=== PATIENT | male | born 1940 | race Caucasian/White ===

== ENCOUNTER 2018-08-17 10:43 | Day surgery (SDC) | payer MEDICARE, OTHER ==
[~2018-08-17] VITALS: Ht 172.7 cm; Wt 87.5 kg
[~2018-08-17 10:43] MED LIST: ALPR.25T PO; ALPR0.25 PO; AMLO5TAB7 PO; ASCO500T20 PO; ASP325T PO; ASP81CT PO; ASPI-983 PO; ATOR80TA2 PO; ATOR80TA64 PO; Atorvastatin Calcium PO; CALC-656 PO; CALC-913 PO; CARV12.53 PO; CEFU500T5 PO; CLOB15CR2 TP; CLOP75TA PO; CLOP75TA69 PO; CLPD75T PO; CYAN10007 PO; DIGO250T96 PO; ENAL10TA PO; ENAL5TAB PO; ENLP10T PO; ERGO400C PO; FENO145T2 PO; GEMF600T3 PO; ISOS30TA3 PO; Isosorbide Mononitrate PO; KCL20TCR PO; LEVO1CAP3 PO; LOSA100T7 PO; Levofloxacin PO; MAGN400T6 PO; METF-380 PO; METO25TA2 PO; METO25TA6 PO; MULT1CAP27 PO; MULT1TAB69 PO; NIA500ERT PO; NIAC1000 PO; NITR0.4T SL; OMEG1CAP74 PO; OMG1KC PO; Omega 3 Polyunsat Fatty Acids PO; PNT40TEC PO; POTA99TA7 PO; SILV25CR TP; SIMV20TA3 PO; SUCR1TAB23 PO; Sucralfate PO; VITA-198 PO; VITA100D PO
[2018-08-17] MEDS ORDERED: NS IV 1000 ML 1,000 ML IV SCH ×2 (10:46→12:47)
--- OUTSIDE RECORDS SUMMARY | 2018-08-17 10:50 | XMS REPORT | Continuity of Care Document ---
Author Author [facility] Organization [facility] Address Unknown Phone Unavailable Allergies Active Description Code Type Severity Reaction Onset Reported/Identified Relationship to Patient Clinical Status Yes NKANo Known Allergies NKA Miscellaneous Allergy Unknown N/A 09/02/2006 Yes eptifibatide [id number] Drug Allergy Unknown N/A 10/22/2014 Medications There is no data. Problems Date Dx Coded Attending Type Code Diagnosis Diagnosed By 09/05/2010 Ot 414.00 09/05/2010 Ot 729.81 09/05/2010 Ot 782.3 09/05/2010 Ot V45.81 09/05/2010 Ot V58.69 02/11/2011 Ot 250.00 02/11/2011 Ot 272.4 02/11/2011 Ot 401.9 02/11/2011 Ot 414.01 02/11/2011 Ot 414.02 02/11/2011 Ot 414.2 02/11/2011 Ot 428.0 02/11/2011 Ot 433.10 02/11/2011 Ot 518.89 02/11/2011 Ot V45.81 02/11/2011 Ot V58.66 02/11/2011 Ot V58.69 02/19/2011 Ot 250.00 02/19/2011 Ot 272.4 02/19/2011 Ot 285.9 02/19/2011 Ot 287.5 02/19/2011 Ot 403.90 02/19/2011 Ot 414.01 02/19/2011 Ot 414.02 02/19/2011 Ot 428.0 02/19/2011 Ot 433.10 02/19/2011 Ot 518.89 02/19/2011 Ot 585.3 02/19/2011 Ot V15.82 02/19/2011 Ot V17.49 02/19/2011 Ot V45.81 02/19/2011 Ot V58.66 02/19/2011 Ot V58.69 06/03/2013 RAJWINDER BLAKE, EMELI Heller Ot 239.0 06/03/2013 RAJWINDER BLAKE, EMELI R Ot 250.00 06/03/2013 RAJWINDER BLAKE, EMELI R Ot 272.4 06/03/2013 RAJWINDER BLAKE, EMELI R Ot 287.5 06/03/2013 RAJWINDER BLAKE, EMELI R Ot 414.01 06/03/2013 RAJWINDER BLAKE, EMELI R Ot 486 06/03/2013 RAJWINDER BLAKE, EMELI R Ot 574.20 06/03/2013 RAJWINDER BLAKE, EMELI R Ot 591 06/03/2013 RAJWINDER BLAKE, EMELI R Ot 592.0 06/03/2013 RAJWINDER BLAKE, EMELI R Ot 600.00 06/03/2013 RAJWINDER BLAKE, EMELI R Ot 607.84 06/03/2013 RAJWINDER BLAKE, EMELI R Ot 789.01 06/03/2013 RAJWINDER BLAKE, EMELI R Ot 789.03 06/23/2013 JOSE BLAKE, LIZZY S Ot 250.00 06/23/2013 JOSE BLAKE, LIZZY S Ot 272.4 06/23/2013 JOSE BLAKE, LIZZY S Ot 401.9 06/23/2013 JOSE BLAKE, LIZZY S Ot 414.01 06/23/2013 JOSE BLAKE, LIZZY S Ot 428.0 06/23/2013 JOSE BLAKE, LIZZY S Ot 433.10 06/23/2013 JOSE BLAKE, LIZZY S Ot 440.21 06/23/2013 JOSE BLAKE, LIZZY S Ot 440.4 06/23/2013 JOSE BLAKE, LIZZY S Ot V45.82 06/23/2013 JOSE BLAKE, LIZZY S Ot V58.69 06/23/2013 RAJWINDER BLAKE, EMELI R Ot 781.3 06/23/2013 RAJWINDER BLAKE, EMELI R Ot V57.1 09/27/2014 Ot 715.35 09/27/2014 Ot 285.9 09/27/2014 Ot 518.89 09/27/2014 Ot 786.09 09/27/2014 Ot 250.00 09/27/2014 Ot 518.89 09/27/2014 Ot 574.20 09/27/2014 Ot 250.00 09/27/2014 Ot 273.1 09/27/2014 Ot 284.1 09/27/2014 Ot 414.00 09/27/2014 Ot 585.3 09/27/2014 Ot V58.63 09/27/2014 Ot V58.66 09/27/2014 Ot V58.69 09/27/2014 Ot 586 09/27/2014 Ot 586 09/27/2014 RAJWINDER BLAKE, EMELI Heller Ot 440.20 10/08/2014 ARIELLE CHAVEZ MD Ot 041.49 10/08/2014 KATHY BLAKE, ARIELLE Reynoso Ot 250.00 10/08/2014 KATHY BLAKE, ARIELLE Reynoso Ot 272.4 10/08/2014 ARIELLE CHAVEZ MD Ot 285.1 10/08/2014 ARIELLE CHAVEZ MD Ot 287.5 10/08/2014 ARIELLE CHAVEZ MD Ot 403.90 10/08/2014 ARIELLE CHAVEZ MD Ot 410.71 10/08/2014 ARIELLE CHAVEZ MD Ot 414.01 10/08/2014 ARIELLE CHAVEZ MD Ot 443.9 10/08/2014 ARIELLE CHAVEZ MD Ot 531.40 10/08/2014 ARIELLE CHAVEZ MD Ot 531.90 10/08/2014 ARIELLE CHAVEZ MD Ot 532.90 10/08/2014 ARIELLE CHAVEZ MD Ot 553.3 10/08/2014 ARIELLE CHAVEZ MD Ot 585.9 10/08/2014 ARIELLE CHAVEZ MD Ot 599.0 10/08/2014 ARIELLE CHAVEZ MD Ot 707.13 10/08/2014 ARIELLE CHAVEZ MD Ot 792.1 10/08/2014 ARIELLE CHAVEZ MD Ot 996.72 10/22/2014 Ot 250.00 10/22/2014 Ot 403.90 10/22/2014 Ot 410.72 10/22/2014 Ot 414.01 10/22/2014 Ot 440.0 10/22/2014 Ot 440.20 10/22/2014 Ot 440.4 10/22/2014 Ot 585.9 10/22/2014 Ot 707.15 10/22/2014 Ot V15.82 10/22/2014 Ot V45.81 10/22/2014 Ot V58.69 10/24/2014 ARIELLE CHAVEZ MD Ot 272.4 10/24/2014 KATHY BLAKE, ARIELLE Reynoso Ot 401.9 10/24/2014 KATHY BLAKE, ARIELLE Reynoso Ot 414.00 10/24/2014 KATHY BLAKE, ARIELLE Reynoso Ot 433.10 10/25/2014 KATHY BLAKE, ARIELLE Reynoso Ot 272.4 10/25/2014 KATHY BLAKE, ARIELLE Reynoso Ot 401.9 10/25/2014 KATHY BLAKE, ARIELLE Reynoso Ot 414.00 10/25/2014 KATHY BLAKE, ARIELLE Reynoso Ot 433.10 10/30/2014 Ot 250.00 10/30/2014 Ot 272.4 10/30/2014 Ot 403.90 10/30/2014 Ot 410.72 10/30/2014 Ot 414.01 10/30/2014 Ot 440.21 10/30/2014 Ot 440.4 10/30/2014 Ot 585.9 10/30/2014 Ot 707.15 10/30/2014 Ot V45.81 10/30/2014 Ot V58.69 11/13/2014 Ot 250.00 11/13/2014 Ot 403.90 11/13/2014 Ot 412 11/13/2014 Ot 414.00 11/13/2014 Ot 440.21 11/13/2014 Ot 440.4 11/13/2014 Ot 585.9 11/13/2014 Ot V12.51 11/13/2014 Ot V45.81 11/13/2014 Ot V45.82 11/13/2014 Ot V45.89 11/13/2014 Ot V58.69 11/21/2014 Ot 285.9 11/21/2014 Ot 518.89 11/21/2014 Ot 786.09 11/21/2014 Ot 250.00 11/21/2014 Ot 518.89 11/21/2014 Ot 574.20 11/21/2014 Ot 250.00 11/21/2014 Ot 273.1 11/21/2014 Ot 284.1 11/21/2014 Ot 414.00 11/21/2014 Ot 585.3 11/21/2014 Ot V58.63 11/21/2014 Ot V58.66 11/21/2014 Ot V58.69 11/21/2014 Ot 586 11/21/2014 Ot 586 11/21/2014 RAJWINDER BLAKE, EMELI Heller Ot 440.20 11/21/2014 KATHY BLAKE, BASHAR J Ot 272.4 11/21/2014 KATHY BLAKE, BASHAR J Ot 401.9 11/21/2014 KATHY BLAKE, BASHAR J Ot 414.00 11/21/2014 KATHY BLAKE, BASHAR J Ot 433.10 11/21/2014 KATHY BLAKE, BASHAR J Ot 272.4 11/21/2014 KATHY BLAKE, BASHAR J Ot 401.9 11/21/2014 KATHY BLAKE, BASHAR J Ot 414.00 11/21/2014 KATHY BLAKE, BASHAR J Ot 433.10 11/21/2014 KATHY BLAKE, BASHAR J Ot 272.4 11/21/2014 KATHY BLAKE, BASHAR J Ot 401.9 11/21/2014 KATHY BLAKE, BASHAR J Ot 414.00 11/21/2014 KATHY BLAKE, BASHAR J Ot 433.10 11/21/2014 KATHY BLAKE, BASHAR J Ot 272.4 11/21/2014 KATHY BLAKE, BASHAR J Ot 401.9 11/21/2014 KATHY BLAKE, BASHAR J Ot 414.00 11/21/2014 KATHY BLAKE, BASHAR J Ot 433.10 11/21/2014 KATHY BLAKE, BASHAR J Ot 272.4 11/21/2014 KATHY BLAKE, BASHAR J Ot 401.9 11/21/2014 KATHY BLAKE, BASHAR J Ot 414.00 11/21/2014 KATHY BLAKE, BASHAR J Ot 433.10 01/01/2015 KATHY BLAKE, BASHAR J Ot 412 01/01/2015 KATHY BLAKE, BASHAR J Ot V45.82 01/01/2015 KATHY BLAKE, BASHAR J Ot V57.89 01/02/2015 KATHY BLAKE, BASHAR J Ot 412 01/02/2015 KATHY BLAKE, BASHAR J Ot V45.82 01/02/2015 KATHY BLAKE, BASHAR J Ot V57.89 01/10/2015 KATHY BLAKE, BASHAR J Ot 272.4 01/10/2015 KATHY BLAKE, BASHAR J Ot 401.9 01/10/2015 KATHY BLAKE, BASHAR J Ot 414.00 01/10/2015 KATHY BLAKE, BASHAR J Ot 433.10 01/10/2015 KATHY BLAKE, BASHAR J Ot 272.4 01/10/2015 ARIELLE CHAVEZ MD Ot 401.9 01/10/2015 ARIELLE CHAVEZ MD Ot 414.00 01/10/2015 ARIELLE CHAVEZ MD Ot 433.10 07/01/2015 CHARLENE ESTES Ot E78.2 07/01/2015 CHARLENE ESTES Ot I10 07/01/2015 CHARLENE ESTES Ot I25.10 07/01/2015 CHARLENE ESTES Ot I65.23 07/11/2015 CHARLENE ESTES Ot E78.2 07/11/2015 CHARLENE ESTES Ot I10 07/11/2015 CHARLENE ESTES Ot I25.10 07/11/2015 CHARLENE ESTES Ot I65.23 07/19/2015 ARIELLE CHAVEZ MD Ot E11.9 TYPE 2 DIABETES MELLITUS WITHOUT COMPLIC 07/19/2015 ARIELLE CHAVEZ MD Ot E78.5 HYPERLIPIDEMIA, UNSPECIFIED 07/19/2015 ARIELLE CHAVEZ MD Ot I12.9 HYPERTENSIVE CHRONIC KIDNEY DISEASE W ST 07/19/2015 ARIELLE CHAVEZ MD Ot I25.10 ATHSCL HEART DISEASE OF [place] CORONARY 07/19/2015 ARIELLE CHAVEZ MD Ot 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[place] 07/19/2015 ARIELLE CHAVEZ MD Ot I77.9 DISORDER OF ARTERIES AND ARTERIOLES, UNS 07/19/2015 ARIELLE CHAVEZ MD, Ot N18.9 CHRONIC KIDNEY DISEASE, UNSPECIFIED 07/19/2015 ARIELLE CHAVEZ MD Ot R94.39 ABNORMAL RESULT OF OTHER CARDIOVASCULAR 07/19/2015 ARIELLE CHAVEZ MD Ot Z79.899 OTHER CORRECTION (CURRENT) DRUG THERAPY 07/19/2015 ARIELLE CHAVEZ MD, Ot Z91.19 PATIENT'S NONCOMPLIANCE W [facility] 07/19/2015 ARIELLE CHAVEZ MD, Ot Z95.1 PRESENCE OF AORTOCORONARY BYPASS GRAFT 07/22/2015 CHARLENE ESTES Ot E78.2 07/22/2015 CHARLENE ESTES Ot I10 07/22/2015 CHARLENE ESTES Ot I25.10 07/22/2015 CHARLENE ESTES Ot I65.23 07/31/2015 CHARLENE ESTES Ot E78.2 07/31/2015 CHARLENE ESTES Ot I10 07/31/2015 CHARLENE ESTES Ot I25.10 07/31/2015 CHARLENE ESTES Ot I65.23 08/28/2015 Ot 285.9 08/28/2015 Ot 518.89 08/28/2015 Ot 786.09 08/28/2015 Ot 250.00 08/28/2015 Ot 518.89 08/28/2015 Ot 574.20 08/28/2015 Ot 250.00 08/28/2015 Ot 273.1 08/28/2015 Ot 284.1 08/28/2015 Ot 414.00 08/28/2015 Ot 585.3 08/28/2015 Ot V58.63 08/28/2015 Ot V58.66 08/28/2015 Ot V58.69 08/28/2015 Ot 586 08/28/2015 Ot 586 08/28/2015 RAJWINDER BLAKE, EMELI R Ot 440.20 08/28/2015 KATHY BLAKE, ARIELLE Reynoso Ot 272.4 08/28/2015 KATHY BLAKE, ARIELLE Reynoso Ot 401.9 08/28/2015 KATHY BLAKE, ARIELLE Reynoso Ot 414.00 08/28/2015 KATHY BLAKE, ARIELLE Reynoso Ot 433.10 08/28/2015 KATHY BLAKE, ARIELLE Reynoso Ot 272.4 08/28/2015 KATHY BLAKE, ARIELLE Reynoso Ot 401.9 08/28/2015 KATHY BLAKE, ARIELLE Reynoos Ot 414.00 08/28/2015 KATHY BLAKE, ARIELLE Reynoso Ot 433.10 08/28/2015 CHARLENE ESTES Ot E78.2 08/28/2015 CHARLENE ESTES Ot I10 08/28/2015 CHARLENE ESTES Ot I25.10 08/28/2015 CHARLENE ESTES Ot I65.23 08/28/2015 CHARLENE ESTES Ot E78.2 08/28/2015 [facility], CHARLENE K Ot I10 08/28/2015 [facility], CHARLENE K Ot I25.10 08/28/2015 [facility], CHARLENE K Ot I65.23 08/28/2015 [facility], CHARLENE K Ot E78.2 08/28/2015 [facility], CHARLENE K Ot I10 08/28/2015 [facility], CHARLENE K Ot I25.10 08/28/2015 [facility], CHARLENE K Ot I65.23 08/28/2015 [facility], CHARLENE K Ot E78.2 08/28/2015 [facility], CHARLENE K Ot I10 08/28/2015 [facility], CHARLENE K Ot I25.10 08/28/2015 [facility], CHARLENE K Ot I65.23 08/28/2015 [facility], CHARLENE K Ot E78.2 08/28/2015 [facility], CHARLENE K Ot I10 08/28/2015 [facility], CHARLENE K Ot I25.10 08/28/2015 [facility], CHARLENE K Ot I65.23 12/19/2015 [facility], CHARLENE K Ot E78.2 MIXED HYPERLIPIDEMIA 12/19/2015 [facility], CHARLENE K Ot I10 ESSENTIAL (PRIMARY) HYPERTENSION 12/19/2015 [facility], CHARLENE K Ot I25.10 ATHSCL HEART DISEASE OF [place] CORONARY 12/19/2015 [facility], CHARLENE K Ot 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 12/19/2015 [facility], CHARLENE K Ot E78.2 MIXED HYPERLIPIDEMIA 12/19/2015 [facility], CHARLENE K Ot I10 ESSENTIAL (PRIMARY) HYPERTENSION 12/19/2015 [facility], CHARLENE K Ot I25.10 ATHSCL HEART DISEASE OF [place] CORONARY 12/19/2015 [facility], CHARLENE K Ot 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 Results There is no data. Encounters ACCT No. Visit Date/Time Discharge Status Pt. Type Provider Facility Loc./Unit Complaint [id number] 07/19/2015 11:02:00 07/19/2015 18:00:00 DIS Outpatient ARIELLE CHAVEZ MD [facility] [id number] 07/10/2015 07:58:00 07/10/2015 23:59:59 CLS Outpatient CHARLENE ESTES [facility] CARD [id number] 06/27/2015 10:48:00 06/27/2015 23:59:59 CLS Outpatient CHARLENE ESTES [facility] CARD [id number] 12/31/2014 12:02:00 01/02/2015 09:05:00 DIS Outpatient ARIELLE CHAVEZ MD [facility] [id number] 10/19/2014 12:27:00 10/19/2014 23:59:59 CLS Preadmit SACHIN LOCO MD [facility] ONC [id number] 10/01/2014 16:30:00 10/08/2014 19:27:00 DIS Inpatient ARIELLE CHAVEZ MD [facility] [id number] 10/04/2014 11:30:00 10/04/2014 23:59:59 CLS Preadmit ARIELLE CHAVEZ MD [facility] [id number] 09/28/2014 07:08:00 09/28/2014 23:59:59 CLS Outpatient ARIELLE CHAVEZ MD [facility] CARD [id number] 09/27/2014 15:18:00 09/27/2014 23:59:59 CLS Outpatient ARIELLE CHAVEZ MD [facility] CARD [id number] 06/14/2013 13:00:00 06/23/2013 14:08:00 DIS Outpatient EMELI PURDY MD [facility] REHAB [id number] 06/22/2013 09:04:00 06/23/2013 12:13:00 DIS Outpatient LIZZY GARCIA MD [facility] [id number] 06/02/2013 12:32:00 06/03/2013 11:55:00 DIS Inpatient EMELI PURDY MD [facility] SURGICAL [id number] 05/24/2013 08:35:00 05/24/2013 23:59:59 CLS Outpatient EMELI PURDY MD [facility] RAD [id number] 11/21/2014 09:50:00 Document Registration [id number] 10/29/2014 07:08:00 Document Registration [id number] 10/22/2014 06:39:00 Document Registration [id number] 09/27/2014 15:18:00 Document Registration [id number] 08/09/2012 13:47:00 Document Registration [id number] 08/06/2012 09:49:00 Document Registration [id number] 03/13/2011 09:55:00 Document Registration [id number] 02/18/2011 08:52:00 Document Registration [id number] 02/12/2011 08:18:00 Document Registration [id number] 02/11/2011 11:02:00 Document Registration [id number] 02/05/2011 11:24:00 Document Registration [id number] 09/05/2010 14:12:00 Document Registration [id number] 05/14/2009 10:06:00 Document Registration
[2018-08-17] MEDS ORDERED: HEParin (CATH LAB) 2,000 ML IV ONE (10:51)
[2018-08-17] MEDS ORDERED: NS IV 1000 ML 1,000 ML ONE (10:51)
[2018-08-17] MEDS ORDERED: LIDOCAINE 1% INJ 20 ML 20 ML VIAL ONE (10:51)
[2018-08-17 11:05] VITALS: BP 205/94
[2018-08-17] MEDS ORDERED: MIDAZOLAM 5 MG/5 ML (VERSED) VIAL ONE (11:21)
[2018-08-17 11:22] LABS: HEMOGLOBIN 12.9 G/DL (13.3-17.7); MEAN PLATELET VOLUME 11.3 FL (7.4-10.4); RED BLOOD COUNT 4.32 10^6/uL (4.35-5.85); RED CELL DISTRIBUTION WIDTH 14.1 % (10.0-14.5); WHITE BLOOD COUNT 6.4 10^3/uL (4.3-11.0)
[2018-08-17] MEDS ORDERED: fentaNYL INJECTION 100 MCG/2 ML AMP ONE (11:22)
--- NOTE | 2018-08-17 11:29 | Cardiac Procedure Note-CS/ASA ---
Pre-Procedure Note Pre-Op Procedure Note H&P Reviewed The H&P was reviewed, patient examined and no changes noted. Date H&P Reviewed: Aug 17, 2018 Time H&P Reviewed: 11:29 Conscious Sedation Pre-Proced Time 11:29 ASA Score 3 For ASA 3 and 4: Consider anesthesia and medical clearance. Also, for patients with a history of failed moderate sedation consider anesthesia. Airway Lungs Heart ASA score ASA 1: a normal healthy patient ASA 2: a patient with a mild systemic disease (mid diabetes, controlled hypertension, obesity x ASA 3: a patient with a severe systemic disease that limits activity (angina , COPD, prior Myocardial infarction) ASA 4: a patient with an incapacitating disease that is a constant threat to life (CHF, renal failure) ASA 5: a moribund patient not expected to survive 24 hrs. (ruptured aneurysm) ASA 6: a declared brain patient whose organs are being harvested. For emergent operations, add the letter E after the classification Mallampati Classification Grade 3 Sedation Plan Analgesia, Amnesia, Plan communicated to team members, Discussed options with patient/fam, Discussed risks with patient/fam The patient is an appropriate candidate to undergo the planned procedure, sedation, and anesthesia. The patient immediately re-assessed prior to indication. ARIELLE CHAVEZ MD Aug 17, 2018 11:29
[2018-08-17 11:33] LABS: BILIRUBIN,URINE NEGATIVE (NEGATIVE); CLARITY,URINE CLEAR; COLOR,URINE YELLOW; GLUCOSE, URINE (UA) NEGATIVE (NEGATIVE); KETONES,URINE NEGATIVE (NEGATIVE); LEUKOCYTE ESTERASE ,URINE NEGATIVE (NEGATIVE); NITRITE,URINE NEGATIVE (NEGATIVE); PH,URINE 5 (5-9); PROTEIN,URINE 3+ (NEGATIVE); UROBILINOGEN,URINE NORMAL (NORMAL)
[2018-08-17 11:34] LABS: PROTHROMBIN TIME PATIENT 13.3 SEC (12.2-14.7)
[2018-08-17] MEDS ORDERED: GEMF600T4 PO (11:34)
[2018-08-17] MEDS ORDERED: ALPR0.25 PO (11:34)
[2018-08-17] MEDS ORDERED: OMG1KC PO (11:34)
[2018-08-17] MEDS ORDERED: CALC-78 PO (11:34)
[2018-08-17] MEDS ORDERED: ISOS30TA3 PO (11:34)
[2018-08-17] MEDS ORDERED: METF-399 PO (11:34)
[2018-08-17] MEDS ORDERED: MAGN400T50 PO (11:34)
[2018-08-17] MEDS ORDERED: VITA400C60 PO (11:34)
[2018-08-17] MEDS ORDERED: CYAN10006 PO (11:34)
[2018-08-17] MEDS ORDERED: LOSA100T8 PO (11:34)
[2018-08-17] MEDS ORDERED: ASPI-983 PO (11:34)
[2018-08-17] MEDS ORDERED: ATOR20TA66 PO (11:34)
[2018-08-17] MEDS ORDERED: NITR0.4T42 SL (11:34)
[2018-08-17] MEDS ORDERED: CLOP75TA69 PO (11:34)
[2018-08-17] MEDS ORDERED: METO-387 PO (11:34)
[2018-08-17] MEDS ORDERED: PANT40TA2 PO (11:34)
--- NOTE | 2018-08-17 11:38 | Diagnostic Imaging Report ---
INDICATION: Coronary artery disease COMPARISON: 07/19/2015 FINDINGS: The heart size and configuration stable. Sternal wires midline. No failure, effusion or pneumothorax. Hyperdense nodularity right lower lobe laterally of about 1.5 cm unchanged from a study of 2015 chronic and benign. IMPRESSION: Stable chest no acute abnormality. Dictated by: Dictated on workstation # [id number]
[2018-08-17 11:40] LABS: ALANINE AMINOTRANSFERASE 84 U/L (0-55); ALBUMIN 5.3 GM/DL (3.2-4.5); ALKALINE PHOSPHATASE 76 U/L (40-136); BILIRUBIN,TOTAL 0.5 MG/DL (0.1-1.0); BUN/CREATININE RATIO 19; CALCIUM 10.3 MG/DL (8.5-10.1); CARBON DIOXIDE 21 MMOL/L (21-32); CHLORIDE 108 MMOL/L (98-107); CHOLESTEROL 249 MG/DL (< 200); CREATININE SERUM 2.04 MG/DL (0.60-1.30); GFR ESTIMATED 32; GLUCOSE 169 MG/DL (70-105); HDL CHOLESTEROL 33 MG/DL (40-60); POTASSIUM 4.4 MMOL/L (3.6-5.0); SODIUM 141 MMOL/L (135-145); TOTAL PROTEIN 8.5 GM/DL (6.4-8.2); TRIGLYCERIDES 284 MG/DL (<150); VLDL CHOLESTEROL 57 MG/DL (5-40)
[2018-08-17 11:45] LABS: BACTERIA,URINE NEGATIVE /HPF; HYALINE CASTS, URINE 0-2 /LPF; RBC,URINE RARE /HPF; SQUAMOUS EPITHELIAL CELL,UR RARE /HPF; WBC,URINE 0-2 /HPF
[2018-08-17] MEDS ORDERED: FLU QUADRIvalent (5+ YOA) 2018-2019 (AFLURIA) 0.5 ML IM ONE (12:15)
--- NOTE | 2018-08-17 12:53 | Cardiac Cath Report ---
Cardiac Cath Report Physician (s)/Manager Personnel Selection (s) Physician ARIELLE CHAVEZ MD Pre-Procedure Diagnosis Pre-Procedure Diagnosis: coronary artery disease Post-Procedure Note Procedure Start Date: Aug 17, 2018 Procedure Start Time: 12:48 Name of Procedure: coronary artery disease Findings/Procedure Note PROCEDURE NOTE: After explaining the procedure to the patient, all pros and cons were explained , all questions were answered. The patient signed the consent and then he was placed on the cardiac catheterization laboratory. Groin was prepped SL fashion local anesthesia was used. Sheath placed in the left femoral artery. Faustino right and left catheter were used to access the coronary system.Vein Graft evaluated. ALVARADO evaluated. limited contrast used, I only used a total of 16 mL of contrast. At the end of the procedure sheath was removed and manual pressure applied FINDINGS: Hemodynamics Aorta 118/48 mean of 50 ANATOMY: Left Main has severe distal stenosis Left Anterior Descending has severe ostial stenosis, ALVARADO to LAD is patent Left Circumflex has severe ostial stenosis, vein graft to the obtuse marginal branch is patent Right Coronory Artery is occluded and occluded vein graft to the right coronary artery with collaterals filling the right from the left system ALVARADO to LAD is patent with good flow distally Vein Graft evaluation showed 2 vein graft one vein graft to the obtuse marginal branch is patent with good flow, the second vein graft is occluded known to be to the right coronary artery CONCLUSION: 1. Occluded right coronary artery and vein graft to the right coronary artery with collaterals filling the right from the left system 2. Severe ostial LAD and circumflex and ramus intermedius disease with patent ALVARADO to LAD and vein graft to the obtuse marginal branch 3. Severe peripheral arterial disease, did not evaluate the full anatomy due to the underlying renal insufficiency DISCUSSION AND RECOMMENDATION: Continue to maximize medical therapy. No intervention is warranted at this time Anesthesia Type: Conscious Sedation Estimated blood loss (mL): 10 ml Contrast Amount: 16 ml Total Radiation Dose: 389 mGy Post-Procedure Diagnosis Post-operative diagnosis: Chest pain Coronary artery disease Hypertension Hyperlipidemia ARIELLE CHAVEZ MD Aug 17, 2018 12:53
[2018-08-17] MEDS ORDERED: PATIENT MAY USE OWN MEDS, ALL PO SCH (13:00)
[2018-08-17 13:30] VITALS: BP 139/80
--- NOTE | 2018-08-17 13:38 | Discharge Inst-Post CATH ---
Discharge Inst-CATH/EP Post Cardiac Cath/EP D/C Inst Follow Up/Plan Hold Metformin for [address] Centeno in 2-4 weeks CARDIAC CATH DISCHARGE INSTRUCTIONS *Hold Metformin for 48 hours post heart cath. ACTIVITY * Go Home directly and rest. * Limit activity of the leg (or wrist if it was used) for 7 days including aerobics, swimming, jogging, bicycling, etc. * Restrict stair-climbing for 7 days if possible, if not, climb up with your non -cath leg, then bring together on the same step. * Avoid lifting, pushing, pulling or excessive movement of the affected extremity for 7 days. * Customary sexual activity may be resumed after 2 days-use caution not to use a position that strains or causes pain to the affected extremity. * No driving for 24 hours. * NO SMOKING. * Avoid straining for bowel movements for 7 days. * Gentle walking on level ground is allowed. * Returning to work will depend on the type of procedure and the results. Your doctor will discuss this with you. CALL YOUR DOCTOR FOR ANY OF THE FOLLOWING: *If bleeding from the puncture site occurs- Apply gentle pressure to site with clean cloth and call your doctor or EMS. * If a knot or lump forms under the skin, increases in size, or causes pain. * If bruising appears to be worsening or moving further down your leg instead of disappearing. * Temperature above 101 F. CARE OF YOUR GROIN INCISION; * Bruising or purple discoloration of the skin near the puncture site is common. * You may shower only, no bathtub bathing for 5 days. Be careful to avoid slipping as your leg may feel stiff. * If a closure device was used on your femoral artery, please see the attached guide regarding care of the device and your leg. * Leave the dressing on, until removed by office staff. CARE OF YOUR WRIST INCISION; * Bruising or purple discoloration of the skin near the puncture site is common. * You may shower. * DO NOT submerge wrist. * Leave dressing on, until removed by office staff.. ARIELLE CENTENO MD Aug 17, 2018 1:38 pm
[2018-08-17 18:11] VITALS: BP 178/67
== END 2018-08-17 18:14 | disposition home or self-care (01) ==
LOC: CATH 10:43 → ICU 13:23 → CATH 18:14
PROVIDERS: ATTEND Internal Medicine Cardiovascular Disease
DX: R07.9 Chest pain, unspecified (principal); I25.10 Atherosclerotic heart disease of native coronary artery without angina pectoris; I11.0 Hypertensive heart disease with heart failure; I50.9 Heart failure, unspecified; E78.2 Mixed hyperlipidemia; E11.9 Type 2 diabetes mellitus without complications; E78.1 Pure hyperglyceridemia; I65.22 Occlusion and stenosis of left carotid artery; I73.9 Peripheral vascular disease, unspecified; Z79.84 Long term (current) use of oral hypoglycemic drugs; Z79.899 Other long term (current) drug therapy; Z79.82 Long term (current) use of aspirin; Z87.891 Personal history of nicotine dependence
CPT/HCPCS: 36415; 71045; 80053; 80061; 81000; 85027; 85610; 85730; 87081; 93455

== ENCOUNTER 2018-08-19 17:55 | Emergency (ER) | payer MEDICARE, OTHER ==
[~2018-08-19] VITALS: Ht 172.7 cm; Wt 87.5 kg
[~2018-08-19 17:55] MED LIST changes: +ATOR20TA66 PO; +CALC-78 PO; +CYAN10006 PO; +GEMF600T4 PO; +LOSA100T8 PO; +MAGN400T50 PO; +METF-399 PO; +METO-387 PO; +NITR0.4T42 SL; +PANT40TA2 PO; +VITA400C60 PO
--- OUTSIDE RECORDS SUMMARY | 2018-08-19 18:07 | XMS REPORT | Continuity of Care Document ---
Author Author [facility] Organization [facility] Address Unknown Phone Unavailable Allergies Active Description Code Type Severity Reaction Onset Reported/Identified Relationship to Patient Clinical Status Yes NKANo Known Allergies NKA Miscellaneous Allergy Unknown N/A 09/02/2006 Yes eptifibatide [id number] Drug Allergy Unknown N/A 10/22/2014 Yes No Known Drug Allergies [id number] Drug Allergy Unknown N/A 08/17/2018 Medications There is no data. Problems Date [...] 02/19/2011 Ot V58.66 02/19/2011 Ot V58.69 06/03/2013 EMELI PURDY MD R Ot 239.0 DIGESTIVE NEOPLASM NOS 06/03/2013 EMELI PURDY MD Ot 250.00 DIAB MADELYN WO COMPL, TYPE II OR UNSPEC TY 06/03/2013 EMELI PURDY MD Ot 272.4 HYPERLIPIDEMIA NEC/NOS 06/03/2013 EMELI PURDY MD R Ot 287.5 THROMBOCYTOPENIA NOS 06/03/2013 EMELI PURDY MD R Ot 414.01 CORONARY ATHEROSCLEROSIS OF [place] CORON 06/03/2013 EMELI PURDY MD R Ot 486 PNEUMONIA, ORGANISM NOS 06/03/2013 EMELI PURDY MD R Ot 574.20 CHOLELITHIASIS NOS 06/03/2013 EMLEI PURDY MD R Ot 591 HYDRONEPHROSIS 06/03/2013 EMELI PURDY MD R Ot 592.0 CALCULUS OF KIDNEY 06/03/2013 EMELI PURDY MD R Ot 600.00 HYPERTROPHY (BENIGN) OF PROSTATE W/O URI 06/03/2013 EMELI PURDY MD R Ot 607.84 IMPOTENCE, ORGANIC ORIGN 06/03/2013 EMLEI PURDY MD R Ot 789.01 ABDOMINAL PAIN, RIGHT UPPER QUADRANT 06/03/2013 EMELI PURDY MD R Ot 789.03 ABDOMINAL PAIN, RIGHT LOWER QUADRANT 06/23/2013 LIZZY GARCIA MD Ot 250.00 DIAB MADELYN WO COMPL, TYPE II OR UNSPEC TY 06/23/2013 LIZZY GARCIA MD Ot 272.4 HYPERLIPIDEMIA NEC/NOS 06/23/2013 LIZZY GARCIA MD Ot 401.9 HYPERTENSION NOS 06/23/2013 LIZZY GARCIA MD Ot 414.01 CORONARY ATHEROSCLEROSIS OF [place] CORON 06/23/2013 LIZZY GARCIA MD Ot 428.0 CONGESTIVE HEART FAILURE NOS 06/23/2013 LIZZY GARCIA MD Ot 433.10 CAROTID ARTERY OCCLUSION W O CEREBRAL IN 06/23/2013 LIZZY GARCIA MD Ot 440.21 ATHEROSCL [place] ARTER EXTREM W INTERMIT 06/23/2013 LIZZY GARCIA MD Ot 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 06/23/2013 LIZZY GARCIA MD Ot V45.82 PERCUTANEOUS TRANSLUM CORON ANGIOPLASTY 06/23/2013 JOSE BLAKE, LIZZY Kishore Ot V58.69 OTH MED,LT,CURRENT USE 06/23/2013 EMELI PURDY MD Ot 781.3 LACK OF COORDINATION 06/23/2013 EMELI PURDY MD Ot V57.1 PHYSICAL THERAPY NEC 09/27/2014 Ot 715.35 09/27/2014 Ot 285.9 09/27/2014 Ot 518.89 09/27/2014 Ot 786.09 09/27/2014 Ot 250.00 09/27/2014 Ot 518.89 09/27/2014 Ot 574.20 09/27/2014 Ot 250.00 09/27/2014 Ot 273.1 09/27/2014 Ot 284.1 09/27/2014 Ot 414.00 09/27/2014 Ot 585.3 09/27/2014 Ot V58.63 09/27/2014 Ot V58.66 09/27/2014 Ot V58.69 09/27/2014 Ot 586 09/27/2014 Ot 586 09/27/2014 EMELI PURDY MD Ot 440.20 10/08/2014 ARIELLE CHAVEZ MD Ot 041.49 OTHER AND UNSPECIFIED ESCHERICHIA COLI [ 10/08/2014 ARIELLE CHAVEZ MD Ot 250.00 DIAB MADELYN WO COMPL, TYPE II OR UNSPEC TY 10/08/2014 ARIELLE CHAVEZ MD Ot 272.4 HYPERLIPIDEMIA NEC/NOS 10/08/2014 ARIELLE CHAVEZ MD Ot 285.1 AC POSTHEMORRHAG ANEMIA 10/08/2014 ARIELLE CHAVEZ MD Ot 287.5 THROMBOCYTOPENIA NOS 10/08/2014 ARIELLE CHAVEZ MD Ot 403.90 HYPTNSV CHR KID DIS, UNSPEC, W CHR KD ST 10/08/2014 ARIELLE CHAVEZ MD Ot 410.71 AC MYOCARDIAL INFARCT,SUBENDO INFARCT,IN 10/08/2014 ARIELLE CHAVEZ MD Ot 414.01 CORONARY ATHEROSCLEROSIS OF [place] CORON 10/08/2014 ARIELLE CHAVEZ MD Ot 443.9 PERIPH VASCULAR DIS NOS 10/08/2014 ARIELLE CHAVEZ MD Ot 531.40 CHR STOMACH ULC W HEM 10/08/2014 ARIELLE CHAVEZ MD Ot 531.90 10/08/2014 ARIELLE CHAVEZ MD Ot 532.90 DUODENAL ULCER NOS 10/08/2014 ARIELLE CHAVEZ MD Ot 553.3 DIAPHRAGMATIC HERNIA 10/08/2014 ARIELLE CHAVEZ MD Ot 585.9 CHRONIC KIDNEY DISEASE, UNSPECIFIED 10/08/2014 ARIELLE CHAVEZ MD Ot 599.0 URIN TRACT INFECTION NOS 10/08/2014 ARIELLE CHAVEZ MD Ot 707.13 ULCER OF ANKLE 10/08/2014 ARIELLE CHAVEZ MD Ot 792.1 ABN FIND-STOOL CONTENTS 10/08/2014 ARIELLE CHAVEZ MD Ot 996.72 OTH COMPLICATIONS DUE TO OTH CARD DEVICE 10/22/2014 Ot 250.00 DIAB MADELYN WO COMPL, TYPE II OR UNSPEC TY 10/22/2014 Ot 403.90 HYPTNSV CHR KID DIS, UNSPEC, W CHR KD ST 10/22/2014 Ot 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,SUBENDO INFARCT,SUBSE 10/22/2014 Ot 414.01 CORONARY ATHEROSCLEROSIS OF [place] CORON 10/22/2014 Ot 440.0 AORTIC ATHEROSCLEROSIS 10/22/2014 Ot 440.20 ATHEROSCLEROSIS [place] ARTERIES EXTREMIT 10/22/2014 Ot 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 10/22/2014 Ot 585.9 CHRONIC KIDNEY DISEASE, UNSPECIFIED 10/22/2014 Ot 707.15 ULCER OF OTHER PART OF FOOT 10/22/2014 Ot V15.82 HISTORY OF TOBACCO USE 10/22/2014 Ot V45.81 AORTOCORONARY BYPASS 10/22/2014 Ot V58.69 OTH MED,LT, CURRENT USE 10/24/2014 ARIELLE CHAVEZ MD Ot 272.4 10/24/2014 ARIELLE CHAVEZ MD Ot 401.9 10/24/2014 ARIELLE CHAVEZ MD Ot 414.00 10/24/2014 ARIELLE CHAVEZ MD Ot 433.10 10/25/2014 ARIELLE CHAVEZ MD Ot 272.4 10/25/2014 ARIELLE CHAVEZ MD Ot 401.9 10/25/2014 ARIELLE CHAVEZ MD Ot 414.00 10/25/2014 ARIELLE CHAVEZ MD Ot 433.10 10/30/2014 Ot 250.00 DIAB MADELYN WO COMPL, TYPE II OR UNSPEC TY 10/30/2014 Ot 272.4 HYPERLIPIDEMIA NEC/NOS 10/30/2014 Ot 403.90 HYPTNSV CHR KID DIS, UNSPEC, W CHR KD ST 10/30/2014 Ot 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,SUBENDO INFARCT,SUBSE 10/30/2014 Ot 414.01 CORONARY ATHEROSCLEROSIS OF [place] CORON 10/30/2014 Ot 440.21 ATHEROSCL [place] ARTER EXTREM W INTERMIT 10/30/2014 Ot 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 10/30/2014 Ot 585.9 CHRONIC KIDNEY DISEASE, UNSPECIFIED 10/30/2014 Ot 707.15 ULCER OF OTHER PART OF FOOT 10/30/2014 Ot V45.81 AORTOCORONARY BYPASS 10/30/2014 Ot V58.69 OTH MED,LT, CURRENT USE 11/13/2014 Ot 250.00 DIAB MADELYN WO COMPL, TYPE II OR UNSPEC TY 11/13/2014 Ot 403.90 HYPTNSV CHR KID DIS, UNSPEC, W CHR KD ST 11/13/2014 Ot 412 OLD MYOCARDIAL INFARCT 11/13/2014 Ot 414.00 CORON ATHEROSCLER NOS TYPE VESSEL, NATIV 11/13/2014 Ot 440.21 ATHEROSCL [place] ARTER EXTREM W INTERMIT 11/13/2014 Ot 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 11/13/2014 Ot 585.9 CHRONIC KIDNEY DISEASE, UNSPECIFIED 11/13/2014 Ot V12.51 HX-VENOUS THROMBOSIS EMBOLISM 11/13/2014 Ot V45.81 AORTOCORONARY BYPASS 11/13/2014 Ot V45.82 PERCUTANEOUS TRANSLUM CORON ANGIOPLASTY 11/13/2014 Ot V45.89 POSTSURGICAL STATES NEC 11/13/2014 Ot V58.69 OTH MED,LT, CURRENT USE 11/21/2014 Ot 285.9 11/21/2014 Ot 518.89 11/21/2014 Ot 786.09 11/21/2014 Ot 250.00 11/21/2014 Ot 518.89 11/21/2014 Ot 574.20 11/21/2014 Ot 250.00 11/21/2014 Ot 273.1 11/21/2014 Ot 284.1 11/21/2014 Ot 414.00 11/21/2014 Ot 585.3 11/21/2014 Ot V58.63 11/21/2014 Ot V58.66 11/21/2014 Ot V58.69 11/21/2014 Ot 586 11/21/2014 Ot 586 11/21/2014 RAJWINDER BLAKE, EMELI R Ot 440.20 11/21/2014 KATHY BLAKE, ARIELLE Reynoso Ot 272.4 11/21/2014 KATHY BLAKE, ARIELLE Reynoso Ot 401.9 11/21/2014 KATHY BLAKE, ARIELLE Reynoso Ot 414.00 11/21/2014 KATHY BLAKE, ARIELLE Reynoso Ot 433.10 11/21/2014 KATHY BLAKE, ARIELLE Reynoso Ot 272.4 11/21/2014 KATHY BLAKE, ARIELLE J Ot 401.9 11/21/2014 KATHY BLAKE, ARIELLE J Ot 414.00 11/21/2014 KATHY BLAKE, ARIELLE Reynoso Ot 433.10 11/21/2014 KATHY BLAKE, ARIELLE J Ot 272.4 11/21/2014 KATHY BLAKE, ARIELLE Reynoso Ot 401.9 11/21/2014 KATHY BLAKE, ARIELLE Reynoso Ot 414.00 11/21/2014 ARIELLE CHAVEZ MD Ot 433.10 11/21/2014 ARIELLE CHAVEZ MD Ot 272.4 11/21/2014 KATHY BLAKE, ARIELLE J Ot 401.9 11/21/2014 KATHY BLAKE, ARIELLE J Ot 414.00 11/21/2014 KATHY BLAKE, ARILELE Reynoso Ot 433.10 11/21/2014 ARIELLE CHAVEZ MD Ot 272.4 11/21/2014 ARIELLE CHAVEZ MD Ot 401.9 11/21/2014 ARIELLE CHAVEZ MD Ot 414.00 11/21/2014 ARIELLE CHAVEZ MD Ot 433.10 01/01/2015 ARIELLE CHAVEZ MD Ot 412 01/01/2015 ARIELLE CHAVEZ MD Ot V45.82 01/01/2015 ARIELLE CHAVEZ MD Ot V57.89 01/02/2015 ARIELLE CHAVEZ MD Ot 412 OLD MYOCARDIAL INFARCT 01/02/2015 ARIELLE CHAVEZ MD Ot V45.82 PERCUTANEOUS TRANSLUM CORON ANGIOPLASTY 01/02/2015 ARIELLE CHAVEZ MD Ot V57.89 REHABILITATION PROC NEC 01/10/2015 ARIELLE CHAVEZ MD Ot 272.4 01/10/2015 ARIELLE CHAVEZ MD Ot 401.9 01/10/2015 ARIELLE CHAVEZ MD Ot 414.00 01/10/2015 ARIELLE CHAVEZ MD Ot 433.10 01/10/2015 ARIELLE CHAVEZ MD Ot 272.4 01/10/2015 ARIELLE CHAVEZ MD Ot 401.9 01/10/2015 ARIELLE CHAVEZ MD Ot 414.00 01/10/2015 ARIELLE CHAVEZ MD Ot 433.10 07/01/2015 CHARLENE ESTES Ot E78.2 07/01/2015 CHARLENE ESTES Ot I10 07/01/2015 ALBIN PALOMO, CHARLENE Terry Ot I25.10 07/01/2015 CHARLENE ESTES Ot I65.23 07/11/2015 CHARLENE ESTES Ot E78.2 07/11/2015 CHARLENE ESTES Ot I10 07/11/2015 CHARLENE ESTES Ot I25.10 07/11/2015 CHARLENE ESTES Ot I65.23 07/19/2015 ARIELLE CHAVEZ MD Ot E11.9 TYPE 2 DIABETES MELLITUS WITHOUT COMPLIC 07/19/2015 ARIELLE CHAVEZ MD Ot E78.5 HYPERLIPIDEMIA, UNSPECIFIED 07/19/2015 ARIELLE CHAVEZ MD Ot I12.9 HYPERTENSIVE CHRONIC KIDNEY DISEASE W ST 07/19/2015 ARIELLE CHAVEZ MD, Ot I25.10 ATHSCL HEART DISEASE OF [place] CORONARY 07/19/2015 ARIELLE CHAVEZ MD Ot 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[place] 07/19/2015 ARIELLE CHAVEZ MD Ot I77.9 DISORDER OF ARTERIES AND ARTERIOLES, UNS 07/19/2015 ARIELLE CHAVEZ MD, Ot N18.9 CHRONIC KIDNEY DISEASE, UNSPECIFIED 07/19/2015 ARIELLE CHAVEZ MD Ot R94.39 ABNORMAL RESULT OF OTHER CARDIOVASCULAR 07/19/2015 ARIELLE CHAVEZ MD, Ot Z79.899 OTHER WELDING 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 THERAPY 07/19/2015 ARIELLE CHAVEZ MD, Ot Z91.19 PATIENT'S NONCOMPLIANCE W [facility] MED[facility] TR 07/19/2015 ARIELLE CHAVEZ MD, Ot Z95.1 PRESENCE OF AORTOCORONARY BYPASS GRAFT 07/22/2015 CHARLENE ESTES Ot E78.2 07/22/2015 ALBIN PA, CHARLENE Harrison Ot I10 07/22/2015 ALBIN PA, CHARLENE Harrison Ot I25.10 07/22/2015 ALBIN PALOMO, CHARLENE Harrison Ot I65.23 07/31/2015 ALBIN PALOMO, CHARLENE K Ot E78.2 07/31/2015 ALBIN PA, CHARLENE K Ot I10 07/31/2015 ALBIN PA, CHARLENE K Ot I25.10 07/31/2015 ALBIN PALOMO, CHARLENE Harrison Ot I65.23 08/28/2015 Ot 285.9 08/28/2015 Ot 518.89 08/28/2015 Ot 786.09 08/28/2015 Ot 250.00 08/28/2015 Ot 518.89 08/28/2015 Ot 574.20 08/28/2015 Ot 250.00 08/28/2015 Ot 273.1 08/28/2015 Ot 284.1 08/28/2015 Ot 414.00 08/28/2015 Ot 585.3 08/28/2015 Ot V58.63 08/28/2015 Ot V58.66 08/28/2015 Ot V58.69 08/28/2015 Ot 586 08/28/2015 Ot 586 08/28/2015 RAJWINDER BLAKE, EMELI Heller Ot 440.20 08/28/2015 KATHY BLAKE, ARIELLE Reynoso Ot 272.4 08/28/2015 KATHY BLAKE, ARIELLE Reynoso Ot 401.9 08/28/2015 KATHY BLAKE, ARIELLE Reynoso Ot 414.00 08/28/2015 KATHY BLAKE, ARIELLE Reynoso Ot 433.10 08/28/2015 KATHY BLAKE, ARIELLE Reynoso Ot 272.4 08/28/2015 KATHY BLAKE, ARIELLE Reynoso Ot 401.9 08/28/2015 KATHY BLAKE, ARIELLE Reynoso Ot 414.00 08/28/2015 KATHY BLAKE, ARIELLE Reynoso Ot 433.10 08/28/2015 ALBIN PALOMO CHARLENE K Ot E78.2 08/28/2015 ALBIN PALOMO, CHARLENE K Ot I10 08/28/2015 ALBIN PALOMO, CHARLENE K Ot I25.10 08/28/2015 VILLASENOR-DAVY PA, CHARELNE K Ot I65.23 08/28/2015 [facility] PA, CHARLENE K Ot E78.2 08/28/2015 VILLASENOR-DAVY PA, CHARLENE K Ot I10 08/28/2015 VILLASENOR-DAVY PA, CHARLENE K Ot I25.10 08/28/2015 VILLASENOR-DAVY PA, CHARLENE K Ot I65.23 08/28/2015 [facility] PA, CHARLENE K Ot E78.2 08/28/2015 [facility] PA, CHARLENE K Ot I10 08/28/2015 [facility] PA, CHARLENE K Ot I25.10 08/28/2015 [facility] PA, CHARLENE K Ot I65.23 08/28/2015 [facility] PA, CHARLENE K Ot E78.2 08/28/2015 [facility] PA, CHARLENE K Ot I10 08/28/2015 [facility] PA, CHARLENE K Ot I25.10 08/28/2015 [facility] PA, CHARLENE K Ot I65.23 08/28/2015 [facility] PA, CHARLENE K Ot E78.2 08/28/2015 [facility] PA, CHARLENE K Ot I10 08/28/2015 [facility] PA, CHARLENE K Ot I25.10 08/28/2015 [facility] PA, CHARLENE K Ot I65.23 12/19/2015 [facility] K Ot E78.2 MIXED HYPERLIPIDEMIA 12/19/2015 [facility] PA, CHARLENE K Ot I10 ESSENTIAL (PRIMARY) HYPERTENSION 12/19/2015 [facility] PA, CHARLENE K Ot I25.10 ATHSCL HEART DISEASE OF [place] CORONARY 12/19/2015 [facility] PA, CHARLENE K Ot 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 12/19/2015 [facility] K Ot E78.2 MIXED HYPERLIPIDEMIA 12/19/2015 [facility] PA, CHARLENE K Ot I10 ESSENTIAL (PRIMARY) HYPERTENSION 12/19/2015 [facility]E K Ot I25.10 ATHSCL HEART DISEASE OF [place] CORONARY 12/19/2015 VILLASENORDELIA PALOMO CHARLENE K Ot 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 12/26/2015 VILLASENOR-DAVY PALOMO CHARLENE K Ot E78.2 MIXED HYPERLIPIDEMIA 12/26/2015 VILLASENORDELIA PALOMO CHARLENE Harrison Ot I10 ESSENTIAL (PRIMARY) HYPERTENSION 12/26/2015 ALBIN PALOMO CHARLENE K Ot I25.10 ATHSCL HEART DISEASE OF [place] CORONARY 12/26/2015 VILLASENORDELIA PALOMO CHARLENE K Ot 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 12/26/2015 VILLASENOR-DAVY PALOMO CHARLENE K Ot E78.2 MIXED HYPERLIPIDEMIA 12/26/2015 VILLASENOR-DAVY PALOMO CHARLENE Harrison Ot I10 ESSENTIAL (PRIMARY) HYPERTENSION 12/26/2015 VILLASENORDELIA PALOMO CHARLENE K Ot I25.10 ATHSCL HEART DISEASE OF [place] CORONARY 12/26/2015 VILLASENORDELIA PALOMO CHARLENE K Ot 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 08/16/2018 RAJWINDER BLAKE, EMELI R Ot 440.20 ATHEROSCLEROSIS [place] ARTERIES EXTREMIT 08/16/2018 ARIELLE CHAVEZ MD Ot 272.4 HYPERLIPIDEMIA NEC/NOS 08/16/2018 ARIELLE CHAVEZ MD Ot 401.9 HYPERTENSION NOS 08/16/2018 ARIELLE CHAVEZ MD Ot 414.00 CORON ATHEROSCLER NOS TYPE VESSEL, NATIV 08/16/2018 ARIELLE CHAVEZ MD Ot 433.10 CAROTID ARTERY OCCLUSION W O CEREBRAL IN 08/16/2018 ARIELLE CHAVEZ MD Ot 272.4 HYPERLIPIDEMIA NEC/NOS 08/16/2018 ARIELLE CHAVEZ MD Ot 401.9 HYPERTENSION NOS 08/16/2018 ARIELLE CHAVEZ MD Ot 414.00 CORON ATHEROSCLER NOS TYPE VESSEL, NATIV 08/16/2018 ARIELLE CHAVEZ MD Ot 433.10 CAROTID ARTERY OCCLUSION W O CEREBRAL IN 08/16/2018 CHARLENE ESTES Ot E78.2 MIXED HYPERLIPIDEMIA 08/16/2018 CEDRIC ESTESDITH K Ot I10 ESSENTIAL (PRIMARY) HYPERTENSION 08/16/2018 CHARLENE ESTES Ot I25.10 ATHSCL HEART DISEASE OF [place] CORONARY 08/16/2018 CHARLENE ESTES Ot 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 08/16/2018 CHARLENE ESTES Ot E78.2 MIXED HYPERLIPIDEMIA 08/16/2018 CHARLENE ESTES Ot I10 ESSENTIAL (PRIMARY) HYPERTENSION 08/16/2018 CHARLENE ESTES Ot I25.10 ATHSCL HEART DISEASE OF [place] CORONARY 08/16/2018 CHARLENE ESTES Ot 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 08/17/2018 RAJWINDER BLAKE, EMLEI R Ot 440.20 ATHEROSCLEROSIS [place] ARTERIES EXTREMIT 08/17/2018 KATHY BLAKE, ARIELLE J Ot 272.4 HYPERLIPIDEMIA NEC/NOS 08/17/2018 ARIELLE CHAVEZ MD J Ot 401.9 HYPERTENSION NOS 08/17/2018 KATHY BLAKE, SAMHAR J Ot 414.00 CORON ATHEROSCLER NOS TYPE VESSEL, NATIV 08/17/2018 ARIELLE CHAVEZ MD J Ot 433.10 CAROTID ARTERY OCCLUSION W O CEREBRAL IN 08/17/2018 ARIELLE CHAVEZ MD J Ot 272.4 HYPERLIPIDEMIA NEC/NOS 08/17/2018 KATHY BLAKE, SAMHAR J Ot 401.9 HYPERTENSION NOS 08/17/2018 KATHY BLAKE, SAMHAR J Ot 414.00 CORON ATHEROSCLER NOS TYPE VESSEL, NATIV 08/17/2018 SAM CHAVEZ MDHAR J Ot 433.10 CAROTID ARTERY OCCLUSION W O CEREBRAL IN 08/17/2018 CHARLENE ESTES Ot E78.2 MIXED HYPERLIPIDEMIA 08/17/2018 CHARLEEN ESTES Ot I10 ESSENTIAL (PRIMARY) HYPERTENSION 08/17/2018 CHARLENE ESTES Ot I25.10 ATHSCL HEART DISEASE OF [place] CORONARY 08/17/2018 CHARLENE ESTES Ot 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 08/17/2018 CHARLENE ESTES Ot E78.2 MIXED HYPERLIPIDEMIA 08/17/2018 CHARLENE ESTES Ot I10 ESSENTIAL (PRIMARY) HYPERTENSION 08/17/2018 CHARLENE ESTES K Ot I25.10 ATHSCL HEART DISEASE OF [place] CORONARY 08/17/2018 CHARLENE ESTES Ot 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 08/17/2018 ARIELLE CHAVEZ MD Ot E11.9 TYPE 2 DIABETES MELLITUS WITHOUT COMPLIC 08/17/2018 ARIELLE CHAVEZ MD Ot E78.1 PURE HYPERGLYCERIDEMIA 08/17/2018 ARIELLE CHAVEZ MD Ot E78.2 MIXED HYPERLIPIDEMIA 08/17/2018 ARIELLE CHAVEZ MD Ot I11.0 HYPERTENSIVE HEART DISEASE WITH HEART FA 08/17/2018 ARIELLE CHAVEZ MD Ot I25.10 ATHSCL HEART DISEASE OF [place] CORONARY 08/17/2018 ARIELLE CHAVEZ MD Ot I50.9 HEART FAILURE, UNSPECIFIED 08/17/2018 ARIELLE CHAVEZ MD Ot I65.22 OCCLUSION AND STENOSIS OF LEFT CAROTID A 08/17/2018 ARIELLE CHAVEZ MD Ot I73.9 PERIPHERAL VASCULAR DISEASE, UNSPECIFIED 08/17/2018 ARIELLE CHAVEZ MD Ot R07.9 CHEST PAIN, UNSPECIFIED 08/17/2018 ARIELLE CHAVEZ MD Ot Z79.82 WELDING MACHINE FEEDER (CURRENT) USE OF ASPIRIN 08/17/2018 ARIELLE CHAVEZ MD Ot Z79.84 FDC (CURRENT) USE OF ORAL HYPOGLYC 08/17/2018 ARIELLE CHAVEZ MD Ot Z79.899 OTHER WELDING MACHINE 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 THERAPY 08/17/2018 ARIELLE CHAVEZ MD Ot Z87.891 PERSONAL HISTORY OF NICOTINE DEPENDENCE 08/18/2018 ARIELLE CHAVEZ MD Ot E11.9 TYPE 2 DIABETES MELLITUS WITHOUT COMPLIC 08/18/2018 ARIELLE CHAVEZ MD Ot E78.1 PURE HYPERGLYCERIDEMIA 08/18/2018 ARIELLE CHAVEZ MD Ot E78.2 MIXED HYPERLIPIDEMIA 08/18/2018 ARIELLE CHAVEZ MD Ot I11.0 HYPERTENSIVE HEART DISEASE WITH HEART FA 08/18/2018 ARIELLE CHAVEZ MD Ot I25.10 ATHSCL HEART DISEASE OF [place] CORONARY 08/18/2018 ARIELLE CHAVEZ MD Ot I50.9 HEART FAILURE, UNSPECIFIED 08/18/2018 ARIELLE CHAVEZ MD Ot I65.22 OCCLUSION AND STENOSIS OF LEFT CAROTID A 08/18/2018 ARIELLE CHAVEZ MD Ot I73.9 PERIPHERAL VASCULAR DISEASE, UNSPECIFIED 08/18/2018 ARIELLE CHAVEZ MD Ot R07.9 CHEST PAIN, UNSPECIFIED 08/18/2018 ARILELE CHAVEZ MD, Ot Z79.82 FDC (CURRENT) USE OF ASPIRIN 08/18/2018 ARIELLE CHAVEZ MD, Ot Z79.84 FDC (CURRENT) USE OF ORAL HYPOGLYC 08/18/2018 ARIELLE CHAVEZ MD, Ot Z79.899 OTHER FDC (CURRENT) DRUG THERAPY 08/18/2018 ARIELLE CHAVEZ MD, Ot Z87.891 PERSONAL HISTORY OF NICOTINE DEPENDENCE Procedures Code Description Performed By Performed On 00.40 PROCEDURE ON SINGLE VESSEL 10/01/2014 00.45 INSERTION OF ONE VASCULAR STENT 10/01/2014 00.66 PERCUTANEOUS TRANSLUMINAL CORONARY ANGIO 10/01/2014 36.07 INSRT OF DRUG-ELUTING CORON ARTERY STENT 10/01/2014 88.49 CONTRAST ARTERIOGRAM NEC 10/01/2014 88.56 CORONAR ARTERIOGR-2 CATH 10/01/2014 88.49 CONTRAST ARTERIOGRAM NEC 10/02/2014 45.13 OTHER ENDOSCOPY OF SM INTEST 10/08/2014 Results Test Result Range Automated blood complete blood count (hemogram) panel - 08/17/18 11:10 Blood leukocytes automated count (number/volume) 6.4 10*3/uL 4.3-11.0 Blood erythrocytes automated count (number/volume) 4.32 10*6/uL 4.35-5.85 Venous blood hemoglobin measurement (mass/volume) 12.9 g/dL 13.3-17.7 Blood hematocrit (volume fraction) 38 % 40-54 Automated erythrocyte mean corpuscular volume 88 [foz_us] 80-99 Automated erythrocyte mean corpuscular hemoglobin (mass per erythrocyte) 30 pg 25-34 Automated erythrocyte mean corpuscular hemoglobin concentration measurement ( mass/volume) 34 g/dL 32-36 Automated erythrocyte distribution width ratio 14.1 % 10.0-14.5 Automated blood platelet count (count/volume) 140 10*3/uL 130-400 Automated blood platelet mean volume measurement 11.3 [foz_us] 7.4-10.4 PT panel in platelet poor plasma by coagulation assay - 08/17/18 11:10 Prothrombin time (PT) in platelet poor plasma by coagulation assay 13.3 s 12.2-14.7 INR in platelet poor plasma or blood by coagulation assay 1.0 0.8-1.4 Activated partial thromboplastin time (aPTT) in platelet poor plasma bycoagulation assay - 08/17/18 11:10 Activated partial thromboplastin time (aPTT) in platelet poor plasma bycoagulation assay 42 s 24-35 Comprehensive metabolic panel - 08/17/18 11:10 Serum or plasma sodium measurement (moles/volume) 141 mmol/L 135-145 Serum or plasma potassium measurement (moles/volume) 4.4 mmol/L 3.6-5.0 Serum or plasma chloride measurement (moles/volume) 108 mmol/L 98-107 Carbon dioxide 21 mmol/L 21-32 Serum or plasma anion gap determination (moles/volume) 12 mmol/L 5-14 Serum or plasma urea nitrogen measurement (mass/volume) 38 mg/dL 7-18 Serum or plasma creatinine measurement (mass/volume) 2.04 mg/dL 0.60-1.30 Serum or plasma urea nitrogen/creatinine mass ratio 19 NRG Serum or plasma creatinine measurement with calculation of estimated glomerular filtration rate 32 NRG Serum or plasma glucose measurement (mass/volume) 169 mg/dL 70-105 Serum or plasma calcium measurement (mass/volume) 10.3 mg/dL 8.5-10.1 Serum or plasma total bilirubin measurement (mass/volume) 0.5 mg/dL 0.1-1.0 Serum or plasma alkaline phosphatase measurement (enzymatic activity/volume) 76 U/L 40-136 Serum or plasma aspartate aminotransferase measurement (enzymatic activity/ volume) 40 U/L 5-34 Serum or plasma alanine aminotransferase measurement (enzymatic activity/volume ) 84 U/L 0-55 Serum or plasma protein measurement (mass/volume) 8.5 g/dL 6.4-8.2 Serum or plasma albumin measurement (mass/volume) 5.3 g/dL 3.2-4.5 Lipid 1996 panel - 08/17/18 11:10 Serum or plasma triglyceride measurement (mass/volume) 284 mg/dL <150 Serum or plasma cholesterol measurement (mass/volume) 249 mg/dL < 200 Serum or plasma cholesterol in HDL measurement (mass/volume) 33 mg/ dL 40-60 Cholesterol in LDL [mass/volume] in serum or plasma by direct assay 157 mg/dL 1-129 Serum or plasma cholesterol in VLDL measurement (mass/volume) 57 mg/ dL 5-40 Methicillin resistant Staphylococcus aureus (MRSA) screening culture - 11:10 Methicillin resistant Staphylococcus aureus (MRSA) screening culture NEG NRG Complete urinalysis with reflex to culture - 08/17/18 11:20 Urine color determination YELLOW NRG Urine clarity determination CLEAR NRG Urine pH measurement by test strip 5 5-9 Specific gravity of urine by test strip 1.015 1.016- 1.022 Urine protein assay by test strip, semi-quantitative 3+ NEGATIVE Urine glucose detection by automated test strip NEGATIVE NEGATIVE Erythrocytes detection in urine sediment by light microscopy 1+ NEGATIVE Urine ketones detection by automated test strip NEGATIVE NEGATIVE Urine nitrite detection by test strip NEGATIVE NEGATIVE Urine total bilirubin detection by test strip NEGATIVE NEGATIVE Urine urobilinogen measurement by automated test strip (mass/volume) NORMAL NORMAL Urine leukocyte esterase detection by dipstick NEGATIVE NEGATIVE Automated urine sediment erythrocyte count by microscopy (number/high power field) RARE NRG Automated urine sediment leukocyte count by microscopy (number/high power field ) [HPF] NRG Bacteria detection in urine sediment by light microscopy NEGATIVE NRG Squamous epithelial cells detection in urine sediment by light microscopy RARE NRG Crystals detection in urine sediment by light microscopy NONE NRG Casts detection in urine sediment by light microscopy PRESENT NRG Mucus detection in urine sediment by light microscopy SMALL NRG Complete urinalysis with reflex to culture NO NRG Hyaline casts detection in urine sediment by light microscopy 0-2 NRG Renal epithelial cells detection in urine sediment by light microscopy NONE NRG Encounters ACCT No. Visit Date/Time Discharge Status Pt. Type Provider Facility Loc./Unit Complaint [id number] 08/17/2018 10:43:00 08/17/2018 18:14:00 DIS Outpatient ARIELLE CHAVEZ MD [facility] CATH CAD,HTN,HLP,DM [id number] 07/19/2015 11:02:00 07/19/2015 18:00:00 DIS Outpatient ARIELLE CHAVEZ MD [facility] CATH ABNORMAL STRESS,CP,CAD, HTN,DM [id number] 07/10/2015 07:58:00 07/10/2015 23:59:59 CLS Outpatient CHARLENE ESTES [facility] CARD CAD,JACOB,HLP, HTN [id number] 06/27/2015 10:48:00 06/27/2015 23:59:59 CLS Outpatient CHARLENE ESTES [facility] CARD CAD,JACOB,HLP, HTN [id number] 12/31/2014 12:02:00 01/02/2015 09:05:00 DIS Outpatient ARIELLE CHAVEZ MD [facility] CR PERIPHERAL [id number];AMI [id number];CARDIAC STENT [id number] 10/19/2014 12:27:00 10/19/2014 23:59:59 CLS Preadmit SACHIN LOCO MD [facility] ONC [id number] 10/01/2014 16:30:00 10/08/2014 19:27:00 DIS Inpatient ARIELLE CHAVEZ MD [facility] CSD CHEST PAIN [id number] 10/04/2014 11:30:00 10/04/2014 23:59:59 CLS Preadmit ARIELLE CHAVEZ [facility] [facility] CATH [id number] 09/28/2014 07:08:00 09/28/2014 23:59:59 CLS Outpatient ARIELLE CHAVEZ MD [facility] CARD HTN,HLP,CP [id number] 09/27/2014 15:18:00 09/27/2014 23:59:59 CLS Outpatient ARIELLE CHAVEZ MD [facility] CARD CAD,HTN,HLP [id number] 06/14/2013 13:00:00 06/23/2013 14:08:00 DIS Outpatient EMELI PURDY MD [facility] REHAB DISCOORDINATION [id number] 06/22/2013 09:04:00 06/23/2013 12:13:00 DIS Outpatient JOSE BLAKE, LIZZY Novak [facility] CATH ASOD,LEG PAIN [id number] 06/02/2013 12:32:00 06/03/2013 11:55:00 DIS Inpatient EMELI PURDY MD [facility] SURGICAL ABD PAIN CHOLELITHIASIS HYDONEPHROSIS PNEUMONIA [id number] 05/24/2013 08:35:00 05/24/2013 23:59:59 CLS Outpatient EMELI PURDY MD [facility] RAD CLAUDICAFICATION [id number] 08/19/2018 17:57:00 ACT Emergency BENJAMIN BLAKE, DEENA Reynoso [facility] ER SLURRED SPEECH,CONFUSION AFTER STENT [id number] 11/21/2014 09:50:00 Document Registration [id number] 10/29/2014 07:08:00 Document Registration [id number] 10/22/2014 06:39:00 Document Registration [id number] 09/27/2014 15:18:00 Document Registration [id number] 08/09/2012 13:47:00 Document Registration [id number] 08/06/2012 09:49:00 Document Registration [id number] 03/13/2011 09:55:00 Document Registration [id number] 02/18/2011 08:52:00 Document Registration [id number] 02/12/2011 08:18:00 Document Registration [id number] 02/11/2011 11:02:00 Document Registration [id number] 02/05/2011 11:24:00 Document Registration [id number] 09/05/2010 14:12:00 Document Registration [id number] 05/14/2009 10:06:00 Document Registration
[2018-08-19 18:24] LABS: BASOPHILS % (AUTO) 0 % (0-10); EOSINOPHILS # (AUTO) 0.1 10^3/uL (0.0-0.3); EOSINOPHILS % (AUTO) 3 % (0-10); HEMATOCRIT 34 % (40-54); LYMPHOCYTES # (AUTO) 1.2 X 10^3 (1.0-4.0); LYMPHOCYTES % (AUTO) 24 % (12-44); MEAN CORPUSCULAR HEMOGLOBIN 30 PG (25-34); MEAN CORPUSCULAR HGB CONC 35 G/DL (32-36); MEAN CORPUSCULAR VOLUME 85 FL (80-99); MEAN PLATELET VOLUME 10.5 FL (7.4-10.4); MONOCYTES # (AUTO) 0.5 X 10^3 (0.0-1.0); MONOCYTES % (AUTO) 9 % (0-12); NEUTROPHILS # (AUTO) 3.1 X 10^3 (1.8-7.8); NEUTROPHILS % (AUTO) 64 % (42-75); PLATELET COUNT 123 10^3/uL (130-400); RED BLOOD COUNT 4.02 10^6/uL (4.35-5.85); RED CELL DISTRIBUTION WIDTH 13.8 % (10.0-14.5); WHITE BLOOD COUNT 4.9 10^3/uL (4.3-11.0)
--- NOTE | 2018-08-19 18:39 | Diagnostic Imaging Report ---
INDICATION: Stroke, coronary artery disease. COMPARISON: 08/17/2018. FINDINGS: Single view of the chest demonstrates stable cardiac enlargement. Lungs are clear. There is no pneumothorax. Sternal wires are midline. Osseous structures are age appropriate. IMPRESSION: Stable cardiac enlargement without pulmonary edema or infiltrate. Dictated by: Dictated on workstation # [id number]
[2018-08-19 18:40] LABS: FIBRIN DEGRADATION PRODUCTS 0.43 UG/ML (0.00-0.49); PROTHROMBIN TIME PATIENT 13.1 SEC (12.2-14.7)
[2018-08-19 18:44] LABS: ALANINE AMINOTRANSFERASE 64 U/L (0-55); ALKALINE PHOSPHATASE 74 U/L (40-136); BILIRUBIN,TOTAL 0.4 MG/DL (0.1-1.0); BUN/CREATININE RATIO 15; CALCIUM 9.6 MG/DL (8.5-10.1); CARBON DIOXIDE 20 MMOL/L (21-32); CHLORIDE 104 MMOL/L (98-107); CREATININE SERUM 1.86 MG/DL (0.60-1.30); GFR ESTIMATED 35; GLUCOSE 119 MG/DL (70-105); POTASSIUM 4.2 MMOL/L (3.6-5.0); SODIUM 137 MMOL/L (135-145)
--- NOTE | 2018-08-19 18:44 | Diagnostic Imaging Report ---
PROCEDURE: CT head wo r/o stroke. TECHNIQUE: Multiple contiguous axial images were obtained through the brain without the use of intravenous contrast. INDICATION: Stroke-like symptoms, slurred speech. COMPARISON: None available. FINDINGS: A 1.5 cm hyperdensity is identified within the medial aspect of the left basal ganglia. Additional hyperdensity measuring 1.7 cm is seen extending anterolaterally just medial to the anterior limb of the left internal capsule. These findings are concerning for intraparenchymal hemorrhage. No definite intraventricular extension. Mild atrophy. No midline shift, herniation, hydrocephalus, or extra-axial fluid collection. Periventricular and subcortical white matter hypodensities are present, most consistent with mild chronic small vessel white matter ischemic disease. The bilateral ocular lenses are absent. The paranasal sinuses are clear. The calvarium and extracalvarial soft tissues are unremarkable. IMPRESSION: Findings concerning for focal intraparenchymal hemorrhage within the medial aspect of the left basal ganglia extending along the anterior limb of the left internal capsule. Mild atrophy with associated mild chronic small vessel white matter ischemic disease. Findings discussed with Yasemin Wall in the emergency department at 1635 hours on August 19, 2018. Dictated by: Dictated on workstation # [id number]
[2018-08-19] MEDS ORDERED: NITROPRUSSIDE INJECTION 50 MG in D5W IV SOLUTION (EXCEL) 250 ML IV SCH (18:45)
[2018-08-19] MEDS ORDERED: NS (IVPB) 250 ML ONE (18:49)
[2018-08-19] MEDS ORDERED: niCARdipine IV FOR DRIP 50 MG KIT ONE (18:49)
[2018-08-19 19:16] LABS: BILIRUBIN,URINE NEGATIVE (NEGATIVE); CLARITY,URINE CLEAR; COLOR,URINE YELLOW; GLUCOSE, URINE (UA) NEGATIVE (NEGATIVE); KETONES,URINE NEGATIVE (NEGATIVE); LEUKOCYTE ESTERASE ,URINE NEGATIVE (NEGATIVE); NITRITE,URINE NEGATIVE (NEGATIVE); PH,URINE 6.5 (5-9); PROTEIN,URINE 2+ (NEGATIVE); UROBILINOGEN,URINE NORMAL (NORMAL)
[2018-08-19 19:25] LABS: SQUAMOUS EPITHELIAL CELL,UR 0-2 /HPF
[2018-08-19 19:33] VITALS: BP 174/80
--- NOTE | 2018-08-19 19:33 | ED Neurological Problem ---
General Chief Complaint: Neurological Problems Stated Complaint: SLURRED SPEECH,CONFUSION AFTER STENT Nursing Triage Note: Pt brought to Ed by , son and daughter in law. Pt's family reports pt has been experiencing confusion and slurring of words. reports confusion began last night. Pt unable to recall own year of , did not know what month it was, or who the president is. Dr. Wright at bedside and conducted a neuro exam. Pt had stent placed on Wednesday. Nursing Sepsis Screen: No Definite Risk Source: family, senior management consultant, spouse Exam Limitations: clinical condition, language barrier, other (PT IS CONFUSED, BUT ALSO SPEAKS LIMITED TAMAZIGHT, DOES . SON AND DAUGHTER IN LAW ARE INTERPRETERS--PT IS FRENCH. ) History of Present Illness Date Seen by Provider: Aug 19, 2018 Time Seen by Provider: 19:10 Initial Comments PT ARRIVES VIA POV--AMBULATES IN ON HIS OWN PT HAD CARDIAC CATH WITH STENT ON Wednesday08/17/[address] CHAVEZ PT HAS BEEN ON ASPIRIN 81 MG + PLAVIX 75 MG DAILY, PRIOR TO STENT, AND THESE WERE CONTINUED. NO NEW MEDICATIONS SINCE CARDIAC CATH STATES YESTERDAY AFTERNOON SHE NOTICED THAT HE WAS A LITTLE BIT CONFUSED, BUT DID NOT THINK MUCH ABOUT IT WHEN HE WOKE UP THIS MORNING, HE WAS "NOT HIMSELF" PER , STATES HE WASN'T TALKING AT ALL THIS AFTERNOON AROUND 1600, SHE NOTICED HE WAS VERY CONFUSED AND SPEECH WAS SLURRED AND HE WAS HAVING TROUBLE FINDING THE RIGHT WORDS. SHE ALSO REPORTS THAT HE HAS BEEN LETHARGIC SINCE YESTERDAY SHE DENIES ANY NEW PROBLEMS WALKING --HAS CHRONIC PROBLEMS WITH RIGHT LEG DUE TO PRIOR HISTORY OF ASVD WITH STENTS--FAMILY STATES HE KIND OF DRAGS RIGHT LEG NORMALLY DUE TO THIS NO RECENT FALLS OR HEAD INJURY HE DID TELL HE WAS DIZZY EARLIER TODAY REPORTS NO PROBLEMS SWALLOWING , NO CHOKING, ETC. STATES HE HAS NOT TAKEN ANY OF HIS MEDICATIONS TODAY PT DENIES HEADACHE PT DENIES CHEST PAIN PT DENIES ANY PAIN ANYWHERE UNABLE TO OBTAIN ANY OTHER RELEVANT INFORMATION FROM PT. Allergies and Home Medications Allergies Coded Allergies: No Known Drug Allergies (Unverified , 08/17/18) Home Medications Amlodipine Besylate 5 Mg Tablet, 5 MG PO DAILY, (Reported) Aspirin 81 Mg Tablet.dr, 81 MG PO DAILY, (Reported) Atorvastatin Calcium 20 Mg Tablet, 20 MG PO DAILY, (Reported) LAST FILLED #120 18 Calcium Carbonate/Vitamin D3 1 Each Tablet, 1 TAB PO DAILY, (Reported) Clopidogrel Bisulfate 75 Mg Tablet, 75 MG PO DAILY, (Reported) LAST FILLED #30 07-06-17 Cyanocobalamin (Vitamin B-12) 1,000 Mcg Tablet, 1,000 MCG PO DAILY, (Reported) Gemfibrozil 600 Mg Tablet, 600 MG PO BID, (Reported) LAST FILLED #240 01-11-18 Isosorbide Mononitrate 30 Mg Tab.er.24h, 30 MG PO DAILY, (Reported) Losartan Potassium 100 Mg Tablet, 100 MG PO DAILY, (Reported) Magnesium Oxide 400 Mg Tablet, 400 MG PO BID, (Reported) Metoprolol Succinate 25 Mg Tab.er.24h, 25 MG PO DAILY, (Reported) Multivitamin 1 Each Tablet, 1 TAB PO DAILY, (Reported) Nitroglycerin 0.4 Mg Tab.subl, 0.4 MG SL UD PRN for CHEST PAIN, (Reported) [place] 3 Polyunsat Fatty Acids 1,000 Mg Cap, 1,000 MG PO TID, (Reported) Vitamin E Acetate 400 Unit Capsule, 400 UNIT PO DAILY, (Reported) Patient Home Medication List Home Medication List Reviewed: Yes Review of Systems Review of Systems Constitutional: dizziness Cardiovascular: No chest pain Psychiatric/Neurological: See HPI, Cognitive Dysfunction; Denies Headache Past Knowimz-Tohbhf-Wmbute Hx Patient Social History Alcohol Use: Regular Use (WINE WITH MEALS) Recreational Drug Use: No Smoking Status: Former Smoker (QUIT AROUND 1987) Type Used: Cigarettes Recent Foreign Travel: No Contact w/Someone Who Travel: No Recent Infectious Disease Expo: No Physical Abuse: No Sexual Abuse: No Immunizations Up To Date Tetanus Booster (TDap): Unknown Date of Influenza Vaccine: May 30, 2012 Seasonal Allergies Seasonal Allergies: No Past Medical History Surgeries: Yes (Right Carotid Endarterectomy; 4 VESSEL CABG 2000; CARDIAC CATHS --ANGIOPLASTIES IN PAST AND WITH STENT 08/17/18; MULTIPLE ANGIOPLASTIES AND STENTS IN LEGS ) Cardiac, CABG, Coronary Stent, Vascular Surgery Respiratory: No Pneumonia Cardiac: Yes (4 VESSEL CABG 2000; CARDIAC ANGIOPLASTIES AND STENT X 1; RIGHT CAROTID ENDARTERECTOMY; CAROTID STENOSIS; SEVERE ASVD TO LEGS WITH MULTIPLE ANGIOPLASTIES AND STENTS; CHF) Coronary Artery Disease, High Cholesterol, Hypertension, Peripheral Vascular Neurological: No Reproductive Disorders: No Sexually Transmitted Disease: No HIV/AIDS: No Genitourinary: Yes (CHRONIC RENAL INSUFFICIENCY; HYDRONEPHROSIS) Gastrointestinal: Yes Gastrointestinal Bleed Musculoskeletal: Yes Chronic Back Pain Endocrine: Yes Diabetes, Non-Insulin dep Cancer: No Psychosocial: No Integumentary: Yes Psoriasis Blood Disorders: Yes (ANEMIA DUE TO GI BLEEDI IN PAST) Adverse Reaction/Blood Tranf: No Family Medical History Cardiovascular disease G8 BROTHER (patient states brother has "heart problems and cardiac stents") Hypertension G8 BROTHER Myocardial infarction 19 FATHER ( of heart attack at age 51) G8 SISTER ( from a heart attack) No Family History of: Congenital heart disease Physical Exam Vital Signs Vital Signs - First Documented 08/19/18 18:10 Temp 98.4 Pulse 67 Resp 20 B/P (MAP) 188/78 (114) Pulse Ox 98 O2 Delivery Room Air Capillary Refill : Less Than 3 Seconds Height, Weight, BMI Height: 5'8.00" Weight: 193lbs. 0.0oz. 87.648881cj; 29.4 BMI Method:Stated General Appearance: WD/WN, no apparent distress, other (PT IS SMILING, BUT NOT REALLY TALKING AND LIMITED SPEECH APPEARS CONFUSED. PT OCCASIONALLY NOD HEAD YES /NO. ) HEENT: PERRL/EOMI, other (DIFFICULT TO DETERMINE IF PT HAS VISUAL DEFICIT, BUT IS NOT SHOWING SIGNS OF NEGLECT. ) Neck: non-tender, full range of motion, supple, carotid bruit (? FAINT BRUITS BILATERALLY ? ) Respiratory: normal breath sounds, no respiratory distress, no accessory muscle use Cardiovascular: regular rate, rhythm, no edema, no JVD, no murmur Gastrointestinal: non tender, soft Extremities: normal range of motion, non-tender, no pedal edema, no calf tenderness, normal capillary refill Neurologic/Psychiatric: alert, normal mood/affect (SMILING. AND DID LAUGH-- SEEMINGLY APPROPRIATELY LAUGHING WHEN OTHER FAMILY MEMBERS LAUGHED), other (PT NOT REALLY TALKING, BUT SAYS VERY FEW WORDS, AND APPEARS COFUSED--UNABLE TO STATE NAME OR BIRTHDATE OR PRESIDENT. PT DOES APPEAR TO RECOGNIZE FAMILY BUT IS NOT TRYING TO TALK TO THEM. PT HAVING SOME DIFFICULTY FOLLOWING COMMANDS, BUT CAN A FEW FOLLOW SOME VERY SIMPLE COMMANDS. PT CAN MOVE ALL EXTREMITIES EQUALLY , AND PT WAS ABLE TO AMBULATE INTO ER ON HIS OWN. NO NEGLECT. GROSS SENSORY IS INTACT. ) Crainal Nerves: PERRL, abnormal speech (PT NOT TALKING ON MY EXAM. WHEN ANSWERING A FEW QUESTIONS FOR RN, WAS HAVING DIFFICULTY FINDING WORDS AND SAID ONLY A FEW WORDS AND SPEECH WAS SOMEWHAT SLURRED. ); No facial droop Coordination/Gait: other (DIFFICULTY FOLLOWING COMMANDS, BUT WAS ABLE TO PUT RIGHT HAND TO NOSE AND LEFT HAND TO NOSE ( DIFFICULTY COMPREHENDING ALTERNATING FINGER TO NOSE COMMAND) AND ABLE TO CROSS EACH ANKLE OVER THE OTHER-- DIFFICULTY COMPREHENDING [id number] COMMAND. UNABLE TO PERFORM TRUE VISUAL FIELD EXAM) Progress/Results/Core Measures Results/Orders Lab Results Laboratory Tests Test 08/19/18 18:15 08/19/18 18:45 08/19/18 19:00 Range/Units White Blood Count 4.9 4.3-11.0 10^3/uL Red Blood Count 4.02 L 4.35-5.85 10^6/uL Hemoglobin 12.0 L 13.3-17.7 G/DL Hematocrit 34 L 40-54 % Mean Corpuscular Volume 85 80-99 FL Mean Corpuscular Hemoglobin 30 25-34 PG Mean Corpuscular Hemoglobin Concent 35 32-36 G/DL Red Cell Distribution Width 13.8 10.0-14.5 % Platelet Count 123 L 130-400 10^3/uL Mean Platelet Volume 10.5 H 7.4-10.4 FL Neutrophils (%) (Auto) 64 42-75 % Lymphocytes (%) (Auto) 24 12-44 % Monocytes (%) (Auto) 9 0-12 % Eosinophils (%) (Auto) 3 0-10 % Basophils (%) (Auto) 0 0-10 % Neutrophils # (Auto) 3.1 1.8-7.8 X 10^3 Lymphocytes # (Auto) 1.2 1.0-4.0 X 10^3 Monocytes # (Auto) 0.5 0.0-1.0 X 10^3 Eosinophils # (Auto) 0.1 0.0-0.3 10^3/uL Basophils # (Auto) 0.0 0.0-0.1 10^3/uL Prothrombin Time 13.1 12.2-14.7 SEC INR Comment 1.0 0.8-1.4 Activated Partial Thromboplast Time 44 H 24-35 SEC D-Dimer 0.43 0.00-0.49 UG/ML Sodium Level 137 135-145 MMOL/L Potassium Level 4.2 3.6-5.0 MMOL/L Chloride Level 104 98-107 MMOL/L Carbon Dioxide Level 20 L 21-32 MMOL/L Anion Gap 13 5-14 MMOL/L Blood Urea Nitrogen 27 H 7-18 MG/DL Creatinine 1.86 H 0.60-1.30 MG/DL Estimat Glomerular Filtration Rate 35 BUN/Creatinine Ratio 15 Glucose Level 119 H 70-105 MG/DL Calcium Level 9.6 8.5-10.1 MG/DL Corrected Calcium 8.5-10.1 MG/DL Total Bilirubin 0.4 0.1-1.0 MG/DL Aspartate Amino Transf (AST/SGOT) 32 5-34 U/L Alanine Aminotransferase (ALT/SGPT) 64 H 0-55 U/L Alkaline Phosphatase 74 40-136 U/L Troponin I < 0.30 <0.30 NG/ML Total Protein 8.0 6.4-8.2 GM/DL Albumin 5.0 H 3.2-4.5 GM/DL Glucometer 117 H 70-110 MG/DL Urine Color YELLOW Urine Clarity CLEAR Urine pH 6.5 5-9 Urine Specific [place] 1.005 L 1.016-1.022 Urine Protein 2+ H NEGATIVE Urine Glucose (UA) NEGATIVE NEGATIVE Urine Ketones NEGATIVE NEGATIVE Urine Nitrite NEGATIVE NEGATIVE Urine Bilirubin NEGATIVE NEGATIVE Urine Urobilinogen NORMAL NORMAL MG/DL Urine Leukocyte Esterase NEGATIVE NEGATIVE Urine RBC (Auto) NEGATIVE NEGATIVE Urine RBC NONE /HPF Urine WBC NONE /HPF Urine Squamous Epithelial Cells 0-2 /HPF Urine Crystals NONE /LPF Urine Bacteria NONE /HPF Urine Casts NONE /LPF Urine Mucus NEGATIVE /LPF Urine Culture Indicated NO My Orders Orders - MARTY WRIGHT DO Cbc With Automated Diff (08/19/18 18:11) Protime With Inr (08/19/18 18:11) Partial Thromboplastin Time (08/19/18 18:11) Comprehensive Metabolic Panel (08/19/18 18:11) Fibrin Degradation Products (08/19/18 18:11) Troponin I (08/19/18 18:11) Ua Culture If Indicated (08/19/18 18:11) Chest 1 View, Ap/Pa Only (08/19/18 18:11) Catheter(Urinary) Insert & Ass 03,15 (08/19/18 18:11) Ekg Tracing (08/19/18 18:11) Accucheck Stat ONCE (08/19/18 18:11) Saline Lock/Iv-Start (08/19/18 18:11) Saline Lock/Iv-Start (08/19/18 18:11) Vital Signs Stroke Patient Q15M (08/19/18 18:11) Ct Head Wo-R/O Stroke (08/19/18 18:11) O2 (08/19/18 18:11) Intake & Output 06,14,22 (08/19/18 18:11) Monitor-Rhythm Ecg Trace Only (08/19/18 18:11) Dysphagia Screening Tool (08/19/18 18:11) Post Thrombolytic Adminstratio (08/19/18 18:11) I-Stat Bedside Testing (08/19/18 18:11) D5w Iv Solution (Ex... W/Nitroprusside I (08/19/18 18:45) Ns (Ivpb) (Sodium Chloride 0.9%) (08/19/18 18:49) Nicardipine Iv For Drip (Cardene I.V. (O (08/19/18 18:49) Medications Given in ED Current Medications Medications Dose Ordered Sig/Marcia Route Start Time Stop Time Status Last Admin Dose Admin Nicardipine HCl 50 mg STK-MED ONCE .ROUTE 08/19/18 18:49 08/19/18 18:52 DC 08/19/18 18:58 50 MG Vital Signs/I&O 08/19/18 08/19/18 08/19/18 18:10 18:58 19:33 Temp 98.4 98.3 Pulse 67 114 64 Resp 20 14 B/P (MAP) 188/78 (114) 168/100 174/80 (111) Pulse Ox 98 100 O2 Delivery Room Air Room Air Blood Pressure Mean: 122 iStat Bedside Lab Testing Sodium (Na): 142.00 Potassium (K): 3.90 Chloride (CI): 108.00 TCO2: 22.00 Glucose (Glu): 114.00 Urea Nitrogen (BUN)/Urea: 25.00 Creatinine (Crea): 1.70 Anion Gap*: 17.00 FSBG Bedside Testing Finger Stick Blood Glucose: 117 Progress Progress Note : Progress Note BP DOWN AT TIME OF TRANSFER NO DETERIORATION IN PT'S CONDITION DURING ER STAY. COMPLEX PROBLEM DUE TO PT'S LIMITED TAMAZIGHT ( PT SPEAKS FRENCH) IN ADDITION TO COGNITIVE AND SPEECH DIFFICULTY. VERY DIFFICULT TO DETERMINE EXTENT OF PT'S LIMITATIONS/ DEFICITS AND UNABLE TO DO AN ACCURATE NIH SCORE. Initial ECG Impression Date: Aug 19, 2018 Initial ECG Impression Time: 18:16 Initial ECG Rate: 64 Initial ECG Rhythm: Normal Sinus (IVCD) Initial ECG Comparisson: Unchanged Diagnostic Imaging Comments CT HEAD--ACUTE INTRACRANIAL HEMORRHAGE IN LEFT BASAL GANGLIA, PER RADIOLOGIST VIA PHONE AT 1835 CXR--CARDIOMEGALY / STABLE, PER RADIOLOGIST REPORT AT 1840 Reviewed: Reviewed by Me Critical Care Note Critical Care Total Time (minutes) 30 Departure Communication (Admissions) 182--DR. CHAVEZ HERE IN ER--HE ADVISES TO START NIPRIDE DRIP TO LOWER BP, HE HAS REVIEWED EKG AND CT OF HEAD AND AGREES WITH TRANSFER. NAYLA CONTACTED AND PLACED ON STANDBY 1834--CALLED NEUROLOGY LINE 1844--SPOKE WITH DR. SHIELDS, ACCEPTS PT FOR TRANSFER, ADVISES CARDENE DRIP INSTEAD OF NIPRIDE DRIP. NAYLA NOTIFIED OF ACCEPTANCE OF PT AND WILL NEED THEIR SERVICES. 1914--[facility] HERE FOR TRANSPORT Impression Primary Impression: INTRACRANIAL HEMORRHAGE LEFT BASAL GANGLIA Additional Impressions: Confusion SPEECH AND LANGUAGE DEFICIT DUE TO ACUTE INTRACRANIAL HEMORRHAGE Uncontrolled hypertension EXTENSIVE SEVERE ASVD NIDDM RECENT CARDIAC STENT 08/17/18 ASPIRIN + PLAVIX THERAPY Disposition: 02 XFER SHT-TRM HOSP Condition: Stable Transfer Transfer Facility: [facility] Method of Transfer: Air ([facility]) Departure-Patient Inst. Referrals: EMELI PURDY MD (PCP/Family) Primary Care Physician MARTY WRIGHT DO Aug 19, 2018 19:33
== END 2018-08-19 19:33 ==
LOC: EDUNIT# 17:55 → ER 17:57
DX: I61.8 Other nontraumatic intracerebral hemorrhage (principal); E11.22 Type 2 diabetes mellitus with diabetic chronic kidney disease; I13.2 Hypertensive heart and chronic kidney disease with heart failure and with stage 5 chronic kidney disease, or end stage renal disease; N18.9 Chronic kidney disease, unspecified; I50.9 Heart failure, unspecified; I25.10 Atherosclerotic heart disease of native coronary artery without angina pectoris; E78.00 Pure hypercholesterolemia, unspecified; D64.9 Anemia, unspecified; I73.9 Peripheral vascular disease, unspecified; Z87.891 Personal history of nicotine dependence; Z95.5 Presence of coronary angioplasty implant and graft; Z82.49 Family history of ischemic heart disease and other diseases of the circulatory system; Z79.82 Long term (current) use of aspirin; Z87.19 Personal history of other diseases of the digestive system; Z79.02 Long term (current) use of antithrombotics/antiplatelets; Z98.890 Other specified postprocedural states; Z95.1 Presence of aortocoronary bypass graft; Z87.01 Personal history of pneumonia (recurrent)
CPT/HCPCS: 36415; 51702; 70450; 71045; 80053; 81000; 82962; 84484; 85025; 85379; 85610; 85730; 93005; 93041; 96365

== ENCOUNTER 2018-08-30 16:04 | Inpatient (IN) | payer MEDICARE ==
[~2018-08-30] VITALS: Ht 165.1 cm; Wt 83.0 kg
[2018-08-30 16:00] VITALS: BP 160/63
--- NOTE | 2018-08-30 16:03 | NUR ---
Admitted to room 230, with an admitting diagnosis of CVA, on 08-30-2018 from cat , accompanied by .YOSELIN PEDRAZA introduced to surroundings, call light, bed controls, phone, TV, temperature control, lights, meal times, smoking policy, visitor policy, side rail policy, bathrooms and showers. Patient Rights given to patient in the handbook.YOSELIN PEDRAZA verbalizes understanding that [facility] is not responsible for the loss or damage to any personal effects or valuables that are kept in the patients posession during their hospitalization. The following Patient Care Plans were discussed with the : Discharge Planning, ,, and . YOSELIN PEDRAZA verbalizes understanding of Interdisciplinary Patient Education. Patient and/or family were informed about the Rapid Response Team and its purpose. Patient received Patient Rights Booklet, which includes Privacy Act Statement and Data Collection Information Summary.
--- OUTSIDE RECORDS SUMMARY | 2018-08-30 16:09 | XMS REPORT | Clinical Summary ---
Author Author [facility] Organization [facility] Address Unknown Phone Unavailable Care Team Providers Care Termite Control Servicer Name Role Phone No Pcp, Na PCP Unavailable Source Comments Some departments are not documenting in the electronic medical record. If you do not see the information that you expected, contact Release of Information in the Health Information Management department at [phone] for further assistance in locating additional records.[facility] Allergies No Known Allergies Medications End Date Status Medication Sig Dispensed Refills Start Date Active isosorbide mononitrate SR Take 30 mg by 0 (IMDUR) 30 mg tablet mouth every morning. Active losartan(+) (COZAAR) 100 Take 100 mg 0 mg tablet by mouth daily. Active Multivitamin Cmb Take 1 tablet 0 No.21-Iron-FA (CENTRUM) by mouth 18-400 mg-mcg tab daily. Active fish oil- omega 3-DHA/EPA Take 1 0 300/1,000 mg capsule capsule by mouth three times daily with meals. Active cyanocobalamin 1,000 mcg Take 1,000 0 tablet mcg by mouth daily. Active vitamin E 400 unit Take 400 0 capsule Units by mouth daily. Active gemfibrozil (LOPID) 600 Take 600 mg 0 mg tablet by mouth twice daily. Active magnesium oxide (MAG-OX) Take 400 mg 0 400 mg (241.3 mg by mouth magnesium) tablet twice daily. Active calcium carbonate/vitamin Take 1 tablet 0 D-3 (OSCAL-500+D) 1250 by mouth mg/200 unit tablet daily. Calcium Carb 1250mg delivers 500mg elemental Ca Active acetaminophen (TYLENOL) Take two 0 325 mg tablet tablets by 9 mouth every 4 hours as needed. Active ranolazine ER (RANEXA) Take one 0 500 mg tablet tablet by 9 mouth twice daily. Active atorvastatin (LIPITOR) 20 Take two 90 tablet 3 mg tablet tablets by 9 mouth daily. Active metoprolol tartrate Take one 180 tablet 3 (LOPRESSOR) 50 mg tablet tablet by 9 mouth twice daily. Active amLODIPine (NORVASC) 5 mg Take two 90 tablet 3 tablet tablets by 9 mouth daily. Active senna/docusate Take one 0 (SENOKOT-S) 8.6/50 mg tablet by 9 tablet mouth twice daily. Active aspirin EC 81 mg tablet Take one 90 tablet 3 tablet by 9 mouth daily. Take with food. Active pantoprazole DR Take one 90 tablet 3 (PROTONIX) 40 mg tablet tablet by 9 mouth daily. Active nitroglycerin (NITROSTAT) Place one 25 tablet 3 0.4 mg tablet tablet under 9 tongue every 5 minutes as needed for Chest Pain. Max of 3 tablets, call 911. Active hydrALAZINE (APRESOLINE) Take one 90 tablet 1 10 mg tablet tablet by 9 mouth three times daily. Active isosorbide mononitrate SR Take one-half 90 tablet 3 (IMDUR) 30 mg tablet tablet by 9 mouth at bedtime daily. 08/30/2018 Discontinued metoprolol XL (TOPROL XL) Take 25 mg by 0 25 mg extended release mouth daily. tablet 08/30/2018 Discontinued amLODIPine (NORVASC) 5 mg Take 5 mg by 0 tablet mouth daily. 08/30/2018 Discontinued clopiDOGrel (PLAVIX) 75 Take 75 mg by 0 mg tablet mouth daily. 08/30/2018 Discontinued aspirin 81 mg chewable Chew 81 mg by 0 tablet mouth daily. Take with food. 08/30/2018 Discontinued atorvastatin (LIPITOR) 20 Take 20 mg by 0 mg tablet mouth daily. 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 Never 08/22/2018 How many drinks containing alcohol do you have on Not asked a typical day when you are drinking? How often do you have six or more drinks on one Not asked occasion? Sex Assigned at Date Recorded Not on file Industry Job Start Date Occupation Not on file Not on file Not on file Travel End Travel History Travel Start No recent travel history available. Last Filed Vital Signs Time Taken Vital Sign Reading 08/30/2018 9:53 AM SERVIC[employer]OW ADMINISTRATOR DEVELOPER Blood Pressure 148/57 08/30/2018 9:53 AM SERVICENOW ADMINISTRATOR DEVELOPER Pulse 64 08/30/2018 9:53 AM SERVICENOW ADMINISTRATOR DEVELOPER Temperature 36.7 C (98.1 F) - Respiratory Rate - 08/30/2018 9:53 AM SERVICENOW ADMINISTRATOR DEVELOPER Oxygen Saturation 97% - Inhaled Oxygen - Concentration 08/25/2018 3:43 PM SERVICENOW ADMINISTRATOR DEVELOPER Weight 84.4 kg (186 lb 1.1 oz) 08/25/2018 3:43 PM SERVICENOW ADMINISTRATOR DEVELOPER Height 170.2 cm (5' 7") 08/25/2018 3:43 PM SERVICENOW ADMINISTRATOR DEVELOPER Body Mass Index 29.14 Plan of Treatment Health Maintenance Due Date Last Done Comments PHYSICAL (COMPREHENSIVE) 02/18/1947 EXAM DTAP/TDAP VACCINES (1 - 1959 Tdap) SHINGLES RECOMBINANT 1991 VACCINE (1 of 2) PNEUMONIA (PCV13/PPSV23) 2006 VACCINES (1 of 2 - PCV13) INFLUENZA VACCINE 03/30/2018 Procedures Comments Procedure Name Priority Date/Time Associated Diagnosis POC GLUCOSE 08/30/2018 7:53 AM SERVICENOW ADMINISTRATOR DEVELOPER PHOSPHORUS Routine 08/30/2018 5:30 AM SERVICENOW ADMINISTRATOR DEVELOPER MAGNESIUM Routine 08/30/2018 5:30 AM SERVICENOW ADMINISTRATOR DEVELOPER BASIC METABOLIC PANEL Routine 08/30/2018 5:30 AM SERVICENOW ADMINISTRATOR DEVELOPER CBC Routine 08/30/2018 5:30 AM SERVICENOW ADMINISTRATOR DEVELOPER POC GLUCOSE 08/29/2018 8:21 PM SERVICENOW ADMINISTRATOR DEVELOPER POC GLUCOSE 08/29/2018 5:28 PM SERVICENOW ADMINISTRATOR DEVELOPER POC GLUCOSE 08/29/2018 11:52 AM SERVICENOW ADMINISTRATOR DEVELOPER POC GLUCOSE 08/29/2018 7:52 AM SERVICENOW ADMINISTRATOR DEVELOPER PHOSPHORUS Routine 08/29/2018 4:49 AM SERVICENOW ADMINISTRATOR DEVELOPER MAGNESIUM Routine 08/29/2018 4:49 AM SERVICENOW ADMINISTRATOR DEVELOPER COMPREHENSIVE METABOLIC Routine 08/29/2018 PANEL 4:49 AM SERVICENOW ADMINISTRATOR DEVELOPER CBC Routine 08/29/2018 4:49 AM SERVICENOW ADMINISTRATOR DEVELOPER POC GLUCOSE 08/28/2018 8:34 PM SERVICENOW ADMINISTRATOR DEVELOPER MAGNESIUM Routine 08/28/2018 6:00 PM SERVICENOW ADMINISTRATOR DEVELOPER POC GLUCOSE 08/28/2018 5:01 PM SERVICENOW ADMINISTRATOR DEVELOPER POC GLUCOSE 08/28/2018 2:22 PM SERVICENOW ADMINISTRATOR DEVELOPER POC GLUCOSE 08/28/2018 11:25 AM SERVICENOW ADMINISTRATOR DEVELOPER ECG 12-LEAD Routine 08/28/2018 10:15 AM SERVICENOW ADMINISTRATOR DEVELOPER POC GLUCOSE 08/28/2018 8:11 AM SERVICENOW ADMINISTRATOR DEVELOPER BASIC METABOLIC PANEL Routine 08/28/2018 4:29 AM SERVICENOW ADMINISTRATOR DEVELOPER POC GLUCOSE 08/27/2018 9:25 PM SERVICENOW ADMINISTRATOR DEVELOPER POC GLUCOSE 08/27/2018 5:09 PM SERVICENOW ADMINISTRATOR DEVELOPER POC GLUCOSE 08/27/2018 11:55 AM SERVICENOW ADMINISTRATOR DEVELOPER ECG 12-LEAD Routine 08/27/2018 10:15 AM SERVICENOW ADMINISTRATOR DEVELOPER POC GLUCOSE 08/27/2018 7:53 AM SERVICENOW ADMINISTRATOR DEVELOPER BASIC METABOLIC PANEL Routine 08/27/2018 5:28 AM SERVICENOW ADMINISTRATOR DEVELOPER CBC AND DIFF Routine 08/27/2018 5:28 AM SERVICENOW ADMINISTRATOR DEVELOPER BASIC METABOLIC PANEL Routine 08/26/2018 10:10 PM SERVICENOW ADMINISTRATOR DEVELOPER CONSULT IV THERAPY TEAM Routine 08/26/2018 9:37 PM SERVICENOW ADMINISTRATOR DEVELOPER POC GLUCOSE 08/26/2018 9:12 PM SERVICENOW ADMINISTRATOR DEVELOPER POC GLUCOSE 08/26/2018 4:54 PM SERVICENOW ADMINISTRATOR DEVELOPER CREATININE Routine 08/26/2018 3:45 PM SERVICENOW ADMINISTRATOR DEVELOPER TROPONIN-I Routine 08/26/2018 11:50 AM SERVICENOW ADMINISTRATOR DEVELOPER OSMOLALITY Routine 08/26/2018 11:50 AM SERVICENOW ADMINISTRATOR DEVELOPER POC GLUCOSE 08/26/2018 11:27 AM SERVICENOW ADMINISTRATOR DEVELOPER ECG 12-LEAD Routine 08/26/2018 10:15 AM SERVICENOW ADMINISTRATOR DEVELOPER OSMOLALITY-URINE RANDOM Routine 08/26/2018 8:21 AM SERVICENOW ADMINISTRATOR DEVELOPER CREATININE-URINE RANDOM Routine 08/26/2018 8:21 AM SERVICENOW ADMINISTRATOR DEVELOPER SODIUM-URINE RANDOM Routine 08/26/2018 8:21 AM SERVICENOW ADMINISTRATOR DEVELOPER CHEST SINGLE VIEW BLANCA 08/26/2018 8:17 AM SERVICENOW ADMINISTRATOR DEVELOPER POC GLUCOSE 08/26/2018 7:54 AM SERVICENOW ADMINISTRATOR DEVELOPER TROPONIN-I Routine 08/26/2018 6:22 AM SERVICENOW ADMINISTRATOR DEVELOPER CBC AND DIFF Routine 08/26/2018 6:22 AM SERVICENOW ADMINISTRATOR DEVELOPER BASIC METABOLIC PANEL Routine 08/26/2018 6:22 AM SERVICENOW ADMINISTRATOR DEVELOPER TROPONIN-I STAT 08/25/2018 8:30 PM SERVICENOW ADMINISTRATOR DEVELOPER POC GLUCOSE 08/25/2018 8:24 PM SERVICENOW ADMINISTRATOR DEVELOPER POC GLUCOSE 08/25/2018 6:33 PM SERVICENOW ADMINISTRATOR DEVELOPER POC GLUCOSE 08/25/2018 5:30 PM SERVICENOW ADMINISTRATOR DEVELOPER 2-D + DOPPLER Routine 08/25/2018 ECHOCARDIOGRAM 3:43 PM SERVICENOW ADMINISTRATOR DEVELOPER TROPONIN-I Routine 08/25/2018 1:27 PM SERVICENOW ADMINISTRATOR DEVELOPER BNP (B-TYPE NATRIURETIC Add on 08/25/2018 PEPTI) 1:27 PM SERVICENOW ADMINISTRATOR DEVELOPER POC GLUCOSE 08/25/2018 11:46 AM SERVICENOW ADMINISTRATOR DEVELOPER POC GLUCOSE 08/25/2018 8:50 AM SERVICENOW ADMINISTRATOR DEVELOPER CHEST SINGLE VIEW Code 08/25/2018 7:59 AM SERVICENOW ADMINISTRATOR DEVELOPER POC BLOOD GAS ARTERIAL 08/25/2018 7:42 AM SERVICENOW ADMINISTRATOR DEVELOPER POC TROPONIN 08/25/2018 7:30 AM SERVICENOW ADMINISTRATOR DEVELOPER POC GLUCOSE 08/25/2018 7:13 AM SERVICENOW ADMINISTRATOR DEVELOPER ECG 12-LEAD Routine 08/25/2018 7:11 AM SERVICENOW ADMINISTRATOR DEVELOPER CBC AND DIFF Routine 08/25/2018 5:47 AM SERVICENOW ADMINISTRATOR DEVELOPER BASIC METABOLIC PANEL Routine 08/25/2018 5:47 AM SERVICENOW ADMINISTRATOR DEVELOPER POC GLUCOSE 08/24/2018 10:56 PM SERVICENOW ADMINISTRATOR DEVELOPER MRI HEAD WO CONTRAST Routine 08/24/2018 9:42 PM SERVICENOW ADMINISTRATOR DEVELOPER POC GLUCOSE 08/24/2018 4:52 PM SERVICENOW ADMINISTRATOR DEVELOPER UA REFLEX CULTURE LABEL Routine 08/24/2018 1:52 PM SERVICENOW ADMINISTRATOR DEVELOPER URINALYSIS MICROSCOPIC Routine 08/24/2018 REFLEX TO CULTURE 1:52 PM SERVICENOW ADMINISTRATOR DEVELOPER URINALYSIS DIPSTICK Routine 08/24/2018 REFLEX TO CULTURE 1:52 PM SERVICENOW ADMINISTRATOR DEVELOPER CULTURE-URINE 08/24/2018 W/SENSITIVITY 1:52 PM SERVICENOW ADMINISTRATOR DEVELOPER CULTURE-BLOOD Routine 08/24/2018 W/SENSITIVITY 1:49 PM SERVICENOW ADMINISTRATOR DEVELOPER CULTURE-BLOOD Routine 08/24/2018 W/SENSITIVITY 1:37 PM SERVICENOW ADMINISTRATOR DEVELOPER CHEST SINGLE VIEW STAT 08/24/2018 1:06 PM SERVICENOW ADMINISTRATOR DEVELOPER CT HEAD WO CONTRAST STAT 08/24/2018 12:48 PM SERVICENOW ADMINISTRATOR DEVELOPER POC GLUCOSE 08/24/2018 11:22 AM SERVICENOW ADMINISTRATOR DEVELOPER POC GLUCOSE 08/24/2018 7:36 AM SERVICENOW ADMINISTRATOR DEVELOPER PHOSPHORUS Routine 08/24/2018 4:05 AM SERVICENOW ADMINISTRATOR DEVELOPER MAGNESIUM Routine 08/24/2018 4:05 AM SERVICENOW ADMINISTRATOR DEVELOPER IONIZED CALCIUM Routine 08/24/2018 4:05 AM SERVICENOW ADMINISTRATOR DEVELOPER CBC AND DIFF Routine 08/24/2018 4:05 AM SERVICENOW ADMINISTRATOR DEVELOPER BASIC METABOLIC PANEL Routine 08/24/2018 4:05 AM SERVICENOW ADMINISTRATOR DEVELOPER POC GLUCOSE 08/23/2018 9:11 PM SERVICENOW ADMINISTRATOR DEVELOPER POC GLUCOSE 08/23/2018 6:19 PM SERVICENOW ADMINISTRATOR DEVELOPER TROPONIN-I Routine 08/23/2018 12:10 PM SERVICENOW ADMINISTRATOR DEVELOPER POC GLUCOSE 08/23/2018 11:53 AM SERVICENOW ADMINISTRATOR DEVELOPER POC GLUCOSE 08/23/2018 8:12 AM SERVICENOW ADMINISTRATOR DEVELOPER PHOSPHORUS Routine 08/23/2018 3:30 AM SERVICENOW ADMINISTRATOR DEVELOPER MAGNESIUM Routine 08/23/2018 3:30 AM SERVICENOW ADMINISTRATOR DEVELOPER IONIZED CALCIUM Routine 08/23/2018 3:30 AM SERVICENOW ADMINISTRATOR DEVELOPER CBC AND DIFF Routine 08/23/2018 3:30 AM SERVICENOW ADMINISTRATOR DEVELOPER BASIC METABOLIC PANEL Routine 08/23/2018 3:30 AM SERVICENOW ADMINISTRATOR DEVELOPER CT HEAD WO CONTRAST Routine 08/23/2018 1:43 AM SERVICENOW ADMINISTRATOR DEVELOPER POC GLUCOSE 08/22/2018 8:57 PM SERVICENOW ADMINISTRATOR DEVELOPER POC GLUCOSE 08/22/2018 6:02 PM SERVICENOW ADMINISTRATOR DEVELOPER TROPONIN-I Routine 08/22/2018 12:42 PM SERVICENOW ADMINISTRATOR DEVELOPER POC GLUCOSE 08/22/2018 11:34 AM SERVICENOW ADMINISTRATOR DEVELOPER POC GLUCOSE 08/22/2018 9:02 AM SERVICENOW ADMINISTRATOR DEVELOPER POC GLUCOSE 08/22/2018 7:34 AM SERVICENOW ADMINISTRATOR DEVELOPER POC GLUCOSE 08/22/2018 6:31 AM SERVICENOW ADMINISTRATOR DEVELOPER TROPONIN-I STAT 08/22/2018 6:31 AM SERVICENOW ADMINISTRATOR DEVELOPER POC GLUCOSE 08/22/2018 4:03 AM SERVICENOW ADMINISTRATOR DEVELOPER POC GLUCOSE 08/22/2018 2:56 AM SERVICENOW ADMINISTRATOR DEVELOPER TROPONIN-I STAT 08/22/2018 2:10 AM SERVICENOW ADMINISTRATOR DEVELOPER PHOSPHORUS Routine 08/22/2018 2:10 AM SERVICENOW ADMINISTRATOR DEVELOPER MAGNESIUM Routine 08/22/2018 2:10 AM SERVICENOW ADMINISTRATOR DEVELOPER IONIZED CALCIUM Routine 08/22/2018 2:10 AM SERVICENOW ADMINISTRATOR DEVELOPER CBC AND DIFF Routine 08/22/2018 2:10 AM SERVICENOW ADMINISTRATOR DEVELOPER BASIC METABOLIC PANEL Routine 08/22/2018 2:10 AM SERVICENOW ADMINISTRATOR DEVELOPER POC GLUCOSE 08/22/2018 2:09 AM SERVICENOW ADMINISTRATOR DEVELOPER POC GLUCOSE 08/22/2018 12:56 AM SERVICENOW ADMINISTRATOR DEVELOPER POC GLUCOSE 08/22/2018 12:04 AM SERVICENOW ADMINISTRATOR DEVELOPER TROPONIN-I STAT 08/22/2018 12:03 AM SERVICENOW ADMINISTRATOR DEVELOPER ECG-SCAN 08/22/2018 12:00 AM SERVICENOW ADMINISTRATOR DEVELOPER POC GLUCOSE 08/21/2018 10:43 PM SERVICENOW ADMINISTRATOR DEVELOPER TROPONIN-I STAT 08/21/2018 9:30 PM SERVICENOW ADMINISTRATOR DEVELOPER POC GLUCOSE 08/21/2018 8:07 PM SERVICENOW ADMINISTRATOR DEVELOPER ABDOMEN AP ONLY BLANCA 08/21/2018 7:46 PM SERVICENOW ADMINISTRATOR DEVELOPER ECG 12-LEAD STAT 08/21/2018 7:29 PM SERVICENOW ADMINISTRATOR DEVELOPER TROPONIN-I STAT 08/21/2018 6:30 PM SERVICENOW ADMINISTRATOR DEVELOPER PHOSPHORUS STAT 08/21/2018 6:30 PM SERVICENOW ADMINISTRATOR DEVELOPER MAGNESIUM STAT 08/21/2018 6:30 PM SERVICENOW ADMINISTRATOR DEVELOPER BASIC METABOLIC PANEL STAT 08/21/2018 6:30 PM SERVICENOW ADMINISTRATOR DEVELOPER ECG 12-LEAD STAT 08/21/2018 6:23 PM SERVICENOW ADMINISTRATOR DEVELOPER POC GLUCOSE 08/21/2018 3:29 PM SERVICENOW ADMINISTRATOR DEVELOPER POC GLUCOSE 08/21/2018 11:15 AM SERVICENOW ADMINISTRATOR DEVELOPER TROPONIN-I Routine 08/21/2018 11:00 AM SERVICENOW ADMINISTRATOR DEVELOPER CT HEAD WO CONTRAST Routine 08/21/2018 10:38 AM SERVICENOW ADMINISTRATOR DEVELOPER POC GLUCOSE 08/21/2018 7:57 AM SERVICENOW ADMINISTRATOR DEVELOPER TROPONIN-I Routine 08/21/2018 4:50 AM SERVICENOW ADMINISTRATOR DEVELOPER PHOSPHORUS Routine 08/21/2018 4:50 AM SERVICENOW ADMINISTRATOR DEVELOPER MAGNESIUM Routine 08/21/2018 4:50 AM SERVICENOW ADMINISTRATOR DEVELOPER CBC AND DIFF Routine 08/21/2018 4:50 AM SERVICENOW ADMINISTRATOR DEVELOPER BASIC METABOLIC PANEL Routine 08/21/2018 4:50 AM SERVICENOW ADMINISTRATOR DEVELOPER IONIZED CALCIUM Routine 08/21/2018 4:00 AM SERVICENOW ADMINISTRATOR DEVELOPER POC GLUCOSE 08/21/2018 3:04 AM SERVICENOW ADMINISTRATOR DEVELOPER TROPONIN-I Routine 08/20/2018 11:05 PM SERVICENOW ADMINISTRATOR DEVELOPER POC GLUCOSE 08/20/2018 8:35 PM SERVICENOW ADMINISTRATOR DEVELOPER POC GLUCOSE 08/20/2018 5:29 PM SERVICENOW ADMINISTRATOR DEVELOPER MAGNESIUM Routine 08/20/2018 4:51 PM SERVICENOW ADMINISTRATOR DEVELOPER BASIC METABOLIC PANEL Routine 08/20/2018 4:51 PM SERVICENOW ADMINISTRATOR DEVELOPER TROPONIN-I Routine 08/20/2018 4:51 PM SERVICENOW ADMINISTRATOR DEVELOPER POC GLUCOSE 08/20/2018 12:46 PM SERVICENOW ADMINISTRATOR DEVELOPER LIPID PROFILE Routine 08/20/2018 10:17 AM SERVICENOW ADMINISTRATOR DEVELOPER HEMOGLOBIN A1C Routine 08/20/2018 10:17 AM SERVICENOW ADMINISTRATOR DEVELOPER CT HEAD WO CONTRAST BLANCA 08/20/2018 9:26 AM SERVICENOW ADMINISTRATOR DEVELOPER POC GLUCOSE 08/20/2018 8:21 AM SERVICENOW ADMINISTRATOR DEVELOPER PROTIME INR (PT) Routine 08/20/2018 5:24 AM SERVICENOW ADMINISTRATOR DEVELOPER PHOSPHORUS Routine 08/20/2018 4:37 AM SERVICENOW ADMINISTRATOR DEVELOPER MAGNESIUM Routine 08/20/2018 4:37 AM SERVICENOW ADMINISTRATOR DEVELOPER IONIZED CALCIUM Routine 08/20/2018 4:37 AM SERVICENOW ADMINISTRATOR DEVELOPER CBC AND DIFF Routine 08/20/2018 4:37 AM SERVICENOW ADMINISTRATOR DEVELOPER BASIC METABOLIC PANEL Routine 08/20/2018 4:37 AM SERVICENOW ADMINISTRATOR DEVELOPER ECG-SCAN 08/20/2018 12:00 AM SERVICENOW ADMINISTRATOR DEVELOPER PHENCYCLIDINES-URINE Routine 08/19/2018 RANDOM 10:49 PM SERVICENOW ADMINISTRATOR DEVELOPER OPIATES-URINE RANDOM Routine 08/19/2018 10:49 PM SERVICENOW ADMINISTRATOR DEVELOPER COCAINE-URINE RANDOM Routine 08/19/2018 10:49 PM SERVICENOW ADMINISTRATOR DEVELOPER CANNABINOIDS-URINE RANDOM Routine 08/19/2018 10:49 PM SERVICENOW ADMINISTRATOR DEVELOPER BENZODIAZEPINES-URINE Routine 08/19/2018 RANDOM 10:49 PM SERVICENOW ADMINISTRATOR DEVELOPER BARBITURATES-URINE RANDOM Routine 08/19/2018 10:49 PM SERVICENOW ADMINISTRATOR DEVELOPER AMPHETAMINES-URINE RANDOM Routine 08/19/2018 10:49 PM SERVICENOW ADMINISTRATOR DEVELOPER CT HEAD WO CONTRAST STAT 08/19/2018 9:53 PM SERVICENOW ADMINISTRATOR DEVELOPER PHOSPHORUS STAT 08/19/2018 9:40 PM SERVICENOW ADMINISTRATOR DEVELOPER MAGNESIUM STAT 08/19/2018 9:40 PM SERVICENOW ADMINISTRATOR DEVELOPER IONIZED CALCIUM STAT 08/19/2018 9:40 PM SERVICENOW ADMINISTRATOR DEVELOPER COMPREHENSIVE METABOLIC STAT 08/19/2018 PANEL 9:40 PM SERVICENOW ADMINISTRATOR DEVELOPER PROTIME INR (PT) STAT 08/19/2018 9:40 PM SERVICENOW ADMINISTRATOR DEVELOPER CBC AND DIFF STAT 08/19/2018 9:40 PM SERVICENOW ADMINISTRATOR DEVELOPER CT HEAD EXTERNAL IMAGING Routine 08/19/2018 Diagnosis unknown 12:00 AM SERVICENOW ADMINISTRATOR DEVELOPER ECG-SCAN 08/19/2018 12:00 AM SERVICENOW ADMINISTRATOR DEVELOPER ECG-SCAN 08/19/2018 12:00 AM SERVICENOW ADMINISTRATOR DEVELOPER ECG-SCAN 08/19/2018 12:00 AM SERVICENOW ADMINISTRATOR DEVELOPER from Last 3 Months Results * POC GLUCOSE (08/30/2018 7:53 AM SERVICENOW ADMINISTRATOR DEVELOPER) Only the most recent of 53 results within the time period is included. Glucose, POC 216 (H) 70 - 100 MG/DL [facility] Performing Organization Address City/State/Zipcode Phone Number [facility] [address] [place] [address] * CBC (08/30/2018 5:30 AM SERVICENOW ADMINISTRATOR DEVELOPER) Only the most recent of 2 results within the time period is included. White Blood Cells 6.3 4.5 - 11.0 K/UL [facility] RBC 3.21 (L) 4.4 - 5.5 M/UL [facility] Hemoglobin 9.5 (L) 13.5 - 16.5 GM/DL [facility] Hematocrit 28.1 (L) 40 - 50 % [facility] MCV 87.7 80 - 100 FL [facility] MCH 29.8 26 - 34 [facility] MCHC 33.9 32.0 - 36.0 G/DL [facility] RDW 13.6 11 - 15 % [facility] Platelet Count 147 (L) 150 - 400 K/UL [facility] MPV 8.9 7 - 11 FL [facility] Specimen Blood Performing Organization Address City/[facility]/Zipcode Phone Number [facility] [address] [place] [address] * PHOSPHORUS (08/30/2018 5:30 AM SERVICENOW ADMINISTRATOR DEVELOPER) Only the most recent of 9 results within the time period is included. Phosphorus 3.6Comment: NOTE NEW REFERENCE 2.0 - 4.5 MG/DL [facility] RANGES Specimen Blood Performing Organization Address [facility] Phone Number [facility] [address] [place] [phone] * MAGNESIUM (08/30/2018 5:30 AM SERVICENOW ADMINISTRATOR DEVELOPER) Only the most recent of 11 results within the time period is included. Magnesium 1.8 1.6 - 2.6 mg/dL [facility] Specimen Blood Performing Organization Address [facility] Phone Number [facility] [address] [place] [phone] * BASIC METABOLIC PANEL (08/30/2018 5:30 AM SERVICENOW ADMINISTRATOR DEVELOPER) Only the most recent of 13 results within the time period is included. Sodium 137 137 - 147 MMOL/L [facility] Potassium 3.9 3.5 - 5.1 MMOL/L [facility] Chloride 105 98 - 110 MMOL/L [facility] CO2 24 21 - 30 MMOL/L [facility] Anion Gap 8 3 - 12 [facility] Glucose 195 (H) 70 - 100 MG/DL [facility] Blood Urea Nitrogen 30 (H) 7 - 25 MG/DL [facility] Creatinine 1.67 (H) 0.4 - 1.24 MG/DL [facility] Calcium 9.3 8.5 - 10.6 MG/DL [facility] eGFR Non 40 (L) >60 mL/min [facility] Comment: The eGFR is not validated for use in drug dosing adjustments.Continue to use estimated creatinine clearance per dosing reference text.Please contact the Clinical Pharmacist for questions. eGFR 49 (L) >60 mL/min [facility] Comment: The eGFR is not validated for use in drug dosing adjustments.Continue to use estimated creatinine clearance per dosing reference text.Please contact the Clinical Pharmacist for questions. Specimen Blood Performing Organization Address City/State/Zipcode Phone Number [facility] [address] [place] [address] * COMPREHENSIVE METABOLIC PANEL (08/29/2018 4:49 AM SERVICENOW ADMINISTRATOR DEVELOPER) Only the most recent of 2 results within the time period is included. Sodium 137 137 - 147 MMOL/L [facility] Potassium 3.8 3.5 - 5.1 MMOL/L [facility] Chloride 106 98 - 110 MMOL/L [facility] Glucose 202 (H) 70 - 100 MG/DL [facility] Blood Urea Nitrogen 34 (H) 7 - 25 MG/DL [facility] Creatinine 1.87 (H) 0.4 - 1.24 MG/DL [facility] Calcium 9.2 8.5 - 10.6 MG/DL [facility] Total Protein 6.6 6.0 - 8.0 G/DL [facility] Total Bilirubin 0.4 0.3 - 1.2 MG/DL [facility] Albumin 3.7 3.5 - 5.0 G/DL [facility] Alk Phosphatase 56 25 - 110 U/L [facility] AST (SGOT) 26 7 - 40 U/L [facility] CO2 24 21 - 30 MMOL/L [facility] ALT (SGPT) 37 7 - 56 U/L [facility] Anion Gap 7 3 - 12 [facility] eGFR Non 35 (L) >60 mL/min [facility] Comment: The eGFR is not validated for use in drug dosing adjustments.Continue to use estimated creatinine clearance per dosing reference text.Please contact the Clinical Pharmacist for questions. eGFR 43 (L) >60 mL/min [facility] Comment: The eGFR is not validated for use in drug dosing adjustments.Continue to use estimated creatinine clearance per dosing reference text.Please contact the Clinical Pharmacist for questions. Specimen Blood Performing Organization Address City/State/Zipcode Phone Number [facility] [address] [place] [phone] * CBC AND DIFF (08/27/2018 5:28 AM SERVICENOW ADMINISTRATOR DEVELOPER) Only the most recent of 9 results within the time period is included. White Blood Cells 5.5 4.5 - 11.0 K/UL [facility] RBC 3.13 (L) 4.4 - 5.5 M/UL [facility] Hemoglobin 9.4 (L) 13.5 - 16.5 GM/DL [facility] Hematocrit 27.1 (L) 40 - 50 % [facility] MCV 86.6 80 - 100 FL [facility] MCH 30.2 26 - 34 PG [facility] MCHC 34.8 32.0 - 36.0 G/DL [facility] RDW 13.9 11 - 15 % [facility] Platelet Count 114 (L) 150 - 400 K/UL [facility] MPV 9.4 7 - 11 FL [facility] Neutrophils 72 41 - 77 % [facility] Lymphocytes 14 (L) 24 - 44 % [facility] Monocytes 11 4 - 12 % [facility] Eosinophils 3 0 - 5 % [facility] Basophils 0 0 - 2 % [facility] Absolute Neutrophil Count 3.90 1.8 - 7.0 K/UL [facility] Absolute Lymph Count 0.80 (L) 1.0 - 4.8 K/UL [facility] Absolute Monocyte Count 0.60 0 - 0.80 K/UL [facility] Absolute Eosinophil Count 0.20 0 - 0.45 K/UL [facility] Absolute Basophil Count 0.00 0 - 0.20 K/UL [facility] Specimen Blood Performing Organization Address City/State/Zipcode Phone Number [facility] [address] [place] [address] * CREATININE (08/26/2018 3:45 PM [employer] ADMINISTRATOR DEVELOPER) Creatinine 2.10 (H) 0.4 - 1.24 MG/DL [facility] eGFR Non 31 (L) >60 mL/min [facility]IN LAB Comment: The eGFR is not validated for use in drug dosing adjustments.Continue to use estimated creatinine clearance per dosing reference text.Please contact the Clinical Pharmacist for questions. eGFR 37 (L) >60 mL/min [facility]IN [facility] Comment: The eGFR is not validated for use in drug dosing adjustments.Continue to use estimated creatinine clearance per dosing reference text.Please contact the Clinical Pharmacist for questions. Specimen Blood Performing Organization Address City/[facility]/Zipcode Phone Number [facility] [address] [place] [address] * TROPONIN-I (08/26/2018 11:50 AM SERVICENOW ADMINISTRATOR DEVELOPER) Only the most recent of 15 results within the time period is included. Troponin-I 0.90 (H) 0.0 - 0.05 NG/ML MAIN LAB Specimen Blood Performing Organization Address [facility] Phone Number MAIN LAB [address] [place] [address] * OSMOLALITY (08/26/2018 11:50 AM SERVICENOW ADMINISTRATOR DEVELOPER) Osmolality 308 (H) 280 - 307 MOSMOL/KG [facility] MAIN LAB Specimen Blood Performing Organization Address [facility] Phone Number MAIN LAB [address] [place] [address] * SODIUM-URINE RANDOM (08/26/2018 8:21 AM SERVICENOW ADMINISTRATOR DEVELOPER) Sodium, Random 53 MMOL/L MAIN LAB Specimen Urine - Urine Performing Organization Address [facility] Phone Number MAIN LAB [address] [place] [address] * OSMOLALITY-URINE RANDOM (08/26/2018 8:21 AM SERVICENOW ADMINISTRATOR DEVELOPER) Osmolality-Urine 514 50 - 1,400 MOS/KG MAIN LAB Specimen Urine - Urine Performing Organization Address [facility] Phone Number MAIN LAB [address] [place] [address] * CREATININE-URINE RANDOM (08/26/2018 8:21 AM SERVICENOW ADMINISTRATOR DEVELOPER) Creatinine, Random 102 MG/DL MAIN LAB Specimen Urine - Urine Performing Organization Address [facility] Phone Number MAIN LAB [address] [place] [phone] * CHEST SINGLE VIEW (08/26/2018 8:17 AM SERVICENOW ADMINISTRATOR DEVELOPER) Only the most recent of 3 results within the time period is included. Impressions Performed At Stable chest radiograph with pulmonary vascular congestion and diffuse [facility] RAD RESULTS interstitial opacities bilaterally, likely edema. Small bilateral pleural effusions and adjacent consolidation, likely atelectasis. Approved by Michael Parada D.O. on 08/26/2018 11:23 AM By my electronic signature, I attest that I have personally reviewed the images for this examination and formulated the interpretations and opinions expressed in this report Finalized by TIFFANIE CONTRERAS M.D. on 08/26/2018 12:45 PM. Dictated by Michael Parada D.O. on 08/26/2018 9:33 AM. Narrative Performed At Procedure: CHEST SINGLE VIEW [facility] RAD RESULTS Clinical Indication: 78-year-old male; pulmonary edema, heart failure. Comparison: Prior examination on 08/25/2018. FINDINGS: Prior median sternotomy and CABG. The cardiac silhouette remains mildly enlarged with pulmonary vascular congestion and diffuse interstitial opacities bilaterally. Unchanged small bilateral pleural effusions and mild adjacent consolidation. Procedure Note Interface, Radiant Results - 08/26/2018 12:48 PM SERVICENOW ADMINISTRATOR DEVELOPER Procedure: CHEST SINGLE VIEW Clinical Indication: 78-year-old male; pulmonary edema, heart failure. Comparison: Prior examination on 08/25/2018. FINDINGS: Prior median sternotomy and CABG. The cardiac silhouette remains mildly enlarged with pulmonary vascular congestion and diffuse interstitial opacities bilaterally. Unchanged small bilateral pleural effusions and mild adjacent consolidation. IMPRESSION Stable chest radiograph with pulmonary vascular congestion and diffuse interstitial opacities bilaterally, likely edema. Small bilateral pleural effusions and adjacent consolidation, likely atelectasis. Approved by Michael Parada D.O. on 08/26/2018 11:23 AM By my electronic signature, I attest that I have personally reviewed the images for this examination and formulated the interpretations and opinions expressed in this report Finalized by TIFFANIE CONTRERAS M.D. on 08/26/2018 12:45 PM. Dictated by Michael Parada D.O. on 08/26/2018 9:33 AM. Performing Organization Address City/State/Zipcode Phone Number [facility] RAD RESULTS * 2-D + DOPPLER ECHOCARDIOGRAM (08/25/2018 3:43 PM SERVICENOW ADMINISTRATOR DEVELOPER) IVS 1.23 0.6 - 1.0 cm OTHER OUTSIDE LAB LVIDD 5.38 4.2 - 5.8 cm OTHER OUTSIDE LAB LVIDS 4.35 2.5 - 4.0 cm OTHER OUTSIDE LAB PW 1.10 0.6 - 1.0 cm OTHER OUTSIDE LAB TDI e' 0.10 m/s OTHER OUTSIDE LAB Right Ventricular Mid 2.70 1.9 - 3.5 cm OTHER OUTSIDE LAB Diameter LA size 4.23 3.0 - 4.0 cm OTHER OUTSIDE LAB LA volume 82.50 18 - 58 mL OTHER OUTSIDE LAB Right Atrial Area 19.42 <18 cm2 OTHER OUTSIDE LAB Right Atrial Major 5.85 2.1 - 2.7 cm OTHER OUTSIDE LAB Dimension and a peak gradient of 7.65 mmHg OTHER OUTSIDE LAB AV peak velocity 1.38 m/s OTHER OUTSIDE LAB MV Peak A Eulalio 0.73 m/s OTHER OUTSIDE LAB MV Peak E Eulalio PW 1.03 m/s OTHER OUTSIDE LAB Right Ventricular Basal 4.11 2.5 - 4.1 cm OTHER OUTSIDE LAB Diameter Right Heart Systolic 1.87 >1.7 cm OTHER OUTSIDE LAB Mmode TAPSE Ao root annulus 2.28 1.4 - 2.6 cm OTHER OUTSIDE LAB Sinus 3.34 3.1 - 3.7 cm OTHER OUTSIDE LAB STJ 3.53 1.7 - 3.4 cm OTHER OUTSIDE LAB Ascending aorta 3.97 2.0 - 3.6 cm OTHER OUTSIDE LAB BSA 2 m2 OTHER OUTSIDE LAB CV ECHO PV REDUCING SYSTEM OPERATOR MARIS Pisano OTHER OUTSIDE LAB FS 19.14 28 - 44 % OTHER OUTSIDE LAB EF 32.55 % OTHER OUTSIDE LAB Proximal aorta 3.7 2.1 - 3.4 cm OTHER OUTSIDE LAB LV mass 252.36 96 - 200 g OTHER OUTSIDE LAB RWT 0.41 <=0.42 OTHER OUTSIDE LAB E/A ratio 1.41 OTHER OUTSIDE LAB TV rest pulmonary artery 38 mmHg OTHER OUTSIDE LAB pressure E/E' ratio 10.30 OTHER OUTSIDE LAB Right Heart Systolic TDI 0.076 m/s OTHER OUTSIDE LAB S' Left Atrium Index 41.25 16 - 34 OTHER OUTSIDE LAB Cardiology Ultrasound Siemens [id number] OTHER OUTSIDE LAB Machine Left Ventricle Mass Index 126.18 50 - 102 g/m2 OTHER OUTSIDE LAB ECHO EF 50 % OTHER OUTSIDE LAB Narrative Performed At OTHER OUTSIDE LAB Left ventricular systolic function is low normal. LVEF 50-55% Mild biatrial enlargement. Aortic valve sclerosis without stenosis. No pericardial effusion. Agitated saline study is negative for right to left shunt. Estimated peak systolic pulmonary artery pressure is 38 mmHg. Performing Organization Address City/State/Zipcode Phone Number OTHER OUTSIDE LAB * BNP (B-TYPE NATRIURETIC PEPTI) (08/25/2018 1:27 PM SERVICENOW ADMINISTRATOR DEVELOPER) B Type Natriuretic 1,148.0 (H) 0 - 100 PG/ML MAIN LAB Peptide Specimen Blood Performing Organization Address City/State/Zipcode Phone Number MAIN LAB [address] [place] [address] * POC BLOOD GAS ARTERIAL (08/25/2018 7:42 AM SERVICENOW ADMINISTRATOR DEVELOPER) PH-ART-POC 7.46 (H) 7.35 - 7.45 [facility] MAIN LAB ISX5-GGT-DPS 23 (L) 35 - 45 MMHG [facility] MAIN LAB PO2-ART-POC 104 (H) 80 - 100 MMHG [facility] MAIN LAB Base Def-ART-POC 8.0 MMOL/L [facility] MAIN LAB O2 Sat-ART-POC 98.0 95 - 99 % [facility] MAIN LAB Iptqgnxdxkh-OMF-MZZ 16.3 (L) 21 - 28 MMOL/L [facility] MAIN LAB Performing Organization Address [facility] Phone Number [facility] MAIN LAB [address] [place] [address] * POC TROPONIN (08/25/2018 7:30 AM SERVICENOW ADMINISTRATOR DEVELOPER) Wydirewu-A-ZPS 0.69 (H) 0.00 - 0.05 NG/ML MAIN LAB Performing Organization Address [facility] Phone Number MAIN LAB [address] [place] [address] * MRI HEAD WO CONTRAST (08/24/2018 9:42 PM SERVICENOW ADMINISTRATOR DEVELOPER) Impressions Performed At 1.Unchanged acute to early subacute left thalamic and internal capsular [facility] RAD RESULTS hemorrhage with mild surrounding associated vasogenic edema. 2.Persistent localized cerebral mass effect with 3-4 mm of rightward midline shift. 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 Approved by Warren Baird DO on 08/25/2018 9:05 AM By my electronic signature, I attest that I have personally reviewed the images for this examination and formulated the interpretations and opinions expressed in this report Finalized by Oziel White M.D. on 08/25/2018 12:27 PM. Dictated by Warren Baird DO on 08/25/2018 7:23 AM. Narrative Performed At EXAM: MRI BRAIN [facility] RAD RESULTS HISTORY: Intracerebral hemorrhage. TECHNIQUE: Multiplanar and multisequence MR imaging of the head was performed. COMPARISON: CT head dated August 24, 2018 at 1240 hours. FINDINGS: Dr. Oziel White M.D. has personally reviewed these images and formulated the interpretations and opinions expressed in this report. Allowing for differences in modality, there has been no significant interval change in the acute to early subacute bilobed intraparenchymal hemorrhage with an epicenter in the left thalamus extending into the genu and anterior limb of the left internal capsule. Maximal dimensions are approximately 1.8 x 1.4 x 3.3 cm in CC, TV, and AP dimensions respectively (series 12, image 14; series 11, image 13). There is mild surrounding vasogenic edema and associated localized cerebral mass effect with sulcal/lateral ventricular effacement and up to 3-4 mm of rightward midline shift, not significantly changed from the comparison. No definitive associated vascular malformation or definable mass, though assessment is limited without the utilization of intravenous contrast. Mild generalized cerebral volume loss with prominence of the ventricles and subarachnoid spaces. 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 Scattered FLAIR hyperintensities throughout the supratentorial white matter are likely on the basis of chronic microvascular ischemia. Ocular lens replacements are noted. Procedure Note Interface, Radiant Results - 08/25/2018 12:30 PM SERVICENOW ADMINISTRATOR DEVELOPER EXAM: MRI BRAIN HISTORY: Intracerebral hemorrhage. TECHNIQUE: Multiplanar and multisequence MR imaging of the head was performed. COMPARISON: CT head dated August 24, 2018 at 1240 hours. FINDINGS: Dr. Oziel White M.D. has personally reviewed these images and formulated the interpretations and opinions expressed in this report. Allowing for differences in modality, there has been no significant interval change in the acute to early subacute bilobed intraparenchymal hemorrhage with an epicenter in the left thalamus extending into the genu and anterior limb of the left internal capsule. Maximal dimensions are approximately 1.8 x 1.4 x 3.3 cm in CC, TV, and AP dimensions respectively (series 12, image 14; series 11, image 13). There is mild surrounding vasogenic edema and associated localized cerebral mass effect with sulcal/lateral ventricular effacement and up to 3-4 mm of rightward midline shift, not significantly changed from the comparison. No definitive associated vascular malformation or definable mass, though assessment is limited without the utilization of intravenous contrast. Mild generalized cerebral volume loss with prominence of the ventricles and subarachnoid spaces. 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 Scattered FLAIR hyperintensities throughout the supratentorial white matter are likely on the basis of chronic microvascular ischemia. Ocular lens replacements are noted. IMPRESSION 1. Unchanged acute to early subacute left thalamic and internal capsular hemorrhage with mild surrounding associated vasogenic edema. 2. Persistent localized cerebral mass effect with 3-4 mm of rightward midline shift. 3. 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 Approved by Warren Baird DO on 08/25/2018 9:05 AM By my electronic signature, I attest that I have personally reviewed the images for this examination and formulated the interpretations and opinions expressed in this report Finalized by Oziel White M.D. on 08/25/2018 12:27 PM. Dictated by Warren Baird DO on 08/25/2018 7:23 AM. Performing Organization Address [facility] Phone Number RAD RESULTS * UA REFLEX CULTURE LABEL (08/24/2018 1:52 PM SERVICENOW ADMINISTRATOR DEVELOPER) UA Reflex Culture LAB LABEL [facility] MAIN LAB Specimen Urine Performing Organization Address [facility] Phone Number MAIN LAB [address] [place] [address] * URINALYSIS MICROSCOPIC REFLEX TO CULTURE (08/24/2018 1:52 PM SERVICENOW ADMINISTRATOR DEVELOPER) WBCs,UA PACKED 0 - 2 /HPF [facility] MAIN LAB RBCs,UA 0-2 0 - 3 /HPF [facility] MAIN LAB Comment,UA Urine submitted for reflex [facility] MAIN LAB culture if criteria are met:WBC>10, positive nitrite and/or >=1+ leukocyte esterase. If quantity is not sufficient, an addendum will follow. MucousUA TRACE [facility] MAIN LAB Bacteria,UA MODERATE (A) NEG-NEG [facility] MAIN LAB WBC Clumps PRESENT [facility] MAIN LAB Squamous Epithelial Cells 0-2 0 - 5 [facility] MAIN LAB Specimen Urine Performing Organization Address [facility] Phone Number [facility] MAIN LAB [address] [place] [address] * URINALYSIS DIPSTICK REFLEX TO CULTURE (08/24/2018 1:52 PM SERVICENOW ADMINISTRATOR DEVELOPER) Color,UA YELLOW [facility] MAIN LAB Turbidity,UA CLEAR CLEAR-CLEAR [facility] MAIN LAB Specific [place]-Urine 1.016 1.003 - 1.035 [facility] MAIN LAB pH,UA 5.0 5.0 - 8.0 [facility] MAIN LAB Protein,UA 1+ (A) NEG-NEG [facility] MAIN LAB Glucose,UA NEG NEG-NEG [facility] MAIN LAB Ketones,UA TRACE (A) NEG-NEG [facility] MAIN LAB Bilirubin,UA NEG NEG-NEG [facility] MAIN LAB Blood,UA 1+ (A) NEG-NEG [facility] MAIN LAB Urobilinogen,UA NORMAL NORM-NORMAL [facility] MAIN LAB Nitrite,UA NEG NEG-NEG [facility] MAIN LAB Leukocytes,UA 3+ (A) NEG-NEG [facility] MAIN LAB Urine Ascorbic Acid, UA NEG NEG-NEG MAIN LAB Specimen Urine Performing Organization Address City/State/Zipcode Phone Number MAIN LAB [address] [place] [address] * CULTURE-URINE W/SENSITIVITY (08/24/2018 1:52 PM SERVICENOW ADMINISTRATOR DEVELOPER) Battery Name URINE CULTURE [facility] MAIN LAB Specimen Description URINE MAIN LAB Special Requests NONE MAIN LAB Culture >100,000 organisms/ml MAIN LAB MORGANELLA MORGANII This organism may induce beta lactamase if treated with Cephalosporins or extended spectrum Penicillins.Monitor for resistance if treatment includes these drugs. (A) Report Status FINAL MAIN LAB 08/26/2018 Organism ID >100,000 organisms/ml MAIN LAB MORGANELLA MORGANII Specimen Urine Antibiotic Method Susceptibility Organism Ampicillin RYAN (MCG/ML) INTERPRETATION >16 RESISTANT: Resistant >100,000 organisms/ml morganella morganii Amoxicil/Clav Acid RYAN (MCG/ML) INTERPRETATION >16/8 RESISTANT: Resistant >100,000 organisms/ml morganella morganii Cefazolin RYAN (MCG/ML) INTERPRETATION >16 RESISTANT: Resistant >100,000 organisms/ml morganella morganii Levofloxacin RYAN (MCG/ML) INTERPRETATION <=1 SUSCEPTIBLE: Susceptible >100,000 organisms/ml morganella morganii Nitrofurantoin RYAN (MCG/ML) INTERPRETATION 64 RESISTANT: Resistant >100,000 organisms/ml morganella morganii Gentamicin RYAN (MCG/ML) INTERPRETATION <=2 SUSCEPTIBLE: Susceptible >100,000 organisms/ml morganella morganii Trimethsulfa RYAN (MCG/ML) INTERPRETATION <=0.5/9.5 SUSCEPTIBLE: Susceptible >100,000 organisms/ml morganella morganii Piperacil/Tazobactam RYAN (MCG/ML) INTERPRETATION <=2/4 SUSCEPTIBLE: Susceptible >100,000 organisms/ml morganella morganii Tetracycline RYAN (MCG/ML) INTERPRETATION <=2 SUSCEPTIBLE: Susceptible >100,000 organisms/ml morganella morganii Cefepime RYAN (MCG/ML) INTERPRETATION <=1 SUSCEPTIBLE: Susceptible >100,000 organisms/ml morganella morganii Ertapenem RYAN (MCG/ML) INTERPRETATION <=0.25 SUSCEPTIBLE: Susceptible >100,000 organisms/ml morganella morganii Ceftriaxone RYAN (MCG/ML) INTERPRETATION <=1 SUSCEPTIBLE: Susceptible >100,000 organisms/ml morganella morganii Method RYAN (MCG/ML) INTERPRETATION RYAN (MCG/ML) INTERPRETATION >100,000 organisms/ml morganella morganii Performing Organization Address City/[facility]/Zipcode Phone Number [place] [address] [place] [address] * CULTURE-BLOOD W/SENSITIVITY (08/24/2018 1:49 PM SERVICENOW ADMINISTRATOR DEVELOPER) Only the most recent of 2 results within the time period is included. Battery Name BLOOD CULTURE [facility] Specimen Description BLOOD [place] LEFT ANTECUBITAL Special Requests NONE [facility] Culture NO GROWTH 5 DAYS [facility] Report Status FINAL [place] 08/30/2018 Specimen Blood Performing Organization Address City/[facility]/Zipcode Phone Number [facility] [address] [place] [address] * CT HEAD WO CONTRAST (08/24/2018 12:48 PM SERVICENOW ADMINISTRATOR DEVELOPER) Only the most recent of 5 results within the time period is included. Impressions Performed At 1. No significant change in left thalamic and internal capsule hemorrhage with [facility] RAD RESULTS localized mass effect on the third ventricle and. 2. No new intracranial hemorrhage, increasing mass effect, or hydrocephalus. Approved by Haroldo Garcia M.D. on 08/24/2018 1:31 PM By my electronic signature, I attest that I have personally reviewed the images for this examination and formulated the interpretations and opinions expressed in this report Finalized by Angel Amanda M.D. on 08/24/2018 1:36 PM. Dictated by Haroldo Garcia M.D. on 08/24/2018 1:01 PM. Narrative Performed At EXAM: CT HEAD [facility] RAD RESULTS HISTORY: 78-year-old male, altered mental status. Left basal ganglia hematoma, increased lethargy. TECHNIQUE: Multiple contiguous axial images were obtained of the brain without intravenous contrast. COMPARISON: CT head dated August 23, 2018. FINDINGS: No significant change in intraparenchymal hemorrhage centered within the left thalamus and extending into the anterior limb of the internal capsule, measuring 1.8 cm in maximum coronal dimension (series 601, image 49), previously 1.8 cm. Associated vasogenic edema is unchanged. Persistent mild localized mass effect with partial effacement of the third ventricle and minimal ksha-mz-gnxwi midline shift, measuring 3 mm, previously 4 mm. No hydrocephalus or intraventricular extension of hemorrhage. [place]aca-white matter interfaces are otherwise maintained. The basal cisterns are patent. The mastoid air cells and visualized paranasal sinuses are well-aerated. Procedure Note Interface, Radiant Results - 08/24/2018 1:39 PM SERVICENOW ADMINISTRATOR DEVELOPER EXAM: CT HEAD HISTORY: 78-year-old male, altered mental status. Left basal ganglia hematoma, increased lethargy. TECHNIQUE: Multiple contiguous axial images were obtained of the brain without intravenous contrast. COMPARISON: CT head dated August 23, 2018. FINDINGS: No significant change in intraparenchymal hemorrhage centered within the left thalamus and extending into the anterior limb of the internal capsule, measuring 1.8 cm in maximum coronal dimension (series 601, image 49), previously 1.8 cm. Associated vasogenic edema is unchanged. Persistent mild localized mass effect with partial effacement of the third ventricle and minimal tgwk-uv-stcso midline shift, measuring 3 mm, previously 4 mm. No hydrocephalus or intraventricular extension of hemorrhage. Baca-white matter interfaces are otherwise maintained. The basal cisterns are patent. The mastoid air cells and visualized paranasal sinuses are well-aerated. IMPRESSION 1. No significant change in left thalamic and internal capsule hemorrhage with localized mass effect on the third ventricle and. 2. No new intracranial hemorrhage, increasing mass effect, or hydrocephalus. Approved by Haroldo Garcia M.D. on 08/24/2018 1:31 PM By my electronic signature, I attest that I have personally reviewed the images for this examination and formulated the interpretations and opinions expressed in this report Finalized by Angel Amanda M.D. on 08/24/2018 1:36 PM. Dictated by Haroldo Garcia M.D. on 08/24/2018 1:01 PM. Performing Organization Address City/State/Zipcode Phone Number [place] RAD RESULTS * IONIZED CALCIUM (08/24/2018 4:05 AM SERVICENOW ADMINISTRATOR DEVELOPER) Only the most recent of 6 results within the time period is included. Ionized Calcium 1.15 1.0 - 1.3 MMOL/L [facility] MAIN [facility] Specimen Blood Performing Organization Address City/State/Zipcode Phone Number [facility] [address] [place] [address] * ECG-SCAN (08/22/2018 12:00 AM SERVICENOW ADMINISTRATOR DEVELOPER) Narrative Performed At Ordered by an unspecified provider. * ABDOMEN AP ONLY (08/21/2018 7:46 PM SERVICENOW ADMINISTRATOR DEVELOPER) Impressions Performed At Initial abdominal radiograph demonstrating gas-filled loops of small bowel as [facility] RAD RESULTS well as gas throughout the colon. Findings may reflect ileus but progress examination 12 to 24 hours is suggested for reevaluation. High position of the gastric tube which could be advanced 6 to 8 cm for more effective position. Finalized by David Bro M.D. on 08/22/2018 7:20 AM. Dictated by David Bro M.D. on 08/22/2018 7:17 AM. Narrative Performed At OG placement. [facility] RAD RESULTS Technique: 2 AP supine views of the abdomen were obtained. Comparison: No prior examinations are available for comparison.. Findings: There are several loops of gas-filled small bowel in the left abdomen. There is gas distributed throughout the colon to the level of the rectum. 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 A gastric tube is in place with its tip below the gastroesophageal junction and sidehole at the level of the distal esophagus. Procedure Note Interface, Radiant Results - 08/22/2018 7:23 AM SERVICENOW ADMINISTRATOR DEVELOPER OG placement. Technique: 2 AP supine views of the abdomen were obtained. Comparison: No prior examinations are available for comparison.. Findings: There are several loops of gas-filled small bowel in the left abdomen. There is gas distributed throughout the colon to the level of the rectum. 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 A gastric tube is in place with its tip below the gastroesophageal junction and sidehole at the level of the distal esophagus. IMPRESSION Initial abdominal radiograph demonstrating gas-filled loops of small bowel as well as gas throughout the colon. Findings may reflect ileus but progress examination 12 to 24 hours is suggested for reevaluation. High position of the gastric tube which could be advanced 6 to 8 cm for more effective position. Finalized by David Bro M.D. on 08/22/2018 7:20 AM. Dictated by David Bro M.D. on 08/22/2018 7:17 AM. Performing Organization Address City/State/Zipcode Phone Number [facility] RAD RESULTS * HEMOGLOBIN A1C (08/20/2018 10:17 AM SERVICENOW ADMINISTRATOR DEVELOPER) Hemoglobin A1C 7.3 (H) 4.0 - 6.0 % [facility] MAIN LAB Comment: The ADA recommends that most patients with type 1 and type 2 diabetes maintain an A1c level <7%. Specimen Blood Performing Organization Address [facility] Phone Number MAIN LAB [address] [place] [address] * LIPID PROFILE (08/20/2018 10:17 AM SERVICENOW ADMINISTRATOR DEVELOPER) Cholesterol 179 <200 MG/DL [facility] MAIN LAB Triglycerides 204 (H) <150 MG/DL [facility] MAIN LAB HDL 26 (L) >40 MG/DL [facility] MAIN [facility] LDL 111 (H) <100 MG/DL [facility] MAIN [facility] VLDL 41 MG/DL [facility] MAIN LAB Non HDL Cholesterol 153 MG/DL [facility] MAIN LAB Comment: Calculated non-HDL Cholesterol (non-HDL-C) indirectly measures LDL-C, Lp(a), IDL-C, and VLDL-C.It is a surrogate marker for Apoprotein B.Goal should be less than 130 mg/dL. Specimen Blood Performing Organization Address [facility] Phone Number MAIN LAB [address] [place] [address] * PROTIME INR (PT) (08/20/2018 5:24 AM SERVICENOW ADMINISTRATOR DEVELOPER) Only the most recent of 2 results within the time period is included. INR 1.1 0.8 - 1.2 MAIN LAB Specimen Blood Performing Organization Address [facility] Phone Number MAIN LAB [address] [place] [address] * ECG-SCAN (08/20/2018 12:00 AM SERVICENOW ADMINISTRATOR DEVELOPER) Narrative Performed At Ordered by an unspecified provider. * PHENCYCLIDINES-URINE RANDOM (08/19/2018 10:49 PM SERVICENOW ADMINISTRATOR DEVELOPER) Phencyclidine (PCP) NEG NEG-NEG [facility] MAIN LAB Comment: RESULTS WERE OBTAINED BY IMMUNOASSAY AND ARE PRESUMPTIVE ONLY. POSITIVE INDICATES THE PRESENCE OF SUBSTANCE WITH CHARACTERISTICS SIMILAR TO DRUG-DRUG CLASS OR METABOLITE IN CONC. EQUAL TO OR EXCEEDING VALUES LISTED. PHENCYCLIDINE (PCP)25 NG/ML Specimen Urine - Urine Performing Organization Address [facility] Phone Number MAIN LAB [address] [place] [address] * OPIATES-URINE RANDOM (08/19/2018 10:49 PM SERVICENOW ADMINISTRATOR DEVELOPER) Opiates-Urine NEG NEG-NEG [facility] Comment: RESULTS WERE OBTAINED BY IMMUNOASSAY AND ARE PRESUMPTIVE ONLY. POSITIVE INDICATES THE PRESENCE OF SUBSTANCE WITH CHARACTERISTICS SIMILAR TO DRUG-DRUG CLASS OR METABOLITE IN CONC. EQUAL TO OR EXCEEDING VALUES LISTED. OPIATES 2000 NG/ML Specimen Urine - Urine Performing Organization Address [facility] Phone Number MAIN LAB [address] [place] [address] * COCAINE-URINE RANDOM (08/19/2018 10:49 PM SERVICENOW ADMINISTRATOR DEVELOPER) Cocaine-Urine NEG NEG-NEG MAIN LAB Comment: RESULTS WERE OBTAINED BY IMMUNOASSAY AND ARE PRESUMPTIVE ONLY. POSITIVE INDICATES THE PRESENCE OF SUBSTANCE WITH CHARACTERISTICS SIMILAR TO DRUG-DRUG CLASS OR METABOLITE IN CONC. EQUAL TO OR EXCEEDING VALUES LISTED. COCAINE 300 NG/ML Specimen Urine - Urine Performing Organization Address [facility] Phone Number MAIN LAB [address] [place] [address] * CANNABINOIDS-URINE RANDOM (08/19/2018 10:49 PM SERVICENOW ADMINISTRATOR DEVELOPER) THC NEG NEG-NEG MAIN LAB Comment: RESULTS WERE OBTAINED BY IMMUNOASSAY AND ARE PRESUMPTIVE ONLY. POSITIVE INDICATES THE PRESENCE OF SUBSTANCE WITH CHARACTERISTICS SIMILAR TO DRUG-DRUG CLASS OR METABOLITE IN CONC. EQUAL TO OR EXCEEDING VALUES LISTED. CANNABINOIDS 50 NG/ML Specimen Urine - Urine Performing Organization Address [facility] Phone Number [facility] [address] [place] [address] * BENZODIAZEPINES-URINE RANDOM (08/19/2018 10:49 PM SERVICENOW ADMINISTRATOR DEVELOPER) Benzodiazepines NEG NEG-NEG MAIN LAB Comment: RESULTS WERE OBTAINED BY IMMUNOASSAY AND ARE PRESUMPTIVE ONLY. POSITIVE INDICATES THE PRESENCE OF SUBSTANCE WITH CHARACTERISTICS SIMILAR TO DRUG-DRUG CLASS OR METABOLITE IN CONC. EQUAL TO OR EXCEEDING VALUES LISTED. BENZODIAZEPINES 200 NG/ML Specimen Urine - Urine Performing Organization Address [facility] Phone Number MAIN LAB [address] [place] [address] * BARBITURATES-URINE RANDOM (08/19/2018 10:49 PM SERVICENOW ADMINISTRATOR DEVELOPER) Barbiturates,Urine NEG NEG-NEG MAIN LAB Comment: RESULTS WERE OBTAINED BY IMMUNOASSAY AND ARE PRESUMPTIVE ONLY. POSITIVE INDICATES THE PRESENCE OF SUBSTANCE WITH CHARACTERISTICS SIMILAR TO DRUG-DRUG CLASS OR METABOLITE IN CONC. EQUAL TO OR EXCEEDING VALUES LISTED. BARBITURATES 200 NG/ML Specimen Urine - Urine Performing Organization Address City/[facility] Phone Number [facility] LAB [address] [place] [address] * AMPHETAMINES-URINE RANDOM (08/19/2018 10:49 PM SERVICENOW ADMINISTRATOR DEVELOPER) Amphetamines NEG NEG-NEG [facility] MAIN LAB Comment: RESULTS WERE OBTAINED BY IMMUNOASSAY AND ARE PRESUMPTIVE ONLY. POSITIVE INDICATES THE PRESENCE OF SUBSTANCE WITH CHARACTERISTICS SIMILAR TO DRUG-DRUG CLASS OR METABOLITE IN CONC. EQUAL TO OR EXCEEDING VALUES LISTED. AMPHETAMINES 1000 NG/ML Specimen Urine - Urine Performing Organization Address [facility] Phone Number MA[facility] LAB [address] [place] [address] * CT HEAD EXTERNAL IMAGING (08/19/2018 12:00 AM SERVICENOW ADMINISTRATOR DEVELOPER) Narrative Performed At This order has been auto finalized and does not contain a result. * ECG-SCAN (08/19/2018 12:00 AM SERVICENOW ADMINISTRATOR DEVELOPER) Narrative Performed At Ordered by an unspecified provider. * ECG-SCAN (08/19/2018 12:00 AM SERVICENOW ADMINISTRATOR DEVELOPER) Narrative Performed At Ordered by an unspecified provider. * ECG-SCAN (08/19/2018 12:00 AM SERVICENOW ADMINISTRATOR DEVELOPER) Narrative Performed At Ordered by an unspecified provider. from Last 3 Months Insurance Payer Benefit Subscriber ID Type Phone Address Plan / Group MEDICARE MEDICARE xxxxxxxxxx Medicare PART A AND B Advance Directives Patient has advance care planning documents, and code status on file. For more information, please contact: [facility] [address] [place] [address] Date Inactivated Comments Code Status Date Activated 08/30/2018 1:33 PM Full Code 08/19/2018 9:32 PM Provider has discussed Code Status No, more discussion w/Patient or Family? needed
--- OUTSIDE RECORDS SUMMARY | 2018-08-30 16:13 | XMS REPORT | Encounter Summary ---
Author Author [facility] Organization [facility] Address Unknown Phone Unavailable Care Team Providers Care Computer Patternmaker Name Role Phone No Pcp, Na PCP Unavailable Reason for Visit * Auth/Cert Referred By Contact Referred To Contact Status Reason Specialty Diagnoses / Procedures Diagnoses ICH (intracerebral hemorrhage) (HCC) [facility] Encounter Details Care Team Description Date Type Department Nancy Norris MD [address] [facility] [address] [place] [address] [phone] Goran Painting MD [address] [facility] [address] [place] [address] [phone] Nasra Clarke MD [address] [facility] [address] [place] [address] [phone] Boy Overton MD [address] [place] [address] [phone] Kwasi Nolasco MD [address] [place] [address] [phone] ICH (intracerebral hemorrhage) (HCC) 08/19/2018 Hospital [facility] - Encounter [id number] [facility] 08/30/2018 [place] [address] Social History Date Tobacco Use Types Packs/Day [...] Travel Start No recent travel history available. as of this encounter Last Filed Vital Signs Time Taken Vital Sign Reading 08/30/2018 9:53 AM BODY WORK AUTO TRIMMER Blood Pressure 148/57 08/30/2018 9:53 AM BODY WORK AUTO TRIMMER Pulse 64 08/30/2018 9:53 AM BODY WORK AUTO TRIMMER Temperature 36.7 C (98.1 F) - Respiratory Rate - 08/30/2018 9:53 AM BODY WORK AUTO TRIMMER Oxygen Saturation 97% - Inhaled Oxygen - Concentration 08/25/2018 3:43 PM BODY WORK AUTO TRIMMER Weight 84.4 kg (186 lb 1.1 oz) 08/25/2018 3:43 PM BODY WORK AUTO TRIMMER Height 170.2 cm (5' 7") 08/25/2018 3:43 PM BODY WORK AUTO TRIMMER Body Mass Index 29.14 in this encounter Functional Status Date of Assessment Functional Status Response 08/20/2018 Does the patient have a hearing impairment: No as of this encounter Medications at Time of Discharge Start Date End Date Medication Sig Dispensed Refills 08/30/2018 acetaminophen (TYLENOL) Take two 0 325 mg tablet tablets by mouth every 4 hours as needed. 08/30/2018 amLODIPine (NORVASC) 5 mg Take two 90 tablet 3 tablet tablets by mouth daily. 08/30/2018 aspirin EC 81 mg tablet Take one 90 tablet 3 tablet by mouth daily. Take with food. 08/30/2018 atorvastatin (LIPITOR) 20 Take two 90 tablet 3 mg tablet tablets by mouth daily. calcium carbonate/vitamin Take 1 tablet 0 D-3 (OSCAL-500+D) 1250 by mouth mg/200 unit tablet daily. Calcium Carb 1250mg delivers 500mg elemental Ca cyanocobalamin 1,000 mcg Take 1,000 0 tablet mcg by mouth daily. fish oil- omega 3-DHA/EPA Take 1 0 300/1,000 mg capsule capsule by mouth three times daily with meals. gemfibrozil (LOPID) 600 Take 600 mg 0 mg tablet by mouth twice daily. 08/30/2018 hydrALAZINE (APRESOLINE) Take one 90 tablet 1 10 mg tablet tablet by mouth three times daily. 08/30/2018 isosorbide mononitrate SR Take one-half 90 tablet 3 (IMDUR) 30 mg tablet tablet by mouth at bedtime daily. isosorbide mononitrate SR Take 30 mg by 0 (IMDUR) 30 mg tablet mouth every morning. losartan(+) (COZAAR) 100 Take 100 mg 0 mg tablet by mouth daily. magnesium oxide (MAG-OX) Take 400 mg 0 400 mg (241.3 mg by mouth magnesium) tablet twice daily. 08/30/2018 metoprolol tartrate Take one 180 tablet 3 (LOPRESSOR) 50 mg tablet tablet by mouth twice daily. Multivitamin Cmb Take 1 tablet 0 No.21-Iron-FA (CENTRUM) by mouth 18-400 mg-mcg tab daily. 08/30/2018 nitroglycerin (NITROSTAT) Place one 25 tablet 3 0.4 mg tablet tablet under tongue every 5 minutes as needed for Chest Pain. Max of 3 tablets, call 911. 08/30/[address] Take one 90 tablet 3 (PROTONIX) 40 mg tablet tablet by mouth daily. 08/30/2018 ranolazine ER (RANEXA) Take one 0 500 mg tablet tablet by mouth twice daily. 08/30/2018 senna/docusate Take one 0 (SENOKOT-S) 8.6/50 mg tablet by tablet mouth twice daily. vitamin E 400 unit Take 400 0 capsule Units by mouth daily. as of this encounter Progress Notes * Marleny Edwards RN - 08/30/2018 11:28 AM BODY WORK AUTO TRIMMER Kirsty Valencia discharged on 08/30/2018. . Discharge instructions reviewed with patient and family. Questions and concerns addressed. Pt and family deny additional needs and concerns. Pt transported to hospital lobby by wheelchair with transport. Pt being discharge to [facility] in [place] with family providing transportation. Reported attempted at 11:45pm to [employer] with no answer. 1215- Report called to Laly at [employer]. Valuables returned: Valuables sent home with patient. RN and family searched room together. . Home medications: Returned to patient. . Functional assessment at discharge complete: Yes . WORK AUTO TRIMMER * Stephanie Stout, AARON - 08/29/2018 3:17 PM BODY WORK AUTO TRIMMER OCCUPATIONAL THERAPY PROGRESS NOTE Patient Name: Kirsty Valencia Room/Bed: BU1321/01 Admitting Diagnosis: IPH Mobility Progressive Mobility Level: Walk in hallway Distance Walked (feet): 110 ft Level of Assistance: Assist X1 Assistive Device: Walker Time Tolerated: 11-30 minutes Activity Limited By: Weakness Subjective Pertinent Dx per Physician: 78 y.o. male with history of diabetes, HTN, CAD with PCI on 08/17/2018 where he was started on Plavix and ASA. He presented to OSH today with confusion x [address] demonstrated a left basal ganglia bleed Precautions: Standard;Falls;Vision/Cognitive Deficits Pain / Complaints: Patient has no c/o pain;Patient agrees to participate in therapy Comments: Patient supine in bed upon OT arrival and departure. Call light in reach, bed alarm engaged, and all needs met. Objective Psychosocial Status: Willing and Cooperative to Participate Home Living Type of Home: House Home Layout: One Level Bathroom Shower / Tub: Walk-in Shower Bathroom Toilet: Standard Prior Function Level Of Yale: Independent with ADLs and functional transfers; Independent with homemaking w/ ambulation Lives With: Spouse Receives Help From: None Needed ADL's Where Assessed: In Bathroom Eating Assist: Stand By Assist Eating Deficits: Setup Grooming Assist: Minimal Assist Grooming Deficits: Steadying LE Dressing Assist: Maximum Assist LE Dressing Deficits: Thread RLE Into Underwear;Thread LLE Into Underwear Toileting Assist: Minimal Assist Toileting Deficits: Steadying Functional Transfer Assist: Minimal Assist Functional Transfer Deficits: Steadying Comment: CGA when ambulating and completing transfers Activity Tolerance Endurance: 4/5 Tolerates 30+ Minutes Exercise W/O Fatigue Sitting Balance: 4/5 Moves/Returns Trunkal Midpoint 1-2 Inches in Multiple Planes Cognition Overall Cognitive Status: WFL to Adequately Complete Self Care Tasks Safely Comprehension: Receptive Aphasia;Language Barrier Orientation: Alert & Oriented x4 Attention: Awake/Alert Assessment Assessment: Decreased ADL Status;Decreased Endurance;Decreased Self-Care Trans; Decreased High-Level ADLs;Decreased Cognition Prognosis: Good;w/Cont OT s/p Acute Discharge Goal Formulation: Patient AM-PAC 6 Clicks Daily Activity Inpatient Putting on and taking off regular lower body clothes?: A Little Bathing (Including washing, rinsing, drying): A Little Toileting, which includes using toilet, bedpan, or urinal: A Little Putting on and taking off regular upper body clothing: A Little Taking care of personal grooming such as brushing teeth: A Little Eating meals?: A Little Daily Activity Raw Score: 18 Standardized (t-scale) score: 38.66 CMS 0-100% Score: 46.65 CMS G Code Modifier: CK Plan OT Frequency: 5x/week OT Plan for Next Visit: Toileting, LE dressing, functional mobility ADL Goals Patient Will Perform All ADL's: w/ Modified [place] Functional Transfer Goals Pt Will Perform All Functional Transfers: Modified Independent OT Discharge Recommendations OT Discharge Recommendations: Inpatient Setting -- Recommend PM&R Consult to address most appropriate level of rehabilitation placement ([phone]). Equipment Recommendations: Too early to be determined Therapist: MARCELLO Crowder [id number] Date: 08/29/2018 WORK AUTO TRIMMER * Ivanna Ma, PT - 08/29/2018 11:57 AM BODY WORK AUTO TRIMMER PHYSICAL THERAPY PROGRESS NOTE MOBILITY: Mobility Progressive Mobility Level: Walk in room Distance Walked (feet): 20 ft Level of Assistance: Assist X1 Assistive Device: Walker Time Tolerated: 11-30 minutes Activity Limited By: Weakness;Shortness of air;Patient request to stop SUBJECTIVE: Subjective Significant hospital events: 78 y.o. male with history of diabetes, HTN, CAD with PCI on 08/17/2018 where he was started on Plavix and ASA. He presented to OSH today with confusion x [address] demonstrated a left basal ganglia bleed. Pt is transferred to [facility] for further evaluation and treatment. Mental / Cognitive Status: Alert;Cooperative;Follows Commands Pain: Patient has no complaint of pain Pain Interventions: Patient agrees to participate in therapy with modifications to session;Patient assisted into position of comfort Ambulation Assist: Independent Mobility in Community without Device Patient Owned Equipment: None Home Situation: Lives with Family Type of Home: House Entry Stairs: 1-2 Stairs In-Home Stairs: No Stairs Comments: Previously independent with ADLs/mobility. Family can provide 24/7 supervision/assist if needed. BED MOBILITY/TRANSFERS: Bed Mobility/Transfers Bed Mobility: Supine to Sit: Minimal Assist;Assist with Trunk Transfer Type: Sit to Stand Transfer: Assistance Level: From;Bed;Minimal Assist;x2 People Transfer: Assistive Device: Roller Walker Transfers: Type Of Assistance: For Balance;For Strength Deficit;For Safety Considerations Other Transfer Type: Stand to Sit Other Transfer: Assistance Level: To;Bed Side Chair;Minimal Assist;Moderate Assist Other Transfer: Assistive Device: Roller Walker Other Transfer: Type Of Assistance: Verbal Cues;For Balance;For Strength Deficit ;For Safety Considerations End Of Activity Status: Up in Chair;Nursing Notified;Instructed Patient to Request Assist with Mobility;Instructed Patient to Use Call Light Comments: patient required physical tactile cueing and guidance of hips into the chair to prevent missing the chair and avoiding falling to the floor BALANCE: Balance Sitting Balance: Static Sitting Balance;Dynamic Sitting Balance;Standby Assist Standing Balance: Static Standing Balance;Dynamic Standing Balance;Minimal Assist GAIT: Gait Gait Distance: 20 feet Gait: Assistance Level: Minimal Assist Gait: Assistive Device: Roller Walker Gait: Descriptors: Pace: Slow;Forward trunk flexion;Swing-Through Gait;No balance loss;Decreased step length;Decreased foot clearance RLE Comments: Patient ambulates with improved upright posture with use of RW but c/ o needing to "sit down" and quick to fatigue- difficulty with full RLE clearance latesha on uneven surfaces and longer distances Activity Limited By: Complaint of Fatigue;Weakness;Patient Choice EDUCATION: Education Persons Educated: Patient Patient Barriers To Learning: Cognitive Deficits;Language Barrier;Family Not Present Interventions: Repetition of Instructions Teaching Methods: Verbal Instruction Patient Response: Verbalized Understanding Topics: Plan/Goals of PT Interventions;Mobility Progression;Safety Awareness;Up with Assist Only;Importance of Increasing Activity;Ambulate With Nursing; Recommend Continued Therapy ASSESSMENT/PROGRESS: Assessment/Progress Impaired Mobility Due To: Decreased Strength;Impaired Balance;Safety Concerns; Decreased Activity Tolerance Assessment/Progress: Should Improve w/ Continued PT AM-PAC 6 Clicks Basic Mobility Inpatient Turning from your back to your side while in a flat bed without using bed rails : A Little Moving from lying on your back to sitting on the side of a flatbed without using bedrails : A Little Moving to and from a bed to a chair (including a wheelchair): A Little Standing up from a chair using your arms (e.g. wheelchair, or bedside chair): A Little To walk in hospital room: A Lot Climbing 3-5 steps with a railing: A Lot Raw Score: 16 Standardized (T-scale) Score: 38.32 Basic Mobility CMS 0-100%: 47.12 CMS G Code Modifier for Basic Mobility: CK GOALS: Goals Goal Formulation: With Patient/Family Time For Goal Achievement: 3 days, To, 5 days Pt Will Go Supine To/From Sit: w/ Stand By Assist Pt Will Transfer Bed/Chair: w/ Stand By Assist Pt Will Transfer Sit to Stand: w/ Stand By Assist Pt Will Ambulate: Greater than 200 Feet, w/ Stand By Assist Pt Will Go Up / Down Stairs: 1-2 Stairs, w/ Stand By Assist PLAN: Plan Treatment Interventions: Mobility Training;Strengthening;Balance Activities; Endurance Training Plan Frequency: 5 Days per Week PT Plan for Next Visit: progress gait distance, trial steps RECOMMENDATIONS: PT Discharge Recommendations PT Discharge Recommendations: Inpatient Setting;Recommend Physical Medicine and Rehabilitation Consult to address most appropriate level of rehabilitation placement Equipment Recommendations: Roller Walker Patient requires the use of a walker with wheels to complete ADLs in the home including meal preparation, ambulation the bathroom for toileting, bathing and grooming, and safe home mobility. Patient is unable to complete these ADL s with a cane or crutch and can safely use the walker. Therapist: Ivanna Ma PT, DPT, MHAM Date: 08/29/2018 WORK AUTO TRIMMER * Consuelo Rincon RN - 08/29/2018 10:35 AM BODY WORK AUTO TRIMMER 0945- Dr. Acevedo and neurology team notified of pt's SRS=822v, with goal of < 130. Neuro team will look to increase BP meds. Neuro team also notified that patient is in and out of ventricular bigeminy on telemetry. Cards has previously been involved, no new orders at this time. Will continue to monitor. 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 He presented to OSH w/ confusion & NCCT demonstrated left basal ganglia bleed. Pt lethargic and difficult to comprehend , but regards examiner and moving all extremities spontaneously. Left BG ICH - Etiology: HTN - CT 08/23: stable L thalamic and IC hemorrhage w/ localized mass effect on 3rd ventricle - MRI: acute left thalamic/internal capsular hemorrhage with mild surrounding vasogenic edema, persistent localized cerebral mass effect with 3-4mm of rightward midline shift. 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 - continue ASA 81 daily HTN - goal BP < 130/80 - continue amlodipine 10mg qD - switched from metoprolol succinate to tartrate 50mg BID - Hydralazine 10 mg TID - Restart GATE TENDER losartan 100 mg daily. Patient appears to have chronically elevated Cr with baseline around 1.7-1.8 on chart review. Recommend further workup as outpatient once discharged. CAD s/p PCI on 08/17 s/p CABG x4 in 2006 Chronic Angina Troponinemia - improved - troponin 08/25: 0.69 --> 1.23 --> 1.56 - BNP 08/25: 1148 - EKG 08/25: ventricular trigeminy - Echo: biatrial enlargement, EF50% - s/p 1x 40mg IV furosemide PLAN: - cardiology consulted; no heart cath due to TRACIE and stable EKG - switch from metoprolol XL to metoprolol tartrate 50mg BID - continue ASA 81mg qD - continue GATE TENDER isosorbide mononitrate SR 30 mg qAM, 15mg qPM - ranolazine 500mg BID - Monitor BP, likely will need dose adjustments Diabetes Mellitus, Type 2 - A1c: 7.3 - [facility] Hyperlipidemia - LDL: 111 - continue atorvastatin 40mg qHS TRACIE - on chart review, appears that patient's baseline Cr appears to be around 1.7- 1.8. Lab Results Component Value Date/Time CR 1.87 (H) 08/29/2018 04:49 AM Lab Results Component Value Date/Time NA 137 08/29/2018 04:49 AM UNARAN 53 08/26/2018 08:21 AM UCRRAN 102 08/26/2018 08:21 AM UOSMO 514 08/26/2018 08:21 AM OSMOS 308 (H) 08/26/2018 11:50 AM > Continue to monitor. Can follow up with PCP as outpatient for further evaluation FEN: replace lytes PRN, no IVF, strict I/Os PPx: heparin 5000u q8h, pantoprazole 40mg qD Code: FULL Dispo: continue inpatient admission. Discharge pending IPR acceptance and insurance authorization Patient seen and discussed with Dr. Cinthya Barone MD, PhD Neurology Resident, PGY-3 Gen Neuro Pager: [phone] Subjective NAEO. Patient doing well. No concerns at this time. Family will be by this afternoon. Objective Vital Signs: Last Filed Vital Signs: 24 Hour Range BP: 154/65 (08/29 537) Temp: 36.7 C (98.1 F) (08/29 537) Pulse: 65 (08/29 537) Respirations: 17 PER MINUTE (08/29 537) SpO2: 98 % (08/29 537) O2 Delivery: None (Room Air) (08/29 537) BP: (130-159)/(42-96) Temp: [36.3 C (97.4 F)-37 C (98.6 F)] Pulse: [60-74] Respirations: [16 PER MINUTE-18 PER MINUTE] SpO2: [94 %-100 %] O2 Delivery: None (Room Air) Intensity Pain Scale (Self Report): Asleep (08/28/18 2353) Vitals: 08/22/18 0000 08/23/18 0600 08/25/18 1543 Weight: 85.4 kg (188 lb 4.4 oz) 84.4 kg (186 lb 1.1 oz) 84.4 kg (186 lb 1.1 oz) General Physical Examination: HEENT: normocephalic, eyes open with no discharge, oropharynx clear-no lesions Chest: normal configuration, chest rise equal b/l, non labored breathing CV: regular rate and rhythm, no murmur Pulmonary: lungs are clear bilaterally, no wheezes/crackles/rales Abd: soft, non-distended Skin: multiple ecchymoses on arms bilaterally Neurological Examination: Mental status: Patient is alert; disoriented to time-1998; place-home, room Speech: normal articulation, fluency improving though limited due to language barrier, no dysarthria. follows most commands in belgian CN II-XII: Visual montez intact to confrontation, PERRL (4->2), EOMI, facial sensation intact. Symmetrical facial movement. Hearing grossly intact. Strong cough, elevates palate, uvula midline. Strong shoulder shrug. Tongue midline. Motor: Normal tone and bulk. No abnormal movement, fasciculation or pronator drift. SA EF EE WE WF FF HF KF KE DF PF R 4 5 4 5 4+ 5 5 5 4 L 5 5 5 5 5 5 5 5 5 Sensory: intact light touch Reflexes: Right Left Biceps 2 2 Brachioradialis 2 2 Patella 2 2 Achilles 1 1 Coordination/ fine movement: normal finger to nose, heel to yee Gait: deferred Lab Review Pertinent labs reviewed Radiology and other Diagnostics Review: Pertinent radiology reviewed. WORK AUTO TRIMMER Associated attestation - Laly Mendes MD - 08/29/2018 1:47 PM BODY WORK AUTO TRIMMER Attending Addendum: I have personally interviewed and examined Kirsty Valencia and reviewed the history, examination, impression, and plan of care as outlined by Dr. Barone. I agree with the assessment and plan as documented with the following addendum: Mr. Valencia is a 78 year old man with history of HTN, CAD s/p PCI on 08/17 on ASA/Plavix who presented to OSH with confusion/speech difficulty and CT brain showing L basal ganglia hemorrhage. He is currently improving with speech. BP a little high today in 150's. Exam: Alert, fully oriented. Mild expressive aphasia. No facial asymmetry. Gaze intact. No extremity weakness or sensory loss. CT brain and MRI brain with acute L thalamic/internal capsule ICH with some mass effect; stable on repeat CT. Cr elevated here 1.7-1.8, appears to be chronic per chart review. Etiology of bleed most likely hypertensive. Will continue BP management. - continue Amlodipine, Metoprolol, Hydralazine, Imdur, can restart GATE TENDER Losartan. - appreciate cardiac assistance for recent TRACK WATCHMAN, elevated troponin up to 1.56, and ventricular trigeminy. - will continue ASA 81 - PT/OT following, recommending inpatient rehab, awaiting insurance auth for placement. Medically ready for d/c today. Laly Mendes MD * Cherie Meredith, RT - 08/27/2018 10:34 AM BODY WORK AUTO TRIMMER RT Adult Assessment Note NAME:Kirsty Valencia :1940 AGE: 78 y.o. ADMISSION DATE: 08/19/2018 DAYS ADMITTED: LOS: 8 days RT Treatment Plan: Protocol Plan: Procedures PAP: Place a nursing order for "IS Q1h While Awake" for any of Lung Expansion indicators Oxygen/Humidity: O2 to keep SpO2 > 92% Monitoring: Pulse oximetry BID & PRN Additional Comments: Impressions of the patient: Pt stable on 2 LPM NC Vital Signs: Pulse: Pulse: 73 RR: Respirations: 18 PER MINUTE SpO2: SpO2: 95 % O2 Device: $$ O2 Device: Cannula Liter Flow: O2 Liter Flow: 2 lpm O2%: Breath Sounds: Respiratory Effort: WORK AUTO TRIMMER * Jennifer Costa RN - 08/26/2018 10:11 PM BODY WORK AUTO TRIMMER Labs drawn by IV therapy WORK AUTO TRIMMER * Milla Bill - 08/26/2018 1:43 PM BODY WORK AUTO TRIMMER SPEECH-LANGUAGE PATHOLOGY DAILY TREATMENT NOTE Patient seen 1x this date. Documentation reflects all daily treatment sessions. SUMMARY OF THERAPY SESSION: Language treatment completed with use of Montserratian phone translator/interpreter (#[id number]). Aphasia noted to be improving, though pt continues to exhibit at least mild deficits within verbal expression and auditory comprehension. Please see below for details/recommendations. RECOMMENDATIONS Ongoing ST during acute hospitalization 1-3x/wk Will require ST at next level of care Will require supervision upon d/c as impaired communication may affect safety Goal : Pt will describe picture with 50% accuracy/min cues. Met Comment: Pt able to describe "Cookie [employer]ft" picture , demonstrating understandable sentences without incomprehensible language--indicating improvement since last week. Pt utilizes some general terms to describe picture stating "The water is flowing", but in other parts of picture is able to describe in detail. Continue to address this goal Goal : Pt will name objects with 100% accuracy, min cues. Partly met Comment: Pt able to name 8/10 common objects/body parts in [place]erratian. Continue to address this goal Goal : Pt will follow complex commands with 80% accuracy/min cues. Partly met Comment: Pt able to follow 2 and 3-step commands with 90% accuracy. Was unable to follow complex commands across 2 opportunities. Continue to address this goal Goal : Pt will write sentence with 80% accuracy Met Comment: Unable to assess grammatical structure of writing or for spelling errors as pt wrote sentence in [place]serratian. Handwriting legibility decreased, but was unable to match sentence utilizing [employer] translate. Pt reports that he wrote "I love you very much". Continue to address this goal PLAN / RECOMMENDATIONS: Continue treatment 1-3x/week and Patient would benefit from further speech therapy post acute hospitalization. Therapist: Ronaldo Tovar/CRYSTAL-LIGHTHOUSE KEEPER (Pager [phone]; Voalte: [phone]) Date: 08/26/2018 WORK AUTO TRIMMER * Josefa Frazier, OT - 08/26/2018 10:58 AM BODY WORK AUTO TRIMMER OCCUPATIONAL THERAPY PROGRESS NOTE Patient Name: Kirsty Valencia Room/Bed: QC9909/01 Admitting Diagnosis: IPH Mobility Progressive Mobility Level: Walk in room Distance Walked (feet): 20 ft Level of Assistance: Assist X2 Assistive Device: Hand Held Time Tolerated: 11-30 minutes Activity Limited By: Weakness Subjective Pertinent Dx per Physician: 78 y.o. male with history of diabetes, HTN, CAD with PCI on 08/17/2018 where he was started on Plavix and ASA. He presented to OSH today with confusion x [address] demonstrated a left basal ganglia bleed Precautions: Falls;Standard Pain / Complaints: Patient has no c/o pain;Patient demonstrates no signs of pain ;Patient agrees to participate in therapy Pain Level Current: No pain Comments: Pt supine in bed at start of therapy, left seated in chair with needs addressed, call light within reach, TABS alert set, and RN notified of status. Objective Psychosocial Status: Willing and Cooperative to Participate Persons Present: Physical Therapist Home Living Type of Home: House Home Layout: One Level Bathroom Shower / Tub: Walk-in Shower Bathroom Toilet: Standard Prior Function Level Of Yale: Independent with ADLs and functional transfers; Independent with homemaking w/ ambulation Lives With: Spouse Receives Help From: None Needed ADL's Where Assessed: Standing at Sink;Edge of Bed;Chair;In Bathroom Grooming Assist: Minimal Assist(contact guard) Grooming Deficits: Supervision/Safety;Increased Time To Complete;Wash/Dry Hands; Wash/Dry Face;Teeth Care LE Dressing Assist: Maximum Assist LE Dressing Deficits: Thread RLE Into Underwear;Thread LLE Into Underwear Toileting Assist: (foudn to be incontinent of brief upon standing) Functional Transfer Assist: Minimal Assist(x2) Functional Transfer Deficits: Setup;Steadying;Verbal Cueing;Supervision/Safety Comment: Minimal assist for bed mobility. Minimal assist x2 for sit>stand transfer from bedside. Minimal assist x2 for ambulation in room with bilateral hand held assist. Pt agreeable to participate in grooming at the sink with standby assist and increased time to complete. Minimal assist for sit>stand transfer from chair. Of note; patient on room air this date with O2 sats >90 througout session. Activity Tolerance Endurance: 3/5 Tolerates 25-30 Minutes Exercise w/Multiple Rests Cognition Cognition Comment: Aphasia with language barrier, does answer yes/no questions, responds well with visual cues/demonstration. Assessment Assessment: Decreased ADL Status;Decreased Endurance;Decreased Self-Care Trans; Decreased High-Level ADLs;Decreased Cognition Prognosis: Good;w/Cont OT s/p Acute Discharge Goal Formulation: Patient AM-PAC 6 Clicks Daily Activity Inpatient Putting on and taking off regular lower body clothes?: A Lot Bathing (Including washing, rinsing, drying): A Lot Toileting, which includes using toilet, bedpan, or urinal: A Lot Putting on and taking off regular upper body clothing: A Little Taking care of personal grooming such as brushing teeth: None Eating meals?: None Daily Activity Raw Score: 17 Standardized (t-scale) score: 37.26 CMS 0-100% Score: 50.11 CMS G Code Modifier: CK Plan OT Frequency: 5x/week OT Plan for Next Visit: Toileting, LE dressing, functional mobility ADL Goals Patient Will Perform Grooming: Standing at Sink;w/ Stand By Assist Patient Will Perform LE Dressing: At Edge of Bed;In Chair;w/ Stand By Assist Patient Will Perform Toileting: w/ Stand By Assist Functional Transfer Goals Pt Will Perform All Functional Transfers: w/ Stand By Assist OT Discharge Recommendations OT Discharge Recommendations: Inpatient Setting, Recommend PM&R Consult to address most appropriate level of rehabilitation placement ([phone]). Anticipate patient will be able to tolerate 3+ hours of therapy a day. Patient is currently requiring assist x2 for safe functional mobility and assist x1 for participation in ADLs. Due to aphasia and language barrier, patient requires increased time/cueing for processing commands, but with provided opportunity will be able to progress well with therapy. OT will continue to assess and update recommendations. Equipment Recommendations: Too early to be determined Therapist: HANNAH Yuan/Ronaldo [id number] Date: 08/26/2018 WORK AUTO TRIMMER * Xin Almaraz, PT - 08/26/2018 10:58 AM BODY WORK AUTO TRIMMER PHYSICAL THERAPY PROGRESS NOTE MOBILITY: Progressive Mobility Level: Walk in room Distance Walked (feet): 20 ft Level of Assistance: Assist X2 Assistive Device: Hand Held Time Tolerated: 11-30 minutes Activity Limited By: Weakness SUBJECTIVE: Subjective Significant hospital events: 78 y.o. male with history of diabetes, HTN, CAD with PCI on 08/17/2018 where he was started on Plavix and ASA. He presented to OSH today with confusion x [address] demonstrated a left basal ganglia bleed. Pt is transferred to [facility] for further evaluation and treatment. Mental / Cognitive Status: Alert;Cooperative;Follows Commands Persons Present: Occupational Therapist Pain: Patient has no complaint of pain;Patient demonstrates no signs of pain Pain Interventions: Patient agrees to participate in therapy;Patient assisted into position of comfort Ambulation Assist: Independent Mobility in Community without Device Patient Owned Equipment: None Home Situation: Lives with Family Type of Home: House Entry Stairs: 1-2 Stairs In-Home Stairs: No Stairs Comments: Previously independent with ADLs/mobility. Family can provide 22/03 supervision/assist if needed. BED MOBILITY/TRANSFERS: Bed Mobility/Transfers Bed Mobility: Supine to Sit: Minimal Assist Transfer Type: Sit to Stand Transfer: Assistance Level: From;Bed;Minimal Assist;x2 People Transfer: Assistive Device: Hand Hold Assist Transfers: Type Of Assistance: For Balance;For Strength Deficit;For Safety Considerations Other Transfer Type: Sit to/from Stand Other Transfer: Assistance Level: To/From;Bed Side Chair;Minimal Assist Other Transfer: Assistive Device: Hand Hold Assist Other Transfer: Type Of Assistance: Verbal Cues;For Balance;For Strength Deficit ;For Safety Considerations End Of Activity Status: Up in Chair;Nursing Notified;Instructed Patient to Request Assist with Mobility;Instructed Patient to Use Call Light(TABs alarm set ) BALANCE: Balance Sitting Balance: Static Sitting Balance;Dynamic Sitting Balance;Standby Assist Standing Balance: Static Standing Balance;Dynamic Standing Balance;Minimal Assist GAIT: Gait Gait Distance: 20 feet Gait: Assistance Level: Minimal Assist;x2 People;Safety Considerations Gait: Assistive Device: Hand Hold Assist Gait: Descriptors: Pace: Slow;Forward trunk flexion;Swing-Through Gait;No balance loss;Decreased step length Comments: Patient ambulated from bed to chair with minimal assist x 2 (hand held ). Patient then agreeable to brush teeth at bathroom sink; ambulated with minimal assist x 2 to bathroom and returned to chair. Patient able to stand at sink for ~2-3 minutes with minimal assist x 1. Activity Limited By: Weakness EDUCATION: Education Persons Educated: Patient/Family Patient Barriers To Learning: Language Barrier(understands simple Swazi) Teaching Methods: Verbal Instruction Patient Response: Verbalized Understanding Topics: Plan/Goals of PT Interventions;Mobility Progression;Safety Awareness;Up with Assist Only;Importance of Increasing Activity;Ambulate With Nursing; Recommend Continued Therapy ASSESSMENT/PROGRESS: Assessment/Progress Impaired Mobility Due To: Decreased Strength;Impaired Balance;Safety Concerns; Decreased Activity Tolerance Assessment/Progress: Should Improve w/ Continued PT AM-PAC 6 Clicks Basic Mobility Inpatient Turning from your back to your side while in a flat bed without using bed rails : A Little Moving from lying on your back to sitting on the side of a flatbed without using bedrails : A Little Moving to and from a bed to a chair (including a wheelchair): A Little Standing up from a chair using your arms (e.g. wheelchair, or bedside chair): A Little To walk in hospital room: A Lot Climbing 3-5 steps with a railing: A Lot Raw Score: 16 Standardized (T-scale) Score: 38.32 Basic Mobility CMS 0-100%: 47.12 CMS G Code Modifier for Basic Mobility: CK GOALS: Goals Goal Formulation: With Patient/Family Time For Goal Achievement: 3 days, To, 5 days Pt Will Go Supine To/From Sit: w/ Stand By Assist Pt Will Transfer Bed/Chair: w/ Stand By Assist Pt Will Transfer Sit to Stand: w/ Stand By Assist Pt Will Ambulate: Greater than 200 Feet, w/ Stand By Assist Pt Will Go Up / Down Stairs: 1-2 Stairs, w/ Stand By Assist PLAN: Plan Treatment Interventions: Mobility Training;Strengthening;Balance Activities; Endurance Training Plan Frequency: 5 Days per Week PT Plan for Next Visit: Progress gait distance as able. Trial use of roller walker if indicated. RECOMMENDATIONS: PT Discharge Recommendations: Inpatient Setting - Recommend Physical Medicine and Rehabilitation Consult to address most appropriate level of rehabilitation placement Comments: Patient demonstrates good potential to tolerate inpatient setting; could likely tolerate 3+ hours of therapy per day. Patient requires increased time to process commands due to aphasia and language barrier. When given the time and opportunity to process cues/commands, patient is agreeable to participate in therapy and progress as able. Equipment Recommendations: None (to be determined at next level of care) Therapist: Xin Almaraz PT, DPT Date: 08/26/2018 WORK AUTO TRIMMER * Jr Kebede MD - 08/26/2018 6:59 AM BODY WORK AUTO TRIMMER Neurology Progress Note Name: Kirsty Valencia Today's Date: 08/26/2018 Admission Date: 08/19/2018 LOS: 7 days Assessment/Plan: Active Problems: Diabetes (HCC) ICH (intracerebral hemorrhage) (HCC) Hypertension Kirsty Shelton a 78yo Mw/ PMH of DM2, HTN, CAD with PCI on 08/17/2018 where he was started on Plavix and ASA. He presented to OSH w/ confusion & NCCT demonstrated left basal ganglia bleed. Pt lethargic and difficult to comprehend , but regards examiner and moving all extremities spontaneously. Left BG ICH - Etiology: HTN - CT 08/23: stable L thalamic and IC hemorrhage w/ localized mass effect on 3rd ventricle - MRI: acute left thalamic/internal capsular hemorrhage with mild surrounding vasogenic edema, persistent localized cerebral mass effect with 3-4mm of rightward midline shift. 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 - continue amlodipine 10mg qD Diabetes Mellitus, Type 2 - A1c: 7.3 - increased to [facility] Hyperlipidemia - LDL: 111 - continue atorvastatin 40mg qHS HTN - goal BP < 130/80 - continue amlodipine 10mg qD - switched from metoprolol succinate to tartrate 50mg BID - holding GATE TENDER losartan due to TRACIE CAD s/p PCI on 08/17 s/p CABG x4 in 2006 Chronic Angina Troponinemia - improved - troponin 08/25: 0.69 --> 1.23 --> 1.56 - BNP 08/25: 1148 - EKG 08/25: ventricular trigeminy - Echo: biatrial enlargement, EF50% - s/p 1x 40mg IV furosemide PLAN: - cardiology consulted; no heart cath due to TRACIE and stable EKG - switch from metoprolol XL to metoprolol tartrate 50mg BID - continue ASA 81mg qD - continue GATE TENDER isosorbide mononitrate SR 30 mg qAM, 15mg qPM - start ranolazine 500mg BID TRACIE - fluid challenge with 250cc x2 of 0.45% NS - will obtain urine lytes, osm FEN: replace lytes PRN, no IVF, strict I/Os PPx: heparin 5000u q8h, pantoprazole 40mg qD Code: FULL Dispo: continue on stroke Patient seen and discussed with Dr. Tian Kebede M.D. Resident Physician PGY-3 *[id number] Subjective No acute events overnight. Pt received 1x 25mg PO hydralazine for SBP > 130. This morning pt able to follow commands, some difficulty with language barrier but able to follow most 2-step commands. Objective Vital Signs: Last Filed Vital Signs: 24 Hour Range BP: 132/54 (08/26 541) Temp: 36.2 C (97.1 F) (08/26 541) Pulse: 59 (08/26 541) Respirations: 18 PER MINUTE (08/26 541) SpO2: 96 % (08/26 541) O2 Delivery: Nasal Cannula (08/26 541) Height: 170.2 cm (67") (08/25 1543) BP: (122-160)/(51-110) Temp: [36.2 C (97.1 F)-37.1 C (98.7 F)] Pulse: [59-88] Respirations: [18 PER MINUTE-34 PER MINUTE] SpO2: [92 %-96 %] O2 Delivery: Nasal Cannula Vitals: 08/22/18 0000 08/23/18 0600 08/25/18 1543 Weight: 85.4 kg (188 lb 4.4 oz) 84.4 kg (186 lb 1.1 oz) 84.4 kg (186 lb 1.1 oz) General Physical Examination: HEENT: normocephalic, eyes open with no discharge, oropharynx clear-no lesions, no bruits Chest: normal configuration, chest rise equal b/l, non labored breathing CV: regular rate and rhythm, no murmur, distal pulses palpable Pulmonary: lungs are clear bilaterally, no wheezes/crackles/rales Abd: soft, non-tender, no masses, no organomegaly Neurological Examination: Mental status: Patient is alert and oriented to time, place, person Speech: nonfluent, able to follow most 2-step commands in swazi, some commands in belgian CN II-XII: Visual montez intact to confrontation, PERRL (4->2), EOMI, facial sensation intact. Symmetrical facial movement. Hearing grossly intact. Strong cough, elevates palate, uvula midline. Strong shoulder shrug. Tongue midline. Motor: Normal tone and bulk. No abnormal movement, fasciculation or pronator drift. SA EF EE WE WF FF HF KF KE DF PF R 5 5 5 5 5 5 5 5 5 5 5 L 5 5 5 5 5 5 5 5 5 5 5 Sensory: intact light touch, pin prick, proprioception, and vibration. Romberg sign absent. Reflexes: No clonus, amadeo, cross adductor. Babinski negative. Right Left Triceps 2 2 Biceps 2 2 Brachioradialis 2 2 Patella 2 2 Ankle 2 2 Plantar flexor flexor Coordination/ fine movement: normal finger to nose, heel to yee Gait: deferred Lab Review Pertinent labs reviewed Radiology and other Diagnostics Review: Pertinent radiology reviewed. WORK AUTO TRIMMER Associated attestation - Boy Overton MD - 08/26/2018 12:20 PM BODY WORK AUTO TRIMMER ATTESTATION I personally performed the daniel portions of the E/M visit, discussed case with resident and concur with resident documentation of history, physical exam, assessment, and treatment plan unless otherwise noted. I personally reviewed vitals, labs. Pertinent neuroradiological imagings were viewed. 78-year-old [place] gentleman (understands some Swazi), admitted for left thalamic IPH, secondary to uncontrolled hypertension, non-focal exam with the help of transportation, possible mild receptive aphasia/mild dysarthria. Normal EF but elevated BNP, some pulmonary edema on chest x-ray, cardiology put recommendations, prerenal AKIgiving IV fluids carefully and monitoring O2 requirements, troponin leaktrending down. Started low-dose hydralazine to tightly control blood pressure, will switch to CHANCE inhibitor when kidney functions improve. Staff name: Boy Overton MD Date: 08/26/2018 * Suma Oquendo RN - 08/25/2018 5:55 PM BODY WORK AUTO TRIMMER RN spoke with Dr. Kebede regarding pt large void with post void scan of 500. OK to straight cath early. RN also notified Dr. Kebede of pt BP 151/110, new orders to be placed for metoprolol, Dr. Kebede states that an appropriate BP goal for this pt is 130/80. WCTM WORK AUTO TRIMMER * Ivette Samano MD - 08/25/2018 5:47 PM BODY WORK AUTO TRIMMER Cardiology Progress Note Kirsty Valencia Admission Date: 08/19/2018 LOS: 6 days Assessment/Plan: Active Problems: Diabetes (HCC) ICH (intracerebral hemorrhage) (HCC) Hypertension Chest pain -could be due to angina pectoris in the setting of CAD -patient with known anatomy from previous cath in [place], [place] -echo today is normal with IVC pressure<5 that would virtually exclude volume overload -EKG not indicative of ACS -goal would be to maximize antianginal therapy. -would transition to lopressor 50 mg BID and increase imdur to 45 mg daily for stable angina -continue with ASA 81 mg and increase atorvastatin to 40 mg nightly -would r/o other causes of hypoxia including PE, despite patient being on dvt ppx -in addition patient will need tighter BP control as uncontrolled HTN can cause chest pain -will continue to follow Carlitos Funk PGY4 Fellow in Cardiovascular diseases Pager number: [phone] Patient seen and discussed with , Cardiology Attending ATTESTATION I personally performed the daniel portions of the E/M visit, discussed case with resident and concur with resident documentation of history, physical exam, assessment, and treatment plan unless otherwise noted. This patient was seen and examined today, the plan was discussed with Dr. Funk as well as the Neurology primary team. It was reported that last night patient did experience chest pain, the rapid response team was activated. However, due to language barrier (patient's primary language is Montserratian) a correct assessment was not possible and therefore an translator/interpreter was used. At the end of the conversation it was actually revealed that patient had dorsum pain not chest pain. When asked by me today he again reported chest discomfort. This patient does have coronary artery disease, he underwent a left heart catheterization in [place], [place] performed by Dr. Centeno, intervention was not undertaken. This patient does have known CAD, and he underwent previous CABG. It was reported that preceding this procedure dual antiplatelet therapy was not used. It was also described enough for conversation that 1 of the saphenous venous grafts was occluded. Patient was evaluated with a 2D echo Doppler study today, it demonstrated normal left ventricular systolic function, ejection fraction 50-55%, mild biatrial enlargement, grade 1 diastolic dysfunction was present, it was no evidence of intracardiac shunt and there are no significant valvular abnormalities. The pulmonary artery pressure was 38 mmHg. I reviewed the patient's labs it is noticeable that the creatinine has worsened , today it was 1.94 mg/dL, the troponin markers are now mildly elevated at 1.23 and a BNP was 1148. The mild troponin elevation could be in the setting of creatinine elevation and thus it could be spurious. On the physical exam patient does not have any signs of fluid overload. Review of the EKG does not reveal any dynamic EKG changes. In the light of the above, I recommend the following: Discontinue metoprolol XL Start metoprolol tartrate 50 mg p.o. twice daily Continue isosorbide mononitrate 30 mg p.o. every morning and 15 mg (half tablet) p.o. nightly Monitor and correct electrolytes Continue aspirin and statin therapy Can also add Ranexa 500 mg p.o. twice daily as part of antianginal treatment A fluid challenge of 250 cc x2 of half-normal saline can be administered in the hope that her renal function will improve, consider Nephrology consult This patient is probably also very deconditioned considering the last events and this hospitalization, I also suggest to start physical therapy Patient will f/u with the career center advisor in his hometown In the light of renal insufficiency, lack of dynamic EKG changes, I would not advise at this point proceeding with a another left heart catheterization. Patient probably has chronic angina and all the above measures hopefully will improve his symptoms. Please call with further questions. Staff name: Ivette Samano MD Date: 08/25/2018 __ Subjective: Tom[place] Annie The patient feels comfortable and reports no chest discomfort, dyspnea, palpitations, sensation of sustained forceful heart pounding or lightheadedness. He admitted having chest pain in the am but not currently Does not appear to be volume overloaded. Objective: Scheduled Meds: amLODIPine (NORVASC) tablet 10 mg 10 mg Oral QDAY aspirin EC tablet 81 mg 81 mg Oral QDAY atorvastatin (LIPITOR) tablet 20 mg 20 mg Oral QHS cefTRIAXone (ROCEPHIN) IVP 1 g 1 g Intravenous Q24H* docusate (COLACE) capsule 100 mg 100 mg Oral BID heparin (porcine) PF syringe 5,000 Units 5,000 Units Subcutaneous Q8H insulin aspart U-100 (NOVOLOG FLEXPEN) injection PEN 0-14 Units 0-14 Units Subcutaneous ACHS isosorbide mononitrate SR (IMDUR) tablet 15 mg 15 mg Oral QHS isosorbide mononitrate SR (IMDUR) tablet 30 mg 30 mg Oral QDAY metoprolol XL (TOPROL XL) tablet 75 mg 75 mg Oral QDAY(21) milk of magnesia (CONC) oral suspension 10 mL 10 mL Oral QDAY pantoprazole DR (PROTONIX) tablet 40 mg 40 mg Oral QDAY() senna/docusate (SENOKOT-S) tablet 1 tablet 1 tablet Oral BID Continuous Infusions: PRN and Respiratory Meds:acetaminophen Q4H PRN, nitroglycerin Q5 MIN PRN Vital Signs: Last Filed Vital Signs: 24 Hour Range BP: 151/110 (08/25 1730) Temp: 36.8 C (98.2 F) (08/25 1730) Pulse: 86 (08/25 1730) Respirations: 20 PER MINUTE (08/25 173) SpO2: 95 % (08/25 173) O2 Delivery: Nasal Cannula (08/25 1730) Height: 170.2 cm (5' 7") (08/25 1543) BP: (122-160)/(46-110) Temp: [36.2 C (97.2 F)-36.9 C (98.5 F)] Pulse: [71-113] Respirations: [18 PER MINUTE-34 PER MINUTE] SpO2: [92 %-96 %] O2 Delivery: Nasal Cannula Intensity Pain Scale (Self Report): (not recorded) Vitals: 08/22/18 0000 08/23/18 0600 08/25/18 1543 Weight: 85.4 kg (188 lb 4.4 oz) 84.4 kg (186 lb 1.1 oz) 84.4 kg (186 lb 1.1 oz) Intake/Output Summary: (Last 24 hours) Intake/Output Summary (Last 24 hours) at 08/25/2018 7137 Last data filed at 08/25/2018 1626 Gross per 24 hour Intake 1143 ml Output 1030 ml Net 113 ml Physical Exam: GENERAL: The patient is well developed, well nourished, resting comfortably and in no distress. HEENT: No abnormalities of the visible robin-nasopharynx, conjunctiva or sclera are noted. NECK: There is no jugular venous distension. Carotids are palpable and without bruits. There is no thyroid enlargement. Chest: Lung montez are clear to auscultation. There are no wheezes or crackles. CV: There is a regular rhythm. The first and second heart sounds are normal. There are no murmurs, gallops or rubs. ABD: The abdomen is soft and supple with normal bowel sounds. There is no hepatosplenomegaly, ascites, tenderness, masses or bruits. Neuro: There are no focal motor defects. Ambulation is normal. Cognitive function appears normal. Ext: There is no edema or evidence of deep vein thrombosis. Peripheral pulses are satisfactory. SKIN: There are no rashes and no cellulitis PSYCH: The patient is calm, rationale and oriented. Laboratory Review: CBC w/Diff Lab Results Component Value Date/Time WBC 7.2 08/25/2018 05:47 AM RBC 3.20 (L) 08/25/2018 05:47 AM HGB 9.7 (L) 08/25/2018 05:47 AM HCT 28.3 (L) 08/25/2018 05:47 AM MCV 88.2 08/25/2018 05:47 AM MCH 30.2 08/25/2018 05:47 AM MCHC 34.3 08/25/2018 05:47 AM RDW 13.9 08/25/2018 05:47 AM PLTCT 98 (L) 08/25/2018 05:47 AM MPV 9.8 08/25/2018 05:47 AM Lab Results Component Value Date/Time NEUT 86 (H) 08/25/2018 05:47 AM ANC 6.10 08/25/2018 05:47 AM LYMA 7 (L) 08/25/2018 05:47 AM ALC 0.50 (L) 08/25/2018 05:47 AM ABBEY 7 08/25/2018 05:47 AM AMC 0.50 08/25/2018 05:47 AM EOSA 0 08/25/2018 05:47 AM AEC 0.00 08/25/2018 05:47 AM BASA 0 08/25/2018 05:47 AM ABC 0.00 08/25/2018 05:47 AM Comprehensive Metabolic Profile Lab Results Component Value Date/Time NA 135 (L) 08/25/2018 05:47 AM K 3.9 08/25/2018 05:47 AM CL 107 08/25/2018 05:47 AM CO2 17 (L) 08/25/2018 05:47 AM GAP 11 08/25/2018 05:47 AM BUN 43 (H) 08/25/2018 05:47 AM CR 1.94 (H) 08/25/2018 05:47 AM GLU 267 (H) 08/25/2018 05:47 AM Lab Results Component Value Date/Time CA 9.1 08/25/2018 05:47 AM PO4 3.0 08/24/2018 04:05 AM ALBUMIN 4.3 08/19/2018 09:40 PM TOTPROT 6.8 08/19/2018 09:40 PM ALKPHOS 60 08/19/2018 09:40 PM AST 25 08/19/2018 09:40 PM ALT 45 08/19/2018 09:40 PM TOTBILI 0.4 08/19/2018 09:40 PM GFR 34 (L) 08/25/2018 05:47 AM GFRAA 41 (L) 08/25/2018 05:47 AM Lab Results Component Value Date/Time TNI 1.23 (H) 08/25/2018 01:27 PM TNI 0.19 (H) 08/23/2018 12:10 PM TNI 0.35 (H) 08/22/2018 12:42 PM Cardiographics: Telemetry: sinus with PVCs Carlitos Funk MD WORK AUTO TRIMMER * Ivanna Ma, PT - 08/25/2018 3:52 PM BODY WORK AUTO TRIMMER PHYSICAL THERAPY NOTE Patient was unavailable for physical therapy despite multiple attempts today. Rapid Response in am, with other providers, just up to chair with OT and too fatigued in pm. Currently requiring increased oxygen needs and physical assist for all mobility and unsafe to return home. Will need placement at discharge. Physical therapy will continue to follow and provide intervention as indicated. Therapist: Ivanna Ma PT, DPT, MHAM Date: 08/25/2018 WORK AUTO TRIMMER * Suma Oquendo, RN - 08/25/2018 3:52 PM BODY WORK AUTO TRIMMER Pt is refusing to eat meals or snacks despite multiple options being given to the pt. Pt has not eaten anything this shift and no meals are charted previously. RN attempted to call the pts son Mak to ask for suggestions of food. Mak did not answer the phone at this time. RN will continue to encourage the pt to eat. WORK AUTO TRIMMER * Nadya Martinez, OT - 08/25/2018 2:02 PM BODY WORK AUTO TRIMMER OCCUPATIONAL THERAPY PROGRESS NOTE Patient Name: Kirsty Valencia Room/Bed: KI2905/01 Admitting Diagnosis: IPH Mobility Progressive Mobility Level: Active transfer to chair Level of Assistance: Assist X1 Assistive Device: Hand Held Time Tolerated: 11-30 minutes Activity Limited By: Shortness of air Subjective Pertinent Dx per Physician: 78 y.o. male with history of diabetes, HTN, CAD with PCI on 08/17/2018 where he was started on Plavix and ASA. He presented to OSH today with confusion x [address] demonstrated a left basal ganglia bleed Precautions: Falls Comments: Pt with no c/o pain initially, however upon moving arms to take off his blanket, he grimaced and cried out in pain. This while supine in bed and OT had not begun helping pt mobilize. Pt shook head no to chest pain, then several seconds later said yes to chest pain. Pt continued to move blankets and get up to edge of bed, without further complaint of pain. Pt did c/o dizziness at edge of bed. RN notified, RN and physician arrived to room. Objective Psychosocial Status: Willing and Cooperative to Participate Persons Present: Nursing Staff;Provider Home Living Type of Home: House Home Layout: One Level Bathroom Shower / Tub: Walk-in Shower Bathroom Toilet: Standard Prior Function Level Of [place]: Independent with ADLs and functional transfers; Independent with homemaking w/ ambulation Lives With: Spouse Receives Help From: None Needed Vision Current Vision: Wears Glasses Only for Reading ADL's Comment: Pt required minimal assist for supine to sit edge of bed. RN had just turned pt's O2 up to 4L to maintain sats >90 at rest. Pt still satting 92-94% throughout session, however breathing labored and OT checked RR twice while seated edge of bed, RR 34. RN and physician notified. Pt mouth breathing, able to breathe through nose a time or two to command but then reverting back to mouth breathing. Transferred to chair in hopes that seated position would help with breathing. Noted pt to be incontinent of urine in the bed. New chux placed under pt in chair. Chair alarm set and call light in reach. Note that pt has just been started on lasix, is also on an IV fluid drip and RN reports pt has had post-void bladder scan of approximately 300. Pt does not use supplemental O2 at home. Further exercise or ADLs not done at this time due to work of breathing. Cognition Cognition Comment: Expressive aphasia. Pt with minimal verbalizations but speaking in Swazi and answering yes/no when spoken to in Swazi. AM-PAC 6 Clicks Daily Activity Inpatient Putting on and taking off regular lower body clothes?: Total Bathing (Including washing, rinsing, drying): Total Toileting, which includes using toilet, bedpan, or urinal: Total Putting on and taking off regular upper body clothing: Total Taking care of personal grooming such as brushing teeth: Total Eating meals?: A Little Daily Activity Raw Score: 8 Standardized (t-scale) score: 22.86 CMS 0-100% Score: 85.69 [facility] G Code Modifier: CM Plan OT Frequency: 5x/week OT Plan for Next Visit: progress ADLs, transfers, standing, walking as able from respiratory standpoint. Simple commands and contextual cues as pt aphasic. ADL Goals Patient Will Perform Grooming: Standing at Sink;w/ Stand By Assist Patient Will Perform LE Dressing: At Edge of Bed;In Chair;w/ Stand By Assist Patient Will Perform Toileting: w/ Stand By Assist Functional Transfer Goals Pt Will Perform All Functional Transfers: w/ Stand By Assist OT Discharge Recommendations OT Discharge Recommendations: Inpatient Setting Equipment Recommendations: Too early to be determined Therapist: Nadya Martinez OT Date: 08/25/2018 WORK AUTO TRIMMER * Renuka White RN - 08/25/2018 10:12 AM BODY WORK AUTO TRIMMER Two hour rapid response follow up completed. Patient resting comfortably in bed , BP 143/83, HR 75, Resp 20, SpO2 94% on 3L/NC. No concerns voiced by patient's nurse Suma, updated on vital signs. Please initiate a Rapid Response with any further concerns. WORK AUTO TRIMMER * Neil Howell APRN - 08/25/2018 7:58 AM BODY WORK AUTO TRIMMER Paged by nursing staff this AM and notified of patient reportedly having chest pain. Patient known to me from [facility]. Difficulty in obtaining clear communication due to expressive aphasia and language barrier. Patient grimaces when uncomfortable, not always clear where he might have discomfort. Rapid response called this AM. I arrived at bedside. Patient pink, warm and dry , brightly alert. Patient on 6 liters NC. SL nitro given x2 prior to my arrival Denying chest pain when asked in Swazi and [place]serratian, but continued to grimace and attempt to move self in bed. Respiratory rate 30's,HR 70's, SBP 160' s O2 sats 96% on 6 liters NC.. Patient given GI cocktail, Labetolol and Hydralazine. BP down to 130's systolic. EKG with unchanged rhythm. Patient with clear breath sounds bilaterally, similar breathing pattern to yesterday. Able to wean to 3L NC sats mid 90's. Patient repositioned in bed, appeared more comfortable post interventions. Troponin 0.69 - reordered repeat for 1400. CXR pending. Patient resting quietly at end of rapid response in no acute distress. Given patient's improvement in symptoms, and stability, patient to remain on CA6.Rapid Response team to reassess in 2 hours per protocol. Update called to Dr Kebede with Stroke team of Rapid Response events and pending labs/Xray. Stroke Neurology to assume care at this time. Dr Clarke updated of events Lisa OXYGEN THERAPY TECHNICIAN [phone] WORK AUTO TRIMMER * Jamarcus Naranjo, RT - 08/25/2018 7:40 AM BODY WORK AUTO TRIMMER Rapid Response. Trop 0.69 Pt feeling chest pain and SOB ABG 7.46/23/104/16 on 6lpm O2 NC WORK AUTO TRIMMER * Jr Kebede MD - 08/25/2018 7:11 AM BODY WORK AUTO TRIMMER Neurology Progress Note Name: Kirsty Valencia Today's Date: 08/25/2018 Admission Date: 08/19/2018 LOS: 6 days Assessment/Plan: Active Problems: Diabetes (HCC) ICH (intracerebral hemorrhage) (HCC) Hypertension Kirsty Shelton a 78yo Mw/ PMH of DM2, HTN, CAD with PCI on 08/17/2018 where he was started on Plavix and ASA. He presented to OSH w/ confusion & NCCT demonstrated left basal ganglia bleed. Pt lethargic and difficult to comprehend , but regards examiner and moving all extremities spontaneously. Left BG ICH - Etiology: HTN - CT 08/23: stable L thalamic and IC hemorrhage w/ localized mass effect on 3rd ventricle - MRI: acute left thalamic/internal capsular hemorrhage with mild surrounding vasogenic edema, persistent localized cerebral mass effect with 3-4mm of rightward midline shift. 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 - continue amlodipine 10mg qD Diabetes Mellitus, Type 2 - A1c: 7.3 - [facility] Hyperlipidemia - LDL: 111 - continue atorvastatin 20mg qHS HTN - goal BP < 130/80 - continue amlodipine 10mg qD - holding losartan for TRACIE - will increase metoprolol to 100mg if tolerates CAD s/p PCI on 08/17 s/p CABG x4 in 2006 Acute Pulmonary Edema TRACIE - cardiology consulted - holding GATE TENDER Plavix - continue ASA 81mg qD - continue metoprolol XL 75mg qD - continue GATE TENDER isosorbide mononitrate SR 30 mg qAM, 15mg qPM - troponin 08/25: 0.69 --> 1.23 - BNP 08/25: 1148 - EKG 08/25: ventricular trigeminy - Echo: biatrial enlargement, EF50% PLAN: - 1x lasix 40mg - NS 1L@100cc FEN: replace lytes PRN, no IVF, strict I/Os PPx: heparin 5000u q8h, pantoprazole 40mg qD Code: FULL Dispo: continue on stroke Patient seen and discussed with Dr. Tian Kebede M.D. Resident Physician PGY-3 *[id number] Subjective This morning pt had RR called for chest pain and hypoxia. Pt was put on 6L NC, given nitro x2. EKG obtained and normal. Troponin elevated to 0.69. Pt was given a GI cocktail as well given he had recently eaten and poorly positioned in bed. Objective Vital Signs: Last Filed Vital Signs: 24 Hour Range BP: 142/46 (08/25 05) Temp: 36.9 C (98.5 F) (08/25 05) Pulse: 76 (08/25 05) Respirations: 18 PER MINUTE (08/25 0543) SpO2: 95 % (08/25 0543) O2 Delivery: Nasal Cannula (08/25 0543) SpO2 Pulse: 72 (08/24 1600) BP: (119-155)/(44-104) Temp: [36.3 C (97.4 F)-38.2 C (100.7 F)] Pulse: [70-113] Respirations: [18 PER MINUTE-27 PER MINUTE] SpO2: [93 %-99 %] O2 Delivery: Nasal Cannula Vitals: 08/21/18 0533 08/22/18 0000 08/23/18 0600 Weight: 85.2 kg (187 lb 13.3 oz) 85.4 kg (188 lb 4.4 oz) 84.4 kg (186 lb 1.1 oz ) General Physical Examination: HEENT: normocephalic, eyes open with no discharge, oropharynx clear-no lesions, no bruits Chest: normal configuration, chest rise equal b/l, non labored breathing CV: regular rate and rhythm, no murmur, distal pulses palpable Pulmonary: lungs are clear bilaterally, no wheezes/crackles/rales Abd: soft, non-tender, no masses, no organomegaly Neurological Examination: Mental status: Patient is alert and oriented to time, place, person and situation. Speech: Fluent, with normal naming, comprehension, articulation and repetition CN II-XII: Visual montez intact to confrontation, PERRL (4->2), EOMI, facial sensation intact. Symmetrical facial movement. Hearing grossly intact. Strong cough, elevates palate, uvula midline. Strong shoulder shrug. Tongue midline. Motor: Normal tone and bulk. No abnormal movement, fasciculation or pronator drift. SA EF EE WE WF FF HF KF KE DF PF R 5 5 5 5 5 5 5 5 5 5 5 L 5 5 5 5 5 5 5 5 5 5 5 Sensory: intact light touch, pin prick, proprioception, and vibration. Romberg sign absent. Reflexes: No clonus, amadeo, cross adductor. Babinski negative. Right Left Triceps 2 2 Biceps 2 2 Brachioradialis 2 2 Patella 2 2 Ankle 2 2 Plantar flexor flexor Coordination/ fine movement: normal finger to nose, heel to yee Gait: deferred Lab Review Pertinent labs reviewed Radiology and other Diagnostics Review: Pertinent radiology reviewed. WORK AUTO TRIMMER Associated attestation - Boy Overton MD - 08/25/2018 6:15 PM BODY WORK AUTO TRIMMER ATTESTATION I personally performed the daniel portions of the E/M visit, discussed case with resident and concur with resident documentation of history, physical exam, assessment, and treatment plan unless otherwise noted. I personally reviewed vitals, labs. Pertinent neuroradiological imagings were viewed. Pt. w L thalamic, mostly hypertensive in etiology, IPH without IVH. On rocephin for UTI, transient increase of 6L/min, CXR w pulm edema and effusion and cardiomegaly, will given IV lasix and 1 L IVF for his Cr/BUN elevation, getting TTE, increase insulin correctional scale, trending Trop. Staff name: Boy Overton MD Date: 08/25/2018 * Marleny Donahue RN - 08/25/2018 5:11 AM BODY WORK AUTO TRIMMER BP: 136/83. RN gave 10mg Hydralazine. BP: 135/50. RN paged Neuro ICU resident. Order state SBP< 130 in MAR and nurse communication. Order parameters on separate NC state <100. Neuro ICU return call:Clarification on BP goal of SBP<140.Neuro ICU changed parameters to <140. WCTM WORK AUTO TRIMMER * Rayna Moscoso RN - 08/24/2018 11:06 PM BODY WORK AUTO TRIMMER Pt appears uncomfortable, moaning in pain. Attempted to speak to him via refrigeration mechanic phone but minimally effective. Pt was able to say his name and that his "bottom hurt." Per refrigeration mechanic, he was speaking incoherently otherwise. Pt was recently cleaned up/changed - wiping action could have caused pain. He tugged at brief, I removed the brief and he appeared slightly more comfortable. No family at bedside. Will continue to monitor. WORK AUTO TRIMMER * Suma Oquendo RN - 08/24/2018 6:57 PM BODY WORK AUTO TRIMMER Patient arrived to room # 6125 via bed accompanied by RN. Patient transferred to the bed with assistance. Bedside safety checks completed. Initial patient assessment completed, refer to flowsheet for details. Admission skin assessment completed by: Adrienne Pereyra RN and myself Pressure Injury Present on Hospital Admission (within 24 hours): Yes 1. Occiput: No 2. Ear: No 3. Scapula: No 4. Spinous Process: No 5. Shoulder: No 6. Elbow: No 7. Iliac Crest: No 8. Sacrum/Coccyx: Yes- Open red area on coccyx 9. Ischial Tuberosity: No 10. Trochanter: No 11. Knee: No 12. Malleolus: No 13. Heel: No 14. Toes: No 15. Assessed for device associated injury Yes 16. Nursing Nutrition Assessment Completed Yes See Doc Flowsheet for additional wound details. INTERVENTIONS: Criticade barrier cream, Q2 turns, moisture management. WORK AUTO TRIMMER * James Ordoñez RN - 08/24/2018 4:00 PM BODY WORK AUTO TRIMMER No change in assessment status, will continue to monitor status. WORK AUTO TRIMMER * Nasra Clarke MD - 08/24/2018 3:13 PM BODY WORK AUTO TRIMMER Neuro Critical Care Progress Note Kirsty Valencia Admission Date: 08/19/2018 LOS: 5 days Full Code ASSESSMENT/PLAN Patient Active Problem List Diagnosis Date Noted Diabetes (HCC) ICH (intracerebral hemorrhage) (HCC) Hypertension Kirsty Shelton a 78 y.o.malewith history of diabetes, HTN, CAD with PCI on 08/17/2018 where he was started on Plavix and ASA. He presented to OSH today with confusion x [address] demonstrated a left basal ganglia bleed. Pt is transferred to [facility] for further evaluation and treatment. Exam - difficult to arouse. Tried to speak to him with assistance of telephone refrigeration mechanic but he did not really awaken and words were incomprehensible. Regards examiner. Face symmetric. Moving all four. Hospital and ICU course: 08/19: transferred from OSH with left basal ganglia bleed 08/20: Stable today with no issues overnight.CT Head stable. Restarting home meds as able. Records request faxed to [facility] [place], [place] 08/21; chest pain, cardiology consulted, CT head stable, started ASA, SBP gola < 130 08/22; chest pain overnight, titrating nitro gtt, elevated troponin 08/23: CT head Neuro:left basal ganglia ICH -PT/OT and ST ordered - resstarted ASA 81 on 08/21 - SBP goal <130 CT head 08/23 Stable left thalamic and internal capsule hemorrhage with localized mass effect on the third ventricle, which remains patent. No new hemorrhage or intracranial abnormality. Finalized by Solis Aviles MD on 08/23/2018 9:13 AM. Dictated by Mc Arshad M.D. on 08/23/2018 8:[address] head to rule out bleed expansion. Sedation/Pain Management: PRN Tylenol and morphine available for pain - discontinued morphine Cardiac: HTN; CAD s/p PCI on 08/17, CABG x 4 in 2006 - GATE TENDER Plavix on hold and ASA restarted 08/21 - Cardiology consulted - Monitor ECG and any new cardiac symptoms closely. - SBP goal:<130mmHg - Start GATE TENDER amlodipine 08/22 - increase to 10 mg daily - GATE TENDER Toprol XL 50 mg - increase to 75mg - hold losartan until renal function improves - Continue isosorbide mononitrate SR- 30 mg in am and 15 mg in pm - Troponin PRN family clarified today with Dr. Cortes that patient did not have stent recently placed as previously thought. Please see Dr. Cortes's note for further details. Respiratory: Stable on room air Spo2 goal >95% GI: Feeding: diabetic diet Neurosurgery bowel regimen, ensure daily BM Po intake is poor, start IVFs and encourage PO, watch I/Os closely Heme: anemia and thrombocytopenia -Daily CBC SCDs and sq heparin for VTE ppx Assess for coagulopathy, maintain platelets above 100k, INR <1.5 ID: -Tmaxafebrile overnight - lethargy - may reflect an infectious etiology - check blood and urine cultures , cxr Renal:renal insufficiency -stable Cr Endocrine: Diabetic, hgb a1c 7.3 Accucheck x5/day w/ LDCF Blood glucose goal 100-180mg/dl FEN: IVF:Saline locked Replacement per protocol Magnesium goal >2.0, i-Jaime goal > 1.0, Potassium goal >4.0 mEq/L Prophylaxis Review: VTE:SCD, CT from 08/21 with stable IPH - started sq heparin 08/22 The patient is critically ill with IPH. Exam worse - could be structural change or infectious - work-up. Continue OT/PT/ST therapies and close monitoring. Continue with BP control. I spent 35 minutes (excluding time spent performing or supervising any procedures) providing and personally directing critical care services, including reviewing imaging and laboratory results. Staff name: Nasra Clarke MD Date: 08/24/2018 OBJECTIVE Vital Signs: Last Filed Vital Signs: 24 Hour Range BP: 119/44 (08/24 1430) Temp: 38.2 C (100.7 F) (08/24 1200) Pulse: 74 (08/24 1400) Respirations: 23 PER MINUTE (08/24 1400) SpO2: 99 % (08/24 1400) O2 Delivery: Nasal Cannula (08/24 1400) BP: (110-157)/(40-97) Temp: [36.6 C (97.8 F)-38.2 C (100.7 F)] Pulse: [61-92] Respirations: [12 PER MINUTE-29 PER MINUTE] SpO2: [93 %-100 %] O2 Delivery: Nasal Cannula Intensity Pain Scale (Self Report): (not recorded) Vitals: 08/21/18 0533 08/22/18 0000 08/23/18 0600 Weight: 85.2 kg (187 lb 13.3 oz) 85.4 kg (188 lb 4.4 oz) 84.4 kg (186 lb 1.1 oz ) Lines: Peripheral Line Drains: None Intake/Output Summary: (Last 24 hours) Intake/Output Summary (Last 24 hours) at 08/24/2018 1513 Last data filed at 08/24/2018 1500 Gross per 24 hour Intake 545 ml Output 1190 ml Net -645 ml Stool Occurrence: 1 WORK AUTO TRIMMER * Nadya Martinez, OT - 08/24/2018 2:16 PM BODY WORK AUTO TRIMMER OCCUPATIONAL THERAPY NO TREATMENT NOTE The patient was not seen due to: pt not available in am. In pm, pt very lethargic and unable to wake sufficiently for participation in therapy. PROM done for UE's, attempted to open pt's eyes. Pt not tracking and actively closing his eyes. Moaning but otherwise not participating. Therapist: Nadya Martinez, OT Date: 08/24/2018 WORK AUTO TRIMMER * Meera Hicks, PT - 08/24/2018 2:00 PM BODY WORK AUTO TRIMMER PHYSICAL THERAPY NOTE Attempted to see patient x 2 for Physical Therapy this date. First attempt RN reports that patient very lethargic at that time and likely unable to participate in therapy. Followed up in PM and patient still very lethargic. Provided PROM to bilateral LE and UE and patient with occasional moaning but still unable to arouse. 2 instances that patient able to open eyes briefly but unable to track or keep eyes open for any length of time. Not able to participate in skilled PT intervention at this time. Will continue to follow and treat as able and indicated. Therapist: Meera Hicks, PT Date: 08/24/2018 WORK AUTO TRIMMER * Guera Olivier, RN - 08/24/2018 12:00 PM BODY WORK AUTO TRIMMER Team at bedside, notified of mental status this AM. Team evaluated pt, head CT ordered. Temp 100.7, pt shaking. Blood and urine cultures ordered. Still trying to keep pts BP <130. Added TKO for hydration. Pt so lethargic, has not eaten at all today. Pts lungs clear, 4L NC. SR with PVCs rate 70-80s. Straight cathed again for UA. No BM. Current gtts: NS 40 WORK AUTO TRIMMER * Guera Olivier RN - 08/24/2018 11:42 AM BODY WORK AUTO TRIMMER Team notified of pt voiding minimal amounts, continent and incontinent. Pt seems like he has pain in that region. Bladder scanned pt, 365 ml. Straight cathed and 525 ml out. Pt did not wake up during straight cath. WORK AUTO TRIMMER * Guera Olivier RN - 08/24/2018 7:38 AM BODY WORK AUTO TRIMMER Taken over care of pt. Pt resting in bed. Lethargic, sleepy, opens eyes to voice , oriented to person. Pt right back to sleep. PERRL, afebrile. No signs of pain at this time. Lungs clear, 2L NC. SR with PVCs, BP 135/55 after IV labetalol given by police shift commander RN. Pulses palpable. Pt voided in urinal. Last BM 08/22. No gtts. WORK AUTO TRIMMER * Elizabeth Box RN - 08/24/2018 7:31 AM BODY WORK AUTO TRIMMER Pt. received 2 doses of PRN hydralazine overnight. 1 dose just given of PRN labetalol at shift change. Pt. also received PRN morphine overnight. Unable to accurately assess UO due to pt. having accidents in bed. Pt. handed off to next RN. WORK AUTO TRIMMER * Neil Howell APRN - 08/24/2018 6:09 AM BODY WORK AUTO TRIMMER Neuroscience Critical Care Progress Note Kirsty Valencia Admission Date: 08/19/2018 LOS: 5 days ASSESSMENT/PLAN Patient Active Problem List Diagnosis Date Noted Diabetes (HCC) ICH (intracerebral hemorrhage) (HCC) Hypertension Kirsty Shelton a 78 y.o.malewith history of diabetes, HTN, CAD with PCI on 08/17/2018 where he was started on Plavix and ASA. He presented to OSH today with confusion x [address] demonstrated a left basal ganglia bleed. Pt is transferred to [facility] for further evaluation and treatment. Hospital and ICU course: 08/19: transferred from OSH with left basal ganglia bleed 08/20: Stable today with no issues overnight.CT Head stable. Restarting home meds as able. Records request faxed to [facility] 08/21; chest pain, cardiology consulted, CT head stable, started ASA, SBP gola < 130 08/22; chest pain overnight, titrating nitro gtt, elevated troponin 08/23: CT head 08/24: more lethargic mid day- concern for infection, galloway culture ordered, Head CT repeated Neuro:left basal ganglia ICH -restarted ASA 81on 08/21 - Neuro checks 1 hour - PT/OT - repeat head CT today Sedation/Pain Management: PRN Tylenol available for pain Cardiac: HTN; CAD s/p diagnostic cath on 08/17, CABG x 4 in 2006 -GATE TENDER ASA restarted 08/21 - Cardiology consulted- appreciate assistance -Monitor ECG and any new cardiac symptoms closely. - SBP goal:<130mmHg - amlodipine 10mg daily - Toprol XL 75mg daily -holdlosartan until renal function improves - Isosorbide mononitrate ER30mg q AM and 15mg q HS - Clarified recent cath on 08/17 no intervention performed- no need for plavix at this time Respiratory: On 2 liter NC wean to room air as tolerated Spo2 goal >95% CXR ordered GI: Feeding:ADAT to regular diet bowel regimen, ensure daily BM - Last BM08/22 Heme: -Daily CBC SCDs for VTE ppx, SQ heparin Assess for coagulopathy, maintain platelets above 100k, INR <1.5 - HGB 10.5 - PLt: 139 ID: -[id number] -WBC:8.6 - more lethargic- galloway culture ordered with CXR Renal: - Cr: 1.91/ BUN 34 Creat at OSH 1.89 - Bladder scans/ straight cath PRN if needed Intake/Output Summary (Last 24 hours) at 08/24/2018 0638 Last data filed at 08/24/2018 0200 Gross per 24 hour Intake 350 ml Output 590 ml Net -240 ml Endocrine: Diabetes- HgbA1C 7.3 BG x24 hours 133-214 (used 5 units insulin 24 hours) Accucheck x5/day w/ LDCF Blood glucose goal 100-180mg/dl FEN: IVF:Saline locked Replacement per protocol Magnesium goal >2.0, i-Jaime goal > 1.0, Potassium goal >4.0 mEq/L Prophylaxis Review: A)GI:n/a B) Lines:No C) Urinary Catheter:no D) Antibiotic Usage:No E) VTE:SCD, SC heprin F) Isolation:n/a G)Seizures:n/a I) Restraints: Patient assessed for need for restraints. Disposition/Family:Requires ICU monitoring Primary service:NEICU Consults: None __ SUBJECTIVE Kirsty Valencia is a 78 y.o. male. Overnight Events: No new events noted. Patient alert this AM. More lethargic while on rounds. Sent for CT head and galloway culture ordered to r/o infectious cause OBJECTIVE Vital Signs: Last Filed Vital Signs: 24 Hour Range BP: 132/51 (08/24 0500) Temp: 37.1 C (98.8 F) (08/24 0352) Pulse: 74 (08/24 0500) Respirations: 23 PER MINUTE (08/24 0500) SpO2: 95 % (08/24 050) O2 Delivery: Nasal Cannula (08/24 400) BP: (110-153)/(40-97) Temp: [36.6 C (97.8 F)-37.1 C (98.8 F)] Pulse: [61-92] Respirations: [12 PER MINUTE-35 PER MINUTE] SpO2: [94 %-100 %] O2 Delivery: Nasal Cannula Intensity Pain Scale (Self Report): (not recorded) Vitals: 08/21/18 0533 08/22/18 0000 08/23/18 0600 Weight: 85.2 kg (187 lb 13.3 oz) 85.4 kg (188 lb 4.4 oz) 84.4 kg (186 lb 1.1 oz ) Artificial airway: None Ventilator/ Respiratory Therapy: No Vent weaning trial: Not applicable Lines: Peripheral Line Drains: None Scheduled Meds: amLODIPine (NORVASC) tablet 5 mg 5 mg Oral QDAY aspirin EC tablet 81 mg 81 mg Oral QDAY atorvastatin (LIPITOR) tablet 20 mg 20 mg Oral QHS docusate (COLACE) capsule 100 mg 100 mg Oral BID heparin (porcine) PF syringe 5,000 Units 5,000 Units Subcutaneous Q8H insulin aspart U-100 (NOVOLOG FLEXPEN) injection PEN 0-7 Units 0-7 Units Subcutaneous ACHS isosorbide mononitrate SR (IMDUR) tablet 15 mg 15 mg Oral QHS isosorbide mononitrate SR (IMDUR) tablet 30 mg 30 mg Oral QDAY metoprolol XL (TOPROL XL) tablet 50 mg 50 mg Oral QDAY(21) milk of magnesia (CONC) oral suspension 10 mL 10 mL Oral QDAY senna/docusate (SENOKOT-S) tablet 1 tablet 1 tablet Oral BID Continuous Infusions: PRN and Respiratory Meds:acetaminophen Q4H PRN, hydrALAZINE Q2H PRN, labetalol ( NORMODYNE; TRANDATE) injection Q15 MIN PRN, morphine injection syringe Q2H PRN , nitroglycerin Q5 MIN PRN, potassium chloride SR PRN OR potassium chloride PRN Critical Care Vitals: ICP Monitoring: Hemodynamics/Oxycalcs: BP 132/51 | Pulse 74 | Temp 37.1 C (98.8 F) | Ht 170.2 cm (67") | Wt 84.4 kg (186 lb 1.1 oz) | SpO2 95% | BMI 29.14 kg/m Intake/Output Summary: (Last 24 hours) Intake/Output Summary (Last 24 hours) at 08/24/2018 0609 Last data filed at 08/24/2018 0200 Gross per 24 hour Intake 350 ml Output 690 ml Net -340 ml Stool Occurrence: 1 Physical Exam: Blood pressure 132/51, pulse 74, temperature 37.1 C (98.8 F), height 170.2 cm (67"), weight 84.4 kg (186 lb 1.1 oz), SpO2 95 %. Neuro: Mental Status:Montserratian first language, speaks some belgian Patient alert and follows commands. Moves all extremities equally. Denies chest pain Motor: RUE: Strength:5/5 RLE:Strength: 5/5 LUE:Strength: 5/5 LLE:Strength: 5/5 Lungs:clear to auscultation bilaterally Pulmonary:Respiratory status: Stable Heart:S1, S2 normal Abdomen:normal findings:bowel sounds normal, soft, non-tender Extremities:extremities normal, atraumatic, no cyanosis or edema Skin:Skin color, texture, turgor normal. Psoriasis plaques noted to bilateral knees Lab Review: Pertinent labs reviewed Medications: amLODIPine (NORVASC) tablet 5 mg 5 mg Oral QDAY aspirin EC tablet 81 mg 81 mg Oral QDAY atorvastatin (LIPITOR) tablet 20 mg 20 mg Oral QHS docusate (COLACE) capsule 100 mg 100 mg Oral BID heparin (porcine) PF syringe 5,000 Units 5,000 Units Subcutaneous Q8H insulin aspart U-100 (NOVOLOG FLEXPEN) injection PEN 0-7 Units 0-7 Units Subcutaneous ACHS isosorbide mononitrate SR (IMDUR) tablet 15 mg 15 mg Oral QHS isosorbide mononitrate SR (IMDUR) tablet 30 mg 30 mg Oral QDAY metoprolol XL (TOPROL XL) tablet 50 mg 50 mg Oral QDAY(21) milk of magnesia (CONC) oral suspension 10 mL 10 mL Oral QDAY senna/docusate (SENOKOT-S) tablet 1 tablet 1 tablet Oral BID Point of Care Testing: (Last 24 hours): Glucose: (!) 158 (08/24/18 0405) POC Glucose (Download): (!) 214 (08/23/182110) Radiology and Other Diagnostic Procedures Review: all noted I spent 46 minutes managing the care of this patient. Mr Valencia is critically ill. Cares included: detailed neurologic and systems exam, medication review, laboratory data review and interpretation, electrolyte management, review of available imaging, DVT/PE prophylaxis review, diet review , activity review,and coordination of care with consulted teams. Neil Howell APRN Date: 08/24/[phone] WORK AUTO TRIMMER * Elizabeth Box RN - 08/24/2018 12:34 AM BODY WORK AUTO TRIMMER Assumed pt. care around 0000. Pt. lethargic, oriented to person. VSS, SR w/ frequent PVCs on tele. Pt. has no complaints of pain at this time. Pt. sleeping, will cont. to monitor. WORK AUTO TRIMMER * Ivette Samano MD - 08/23/2018 5:51 PM BODY WORK AUTO TRIMMER This patient heart catheterization findings were reviewed today by Dr. Cortes and patient's career center advisor in [place], [place], Dr. Centeno. It was stated that this patient underwent a left heart catheterization 2 days ago, he was not found to have any progression of disease. Patient does have known CAD, he underwent previous CABG, and apparently 1 of the SV grafts are occluded. In the light of patient's recent intracranial hemorrhage, at this point in time we will proceed with monantipletelet therapy, that is aspirin 81 mg p.o. daily. We will not proceed with clopidogrel. Please call with any further questions. WORK AUTO TRIMMER * Chris Cortes MD - 08/23/2018 1:42 PM BODY WORK AUTO TRIMMER Critical Care Progress Note Today's Date: 08/23/2018 Name: Kirsty Valencia Admission Date: 08/19/2018 LOS: 4 days Assessment/Plan: Active Problems: Diabetes (HCC) ICH (intracerebral hemorrhage) (HCC) Hypertension I rounded on Mr Valencia with the ICU team and helped to clarify his cardiac problems. He has coronary artery disease including CAGBx4 in [id number]. Over the past 3- 6mo he has been having exertional dyspnea. He went for heart catheterization due to shortness of breath in [facility], [place], operated by [facility] with Dr Yaakov Centeno. He had poorly controlled hypertension at the time of the heart catheterization reported up to 170mmHg sbp on 08/17/2018. He developed L thalamic ICH and left anterior internal capsule ICH after the heart catheterization. He was sent home on plavix and may have had uncontrolled blood pressure. He presented to the hospital ([facility]) with confusion and slurring of words that began on 08/18. He was admitte dot the NEICU at for management. The ICH has remained stable in size and his neurologic exam has been stable. He has expressive aphasia, he follows commands well in Montserratian when spoken to by his family, but they report he has some confusion at times- perhaps more complicated communication. He is able to to mumble in Swazi such as [place]. His family notes right arm tremor which is new. CV: NSTEMI Mild troponinemia. He has been seen by cardiology here - thank you to Dr Samano. Yesterday he was grimacing and holding his chest. He has a strong hx of exertional dypsnea. During my interview with the family today he denied any chest pain and understood the simple questioning. ASA 81 since 08/21 - hold plavix Atorvastatin 20mg Betablocker- toprol XL 50 ( sbp 130's, HR 60-80) Nitrate: Imdur 30mg am and will add 15mg at night. Nitrostat PRN, morphine prn ARB held (losartan) - held due to elevated Cr 1.60 This may be resumed once the baseline Cr is established and/or return to baseline. I spoke with Dr Yaakov Centeno on the phone today regarding the results of the heart catheterization: Dr Centeno said that the heart cath showed no large vessel occlusions - only small vessel disease. One of the vein grafts was occluded. Dr Centeno told me that during the procedure there was no angioplasty and no stenting, no heparin, no plavix during the procedure. I told him that we had no records of his procedure. I asked him of his opinion of the findings and he stated that the aspirin alone would suffice and that the addition of plavix would not be necessary in this context. I spoke with Dr Samano, cardiology to update her and I told her of my conversation with Dr Centeno - specifically that no coronary intervention was performed. I asked her what would be the best way of managing his angina/ ischemia. She agreed that the addition of plavix was not necessary. She suggested that the Imdur be increased to 30qam and 15qhs. I updated the family and Dr Marti with regard to my conversations. The family was most interested in knowing when he would leave the hospital (it is )-I told them that at some point he will transfer to the floor, we will clarify his requirements for rehab, with PM&R, PT/OT/speech/SW and determine if the appropriate services can be provided at home, [facility], [place], operated by [facility], or [place]. . Neuro: stable L thalamic and anterior internal capsule ICH, stable expressive aphasia, mild confusion Cardiac: nstemi after ICH - troponin back down again - no angina Pulmonary: room air GI/hepatic: need diabetic diet /renal: probably CKD - Cr 1.86 at OSH but this may include some acute elevation after the cath Heme: plt 105 FEN: ok for cardiac diabetic diet Musculoskeletal/derm: no issue ID: No issue Endo: highest blood glucose 200 today __ Subjective: Kirsty Valencia is a 78 y.o. male. Objective: Medications: Scheduled Meds: amLODIPine (NORVASC) tablet 5 mg 5 mg Oral QDAY aspirin EC tablet 81 mg 81 mg Oral QDAY atorvastatin (LIPITOR) tablet 20 mg 20 mg Oral QHS docusate (COLACE) capsule 100 mg 100 mg Oral BID heparin (porcine) PF syringe 5,000 Units 5,000 Units Subcutaneous Q8H insulin aspart U-100 (NOVOLOG FLEXPEN) injection PEN 0-7 Units 0-7 Units Subcutaneous ACHS isosorbide mononitrate SR (IMDUR) tablet 15 mg 15 mg Oral QHS isosorbide mononitrate SR (IMDUR) tablet 30 mg 30 mg Oral QDAY metoprolol XL (TOPROL XL) tablet 50 mg 50 mg Oral QDAY(21) milk of magnesia (CONC) oral suspension 10 mL 10 mL Oral QDAY senna/docusate (SENOKOT-S) tablet 1 tablet 1 tablet Oral BID Continuous Infusions: PRN and Respiratory Meds:acetaminophen Q4H PRN, hydrALAZINE Q2H PRN, labetalol ( NORMODYNE; TRANDATE) injection Q15 MIN PRN, morphine injection syringe Q2H PRN , nitroglycerin Q5 MIN PRN, potassium chloride SR PRN OR potassium chloride PRN Vital Signs: Last Filed Vital Signs: 24 Hour Range BP: 132/79 (08/23 1200) Temp: 37.1 C (98.7 F) (08/23 1200) Pulse: 68 (08/23 1200) Respirations: 16 PER MINUTE (08/23 1200) SpO2: 99 % (08/23 1200) O2 Delivery: Nasal Cannula (08/23 1200) Weight: 84.4 kg (186 lb 1.1 oz) (08/23 0600) BP: (101-153)/(40-97) Temp: [36.7 C (98 F)-37.1 C (98.7 F)] Pulse: [62-85] Respirations: [10 PER MINUTE-25 PER MINUTE] SpO2: [97 %-100 %] O2 Delivery: Nasal Cannula Intensity Pain Scale (Self Report): (not recorded) Vitals: 08/21/18 0533 08/22/18 0000 08/23/18 0600 Weight: 85.2 kg (187 lb 13.3 oz) 85.4 kg (188 lb 4.4 oz) 84.4 kg (186 lb 1.1 oz ) Critical Care Vitals: ICP Monitoring: PA Catheter: Hemodynamics/Oxycalcs: Intake/Output Summary: (Last 24 hours) Intake/Output Summary (Last 24 hours) at 08/23/2018 1343 Last data filed at 08/23/2018 0900 Gross per 24 hour Intake 90.54 ml Output 875 ml Net -784.46 ml Chris Cortes MD Pager [phone] Critical care time 60 minutes. WORK AUTO TRIMMER * Nasra Clarke MD - 08/23/2018 1:27 PM BODY WORK AUTO TRIMMER Neuro Critical Care Progress Note [place] Annie Admission Date: 08/19/2018 LOS: 4 days Full Code ASSESSMENT/PLAN Patient Active Problem List Diagnosis Date Noted Diabetes (HCC) ICH (intracerebral hemorrhage) (HCC) Hypertension Kirsty Shelton a 78 y.o.malewith history of diabetes, HTN, CAD with PCI on 08/17/2018 where he was started on Plavix and ASA. He presented to OSH today with confusion x [address] demonstrated a left basal ganglia bleed. Pt is transferred to [facility] for further evaluation and treatment. Exam - awake, oriented to self. Spoke to him with use of [employer] refrigeration mechanic - all questions he would repeat but not answer except for his name and telling us he had no pain. Regards examiner. Face symmetric. Moving all four. Hospital and ICU course: 08/19: transferred from OSH with left basal ganglia bleed 08/20: Stable today with no issues overnight.CT Head stable. Restarting home meds as able. [facility] request [facility]ed to [facility] 08/21; chest pain, cardiology consulted, CT head stable, started ASA, SBP gola < 130 08/22; chest pain overnight, titrating nitro gtt, elevated troponin 08/23: CT head Neuro:left basal ganglia ICH -PT/OT and ST ordered - resstarted ASA 81 on 08/21 - SBP goal <130 CT head 08/23 Stable left thalamic and internal capsule hemorrhage with localized mass effect on the third ventricle, which remains patent. No new hemorrhage or intracranial abnormality. Finalized by Solis Aviles MD on 08/23/2018 9:13 AM. Dictated by Mc Arshad M.D. on 08/23/2018 8:40 AM. Sedation/Pain Management: PRN Tylenol and morphine available for pain Cardiac: HTN; CAD s/p PCI on 08/17, CABG x 4 in 2006 - GATE TENDER Plavix on hold and ASA restarted 08/21 - Cardiology consulted - Monitor ECG and any new cardiac symptoms closely. - SBP goal:<130mmHg - Start GATE TENDER amlodipine 08/22 - GATE TENDER Toprol XL 25mg- increase to 50 mg - hold losartan until renal function improves - Continue isosorbide mononitrate SR- 30 mg in am and 15 mg in pm - Troponin PRN family clarified today with Dr. Cortes that patient did not have stent recently placed as previously thought. Please see Dr. Cortes's note for further details. Respiratory: Stable on room air Spo2 goal >95% GI: Feeding: regular diet - change to diabetic Neurosurgery bowel regimen, ensure daily BM - Last BM 08/22 Heme: anemia and thrombocytopenia -Daily CBC SCDs and sq heparin for VTE ppx Assess for coagulopathy, maintain platelets above 100k, INR <1.5 ID: -Tmaxafebrile overnight -WBC: 8.3 Renal:renal insufficiency - Cr: 1.60 Endocrine: Diabetic, hgb a1c 7.3 Change diet to diabetic. Accucheck x5/day w/ LDCF Blood glucose goal 100-180mg/dl FEN: IVF:Saline locked Replacement per protocol Magnesium goal >2.0, i-Jaime goal > 1.0, Potassium goal >4.0 mEq/L Prophylaxis Review: VTE:SCD, CT from 08/21 with stable IPH - started sq heparin 08/22 The patient is critically ill with IPH. CT stable, exam stable. Continue therapies and close monitoring. Continue with BP control. I spent 45 minutes ( excluding time spent performing or supervising any procedures) providing and personally directing critical care services, including reviewing imaging and laboratory results. Staff name: Nasra Clarke MD Date: 08/23/2018 OBJECTIVE Vital Signs: Last Filed Vital Signs: 24 Hour Range BP: 132/79 (08/23 1200) Temp: 37.1 C (98.7 F) (08/23 1200) Pulse: 68 (08/23 1200) Respirations: 16 PER MINUTE (08/23 1200) SpO2: 99 % (08/23 1200) O2 Delivery: Nasal Cannula (08/23 1200) Weight: 84.4 kg (186 lb 1.1 oz) (08/23 06) BP: (101-153)/(40-97) Temp: [36.7 C (98 F)-37.1 C (98.7 F)] Pulse: [62-85] Respirations: [10 PER MINUTE-25 PER MINUTE] SpO2: [97 %-100 %] O2 Delivery: Nasal Cannula Intensity Pain Scale (Self Report): (not recorded) Vitals: 08/21/18 0533 08/22/18 0000 08/23/18 0600 Weight: 85.2 kg (187 lb 13.3 oz) 85.4 kg (188 lb 4.4 oz) 84.4 kg (186 lb 1.1 oz ) Lines: Peripheral Line Drains: None Intake/Output Summary: (Last 24 hours) Intake/Output Summary (Last 24 hours) at 08/23/2018 1327 Last data filed at 08/23/2018 0900 Gross per 24 hour Intake 90.54 ml Output 875 ml Net -784.46 ml Stool Occurrence: 1 WORK AUTO TRIMMER * Ebony Mcelroy APRN - 08/23/2018 7:25 AM BODY WORK AUTO TRIMMER Neuro Critical Care Progress Note Kirsty Kinneycqua Admission Date: 08/19/2018 LOS: 4 days Full Code ASSESSMENT/PLAN Patient Active Problem List Diagnosis Date Noted Diabetes (HCC) ICH (intracerebral hemorrhage) (HCC) Hypertension Kirsty Kinneymariliapatrizia a 78 y.o.malewith history of diabetes, HTN, CAD with PCI on 08/17/2018 where he was started on Plavix and ASA. He presented to OSH today with confusion x [address] demonstrated a left basal ganglia bleed. Pt is transferred to [facility] for further evaluation and treatment. Hospital and ICU course: 08/19: transferred from OSH with left basal ganglia bleed 08/20: Stable today with no issues overnight.CT Head stable. Restarting home meds as able. [place] [facility] [place]; chest pain, cardiology consulted, CT head stable, started ASA, SBP gola < 130 08/22; chest pain overnight, titrating nitro gtt, elevated troponin 08/23: CT head Neuro:left basal ganglia ICH -PT/OT ordered - resstarted 81 on 08/21 - SBP goal <130 - Will discuss with the family re: restarting Plavix Sedation/Pain Management: PRN Tylenol available for pain Cardiac: HTN; CAD s/p PCI on 08/17, CABG x 4 in 2006 - GATE TENDER Plavix on hold and ASA restarted 08/21 - Cardiology consulted - Monitor ECG and any new cardiac symptoms closely. - SBP goal:<130mmHg - Titrate nitroglycerine drip to off - Start GATE TENDER amlodipine - GATE TENDER Toprol XL 25mg will increase - hold losartan until renal function improves - GATE TENDER isosorbide mononitrate ER restarted Respiratory: Stable on room air Spo2 goal >95% GI: Feeding:ADAT to regular diet Neurosurgery bowel regimen, ensure daily BM - Last BM 08/22 Heme: -Daily CBC SCDs for VTE ppx, start SQ heparin Assess for coagulopathy, maintain platelets above 100k, INR <1.5 - HGB 10.2 - PLt: 105 ID: -Tmaxafebrileovernight -WBC: 8.3 Renal: - Cr: 1.60 - BUN 34 - - 600 ml/24 hours - Bladder scans Endocrine: Diabeteic Accucheck x5/day w/ LDCF Blood glucose goal 100-180mg/dl FEN: IVF:Saline locked Replacement per protocol Magnesium goal >2.0, i-Jaime goal > 1.0, Potassium goal >4.0 mEq/L Prophylaxis Review: A)GI:n/a B) Lines:No C) Urinary Catheter:no D) Antibiotic Usage:No E) VTE:SCD, SC heprin F) Isolation:n/a G)Seizures:n/a I) Restraints: Patient assessed for need for restraints. Disposition/Family:Requires ICU monitoring Primary service:NEICU Consults: None SUBJECTIVE Kirsty Valencia is a 78 y.o. male. Overnight Events: No new events noted. OBJECTIVE Vital Signs: Last Filed Vital Signs: 24 Hour Range BP: 133/54 (08/23 700) Temp: 37 C (98.6 F) (08/23 0400) Pulse: 71 (08/23 700) Respirations: 16 PER MINUTE (08/23 700) SpO2: 98 % (08/23 700) O2 Delivery: Nasal Cannula (08/23 700) Weight: 84.4 kg (186 lb 1.1 oz) (08/23 600) BP: (101-153)/(40-97) Temp: [36.6 C (97.8 F)-37 C (98.6 F)] Pulse: [59-85] Respirations: [10 PER MINUTE-25 PER MINUTE] SpO2: [95 %-100 %] O2 Delivery: Nasal Cannula Intensity Pain Scale (Self Report): (not recorded) Vitals: 08/21/18 0533 08/22/18 0000 08/23/18 0600 Weight: 85.2 kg (187 lb 13.3 oz) 85.4 kg (188 lb 4.4 oz) 84.4 kg (186 lb 1.1 oz ) Artificial airway: None Ventilator/ Respiratory Therapy: No Vent weaning trial: Not applicable Lines: Peripheral Line Drains: None Critical Care Vitals: ICP Monitoring: Hemodynamics/Oxycalcs: Intake/Output Summary: (Last 24 hours) Intake/Output Summary (Last 24 hours) at 08/23/2018 0725 Last data filed at 08/23/2018 0625 Gross per 24 hour Intake 321.77 ml Output 980 ml Net -658.23 ml Stool Occurrence: 1 Physical Exam: Blood pressure 133/54, pulse 71, temperature 37 C (98.6 F), height 170.2 cm (67"), weight 84.4 kg (186 lb 1.1 oz), SpO2 98 %. Neuro: Mental Status:Patient alert and follows commands. Moves all extremities equally. Denies chest pain Motor: RUE: Strength:5/5 RLE:Strength: 5/5 LUE:Strength: 5/5 LLE:Strength: 5/5 Lungs:clear to auscultation bilaterally Pulmonary:Respiratory status: Stable Heart:S1, S2 normal Abdomen:normal findings:bowel sounds normal, soft, non-tender Extremities:extremities normal, atraumatic, no cyanosis or edema Skin:Skin color, texture, turgor normal. Psoriasis plaques noted to bilateral knees Point of Care Testing: (Last 24 hours) Glucose: (!) 190 (08/23/18 0330) POC Glucose (Download): (!) 182 (08/22/182056) Lab Review: Pertinent labs reviewed Radiology and Other Diagnostic Procedures Review: Pertinent radiologic and diagnostic procedures reviewed. Ebony Mcelroy APRN Date: 08/23/[phone] I [id number] managing the care of this patient. Mr. Valencia requires critical care monitoring with new ICH, aphasia, hypertension, and coronary artery disease. Cares included: detailed neurologic and systems exam, medication review, laboratory data review and interpretation, electrolyte management, review of available imaging, DVT/PE prophylaxis review, diet review , activity review and coordination of care with consulted teams WORK AUTO TRIMMER * Ivette Samano MD - 08/22/2018 3:09 PM BODY WORK AUTO TRIMMER Patient was seen today on rounds, chart was reviewed. This patient speaks very little Swazi, however he was able to communicate that he has not experienced any chest pain. His electrocardiogram did not demonstrate any dynamic EKG changes. In the view of the above, I recommend the following: Continue current medications Resume clopidogrel when considered safe from a neurological standpoint Continue the beta-eric If not otherwise contraindicated, can substitute amlodipine with lisinopril 5 mg p.o. twice daily Patient will follow up with his regular career center advisor at the outside facility. Please call with further questions. WORK AUTO TRIMMER * Nadya Martinez, AARON - 08/22/2018 3:00 PM BODY WORK AUTO TRIMMER OCCUPATIONAL THERAPY NO TREATMENT NOTE The patient was not seen due to: Nurse requests hold OT this date. This am, pt getting meds to get bp under control but otherwise ok to see. OT came back in pm and pt had just completed meds and EKG and resting after a recent bout of severe chest pain. RN requests allow pt to rest and RN will get pt up later as appropriate. Will continue to follow. Therapist: Nadya Martinez OT Date: 08/22/2018 WORK AUTO TRIMMER * Ritchie Louise - 08/22/2018 2:55 PM BODY WORK AUTO TRIMMER 1420: Patient in noticeable discomfort and clenching chest. When asked if in pain, he nodded yes. Notified ALONSO Beck. Obtained EKG and gave 2mg of morphine. 1500: Pt resting comfortably. WORK AUTO TRIMMER * Nasra Clarke MD - 08/22/2018 12:33 PM BODY WORK AUTO TRIMMER Neuro Critical Care Progress Note Kirsty Valencia Admission Date: 08/19/2018 LOS: 3 days Full Code ASSESSMENT/PLAN Patient Active Problem List Diagnosis Date Noted Diabetes (HCC) ICH (intracerebral hemorrhage) (HCC) Hypertension Kirsty Shelton a 78 y.o.malewith history of diabetes, HTN, CAD with PCI on 08/17/2018 where he was started on Plavix and ASA. He presented to OSH today with confusion x [address] demonstrated a left basal ganglia bleed. Pt is transferred to [facility] for further evaluation and treatment. Exam - awake, said no and one other word which was incomprehensible; otherwise, non-verbal. Regards examiner. Face symmetric. Moving all four. Hospital and ICU course: 08/19: transferred from OSH with left basal ganglia bleed 08/20: Stable today with no issues overnight.CT Head stable. Restarting home meds as able. Records request faxed to [facility] 08/21; chest pain, cardiology consulted, CT head stable, started ASA, SBP gola < 130 08/22; chest pain overnight, titrating nitro gtt, elevated troponin Neuro:left basal ganglia ICH -PT/OT and ST ordered - resstarted ASA 81 on 08/21 - SBP goal <130 - Plan for CT head in the am of 08/23 - Will discuss with the family re: restarting Plavix Sedation/Pain Management: PRN Tylenol available for pain Cardiac: HTN; CAD s/p PCI on 08/17, CABG x 4 in 2006 - GATE TENDER Plavix on hold and ASA restarted 08/21 - Cardiology consulted - Monitor ECG and any new cardiac symptoms closely. - SBP goal:<130mmHg - Titrate nitroglycerine drip to off - Start GATE TENDER amlodipine 08/22 - GATE TENDER Toprol XL 25mg -continue - hold losartan until renal function improves - Restart isosorbide mononitrate ER tomorrow - Troponin Q 6 hours Respiratory: Stable on room air Spo2 goal >95% GI: Feeding:ADAT to regular diet Neurosurgery bowel regimen, ensure daily BM - Last BM 08/22 Heme: -Daily CBC SCDs for VTE ppx Assess for coagulopathy, maintain platelets above 100k, INR <1.5 - HGB 10.5 - PLt: 139 ID: -Tmaxafebrile overnight -WBC: 9.9 Renal: - Cr: 1.84 - BUN 35 - + 700 ml/24 hours - Bladder scans Endocrine: Diabeteic Will DC insulin gtt Accucheck x5/day w/ LDCF Blood glucose goal 100-180mg/dl FEN: IVF:Saline locked Replacement per protocol Magnesium goal >2.0, i-Jaime goal > 1.0, Potassium goal >4.0 mEq/L Prophylaxis Review: VTE:SCD, CT from 08/21 with stable IPH - ok to start sq heparin The patient is critically ill with IPH. CT stable, exam stable. Continue therapies and close monitoring. Titrate off nitroglycerin drip. I spent 45 minutes (excluding time spent performing or supervising any procedures) providing and personally directing critical care services, including reviewing imaging and laboratory results. Staff name: Nasar Clarke MD Date: 08/22/2018 SUBJECTIVE Kirsty Valencia is a 78 y.o. male. Overnight Events: No new events noted. OBJECTIVE Vital Signs: Last Filed Vital Signs: 24 Hour Range BP: 135/55 (08/22 1200) Temp: 36.6 C (97.8 F) (08/22 0800) Pulse: 72 (08/22 1200) Respirations: 12 PER MINUTE (08/22 1200) SpO2: 95 % (08/22 1200) O2 Delivery: None (Room Air) (08/22 0700) Height: 170.2 cm (67") (08/22 0000) Weight: 85.4 kg (188 lb 4.4 oz) (08/22 0000) BP: (114-194)/(41-98) Temp: [36.5 C (97.7 F)-36.7 C (98.1 F)] Pulse: [60-103] Respirations: [9 PER MINUTE-20 PER MINUTE] SpO2: [94 %-99 %] O2 Delivery: None (Room Air) Intensity Pain Scale (Self Report): (not recorded) Vitals: 08/19/18 2052 08/21/18 0533 08/22/18 0000 Weight: 83.2 kg (183 lb 6.8 oz) 85.2 kg (187 lb 13.3 oz) 85.4 kg (188 lb 4.4 oz ) Artificial airway: None Ventilator/ Respiratory Therapy: No Vent weaning trial: Not applicable Lines: Peripheral Line Drains: None Intake/Output Summary: (Last 24 hours) Intake/Output Summary (Last 24 hours) at 08/22/2018 1233 Last data filed at 08/22/2018 0902 Gross per 24 hour Intake 1988.59 ml Output 1322 ml Net 666.59 ml Stool Occurrence: 1 WORK AUTO TRIMMER * Xin Almaraz PT - 08/22/2018 8:50 AM BODY WORK AUTO TRIMMER PHYSICAL THERAPY NOTE Attempted to see patient for physical therapy treatment session. Patient getting bed bath upon arrival this AM. PT will follow up as able and progress intervention as indicated. Therapist: Xin Almaraz PT Date: 08/22/2018 WORK AUTO TRIMMER * Ebony Mcelroy APRN - 08/22/2018 7:37 AM BODY WORK AUTO TRIMMER Neuro Critical Care Progress Note Kirsty Kinneycqua Admission Date: 08/19/2018 LOS: 3 days Full Code ASSESSMENT/PLAN Patient Active Problem List Diagnosis Date Noted Diabetes (HCC) ICH (intracerebral hemorrhage) (HCC) Hypertension Kirsty Shelton a 78 y.o.malewith history of diabetes, HTN, CAD with PCI on 08/17/2018 where he was started on Plavix and ASA. He presented to OSH today with confusion x [address] demonstrated a left basal ganglia bleed. Pt is transferred to [facility] for further evaluation and treatment. Hospital and ICU course: 08/19: transferred from OSH with left basal ganglia bleed 08/20: Stable today with no issues overnight.CT Head stable. Restarting home meds as able. Records request faxed to [facility] 08/21; chest pain, cardiology consulted, CT head stable, started ASA, SBP gola < 130 08/22; chest pain overnight, titrating nitro gtt, elevated troponin Neuro:left basal ganglia ICH -PT/OT ordered - resstarted 81 on 08/21 - SBP goal <130 - Plan for CT head in the am of 08/23 - Will discuss with the family re: restarting Plavix Sedation/Pain Management: PRN Tylenol available for pain Cardiac: HTN; CAD s/p PCI on 08/17, CABG x 4 in 2006 - GATE TENDER Plavix on hold and ASA restarted 08/21 - Cardiology consulted - Monitor ECG and any new cardiac symptoms closely. - SBP goal:<130mmHg - Titrate nitroglycerine drip to off - Start GATE TENDER amlodipine - GATE TENDER Toprol XL 25mg restarted - hold losartan until renal function improves - Restart isosorbide mononitrate ER tomorrow - Troponin Q 6 hours Respiratory: Stable on room air Spo2 goal >95% GI: Feeding:ADAT to regular diet Neurosurgery bowel regimen, ensure daily BM - Last BM 08/22 Heme: -Daily CBC SCDs for VTE ppx, start SQ heparin Assess for coagulopathy, maintain platelets above 100k, INR <1.5 - HGB 10.5 - PLt: 139 ID: -Tmaxafebrile overnight -WBC: 9.9 Renal: - Cr: 1.84 - BUN 35 - + 700 ml/24 hours - Bladder scans Endocrine: Diabeteic Will DC insulin gtt Accucheck x5/day w/ LDCF Blood glucose goal 100-180mg/dl FEN: IVF:Saline locked Replacement per protocol Magnesium goal >2.0, i-Jaime goal > 1.0, Potassium goal >4.0 mEq/L Prophylaxis Review: A)GI:n/a B) Lines:No C) Urinary Catheter:no D) Antibiotic Usage:No E) VTE:SCD, SC heprin F) Isolation:n/a G)Seizures:n/a I) Restraints: Patient assessed for need for restraints. Disposition/Family:Requires ICU monitoring Primary service:LAMIN Consults: None SUBJECTIVE Kirsty Valencia is a 78 y.o. male. Overnight Events: No new events noted. OBJECTIVE Vital Signs: Last Filed Vital Signs: 24 Hour Range BP: 114/41 (08/22 600) Temp: 36.7 C (98 F) (08/22 0400) Pulse: 64 (08/22 600) Respirations: 10 PER MINUTE (08/22 600) SpO2: 96 % (08/22 600) O2 Delivery: None (Room Air) (08/22 07) Height: 170.2 cm (67") (08/22 0000) Weight: 85.4 kg (188 lb 4.4 oz) (08/22 0000) BP: (114-194)/(41-98) Temp: [36.5 C (97.7 F)-36.7 C (98.1 F)] Pulse: [56-103] Respirations: [6 PER MINUTE-20 PER MINUTE] SpO2: [94 %-99 %] O2 Delivery: None (Room Air) Intensity Pain Scale (Self Report): (not recorded) Vitals: 08/19/182 08/21/18 0533 08/22/18 0000 Weight: 83.2 kg (183 lb 6.8 oz) 85.2 kg (187 lb 13.3 oz) 85.4 kg (188 lb 4.4 oz ) Artificial airway: None Ventilator/ Respiratory Therapy: No Vent weaning trial: Not applicable Lines: Peripheral Line Drains: None Critical Care Vitals: ICP Monitoring: Hemodynamics/Oxycalcs: Intake/Output Summary: (Last 24 hours) Intake/Output Summary (Last 24 hours) at 08/22/2018 0737 Last data filed at 08/22/2018 0700 Gross per 24 hour Intake 2448.59 ml Output 1742 ml Net 706.59 ml Stool Occurrence: 1 Physical Exam: Blood pressure 114/41, pulse 64, temperature 36.7 C (98 F), height 170.2 cm (67"), weight 85.4 kg (188 lb 4.4 oz), SpO2 96 %. Neuro: Mental Status:Patient alert and follows commands. Moves all extremities equally. Denies chest pain Motor: RUE: Strength:5/5 RLE:Strength: 5/5 LUE:Strength: 5/5 LLE:Strength: 5/5 Lungs:clear to auscultation bilaterally Pulmonary:Respiratory status: Stable Heart:S1, S2 normal Abdomen:normal findings:bowel sounds normal, soft, non-tender Extremities:extremities normal, atraumatic, no cyanosis or edema Skin:Skin color, texture, turgor normal. Psoriasis plaques noted to bilateral knees Point of Care Testing: (Last 24 hours) Glucose: (!) 183 (08/22/18 0210) POC Glucose (Download): (!) 136 (08/22/18 7624) Lab Review: Pertinent labs reviewed Radiology and Other Diagnostic Procedures Review: Pertinent radiologic and diagnostic procedures reviewed. Ebony Mcelroy APRN Date: 08/22/[phone] I [email or web address] managing the care of this patient. Mr. Valencia requires critical care monitoring with new ICH, aphasia, hypertension, and coronary artery disease. Cares included: detailed neurologic and systems exam, medication review, laboratory data review and interpretation, electrolyte management, review of available imaging, DVT/PE prophylaxis review, diet review , activity review and coordination of care with consulted teams WORK AUTO TRIMMER * Linda Groves RN - 08/21/2018 10:30 PM BODY WORK AUTO TRIMMER 08/21/2018 1930: Assumed patient care at this time; report received and bedside safety checks performed with previous RNChris Patient sleeping with NEI COMMERCIAL DRAFTER Sherrell at bedside post NGT placement. Patient opens eyes to RN voice but oriented to person only. Fall Bundle in place. Job Service Consultant phone used as patient Montserratian speaking only. Current orders, plans of care, lab values, telemetry/EKG reviewed. Monitoring. ~1999: Assessment complete at this time; see ICU flowsheet for documentation. VSS per reported trends on nitro gtt and 2lpm O2 per NC. Discussed new onset chest pain and cardiac ectopy with NEI COMMERCIAL DRAFTER. Will continue to trends troponin and EKG if additional concerns. NGT to be placed to LIWS after med administration/ absorption. PIVs patent and without complication. Gtts verified and titrated per eMAR. No immediate concerns. Monitoring. 2100: NIHSS completed by ASRT RN=3. 2238: Patient removed NGT. RN replaced to same measurement (55cm). Monitoring and education provided. 08/22/2018 ~0000: Reassessment complete per ICU flowsheet; no significant changes from previous assessment noted. VSS per trends on 2lpm O2 per NC. PIVs patent and infusing gtts per orders (see eMAR). Neuro assessment without change. Patient removed NGT and okay to leave out at this time per NEYina Wynne. Monitoring. ~0400: Reassessment complete per ICU flowsheet; no significant changes from previous assessment noted. VSS per trends on 2lpm O2 per NC. PIVs patent and infusing gtts per orders (see eMAR). Neuro assessment without change. NEI CHESTER Wynne informed of troponin 0.15 with ~0200 labs. tobacco baler paged. Per discussion with Dr. Tavarez, repeat EKG, recheck troponin at 0600, titrate nitro gtt to keep SBP <120mmHg. NEI CHESTER Wynne informed. Monitoring. 0422: Discussed NS gtt with NEI CHESTER Wynne given concern for volume overload; order discontinued by COMMERCIAL DRAFTER. WORK AUTO TRIMMER * Monik Tavarez MD - 08/21/2018 8:39 PM BODY WORK AUTO TRIMMER I was notified by the primary team about patient's complaint of upper abdominal and epigastric/lower chest pain which started around 6:30 this afternoon associated with a rise in BP and concerning ECG changes. When I visited the patient at bedside, he had already received labetalol and morphine and denied having any chest pain. An ECG obtained earlier while patient was in pain was showing 1mm BENJY in lead III which was slightly worse compared to prior sub-milimeter BENJY in this lead. Patient's BP was normal after labetalol injection and he was not in any significant distress. Patient was seen earlier during the day by cardiology consult service and was pain free during their evaluation as well. Patient has been started on Aspirin since this morning but his plavix was still held given intracranial bleed. Repeat ECG did not show any evidence of new ST-T wave change and troponin obtained during the episode was 0.05 (down from 0.06). Assessment/Plan: Given lack of chest pain with normalization of BP and no new ECG change on repeat ECG and no significant troponin release, I suspect hypertensive emergency as the primary cause of this CP episode. Despite the fact that patient is at significant risk of in-stent thrombosis for not being on DAPT after a recent PCI, I do not believe his pain episode this evening was secondary to such an event. -- - Continue with aspirin and restart plavix as soon as safe from neurological stand point - Titrate up nitroglycerine drip to improve BP control - Obtain repeat troponin at 3 hour intervals x 3 and inform cardiology of any significant rise - Obtain serial ECGs specifically with any new episode of CP and inform cardiology of any change - Cardiology consult service will continue to follow WORK AUTO TRIMMER * Chris Tay RN - 08/21/2018 6:22 PM BODY WORK AUTO TRIMMER Patient diastolic BP increased to >[address] elevation changes and HR increased to >100. Ebony Mcelroy APRN notified. Orders for Troponin, Phos, BMP & Mag, and EKG. Cardiac Fellow paged. WORK AUTO TRIMMER * Chris Tay RN - 08/21/2018 10:49 AM BODY WORK AUTO TRIMMER 1030: Patient to CT in bed by RN on monitors. VSS. 1045: Patient returned to room in bed by RN. VSS. See flowsheets. Patient tolerated transport well. WORK AUTO TRIMMER * Goran Painting MD - 08/21/2018 8:59 AM BODY WORK AUTO TRIMMER Neurointensivist Critical Care Progress Note Today's Date: 08/21/2018 Name: Kirsty Valencia Admission Date: 08/19/2018 LOS: 2 days ATTESTATION I have seen, personally fully evaluated this patient. Patient exhibits injury of at least one organ system,and there is high probability of imminent or life threatening deterioration in patient's condition , and hence needs continued medical attention including frequent neurological examination, and frequent vital signs. The patient is admitted to the NSICU with: Left thalamic ICH Hospital and ICU course: 08-19-18: Admit to NSICU 08-20: CT-head 08-21: CT-head, consult cardiology, start asa 81 mg qday PMH: Significant for: Recent coronary stent, CAD The patient is critically ill with and is being managed for: Left thalamic ICH Recent coronary stent HTN TRACIE Chest pain I spent 45 minutes (excluding time spent performing or supervising any procedures) providing and personally directing critical care services including Detailed neurological and systems examination Assessment of intravascular volume status Optimization of systemic perfusion pressures Insertion and interpretation of Invasive hemodynamic monitoring data Review of and interpretation laboratory data Review of and interpretation of available imaging studies Review of medications Review of antibiotic, drain prophylaxis Review of DVT/PE Prophylaxis Review of seizure prophylaxis Management of patient on mechanical ventilation Electrolyte management and management of endocrine abnormalities Coordination of care with consult teams Active problems currently being addressed include Patient Active Problem List Diagnosis Date Noted Diabetes (HCC) ICH (intracerebral hemorrhage) (HCC) Hypertension 24 hour I/O balance is as follows: Intake/Output Summary (Last 24 hours) at 08/21/2018 0859 Last data filed at 08/21/2018 0800 Gross per 24 hour Intake 995.22 ml Output 670 ml Net 325.22 ml __ Subjective: Kirsty Valencia is a 78 y.o. male. Overnight Events: Significant event: chest pain requiring nitro gtt, sign out obtained from police shift commander person ( nurse and NSICU physician). Patient examined: yes Objective: I have reviewed the following medications: Scheduled Meds: docusate (COLACE) capsule 100 mg 100 mg Oral BID insulin aspart U-100 (NOVOLOG FLEXPEN) injection PEN 0-7 Units 0-7 Units Subcutaneous 5 X Day metoprolol XL (TOPROL XL) tablet 25 mg 25 mg Oral QDAY(21) milk of magnesia (CONC) oral suspension 10 mL 10 mL Oral QDAY senna/docusate (SENOKOT-S) tablet 1 tablet 1 tablet Oral BID Continuous Infusions: nitroGLYCERIN 50 mg/D5W 250 mL infusion 0.5 mcg/kg/min (08/21/18852) PRN and Respiratory Meds:acetaminophen Q4H PRN, labetalol (NORMODYNE; TRANDATE) injection Q15 MIN PRN, morphine injection syringe Q2H PRN, nitroglycerin Q5 MIN PRN, potassium chloride SR PRN OR potassium chloride PRN Vital Signs: Last Filed Vital Signs: 24 Hour Range BP: 137/53 (08/21 800) Temp: 36.5 C (97.7 F) (08/21 800) Pulse: 56 (08/21 800) Respirations: 11 PER MINUTE (08/21 800) SpO2: 96 % (08/21 800) O2 Delivery: None (Room Air) (08/21 800) Weight: 85.2 kg (187 lb 13.3 oz) (08/21 533) BP: (103-218)/(34-110) Temp: [36.5 C (97.7 F)-37.1 C (98.8 F)] Pulse: [53-99] Respirations: [0 PER MINUTE-31 PER MINUTE] SpO2: [91 %-100 %] O2 Delivery: None (Room Air) Intensity Pain Scale (Self Report): 7 (08/21/18 0800) Vitals: 08/19/18 2052 08/21/18 0533 Weight: 83.2 kg (183 lb 6.8 oz) 85.2 kg (187 lb 13.3 oz) Critical Care Vitals: ICP Monitoring: PA Catheter: Hemodynamics/Oxycalcs: Assessment and Plan: Neuro: GCS: E4, M6, V5 FOUR score: E4 M4 BR4 R4 Cranial Nerve Deficit: yes Focal motor neurodeficit: yes Need for Sedation: no Need for restraints: no Seizure prophylaxis: no Steroids: no EVD/Lumbar drain: no Hypertonics: no Plan for management of potential cerebral edema: Avoid Dextrose containing solutions, Maintain Na > 140 mEq/ L, Maintain head of bed elevation at least 30 degrees Keep neck in neutral position to optimize venous drainage Maintain normothermia, avoid hypoxemia, [place] appropriate osmotherapy ( i.e mannitol vs Hypertonic saline) PLAN: 1) Left Thalamic ICH (ICH Score 0) - order follow up CT this am stable --> start asa 81 mg qday, change SBP goal to <130 mmHg, PT/OT/ST Cardiac: Blood pressure 137/53, pulse 56, temperature 36.5 C (97.7 F), height 170.2 cm (67"), weight 85.2 kg (187 lb 13.3 oz), SpO2 96 %. SBP (transduce arterial line at the tragus) CPP goal > 60 ( In presence of ICP monitor) Need for vasopressors: no Need for anti-hypertensive: yes Hemodynamic monitoring/resuscitation : Goals of resuscitation: (in presence of invasive hemodynamic monitors) CPP 65-110 ICP < 20 mmHg SVV < 13% SVI 40-50 CI > 2.4 Lactate < 2 Base deficit < 4 SCVO2 goal > 70% Urine output goal > 0.5 ml/kg/hr PLAN: 1) CAD with Chest Pain - cardiac enzymes mildly elevated with ECG showing no ST elevation, on nitro gtt, getting repeat CT this am - stable and start asa 81 mg due to recent coronary stent within last week; 2) HLD - start atorva 20 mg qhs; 3) SBP goal <130 mmHg Respiratory: Respiratory status: Stable Need for mechanical ventilation: no Lung protective strategies in place Chest physiotherapy, Incentive spirometry, bronchotherapy, Avoid Hypoxemia, maintain SPO2 > 95% Monitor for and maintain normocapnia in absence of intracranial hypertension PLAN: O2 via nasal cannula prn Endocrine: Monitor for and maintain normoglycemia: target BG 100-180 mg/dl, with use of SSI or insulin infusion Fluid and electrolyte status: Monitor for and maintain Na >140, K > 4, Magnesium > 2, Phosphorus > 2 Maintain normovolemia Maintenance iv fluids 0.9 Saline or 2% saline PLAN: 1) TRACIE - improving, NS at 50 cc/hr, continue to monitor UOP and labs Heme: Maintain INR < 1.5, Platelet count 80-100 k Maintain Hb > 7 gm% in absence of ongoing cerebral ischemia Infectious Disease: Maintain normothermia, need for surveillance cultures, antibiotics reviewed Medications: reviewed Sepsis surveillance Imaging: CXR/Neuroimaging: reviewed Radiology and Other Diagnostic Procedures Reviewed Lab Review: 24-hour labs: Results for orders placed or performed during the hospital encounter of (from the past 24 hour(s)) HEMOGLOBIN A1C Collection Time: 08/20/18 10:17 AM Result Value Ref Range Hemoglobin A1C 7.3 (H) 4.0 - 6.0 % LIPID PROFILE Collection Time: 08/20/18 10:17 AM Result Value Ref Range Cholesterol 179 <200 MG/DL Triglycerides 204 (H) <150 MG/DL HDL 26 (L) >40 MG/DL LDL 111 (H) <100 MG/DL VLDL 41 MG/DL Non HDL Cholesterol 153 MG/DL POC GLUCOSE Collection Time: 08/20/18 12:46 PM Result Value Ref Range Glucose, POC 153 (H) 70 - 100 MG/DL TROPONIN-I Collection Time: 08/20/18 4:51 PM Result Value Ref Range Troponin-I 0.04 0.0 - 0.05 NG/ML BASIC METABOLIC PANEL Collection Time: 08/20/18 4:51 PM Result Value Ref Range Sodium 137 137 - 147 MMOL/L Potassium 4.1 3.5 - 5.1 MMOL/L Chloride 106 98 - 110 MMOL/L CO2 20 (L) 21 - 30 MMOL/L Anion Gap 11 3 - 12 Glucose 304 (H) 70 - 100 MG/DL Blood Urea Nitrogen 35 (H) 7 - 25 MG/DL Creatinine 2.00 (H) 0.4 - 1.24 MG/DL Calcium 9.1 8.5 - 10.6 MG/DL eGFR Non 33 (L) >60 mL/min eGFR 39 (L) >60 mL/min MAGNESIUM Collection Time: 08/20/18 4:51 PM Result Value Ref Range Magnesium 1.8 1.6 - 2.6 mg/dL POC GLUCOSE Collection Time: 08/20/18 5:29 PM Result Value Ref Range Glucose, POC 290 (H) 70 - 100 MG/DL POC GLUCOSE Collection Time: 08/20/18 8:35 PM Result Value Ref Range Glucose, POC 273 (H) 70 - 100 MG/DL TROPONIN-I Collection Time: 08/20/18 11:05 PM Result Value Ref Range Troponin-I 0.06 (H) 0.0 - 0.05 NG/ML POC GLUCOSE Collection Time: 08/21/18 3:04 AM Result Value Ref Range Glucose, POC 160 (H) 70 - 100 MG/DL IONIZED CALCIUM Collection Time: 08/21/18 4:00 AM Result Value Ref Range Ionized Calcium 1.22 1.0 - 1.3 MMOL/L BASIC METABOLIC PANEL Collection Time: 08/21/18 4:50 AM Result Value Ref Range Sodium 140 137 - 147 MMOL/L Potassium 3.9 3.5 - 5.1 MMOL/L Chloride 110 98 - 110 MMOL/L CO2 21 21 - 30 MMOL/L Anion Gap 9 3 - 12 Glucose 160 (H) 70 - 100 MG/DL Blood Urea Nitrogen 38 (H) 7 - 25 MG/DL Creatinine 1.81 (H) 0.4 - 1.24 MG/DL Calcium 9.3 8.5 - 10.6 MG/DL eGFR Non 37 (L) >60 mL/min eGFR 44 (L) >60 mL/min CBC AND DIFF Collection Time: 08/21/18 4:50 AM Result Value Ref Range White Blood Cells 5.4 4.5 - 11.0 K/UL RBC 3.70 (L) 4.4 - 5.5 M/UL Hemoglobin 11.2 (L) 13.5 - 16.5 GM/DL Hematocrit 32.3 (L) 40 - 50 % MCV 87.2 80 - 100 FL MCH 30.4 26 - 34 PG MCHC 34.8 32.0 - 36.0 G/DL RDW 14.4 11 - 15 % Platelet Count 102 (L) 150 - 400 K/UL MPV 9.7 7 - 11 FL Neutrophils 72 41 - 77 % Lymphocytes 18 (L) 24 - 44 % Monocytes 7 4 - 12 % Eosinophils 2 0 - 5 % Basophils 1 0 - 2 % Absolute Neutrophil Count 3.90 1.8 - 7.0 K/UL Absolute Lymph Count 1.00 1.0 - 4.8 K/UL Absolute Monocyte Count 0.40 0 - 0.80 K/UL Absolute Eosinophil Count 0.10 0 - 0.45 K/UL Absolute Basophil Count 0.00 0 - 0.20 K/UL MAGNESIUM Collection Time: 08/21/18 4:50 AM Result Value Ref Range Magnesium 2.5 1.6 - 2.6 mg/dL PHOSPHORUS Collection Time: 08/21/18 4:50 AM Result Value Ref Range Phosphorus 3.4 2.0 - 4.5 MG/DL TROPONIN-I Collection Time: 08/21/18 4:50 AM Result Value Ref Range Troponin-I 0.07 (H) 0.0 - 0.05 NG/ML POC GLUCOSE Collection Time: 08/21/18 7:57 AM Result Value Ref Range Glucose, POC 197 (H) 70 - 100 MG/DL Point of Care Testing: (Last 24 hours): Glucose: (!) 160 (08/21/18 6753) POC Glucose (Download): (!) 197 (08/21/18 6884) Drains: reviewed Prophylaxis Review: Lines: No Urinary Catheter: No with bladder scanning Antibiotic Usage: No VTE: Pharmacological prophylaxis; Contraindication: Active bleeding; Cerebral hemorrhage and Mechanical prophylaxis; Sequential compression device PT, OT, evaluation and treatment Diet: Enteral nutrition with PO, Or [place]ak access if unable to swallow and is at risk for aspiration. Social work and case finishing machine adjuster for discharge planning and placement. Family Meeting and update: yes. Patient is able to make his or her decisions, family updated during rounds. Goals of therapy: Addressed, Patient is a full code Nurses concerns addressed. Disposition/Family: Continue ICU care due to # 1 X Goran Painting MD, [employer]it[employer], Departments of Neurology and Radiology Pager: [phone] Date: 08/21/2018 X WORK AUTO TRIMMER * Ebony Mcelroy APRN - 08/21/2018 7:11 AM BODY WORK AUTO TRIMMER Neuro Critical Care Progress Note Kirsty Valencia Admission Date: 08/19/2018 LOS: 2 days Full Code ASSESSMENT/PLAN Patient Active Problem List Diagnosis Date Noted Diabetes (HCC) ICH (intracerebral hemorrhage) (HCC) Hypertension Kirsty Valencia is a 78 y.o. male with history of diabetes, HTN, CAD with PCI on 08/17/2018 where he was started on Plavix and ASA. He presented to OSH today with confusion x [address] demonstrated a left basal ganglia bleed. Pt is transferred to [facility] for further evaluation and treatment. Hospital and ICU course: 08/19: transferred from OSH with left basal ganglia bleed 08/20: Stable today with no issues overnight. CT Head stable. Restarting home meds as able. Records request faxed to [facility] Neuro: left basal ganglia ICH Neuro Critical Care ICH Score - 0 on admission Pt on anticoagulation currently? Yes - Plavix and ASA - No reversal - INR on admission? 1.1 Cognitive impairment suspected? No PT/OT ordered VTE prophylaxis: Mechanical prophylaxis; Sequential compression device 6 hour stability scan complete SBP < 140mmHg - Will get head CT CT-H 08/19@ 2200 1. Mild increased size of intraparenchymal hemorrhage centered in the left thalamus extending into the internal capsule. Similar mild adjacent vasogenic edema with mild associated mass effect and minimal localized left to right midline shift. 2. No hydrocephalus. CT-H 08/20 @ 0930 Unchanged examination. Left thalamic and internal capsule 1.8 cm hematoma with mild local mass effect. No new intracranial abnormality. Plan for CT head in the am of 08/21 Sedation/Pain Management: PRN Tylenol available for pain Cardiac: HTN; CAD s/p PCI on 08/17, CABG x 4 in 2006 GATE TENDER Plavix and ASA on hold - Verify stable CT head and might restart 08/22? Monitor ECG and any new cardiac symptoms closely. PRN hydralazine and labetalol available - SBP goal: < 140mmHg - MAP goal > 65mmHg - GATE TENDER Toprol XL 25mg restarted - start GATE TENDER losartan, amlodipine, and isosorbide mononitrate ER when BP stable. Obtaining Echocardiogram from outside - Consult cardiology Respiratory: Stable on room air Spo2 goal >95% GI: Feeding: ADAT to regular diet LFTs: AST 25 ALT 45 Alk Phos 60 Neurosurgery bowel regimen, ensure daily BM - Last BM GATE TENDER Heme: - Daily CBC SCDs for VTE ppx Plavix and ASA on hold Assess for coagulopathy, maintain platelets above 100k, INR <1.5 - HGB 11.2 - PLt: 102 ID: Tmax afebrile overnight WBC: 5.4 Aim for normothermia, Temp <38.3 celsius, normothermia protocol if febrile Renal: - Cr: 1.08 from 2.0 -=BUN 35 - + 850 ml/24 hours - Bladder scans Endocrine: Diabeteic Serum glucose: 160 Accucheck x5/day w/ LDCF Blood glucose goal 100-180mg/dl FEN: IVF: Saline locked Replacement per protocol Magnesium goal >2.0, i-Jaime goal > 1.0, Potassium goal >4.0 mEq/L Prophylaxis Review: A)GI: n/a B) Lines: No C) Urinary Catheter: Yes; Retain maxwell due to: Need for accurate Intake and Output D) Antibiotic Usage: No E) VTE: SCD F) Isolation: n/a G)Seizures: n/a I) Restraints: Patient assessed for need for restraints. Disposition/Family: Requires ICU monitoring Primary service: NEICU Consults: None SUBJECTIVE Kirsty Valencia is a 78 y.o. male. Overnight Events: No new events noted. OBJECTIVE Vital Signs: Last Filed Vital Signs: 24 Hour Range BP: 146/49 (08/21 700) Temp: 36.9 C (98.5 F) (08/215) Pulse: 58 (08/21 700) Respirations: 12 PER MINUTE (08/21 700) SpO2: 99 % (08/21 700) O2 Delivery: None (Room Air) (08/21 700) Weight: 85.2 kg (187 lb 13.3 oz) (08/21 533) BP: (103-218)/(34-110) Temp: [36.7 C (98 F)-37.1 C (98.8 F)] Pulse: [53-99] Respirations: [0 PER MINUTE-31 PER MINUTE] SpO2: [91 %-100 %] O2 Delivery: None (Room Air) Intensity Pain Scale (Self Report): (not recorded) Vitals: 08/19/18205108/21/18532 Weight: 83.2 kg (183 lb 6.8 oz) 85.2 kg (187 lb 13.3 oz) Artificial airway: None Ventilator/ Respiratory Therapy: No Vent weaning trial: Not applicable Lines: Peripheral Line Drains: None Critical Care Vitals: ICP Monitoring: Hemodynamics/Oxycalcs: Intake/Output Summary: (Last 24 hours) Intake/Output Summary (Last 24 hours) at 08/21/2018710 Last data filed at 08/21/2018699 Gross per 24 hour Intake 1440.22 ml Output 597 ml Net 843.22 ml Physical Exam: Blood pressure 146/49, pulse 58, temperature 36.9 C (98.5 F), height 170.2 cm (67"), weight 85.2 kg (187 lb 13.3 oz), SpO2 99 %. Neuro: Mental Status: AOx4 Cranial Nerves: Follows commands - Pupil exam: Size: 3mm BL Reactivity: Brisk BL - EOM: Intact - Corneal reflex: R - present L - present - Motor: RUE: Strength: 5/5 RLE: Strength: 5/5 LUE: Strength: 5/5 LLE: Strength: 5/5 Sensory: normal Coordination: Intact Gait: Deferred Lungs: clear to auscultation bilaterally Pulmonary: Respiratory status: Stable Heart: S1, S2 normal Abdomen: normal findings: bowel sounds normal, soft, non-tender Extremities: extremities normal, atraumatic, no cyanosis or edema Skin: Skin color, texture, turgor normal. Psoriasis plaques noted to bilateral knees Point of Care Testing: (Last 24 hours) Glucose: (!) 160 (08/21/18 0450) POC Glucose (Download): (!) 160 (08/21/18 3617) Lab Review: Pertinent labs reviewed Radiology and Other Diagnostic Procedures Review: Pertinent radiologic and diagnostic procedures reviewed. Ebony Mcelroy APRN Date: 08/21/[phone] I spent 45 minutes managing the care of this patient. Mr. Valencia requires critical care monitoring with new ICH, aphasia, hypertension, and coronary artery disease. Cares included: detailed neurologic and systems exam, medication review, laboratory data review and interpretation, electrolyte management, review of available imaging, DVT/PE prophylaxis review, diet review , activity review and coordination of care with consulted teams WORK AUTO TRIMMER * Nina Abel RN - 08/20/2018 6:52 PM BODY WORK AUTO TRIMMER Patient up to bathroom with RN at 1815. Patient back in bed resting. 5 minutes later patient began having high blood pressure and chest pain again. Nitro drip started per orders and ICU notified. EKG strips printed and placed in chart, 3 printed at this time due to different rhythms. WORK AUTO TRIMMER * Nina Abel RN - 08/20/2018 4:36 PM BODY WORK AUTO TRIMMER RN in room at 1600 assisting patient to bathroom and back to bed. Patient pressed call light around 1630 complaining of pain and pointing to his chest. Patient is flushed in face and moaning at this time. EKG completed and ICU team notified. BP became sys 200's. Arelis COMMERCIAL DRAFTER with NEICU at bedside. Interpretor phone used at bedside to assess concern for chest pain. EKG shows sinus rhythm with PVC and minimal ST elevation .4mg of sublingual nitro given at this time per orders see MAR. Post nitro BP 116/91. 2mg of morphine ordered at this time and given see MAR. Will continue to monitor. WORK AUTO TRIMMER * Milla Bill - 08/20/2018 3:07 PM BODY WORK AUTO TRIMMER SPEECH-LANGUAGE PATHOLOGY SPEECH-LANGUAGE ASSESSMENT EVALUATION SUMMARY Language evaluation completed with assistance from Montserratian phone translator/interpreter (# [phone]). Even with use of translator/interpreter, language evaluation was to be limited in relation to language barrier and many family members and distractions present in the room. Pt appears to exhibit mild receptive and moderate expressive aphasia at this time. Pt observed to code switch between Montserratian and Swazi, which likely further exacerbates expressive abilities. Job Service Consultant and family describe pt's expressive language as "jibberish"; however, pt is intermittently able to speak utilizing correct words. Pt's family notes improvement in language abilities since yesterday. Pt will require ongoing evaluation/ treatment . Please see below for details/recommendations. RECOMMENDATIONS Ongoing ST during acute hospitalization 1-3x/wk Will require ST at next level of care Will require supervision upon d/c as impaired communication may affect safety AUDITORY COMPREHENSION Sentence Repetition: Pt unable to understand the directions in order to complete this task. When asked to repeat the sentences, pt continually said "repeat the sentence". One Step Commands : 3/3 without difficulty Two Step Commands: 3/3 given repetition Complex Commands: 0/2 VERBAL EXPRESSION Job Service Consultant describes pt's speech as "Sometimes real words, sometimes jibberish " Pt appears to be combining Montserratian and Swazi often in his attempts to verbalize, which may be exacerbating difficulties with expression Automatic Speech Task: Count to 20: Pt able to count to 20 in [place]serratian without difficulty Days of Week/Months of Year: Provided min cues from his family and translator/interpreter, pt able to state days of week / months of year with moderate difficulty Confrontation Namin/7 Picture Description: Pt's description of picture mostly incomprehensible. When asked specifically what the mom was doing, pt replied "What the hell is she doing?" READING COMPREHENSION Unable to be assessed d/t language barrier WRITTEN EXPRESSION Name: 100% accuracy Object Name: When asked to write name of object (cup), pt observed to mix Montserratian and Swazi word for "glass" Sentence: When asked to write a sentence about "cup", pt wrote "write a sentence " in Montserratian Objective* Relevant Med Background: Kirsty Valencia is a 78 y.o. male with history of diabetes, HTN, CAD with PCI on 08/17/2018 where he was started on Plavix and ASA. He presented to OSH today with confusion x [address] demonstrated a left basal ganglia bleed. Pt is transferred to [facility] for further evaluation and treatment. CT Head 08/20/18 IMPRESSION Unchanged examination. Left thalamic and internal capsule 1.8 cm hematoma with mild local mass effect. No new intracranial abnormality. Hearing: WFL Lives With: Spouse Receives Help From: None Needed Psychosocial Status: Willing and Cooperative to Participate Persons Present: Spouse(grandchildren) Subjective* Pain: Patient demonstrates no signs of pain Trach Presence: No Feeding Tube Present During Eval: None Education* Persons Educated: Pt/Family Barriers To Learning: Impaired Communication Interventions: Family Educated, Job Service Consultant Teaching Methods: Verbal, Printed Topics: Aphasia Patient Response: Unable to Verbalize Understanding Goal Formulation: With Pt/Family Speech Language Goals* Goal : Pt will describe picture with 50% accuracy/min cues. Goal : Pt will name objects with 100% accuracy, min cues. Goal : Pt will follow complex commands with 80% accuracy/min cues. Goal : Pt will write sentence with 80% accuracy Therapist: Ronaldo Tovar/CCC-LIGHTHOUSE KEEPER (Pager [phone]; Voalte: [phone]) Date: 08/20/2018 WORK AUTO TRIMMER * Arelis Valiente APRN-C - 08/20/2018 2:00 PM BODY WORK AUTO TRIMMER Neuro Critical Care History and Physical Kirsty Valencia Admission Date: 08/19/2018 LOS: 1 day Full Code ASSESSMENT/PLAN Patient Active Problem List Diagnosis Date Noted Diabetes (HCC) ICH (intracerebral hemorrhage) (HCC) Hypertension Kirsty Valencia is a 78 y.o. male with history of diabetes, HTN, CAD with PCI on 08/17/2018 where he was started on Plavix and ASA. He presented to OSH today with confusion x [address] demonstrated a left basal ganglia bleed. Pt is transferred to [facility] for further evaluation and treatment. Hospital and ICU course: 08/19: transferred from OSH with left basal ganglia bleed 08/20: Stable today with no issues overnight. CT Head stable. Restarting home meds as able. Records request faxed to [facility] Neuro: left basal ganglia ICH Neuro Critical Care ICH Score - 0 on admission Pt on anticoagulation currently? Yes - Plavix and ASA - No reversal - INR on admission? 1.1 Cognitive impairment suspected? No PT/OT ordered VTE prophylaxis: Mechanical prophylaxis; Sequential compression device 6 hour stability scan complete SBP < 140mmHg CT-H 08/19@ 2200 1. Mild increased size of intraparenchymal hemorrhage centered in the left thalamus extending into the internal capsule. Similar mild adjacent vasogenic edema with mild associated mass effect and minimal localized left to right midline shift. 2. No hydrocephalus. CT-H 08/20 @ 0930 Unchanged examination. Left thalamic and internal capsule 1.8 cm hematoma with mild local mass effect. No new intracranial abnormality. Plan for CT head in the am of 08/21 Sedation/Pain Management: PRN Tylenol available for pain Cardiac: HTN; CAD s/p PCI on 08/17, CABG x 4 in 2006 GATE TENDER Plavix and ASA on hold - Verify stable CT head and might restart 08/22? Monitor ECG and any new cardiac symptoms closely. PRN hydralazine and labetalol available - SBP goal: < 140mmHg - MAP goal > 65mmHg - GATE TENDER Toprol XL 25mg restarted - start GATE TENDER losartan, amlodipine, and isosorbide mononitrate ER when BP stable. Obtaining Echocardiogram Respiratory: Stable on room air Spo2 goal >95% GI: Feeding: ADAT to regular diet LFTs: AST 25 ALT 45 Alk Phos 60 Neurosurgery bowel regimen, ensure daily BM - Last BM GATE TENDER Heme: - Daily CBC SCDs for VTE ppx Plavix and ASA on hold Assess for coagulopathy, maintain platelets above 100k, INR <1.5 ID: Tmax afebrile 08/20 WBC: 6.7 Aim for normothermia, Temp <38.3 celsius, normothermia protocol if febrile Renal: Intake/Output Summary (Last 24 hours) at 08/20/2018 1405 Last data filed at 08/20/2018 1300 Gross per 24 hour Intake 1222.33 ml Output 967 ml Net 255.33 ml Aim for normovolemia Encourage PO Intake Endocrine: Diabeteic Serum glucose: 179 Accucheck x5/day w/ LDCF Blood glucose goal 100-180mg/dl FEN: IVF: Saline locked Replacement per protocol Magnesium goal >2.0, i-Jaime goal > 1.0, Potassium goal >4.0 mEq/L Prophylaxis Review: A)GI: n/a B) Lines: No C) Urinary Catheter: Yes; Retain maxwell due to: Need for accurate Intake and Output D) Antibiotic Usage: No E) VTE: SCD F) Isolation: n/a G)Seizures: n/a I) Restraints: Patient assessed for need for restraints. Disposition/Family: Requires ICU monitoring Primary service: NEICU Consults: None SUBJECTIVE Overnight events: No overnight events Past Medical History: Diagnosis Date CAD (coronary artery disease) Diabetes ([facility]) H/O heart artery stent 08/17/2018 Hypertension ICH (intracerebral hemorrhage) ([facility]) 08/19/2018 Immunizations (includes history and patient reported): There is no immunization history on file for this patient. Allergies: Patient has no allergy information on record. No medications prior to admission. Son to bring home medications today Review of Systems: A 14 point review of systems was negative. OBJECTIVE Vital Signs: Last Filed Vital Signs: 24 Hour Range BP: 140/63 (08/20 1200) Temp: (P) 36.9 C (98.4 F) (08/20 1200) Pulse: 75 (08/20 1200) Respirations: 19 PER MINUTE (08/20 1200) SpO2: 98 % (08/20 1100) O2 Delivery: None (Room Air) (08/20 1000) Height: 170.2 cm (5' 7") (08/19 2000) Weight: 83.2 kg (183 lb 6.8 oz) (08/19 2052) BP: (116-166)/(47-121) Temp: [36.5 C (97.7 F)-36.9 C (98.4 F)] Pulse: [58-75] Respirations: [8 PER MINUTE-33 PER MINUTE] SpO2: [96 %-99 %] O2 Delivery: None (Room Air) Intensity Pain Scale (Self Report): (not recorded) Vitals: 08/19/182051 Weight: 83.2 kg (183 lb 6.8 oz) Artificial airway: None Ventilator/ Respiratory Therapy: No Vent weaning trial: Not applicable Lines: Peripheral Line Drains: Maxwell Catheter Intake/Output Summary: (Last 24 hours) Intake/Output Summary (Last 24 hours) at 08/20/2018 1250 Last data filed at 08/20/2018 1200 Gross per 24 hour Intake 1147.33 ml Output 967 ml Net 180.33 ml Physical Exam: Blood pressure 140/63, pulse 75, temperature (P) 36.9 C (98.4 F), height 1.702 m (5' 7"), weight 83.2 kg (183 lb 6.8 oz), SpO2 98 %. Jimena coma score: E: 4 - Opens eyes on own M: 6 - Follows simple motor commands V: 4 - Seems confused, disoriented - expressive aphasia and mixing of Montserratian and Swazi words Neuro: Mental Status: AOx4 Cranial Nerves: Cranial nerves 2-12 INTACT by inspection.; appears to have right sided homonymous hemianopsia - Pupil exam: Size: 3mm BL Reactivity: Brisk BL - EOM: Intact - Corneal reflex: R - present L - present - Grimace/facial movement: present - Cough: present - Gag reflex: Deferred Motor: RUE: Strength: 5/5 RLE: Strength: 5/5 LUE: Strength: 5/5 LLE: Strength: 5/5 Sensory: normal Coordination: Intact Gait: Deferred Lungs: clear to auscultation bilaterally Pulmonary: Respiratory status: Stable Heart: S1, S2 normal Abdomen: normal findings: bowel sounds normal, soft, non-tender Extremities: extremities normal, atraumatic, no cyanosis or edema Skin: Skin color, texture, turgor normal. Psoriasis plaques noted to bilateral knees. Point of Care Testing: (Last 24 hours): Glucose: (!) 179 (08/20/18 0437) POC Glucose (Download): (!) 164 (08/20/18 7444) Lab Review: Pertinent labs reviewed Radiology and Other Diagnostic Procedures Review: Pertinent radiologic and diagnostic procedures reviewed. I spent 62 minutes managing the care of this patient. Mr. Valencia requires critical care monitoring with new ICH, aphasia, hypertension, and coronary artery disease. Cares included: detailed neurologic and systems exam, medication review, laboratory data review and interpretation, electrolyte management, review of available imaging, DVT/PE prophylaxis review, diet review , activity review and coordination of care with consulted teams YADIRA White Date: 08/20/[phone] WORK AUTO TRIMMER * Maritza Almonte, OT - 08/20/2018 11:30 AM BODY WORK AUTO TRIMMER OCCUPATIONAL THERAPY ASSESSMENT NOTE Patient Name: Kirsty Valencia Room/Bed: [place] [address] Admitting Diagnosis: IPH Mobility Progressive Mobility Level: Walk in room Distance Walked (feet): 15 ft Level of Assistance: Assist X2 Assistive Device: Hand Held Time Tolerated: 11-30 minutes Activity Limited By: Weakness Subjective Pertinent Dx per Physician: 78 y.o. male with history of diabetes, HTN, CAD with PCI on 08/17/2018 where he was started on Plavix and ASA. He presented to OSH today with confusion x [address] demonstrated a left basal ganglia bleed Precautions: Standard;Falls Pain / Complaints: Patient agrees to participate in therapy;Patient has no c/o pain Comments: patient presented supine in bed upon therapist arrival; patient agreeable to OT evaluation. Patient left sitting in chair with all needs addressed Objective Psychosocial Status: Willing and Cooperative to Participate Persons Present: Spouse;Son;Physical Therapist Home Living Type of Home: House Home Layout: One Level Bathroom Shower / Tub: Walk-in Shower Bathroom Toilet: Standard Prior Function Level Of [place]: Independent with ADLs and functional transfers; Independent with homemaking w/ ambulation Lives With: Spouse Receives Help From: None Needed Vision Comment: Patient reports no changes in vision; denies dizziness ADL's LE Dressing Assist: Stand By Assist LE Dressing Deficits: Don/Doff R Sock;Don/Doff L Sock Functional Transfer Assist: Minimal Assist(supine to EOB) Comment: Patient min assist supine to EOB; min assist x2 hand held assist for sit/stand, ambulating in room and chair transfer. Patient family translated during session; patient agreeable. Cognition Overall Cognitive Status: WFL to Adequately Complete Self Care Tasks Safely UE AROM Overall BUE AROM WNL: Yes Coordination: Serial Opposition WNL for Rate, Rhythm, Placement Grasp: Bilateral Grasp Functional for Activity UE Strength / Tone Overall Strength / Tone: WFL Able to Perform ADL Tasks Education Persons Educated: Patient/Family Barriers To Learning: None Noted Teaching Methods: Verbal Instruction;Demonstration Patient Response: Verbalized and Demo Understanding Topics: Role of OT, Goals for Therapy Goal Formulation: With Patient/Family Assessment Assessment: Decreased ADL Status;Decreased Endurance;Decreased Self-Care Trans; Decreased High-Level ADLs Prognosis: Good;w/ Family Goal Formulation: Pt/family AM-PAC 6 Clicks Daily Activity Inpatient Putting on and taking off regular lower body clothes?: A Little Bathing (Including washing, rinsing, drying): A Little Toileting, which includes using toilet, bedpan, or urinal: A Little Putting on and taking off regular upper body clothing: None Taking care of personal grooming such as brushing teeth: None Eating meals?: None Daily Activity Raw Score: 21 Standardized (t-scale) score: 44.27 CMS 0-100% Score: 32.79 CMS G Code Modifier: BEBE G-Codes: Self-care G8987 Current Status: 20-39% Impairment G8988 Goal Status: 1-19% Impairment Based on above evaluation and clinical judgment. Plan OT Frequency: 5x/week OT Plan for Next Visit: Full LE dressing; toileting; grooming at sink. Progress independence with functional mobility ADL Goals Patient Will Perform Grooming: Standing at Sink;w/ Stand By Assist Patient Will Perform LE Dressing: At Edge of Bed;In Chair;w/ Stand By Assist Patient Will Perform Toileting: w/ Stand By Assist Functional Transfer Goals Pt Will Perform All Functional Transfers: w/ Stand By Assist OT Discharge Recommendations OT Discharge Recommendations: Home with consistent supervision(likely - early rec. Will continue to update) Equipment Recommendations: Too early to be determined Therapist: HANNAH Still/Ronaldo [id number] Date: 08/20/2018 WORK AUTO TRIMMER * Xin Almaraz, PT - 08/20/2018 11:30 AM BODY WORK AUTO TRIMMER PHYSICAL THERAPY ASSESSMENT MOBILITY: Progressive Mobility Level: Walk in room Distance Walked (feet): 15 ft Level of Assistance: Assist X2 (bilateral hand held) Assistive Device: Hand Held Time Tolerated: 11-30 minutes Activity Limited By: Weakness SUBJECTIVE: Subjective Significant hospital events: 78 y.o. male with history of diabetes, HTN, CAD with PCI on 08/17/2018 where he was started on Plavix and ASA. He presented to OSH today with confusion x [address] demonstrated a left basal ganglia bleed. Pt is transferred to [facility] for further evaluation and treatment. Mental / Cognitive Status: Alert;Oriented;Cooperative;Follows Commands Persons Present: Spouse;Son;Occupational Therapist Pain: Patient has no complaint of pain Pain Interventions: Patient agrees to participate in therapy;Patient assisted into position of comfort Ambulation Assist: Independent Mobility in Community without Device Patient Owned Equipment: None Home Situation: Lives with Family Type of Home: House Entry Stairs: 1-2 Stairs In-Home Stairs: No Stairs Comments: Previously independent with ADLs/mobility. Family can provide 22/03 supervision/assist if needed. ROM: ROM UE ROM: WFL LE ROM: WFL STRENGTH: Strength Overall Strength: WFL;Generalized Weakness POSTURE/NEURO: Posture / Neurological Head Control: Independent Posture: No Postural Deviations BED MOBILITY/TRANSFERS: Bed Mobility/Transfers Bed Mobility: Supine to Sit: Minimal Assist Transfer Type: Sit to Stand Transfer: Assistance Level: From;Bed;To;Bed Side Chair;Minimal Assist;x2 People Transfer: Assistive Device: Hand Hold Assist Transfers: Type Of Assistance: For Balance;For Strength Deficit;For Safety Considerations End Of Activity Status: Up in Chair;Nursing Notified;Instructed Patient to Request Assist with Mobility;Instructed Patient to Use Call Light(TABs alarm set ) BALANCE: Balance Sitting Balance: Static Sitting Balance;Dynamic Sitting Balance;Standby Assist Standing Balance: Static Standing Balance;Dynamic Standing Balance;Minimal Assist GAIT: Gait Gait Distance: 15 feet Gait: Assistance Level: Minimal Assist;x2 People;Management of Lines;Safety Considerations Gait: Assistive Device: Hand Hold Assist Gait: Descriptors: Pace: Slow;Forward trunk flexion;Swing-Through Gait;No balance loss;Decreased step length Activity Limited By: Weakness EDUCATION: Education Persons Educated: Patient/Family Patient Barriers To Learning: Language Barrier Interventions: (family interprets for patient) Teaching Methods: Verbal Instruction Patient Response: Verbalized Understanding Topics: Plan/Goals of PT Interventions;Mobility Progression;Safety Awareness;Up with Assist Only;Importance of Increasing Activity;Ambulate With Nursing; Recommend Continued Therapy ASSESSMENT/PROGRESS: Assessment/Progress Impaired Mobility Due To: Decreased Strength;Impaired Balance;Safety Concerns; Decreased Activity Tolerance Assessment/Progress: Should Improve w/ Continued PT AM-PAC 6 Clicks Basic Mobility Inpatient Turning from your back to your side while in a flat bed without using bed rails : A Little Moving from lying on your back to sitting on the side of a flatbed without using bedrails : A Little Moving to and from a bed to a chair (including a wheelchair): A Little Standing up from a chair using your arms (e.g. wheelchair, or bedside chair): A Little To walk in hospital room: A Little Climbing 3-5 steps with a railing: A Little Raw Score: 18 Standardized (T-scale) Score: 41.05 Basic Mobility CMS 0-100%: 40.47 CMS G Code Modifier for Basic Mobility: CK GOALS: Goals Goal Formulation: With Patient/Family Time For Goal Achievement: 3 days, To, 5 days Pt Will Go Supine To/From Sit: w/ Stand By Assist Pt Will Transfer Bed/Chair: w/ Stand By Assist Pt Will Transfer Sit to Stand: w/ Stand By Assist Pt Will Ambulate: Greater than 200 Feet, w/ Stand By Assist(with least restrictive assistive device) Pt Will Go Up / Down Stairs: 1-2 Stairs, w/ Stand By Assist PLAN: Plan Treatment Interventions: Mobility Training;Strengthening;Balance Activities; Endurance Training Plan Frequency: 5 Days per Week PT Plan for Next Visit: Progress gait distance. Trial use of roller walker. RECOMMENDATIONS: PT Discharge Recommendations: Home with Assistance (likely; pending progress with mobility) Comments: Family can provide 24/7 assist/supervision if needed. Equipment Recommendations: Roller Walker (likely; will trial roller walker next visit) Therapist: Xin Almaraz PT, DPT Date: 08/20/2018 G-Codes: Mobility G8978 Current Status: 20-39% Impairment G8979 Goal Status: 1-19% Impairment Based on above evaluation and clinical judgment. WORK AUTO TRIMMER * Nina Abel RN - 08/20/2018 9:30 AM BODY WORK AUTO TRIMMER [id number] at this time by RN and nursing aid. VSS throughout. Will continue to monitor and implement orders WORK AUTO TRIMMER * Maira Musa RN - 08/20/2018 2:41 AM BODY WORK AUTO TRIMMER Assumed care of patient at 2330. Patient alert and follows directions. Maxwell catheter to DD. 0000: Patient BP above parameters; labetalol given. 0100: urine output low, notified resident. Instructions given to encourage PO intake. 0144: Labetalol given. 0200: BP continues to be over 140 systolic. Cardene gtt running at 5ml/hr not 5mg/hr. Gtt changed to 3mg/hr. BP 136/56, Will continue to monitor. WORK AUTO TRIMMER in this encounter H&P Notes * Goran Painting MD - 08/20/2018 11:13 AM BODY WORK AUTO TRIMMER Neurointensivist Critical Care Progress Note Today's Date: 08/20/2018 Name: Kirsty Valencia Admission Date: 08/19/2018 LOS: 1 day ATTESTATION I have seen, personally fully evaluated this patient. Patient exhibits injury of at least one organ system,and there is high probability of imminent or life threatening deterioration in patient's condition , and hence needs continued medical attention including frequent neurological examination, and frequent vital signs. The patient is admitted to the NSICU with: Left thalamic ICH Hospital and ICU course: 08-19-18: Admit to NSICU 08-20: CT-head PMH: Significant for: Recent coronary stent, CAD The patient is critically ill with and is being managed for: Left thalamic ICH Recent coronary stent HTN TRACIE I spent 45 minutes (excluding time spent performing or supervising any procedures) providing and personally directing critical care services including Detailed neurological and systems examination Assessment of intravascular volume status Optimization of systemic perfusion pressures Insertion and interpretation of Invasive hemodynamic monitoring data Review of and interpretation laboratory data Review of and interpretation of available imaging studies Review of medications Review of antibiotic, drain prophylaxis Review of DVT/PE Prophylaxis Review of seizure prophylaxis Management of patient on mechanical ventilation Electrolyte management and management of endocrine abnormalities Coordination of care with consult teams Active problems currently being addressed include Patient Active Problem List Diagnosis Date Noted Diabetes (HCC) ICH (intracerebral hemorrhage) (HCC) Hypertension 24 hour I/O balance is as follows: Intake/Output Summary (Last 24 hours) at 08/20/2018 1113 Last data filed at 08/20/2018 1100 Gross per 24 hour Intake 1072.33 ml Output 947 ml Net 125.33 ml __ Subjective: Kirsty Valencia is a 78 y.o. male. Overnight Events: No new events noted, sign out obtained from police shift commander person ( nurse and NSICU physician). Patient examined: yes Objective: I have reviewed the following medications: Scheduled Meds: docusate (COLACE) capsule 100 mg 100 mg Oral BID insulin aspart U-100 (NOVOLOG FLEXPEN) injection PEN 0-7 Units 0-7 Units Subcutaneous 5 X Day milk of magnesia (CONC) oral suspension 10 mL 10 mL Oral QDAY senna/docusate (SENOKOT-S) tablet 1 tablet 1 tablet Oral BID Continuous Infusions: niCARdipine (cardENE) 20 mg/NS 200 mL infusion (std conc)(premade) Stopped (08/20/18 0813) sodium chloride 0.9 % infusion 1,000 mL (08/20/18 0404) PRN and Respiratory Meds:acetaminophen Q4H PRN, hydrALAZINE Q6H PRN, labetalol ( NORMODYNE; TRANDATE) injection Q15 MIN PRN, magnesium sulfate PRN (Security And Compliance Project Manager from Rx), potassium chloride SR PRN OR potassium chloride PRN Vital Signs: Last Filed Vital Signs: 24 Hour Range BP: 140/55 (08/20 1100) Temp: 36.7 C (98 F) (08/20 0800) Pulse: 73 (08/20 1100) Respirations: 19 PER MINUTE (08/20 1100) SpO2: 98 % (08/20 1100) O2 Delivery: None (Room Air) (08/20 1000) Height: 170.2 cm (67") (08/19 2000) Weight: 83.2 kg (183 lb 6.8 oz) (08/19 2052) BP: (116-166)/(47-121) Temp: [36.5 C (97.7 F)-36.7 C (98.1 F)] Pulse: [58-73] Respirations: [8 PER MINUTE-33 PER MINUTE] SpO2: [96 %-99 %] O2 Delivery: None (Room Air) Intensity Pain Scale (Self Report): (not recorded) Vitals: 08/19/182051 Weight: 83.2 kg (183 lb 6.8 oz) Critical Care Vitals: ICP Monitoring: PA Catheter: Hemodynamics/Oxycalcs: Assessment and Plan: Neuro: GCS: E4, M6, V5 FOUR score: E4 M4 BR4 R4 Cranial Nerve Deficit: yes Focal motor neurodeficit: yes Need for Sedation: no Need for restraints: no Seizure prophylaxis: no Steroids: no EVD/Lumbar drain: no Hypertonics: no Plan for management of potential cerebral edema: Avoid Dextrose containing solutions, Maintain Na > 140 mEq/ L, Maintain head of bed elevation at least 30 degrees Keep neck in neutral position to optimize venous drainage Maintain normothermia, avoid hypoxemia, [place] appropriate osmotherapy ( i.e mannitol vs Hypertonic saline) PLAN: 1) Left Thalamic ICH (ICH Score 0) - follow up CT this am shows no change in size of ICH, PT/OT/ST Cardiac: Blood pressure 140/55, pulse 73, temperature 36.7 C (98 F), height 170.2 cm (67"), weight 83.2 kg (183 lb 6.8 oz), SpO2 98 %. SBP (transduce arterial line at the tragus) CPP goal > 60 ( In presence of ICP monitor) Need for vasopressors: no Need for anti-hypertensive: yes Hemodynamic monitoring/resuscitation : Goals of resuscitation: (in presence of invasive hemodynamic monitors) CPP 65-110 ICP < 20 mmHg SVV < 13% SVI 40-50 CI > 2.4 Lactate < 2 Base deficit < 4 SCVO2 goal > 70% Urine output goal > 0.5 ml/kg/hr PLAN: 1) CAD - recent coronary stent within last week, hold dual antiplatelet therapy but can consider restarting in 3-4 days as long as ICH stable; 2) Order FLP; 3) Order TTE Respiratory: Respiratory status: Stable Need for mechanical ventilation: no Lung protective strategies in place Chest physiotherapy, Incentive spirometry, bronchotherapy, Avoid Hypoxemia, maintain SPO2 > 95% Monitor for and maintain normocapnia in absence of intracranial hypertension PLAN: O2 via nasal cannula prn Endocrine: Monitor for and maintain normoglycemia: target BG 100-180 mg/dl, with use of SSI or insulin infusion Fluid and electrolyte status: Monitor for and maintain Na >140, K > 4, Magnesium > 2, Phosphorus > 2 Maintain normovolemia Maintenance iv fluids 0.9 Saline or 2% saline PLAN: 1) TRACIE - NS at 75 cc/hr, continue to monitor UOP and labs Heme: Maintain INR < 1.5, Platelet count 80-100 k Maintain Hb > 7 gm% in absence of ongoing cerebral ischemia Infectious Disease: Maintain normothermia, need for surveillance cultures, antibiotics reviewed Medications: reviewed Sepsis surveillance Imaging: CXR/Neuroimaging: reviewed Radiology and Other Diagnostic Procedures Reviewed Lab Review: 24-hour labs: Results for orders placed or performed during the hospital encounter of (from the past 24 hour(s)) CBC AND DIFF Collection Time: 08/19/18 9:40 PM Result Value Ref Range White Blood Cells 4.8 4.5 - 11.0 K/UL RBC 3.60 (L) 4.4 - 5.5 M/UL Hemoglobin 10.9 (L) 13.5 - 16.5 GM/DL Hematocrit 31.8 (L) 40 - 50 % MCV 88.2 80 - 100 FL MCH 30.2 26 - 34 PG MCHC 34.2 32.0 - 36.0 G/DL RDW 14.1 11 - 15 % Platelet Count 114 (L) 150 - 400 K/UL MPV 9.1 7 - 11 FL Neutrophils 68 41 - 77 % Lymphocytes 21 (L) 24 - 44 % Monocytes 8 4 - 12 % Eosinophils 3 0 - 5 % Basophils 0 0 - 2 % Absolute Neutrophil Count 3.20 1.8 - 7.0 K/UL Absolute Lymph Count 1.00 1.0 - 4.8 K/UL Absolute Monocyte Count 0.40 0 - 0.80 K/UL Absolute Eosinophil Count 0.10 0 - 0.45 K/UL Absolute Basophil Count 0.00 0 - 0.20 K/UL PROTIME INR (PT) Collection Time: 08/19/18 9:40 PM Result Value Ref Range INR 1.1 0.8 - 1.2 COMPREHENSIVE METABOLIC PANEL Collection Time: 08/19/18 9:40 PM Result Value Ref Range Sodium 139 137 - 147 MMOL/L Potassium 3.8 3.5 - 5.1 MMOL/L Chloride 109 98 - 110 MMOL/L Glucose 132 (H) 70 - 100 MG/DL Blood Urea Nitrogen 26 (H) 7 - 25 MG/DL Creatinine 1.58 (H) 0.4 - 1.24 MG/DL Calcium 8.9 8.5 - 10.6 MG/DL Total Protein 6.8 6.0 - 8.0 G/DL Total Bilirubin 0.4 0.3 - 1.2 MG/DL Albumin 4.3 3.5 - 5.0 G/DL Alk Phosphatase 60 25 - 110 U/L AST (SGOT) 25 7 - 40 U/L CO2 21 21 - 30 MMOL/L ALT (SGPT) 45 7 - 56 U/L Anion Gap 9 3 - 12 eGFR Non 43 (L) >60 mL/min eGFR 52 (L) >60 mL/min IONIZED CALCIUM Collection Time: 08/19/18 9:40 PM Result Value Ref Range Ionized Calcium 1.09 1.0 - 1.3 MMOL/L MAGNESIUM Collection Time: 08/19/18 9:40 PM Result Value Ref Range Magnesium 1.6 1.6 - 2.6 mg/dL PHOSPHORUS Collection Time: 08/19/18 9:40 PM Result Value Ref Range Phosphorus 2.7 2.0 - 4.5 MG/DL AMPHETAMINES-URINE RANDOM Collection Time: 08/19/18 10:49 PM Result Value Ref Range Amphetamines NEG NEG-NEG BARBITURATES-URINE RANDOM Collection Time: 08/19/18 10:49 PM Result Value Ref Range Barbiturates,Urine NEG NEG-NEG BENZODIAZEPINES-URINE RANDOM Collection Time: 08/19/18 10:49 PM Result Value Ref Range Benzodiazepines NEG NEG-NEG CANNABINOIDS-URINE RANDOM Collection Time: 08/19/18 10:49 PM Result Value Ref Range THC NEG NEG-NEG COCAINE-URINE RANDOM Collection Time: 08/19/18 10:49 PM Result Value Ref Range Cocaine-Urine NEG NEG-NEG OPIATES-URINE RANDOM Collection Time: 08/19/18 10:49 PM Result Value Ref Range Opiates-Urine NEG NEG-NEG PHENCYCLIDINES-URINE RANDOM Collection Time: 08/19/18 10:49 PM Result Value Ref Range Phencyclidine (PCP) NEG NEG-NEG BASIC METABOLIC PANEL Collection Time: 08/20/18 4:37 AM Result Value Ref Range Sodium 137 137 - 147 MMOL/L Potassium 4.3 3.5 - 5.1 MMOL/L Chloride 107 98 - 110 MMOL/L CO2 20 (L) 21 - 30 MMOL/L Anion Gap 10 3 - 12 Glucose 179 (H) 70 - 100 MG/DL Blood Urea Nitrogen 31 (H) 7 - 25 MG/DL Creatinine 1.83 (H) 0.4 - 1.24 MG/DL Calcium 9.4 8.5 - 10.6 MG/DL eGFR Non 36 (L) >60 mL/min eGFR 44 (L) >60 mL/min CBC AND DIFF Collection Time: 08/20/18 4:37 AM Result Value Ref Range White Blood Cells 6.7 4.5 - 11.0 K/UL RBC 3.51 (L) 4.4 - 5.5 M/UL Hemoglobin 10.8 (L) 13.5 - 16.5 GM/DL Hematocrit 30.9 (L) 40 - 50 % MCV 87.8 80 - 100 FL MCH 30.6 26 - 34 PG MCHC 34.8 32.0 - 36.0 G/DL RDW 14.1 11 - 15 % Platelet Count 108 (L) 150 - 400 K/UL MPV 9.3 7 - 11 FL Neutrophils 80 (H) 41 - 77 % Lymphocytes 13 (L) 24 - 44 % Monocytes 6 4 - 12 % Eosinophils 1 0 - 5 % Basophils 0 0 - 2 % Absolute Neutrophil Count 5.40 1.8 - 7.0 K/UL Absolute Lymph Count 0.90 (L) 1.0 - 4.8 K/UL Absolute Monocyte Count 0.40 0 - 0.80 K/UL Absolute Eosinophil Count 0.10 0 - 0.45 K/UL Absolute Basophil Count 0.00 0 - 0.20 K/UL IONIZED CALCIUM Collection Time: 08/20/18 4:37 AM Result Value Ref Range Ionized Calcium 1.15 1.0 - 1.3 MMOL/L MAGNESIUM Collection Time: 08/20/18 4:37 AM Result Value Ref Range Magnesium 1.7 1.6 - 2.6 mg/dL PHOSPHORUS Collection Time: 08/20/18 4:37 AM Result Value Ref Range Phosphorus 3.1 2.0 - 4.5 MG/DL PROTIME INR (PT) Collection Time: 08/20/18 5:24 AM Result Value Ref Range INR 1.1 0.8 - 1.2 POC GLUCOSE Collection Time: 08/20/18 8:21 AM Result Value Ref Range Glucose, POC 164 (H) 70 - 100 MG/DL HEMOGLOBIN A1C Collection Time: 08/20/18 10:17 AM Result Value Ref Range Hemoglobin A1C 7.3 (H) 4.0 - 6.0 % LIPID PROFILE Collection Time: 08/20/18 10:17 AM Result Value Ref Range Cholesterol 179 <200 MG/DL Triglycerides 204 (H) <150 MG/DL HDL 26 (L) >40 MG/DL LDL 111 (H) <100 MG/DL VLDL 41 MG/DL Non HDL Cholesterol 153 MG/DL Point of Care Testing: (Last 24 hours): Glucose: (!) 179 (08/20/18 0437) POC Glucose (Download): (!) 164 (08/20/18 2521) Drains: reviewed Prophylaxis Review: Lines: No Urinary Catheter: Yes; Retain maxwell due to: Need for accurate Intake and Output Antibiotic Usage: No VTE: Pharmacological prophylaxis; Contraindication: Active bleeding; Cerebral hemorrhage and Mechanical prophylaxis; Sequential compression device PT, OT, evaluation and treatment Diet: Enteral nutrition with PO, Or Corpak access if unable to swallow and is at risk for aspiration. Social work and case finishing machine adjuster for discharge planning and placement. Family Meeting and update: yes. Patient is able to make his or her decisions, family updated during rounds. Goals of therapy: Addressed, Patient is a full code Nurses concerns addressed. Disposition/Family: Continue ICU care due to # 1 X Goran Painting MD, [employer] Digitizer, Departments of Neurology and Radiology Pager: [phone] Date: 08/20/2018 X WORK AUTO TRIMMER * Adrienne Wilson MSN,OXYGEN THERAPY TECHNICIAN - 08/19/2018 10:33 PM BODY WORK AUTO TRIMMER Neuro Critical Care History and Physical Kirsty Valencia Admission Date: 08/19/2018 LOS: 1 day Full Code ASSESSMENT/PLAN Patient Active Problem List Diagnosis Date Noted Diabetes (HCC) ICH (intracerebral hemorrhage) (HCC) Hypertension Kirsty Valencia is a 78 y.o. male with history of diabetes, HTN, CAD with PCI on 08/17/2018 where he was started on Plavix and ASA. He presented to OSH today with confusion x [address] demonstrated a left basal ganglia bleed. Pt is transferred to [facility] for further evaluation and treatment. Hospital and ICU course: 08/19: transferred from OSH with left basal ganglia bleed Neuro: Neuro Critical Care ICH Score GCS (3-4, or 5-12, or 13-15): 0 Age ? 81: 0 ICH volume ? 30 ml: 0 IVH present: 0 Infratentorial origin of hemorrhage: 0 Total score on admission: 0 Pt on anticoagulation currently? Yes - Plavix and ASA - No reversal - INR on admission? 1.1 Cognitive impairment suspected? No PT/OT ordered VTE prophylaxis: Mechanical prophylaxis; Sequential compression device 6 hour stability scan complete SBP < 140mmHg Neuro-ICU monitoring, neurochecks q 1 hrs Sedation/Pain Management: PRN Tylenol available for pain Cardiac: HTN; CAD s/p PCI on 08/17 GATE TENDER Plavix and ASA on hold * Need to verify home statin use Monitor ECG and any new cardiac symptoms closely. Cardene gtt PRN hydralazine and labetalol available - SBP goal: < 140mmHg - MAP goal > 65mmHg Respiratory: Stable on room air Spo2 goal >95% GI: Feeding: ADAT to regular diet LFTs: AST 25 ALT 45 Alk Phos 60 Neurosurgery bowel regimen, ensure daily BM - Last BM GATE TENDER Heme: 08/20 Hgb 10.8 Hct 30.9 Plt 108 INR 1.1 - Trend on daily CBC SCDs for VTE ppx Plavix and ASA on hold Assess for coagulopathy, maintain platelets above 100k, INR <1.5 ID: Tmax 36.7 08/20 WBC: 6.7 Aim for normothermia, Temp <38.3 celsius, normothermia protocol if febrile Renal: Intake/Output Summary (Last 24 hours) at 08/20/2018 0253 Last data filed at 08/20/2018 0200 Gross per 24 hour Intake Output 780 ml Net -780 ml Aim for normovolemia Encourage PO Intake Endocrine: Diabeteic Serum glucose: 179 Accucheck x5/day w/ LDCF Blood glucose goal 100-180mg/dl FEN: IVF: NS @ 75mL 08/20: K 4.3 Mg 1.7 Phos 3.1 iCal 1.15 Replacement per protocol Magnesium goal >2.0, i-Jaime goal > 1.0, Potassium goal >4.0 mEq/L Prophylaxis Review: A)GI: n/a B) Lines: No C) Urinary Catheter: Yes; Retain maxwell due to: Need for accurate Intake and Output D) Antibiotic Usage: No E) VTE: SCD F) Isolation: n/a G)Seizures: n/a I) Restraints: Patient assessed for need for restraints. Disposition/Family: Requires ICU monitoring Primary service: NEICU Consults: None SUBJECTIVE Chief Complaint: Confusion x2 days. Transferred from OSH with basal ganglia bleed History of Present Illness: Kirsty Valencia is a 78 y.o. male with history of diabetes, HTN, CAD with PCI on 08/17/2018 where he was started on Plavix and ASA. He presented to OSH today with confusion that began in the evening of 08/18. CT demonstrated a left basal ganglia bleed. Pt is transferred to [facility] for further evaluation and treatment. History reviewed. No pertinent past medical history. No past surgical history on file. Unable to obtain family history due to patient's condition. -- Family to come today to assist with historical details Social History Social History Narrative Not on file Code Status: Full Code Decision Maker: Self Immunizations (includes history and patient reported): There is no immunization history on file for this patient. Allergies: Patient has no allergy information on record. No medications prior to admission. Son to bring home medications today Review of Systems: A 14 point review of systems was negative. OBJECTIVE Vital Signs: Last Filed Vital Signs: 24 Hour Range BP: 129/53 (08/20 0200) Temp: 36.7 C (98.1 F) (08/20 0000) Pulse: 64 (08/20 0200) Respirations: 12 PER MINUTE (08/20 0200) SpO2: 97 % (12/22 0200) O2 Delivery: None (Room Air) (08/19 2300) Height: 170.2 cm (67") (08/19 2000) Weight: 83.2 kg (183 lb 6.8 oz) (08/19 2052) BP: (122-166)/(53-121) Temp: [36.5 C (97.7 F)-36.7 C (98.1 F)] Pulse: [62-73] Respirations: [11 PER MINUTE-33 PER MINUTE] SpO2: [97 %-99 %] O2 Delivery: None (Room Air) Intensity Pain Scale (Self Report): (not recorded) Vitals: 08/19/182051 Weight: 83.2 kg (183 lb 6.8 oz) Artificial airway: None Ventilator/ Respiratory Therapy: No Vent weaning trial: Not applicable Lines: Peripheral Line Drains: Maxwell Catheter Intake/Output Summary: (Last 24 hours) Intake/Output Summary (Last 24 hours) at 08/20/2018 0253 Last data filed at 08/20/2018 0200 Gross per 24 hour Intake Output 780 ml Net -780 ml Physical Exam: Blood pressure 129/53, pulse 64, temperature 36.7 C (98.1 F), height 170.2 cm (67"), weight 83.2 kg (183 lb 6.8 oz), SpO2 97 %. [place] coma score: E: 4 - Opens eyes on own M: 6 - Follows simple motor commands V: 4 - Seems confused, disoriented Neuro: Mental Status: AOx4 Cranial Nerves: Cranial nerves 2-12 INTACT by inspection.; appears to have right sided homonymous hemianopsia - Pupil exam: Size: 3mm BL Reactivity: Brisk BL - EOM: Intact - Corneal reflex: R - present L - present - Grimace/facial movement: present - Cough: present - Gag reflex: Deferred Motor: RUE: Strength: 4/5 RLE: Strength: 5/5 LUE: Strength: 5/5 LLE: Strength: 5/5 Sensory: normal Coordination: Intact Gait: Deferred Lungs: clear to auscultation bilaterally Pulmonary: Respiratory status: Stable Heart: regular rate and rhythm, S1, S2 normal, no murmur, click, rub or gallop Abdomen: soft, non-tender. Bowel sounds normal. No masses, no organomegaly Extremities: extremities normal, atraumatic, no cyanosis or edema Skin: Skin color, texture, turgor normal. Psoriasis plaques noted to bilateral knees. Point of Care Testing: (Last 24 hours): Glucose: (!) 132 (08/19/18 2140) Lab Review: Pertinent labs reviewed Radiology and Other Diagnostic Procedures Review: Pertinent radiologic and diagnostic procedures reviewed. I spent 52 minutes managing the care of this patient. Mr. Valencia requires critical care monitoring with new ICH. Cares included: detailed neurologic and systems exam, medication review, laboratory data review and interpretation, electrolyte management, review of available imaging, DVT/PE prophylaxis review, diet review, activity review and coordination of care with consulted teams Adrienne Wilson, MSN,OXYGEN THERAPY TECHNICIAN Date: 08/20/[phone] WORK AUTO TRIMMER Associated attestation - Nancy Norris MD - 08/20/2018 10:38 AM BODY WORK AUTO TRIMMER ATTESTATION I was the on-call physician overnight and reviewed the history and exam documented by the OXYGEN THERAPY TECHNICIAN. Ms. Wilson and I discussed this patient over the phone and devised the plan. This patient's care was assumed by Dr. Song Painting at 7am this morning. Staff name: Yocasta Norris MD Date: 08/20/2018 in this encounter Consult Notes * Harman Shen MD - 08/26/2018 12:51 PM BODY WORK AUTO TRIMMER Associated Order(s): CONSULT REHABILITATION MEDICINE PHYSICIAN Physical Medicine & Rehabilitation Consult Note Date of Service: 08/26/2018 Kirsty Valencia is a 78 y.o. male. : 1940 Primary Insurance: MEDICARE Secondary Insurance: Tertiary Insurance: Financial Class: Medicare Date of Admission: 08/19/2018 Referring Physician: Boy Overton MD Reason for Consult: evaluate for Post-Acute Rehab/Placement Precautions: Fall Active Problems Lt BG ICH Rt hemiplegia COgnitive impairment Aphasia HTN TRACIE (Prerenal) Chronic angina Gait abnormality impaired self cares Assessment & Plan Kirsty Valencia is a 78 y.o. male admitted to [facility] on 08/19/2018 with the following issues: ICH Impairments: aphasia, cognitive impairments, hemiplegia and weakness Activity Limitations: dressing - upper, dressing - lower, transfers and ambulation Participation Restrictions: unable to return home safely Post-acute care rehabilitation needs: acute inpatient rehabilitation Given the patient's high medical complexity and co morbidities including, but not limited to acute Lt basal ganglia hemorrhage in the setting of uncontrolled HTN requiring aggressive BP management, resulting in cognitive deficits, Rt sided weakness, aphasia, sensory deficits, gait abnormality, and in conjunction with significant functional goals with PT and OT, the patient will require daily physician oversight and intensive rehab therapies at an acute inpatient rehabilitation after acute inpatient hospitalization. Our service will continue to monitor functional progress with current barriers to acute inpatient rehab listed below. Goals & Barriers Family / Patient Goals: return home with family assistance Mobility Goals: Overall goal is Stand by assistance Activities of Daily Living (ADLs) Goals: Overall goal is Stand by assistance Cognition / Communication Goals: Overall goal is Modified independent and Speech therapy will evaluate and treat cognition and communication deficits and assess for safe swallow Barriers: High burden of care Facilitators: good family / social support and patient motivation Rehabilitation Prognosis: Good Tolerance for three hours of therapy a day: Good PT, OT, ST consulted to address deficits as below Impaired gait/mobility: GATE TENDER pt was independent at community level without assistive device Currently requiring min assist X 2 for short distance ambulation w/ RW Will benefit from continued work with PT to address mobility deficits Impaired ADL: GATE TENDER pt was independent Currently requiring min assist for transfers Will benefit from ongoing OT to address functional deficits Thank you for this consultation. Please call our consult pager with questions or concerns. Harman Shen MD Rehab Consult Pager: [phone] History of Present Illness Hospital Course: Mr Valencia is a 78 y/o male w/ Hx of HTN, CAD (s/p recent PCI on 08/17 and initiation of plavix and ASA), DM who presented to OSH with AMS , Rt sided weakness with CT head imaging revealing a Lt BG ICH. [facility] where interval CT imaging revealed stable bleed. His admission has been complicated by acute on chronic angina, RR on 08/25 for lethargy/ uncontrolled angina with echo/EKG without acute changes, improving troponin leak, prerenal TRACIE, BP control. Pt is working with PT and OT to address functional and mobility deficits, rehab is now consulted for post-acute rehab/placement recommendations. Past Medical History: Diagnosis Date CAD (coronary artery disease) Diabetes (HCC) H/O heart artery stent 08/17/2018 Hypertension ICH (intracerebral hemorrhage) (HCC) 08/19/2018 No past surgical history on file. Social History Socioeconomic History Marital status: Spouse name: Not on file Number of children: Not on file Years of education: Not on file Highest education level: Not on file Social Needs Financial resource strain: Not on file Food insecurity - worry: Not on file Food insecurity - inability: Not on file Transportation needs - medical: Not on file Transportation needs - non-medical: Not on file Occupational History Not on file Tobacco Use Smoking status: Former Smoker Last attempt to quit: 2015 Years since quittin.9 Smokeless tobacco: Never Used Substance and Sexual Activity Alcohol use: No Frequency: Never Drug use: No Sexual activity: Not Currently Other Topics Concern Not on file Social History Narrative Not on file Family history: Reports father had heart problems Scheduled Meds: amLODIPine (NORVASC) tablet 10 mg 10 mg Oral QDAY aspirin EC tablet 81 mg 81 mg Oral QDAY atorvastatin (LIPITOR) tablet 40 mg 40 mg Oral QHS cefTRIAXone (ROCEPHIN) IVP 1 g 1 g Intravenous Q24H* docusate (COLACE) capsule 100 mg 100 mg Oral BID heparin (porcine) PF syringe 5,000 Units 5,000 Units Subcutaneous Q8H hydrALAZINE (APRESOLINE) tablet 10 mg 10 mg Oral TID insulin aspart U-100 (NOVOLOG FLEXPEN) injection PEN 0-14 Units 0-14 Units Subcutaneous ACHS isosorbide mononitrate SR (IMDUR) tablet 15 mg 15 mg Oral QHS isosorbide mononitrate SR (IMDUR) tablet 30 mg 30 mg Oral QDAY metoprolol tartrate (LOPRESSOR) tablet 50 mg 50 mg Oral BID milk of magnesia (CONC) oral suspension 10 mL 10 mL Oral QDAY pantoprazole DR (PROTONIX) tablet 40 mg 40 mg Oral QDAY(21) ranolazine ER (RANEXA) tablet 500 mg 500 mg Oral BID senna/docusate (SENOKOT-S) tablet 1 tablet 1 tablet Oral BID sodium chloride 0.45 % infusion 250 mL Intravenous ONCE Continuous Infusions: PRN and Respiratory Meds:acetaminophen Q4H PRN, nitroglycerin Q5 MIN PRN No Known Allergies Prior Level of Function Self-Care/ADLs: Independent Mobility: independent at community level w/o assistive device Home Environment: Home Situation: Lives with Family (08/26/2018 11:00 AM) Patient Owned Equipment: None (08/26/2018 11:00 AM) Type of Home: House (08/26/2018 11:00 AM) Entry Stairs: 1-2 Stairs (08/26/2018 11:00 AM) In-Home Stairs: No Stairs (08/26/2018 11:00 AM) Comments: Previously independent with ADLs/mobility. Family can provide 22/03 supervision/assist if needed. (08/26/2018 11:00 AM) No Data Recorded @ADDRESSFULL@ Current Level Of Function: PT Gait:Gait Distance: 20 feet Gait: Assistance Level: Minimal Assist, x2 People , Safety Considerations Gait: Assistive Device: Hand Hold Assist Bed Mobility/Transfers Bed Mobility: Supine to Sit: Minimal Assist Transfer Type: Sit to Stand Transfer: Assistance Level: From, Bed, Minimal Assist, x2 People Transfer: Assistive Device: Hand Hold Assist Transfers: Type Of Assistance: For Balance, For Strength Deficit, For Safety Considerations Other Transfer Type: Sit to/from Stand Other Transfer: Assistance Level: To/From, Bed Side Chair, Minimal Assist Other Transfer: Assistive Device: Hand Hold Assist Other Transfer: Type Of Assistance: Verbal Cues, For Balance, For Strength Deficit, For Safety Considerations End Of Activity Status: Up in Chair, Nursing Notified, Instructed Patient to Request Assist with Mobility, Instructed Patient to Use Call Light(TABs alarm set) OT ADL's LE Dressing Assist: Stand By Assist LE Dressing Deficits: Don/Doff R Sock, Don/Doff L Sock Functional Transfer Assist: Minimal Assist(supine to EOB) Comment: Pt required minimal assist for supine to sit edge of bed. RN had just turned pt's O2 up to 4L to maintain sats >90 at rest. Pt still satting 92-94% throughout session, however breathing labored and OT checked RR twice while seated edge of bed, RR 34. RN and physician notified. Pt mouth breathing, able to breathe through nose a time or two to command but then reverting back to mouth breathing. Transferred to chair in hopes that seated position would help with breathing. Noted pt to be incontinent of urine in the bed. New chux placed under pt in chair. Chair alarm set and call light in reach. Note that pt has just been started on lasix, is also on an IV drip and RN reports pt has had post -void bladder scan of approximately 300. Pt does not use supplemental O2 at home. Further exercise or ADLs not done at this time due to work of breathing. LIGHTHOUSE KEEPER COGNITIVE EVALUATION SUMMARY PRAGMATICS: BEHAVIOR: AUDITORY COMPREHENSION: ORIENTATION: AUDITORY ATTENTION/WORKING MEMORY: AUDITORY MEMORY/SUSTAINED ATTENTION: NEW LEARNING: SEQUENCING/ORGANIZATION: PROBLEM SOLVING: REASONING: MATH/MONEY SKILLS: VISUAL PERCEPTUAL: SWALLOW EVALUATION SUMMARY Review of Systems A 14 point review of systems was negative except for: that noted in the HPI Physical Exam BP: 143/50 (08/26 918) Temp: 36.7 C (98.1 F) (08/26 918) Pulse: 60 (08/26 918) Respirations: 16 PER MINUTE (08/26 918) SpO2: 96 % (08/26 918) O2 Delivery: Nasal Cannula (08/26 918) Height: 170.2 cm (67") (08/25 1543) Body mass index is 29.14 kg/m. Gen: awake, alert, NAD HEENT: NCAT, EOMI, MMM Neck: Supple and symmetric Heart: Extremities are well perfused Lungs: respirations even and non-labored Abdomen: Soft, non-distended Psych: pleasant mood/appropriate affect Ext: No c/c/e MS: Root Right Left Elbow Flexion C5 5 5 Wrist Extension C6 5 5 Elbow Extension C7 5 5 Finger Flexion C8 5 5 Finger Abduction T1 5 5 Hip Flexion L2 4 4 Knee Extension L3 4+ 4+ Dorsiflexion L4 5 5 EHL Extension L5 5 5 Plantarflexion S1 5 5 Neuro: Cranial Nerves Cranial Nerves 2-12 are grossly intact DTR's no hyperreflexia Babinski Downgoing Bilaterally Finger to Nose Normal without ataxia/dysmetria Rapid Alternating Movements Normal Upper Extremity Tone Normal Lower Extremity Tone Normal Upper Extremity Sensation Intact to light touch bilaterally Lower Extremity Sensation Intact to light touch bilaterally Clonus Negative Bilaterally Memory/Concentration grossly intact Intake/Output Summary (Last 24 hours) at 08/26/2018 1302 Last data filed at 08/26/2018 1000 Gross per 24 hour Intake 1120 ml Output 1225 ml Net -105 ml Hematology: Lab Results Component Value Date HGB 9.3 08/26/2018 HCT 27.2 08/26/2018 PLTCT 106 08/26/2018 WBC 5.5 08/26/2018 NEUT 77 08/26/2018 ANC 4.20 08/26/2018 ALC 0.70 08/26/2018 ABBEY 9 08/26/2018 AMC 0.50 08/26/2018 ABC 0.00 08/26/2018 MCV 88.9 08/26/2018 MCHC 34.0 08/26/2018 MPV 9.2 08/26/2018 RDW 14.1 08/26/2018 , Coagulation: Lab Results Component Value Date INR 1.1 08/20/2018 and General Chemistry: Lab Results Component Value Date NA 138 08/26/2018 K 3.7 08/26/2018 CL 106 08/26/2018 GAP 10 08/26/2018 BUN 43 08/26/2018 CR 1.99 08/26/2018 GLU 149 08/26/2018 CA 9.1 08/26/2018 ALBUMIN 4.3 08/19/2018 OBSCA 1.15 08/24/2018 MG 2.4 08/24/2018 TOTBILI 0.4 08/19/2018 Radiology: Reviewed Harman Shen MD WORK AUTO TRIMMER * Yunior Barros RN - 08/26/2018 11:41 AM BODY WORK AUTO TRIMMER Associated Order(s): CONSULT WOUND/OSTOMY TEAM NURSE Wound Ostomy Note NAME:Kirsyt Valencia :1940 AGE: 78 y.o. ADMISSION DATE: 08/19/2018 DAYS ADMITTED: LOS: 7 days Reason for Consult/Visit: wound not pressure Assessment/Plan: Active Problems: Diabetes (HCC) ICH (intracerebral hemorrhage) (HCC) Hypertension Wounds (NOT for Pressure Injuries) 08/23/18 1013 Coccyx Moisture Associated Skin Damage (Active) 08/23/18 1013 Coccyx Wound Orientation: Wound Type: Moisture Associated Skin Damage Wound Type:: Wound Description (Comments): Wound Base Assessment Moist;Red;[place] 08/26/2018 11:38 AM Surrounding Skin Assessment Intact;[place];Red 08/26/2018 11:38 AM Wound Site Closure Open to Air 08/26/2018 11:38 AM Wound Drainage Amount Scant 08/26/2018 11:38 AM Wound Dressing Status Changed 08/26/2018 11:38 AM Wound Dressing and / or Treatment Criticaid Barrier Cream 08/26/2018 11:38 AM Wound Length (cm) 12 cm 08/26/2018 11:38 AM Wound Width (cm) 4 cm 08/26/2018 11:38 AM Wound Surface Area (cm^2) 48 cm^2 08/26/2018 11:38 AM Number of days: 3 Nurse at bedside with patient. Patient with minimal verbalization. Patient has limited Swazi communication per bedside nurse. Patient stool with assist x1 from chair. Gluteal Cleft with moisture associated skin damage. Skin blanchable, intact, red and moist. Area cleaned with wipes. Dried with towel. Criticaid Barrier Cream applied. Discussed wound plan of care with bedside nurse. RECOMMEND: - Apply barrier cream BID and PRN to protect skin from moisture related to urine /stool. - Avoid briefs if possible and use only one disposable pad at at time underneath pt to prevent heat and moisture trapping against skin. - Implement q2 hr turning schedule using foam wedge for support. - HOB less than or equal to 30 degrees, unless contraindicated, to prevent shearing at coccyx/sacrum. - Place foam offloading boots to bilateral lower extremities; heel should "float " off of support built into boot. Wound Team will sign off. Please re-consult if skin breakdown worsens. Yunior Barros RN, BSN Wound/ Ostomy Nursing Consult Service Office: [phone] Pager: [phone] Wound/ Ostomy Team pager (after hours/ weekends): [phone] WORK AUTO TRIMMER * Mikhail Jackson MD - 08/21/2018 5:37 PM BODY WORK AUTO TRIMMER Associated Order(s): CONSULT CARDIOLOGY PHYSICIAN Cardiology consult Name: Kirsty Valencia Date: 08/21/18 LOS: 2 Admission Date: 08/19/2018 ASSESSMENT AND PLAN: -Chest pain, exertional, improved with nitroglycerin -Although the chest pain appears to be typical in nature, it is unlikely that it is caused by in-stent thrombosis. The chest pain has been on and off and there is no evidence of STEMI in the EKGs and troponin levels have been negative. -Hypertension -Diabetes -Left basal ganglial hemorrhage -Being treated by the primary team Recommendations: -Monitor telemetry, heart rate, blood pressure -Restart Plavix, when approved by neurology team -No indication for left heart catheterization and PCI at this point, the situation was discussed with the primary team. There is no evidence of in- stent thrombosis at this point. The patient will need to be on dual antiplatelet therapy for 2 weeks after pure old balloon angioplasty. The patient will need to be on dual antiplatelet therapy for a month after bare metal stent. -In case of chest pain, repeat EKG and troponin -Please keep potassium over 4, magnesium over 2 Justin Lange MD, PhD tobacco baler, pager [phone] HPI Patient was seen and examined at the bedside. Patient is a 78-year-old man with past medical history of hypertension, diabetes, coronary artery disease status post PCI on 08/17/2018, who was admitted to an outside facility with confusion for [address] showed a left basal ganglia bleeding. The patient was transferred to [facility] for management of the intracerebral hemorrhage. Aspirin and Plavix was initially held on admission to [facility]. However the patient had chest pain yesterday on 08/20/2018 as well as today in the morning ( 08/21/2018). He describes the chest pain as heaviness, 8/10, with no radiation and no pleuritic or positional component. He mentions that the chest pain was to some extent exertional. He mentions that nitroglycerin improved the pain. Nitroglycerin drip was started for his chest pain in the neurology unit. He does not specify whether this chest pain is similar to the pain he had before the PCI. His troponin stayed negative and the maximum troponin level was 0.06. He did not have ST elevations in the EKG series as well as telemetry. The chest pain is stayed on and off and completely resolved on nitroglycerin. He mentions that he does not have any chest pain now and has not had any chest pain since this morning. Per cardiology discussion with neurology team on 08/21, the patient should stay off aspirin and Plavix. However aspirin was restarted today (81 mg daily). ATTESTATION/ADDENDUM: Cardiology Attending Staff Attestation I have personally interviewed and examined the patient, have reviewed the documentation, and have jointly formulated the assessment and plan with the CV Fellow. Mikhail Jackson M.D. Scheduled Meds: aspirin EC tablet 81 mg 81 mg Oral QDAY atorvastatin (LIPITOR) tablet 20 mg 20 mg Oral QHS docusate (COLACE) capsule 100 mg 100 mg Oral BID insulin aspart U-100 (NOVOLOG FLEXPEN) injection PEN 0-7 Units 0-7 Units Subcutaneous 5 X Day metoprolol XL (TOPROL XL) tablet 25 mg 25 mg Oral QDAY(21) milk of magnesia (CONC) oral suspension 10 mL 10 mL Oral QDAY senna/docusate (SENOKOT-S) tablet 1 tablet 1 tablet Oral BID Continuous Infusions: nitroGLYCERIN 50 mg/D5W 250 mL infusion 1.1 mcg/kg/min (08/21/18 1730) sodium chloride 0.9 % infusion 50 mL/hr at 08/21/18 1523 PRN and Respiratory Meds:acetaminophen Q4H PRN, hydrALAZINE Q2H PRN, labetalol ( NORMODYNE; TRANDATE) injection Q15 MIN PRN, morphine injection syringe Q2H PRN , nitroglycerin Q5 MIN PRN, potassium chloride SR PRN OR potassium chloride PRN Review of Systems: General: Denies fever, chills, loss of appetite, weight change, malaise. Neuro: Denies headache, seizure. Oriented to person, place, and time Cardio: Denies CP, SOB, FERRER, PND, orthopnea, cyanosis, edema, claudication Resp: Denies cough, sputum production, dyspnea, wheeze, snoring, hemoptysis GI: Denies GERD, N/V, hematochezia, melena, BRBPR, abd pain MSK: Denies arthralgia, myalgia, back pain, cramps, denies lower extremity size changes or asymmetry Skin: Denies rash, pruritis Psych: Denies depression, anxiety, hallucination, memory loss, psychosis Endo: Denies polyphagia, polydipsia, heat/cold intolerance Heme: Denies ecchymosis, purpura, petechiae, anemia, ANDREA Vitals: 08/21/18 1700 BP: 127/56 Pulse: 72 Temp: SpO2: 98% Physical Exam: Constitutional: in no acute distress, resting comfortably. Skin/Integument: Warm and dry Eyes: PERRL, sclera are non-icteric and no xanthelasmas noted ENT : Hearing is intact, Oropharynx is clear and moist. Heme/Lym/Immun: Supple neck, without thyromegaly Respiratory-Pulmonary/Chest: Effort normal and breath sounds normal. No respiratory distress or accessory muscle use. No obvious tracheal deviation. Clear to auscultation bilaterally. Cardiovascular: S1 S2, 1/6 systolic murmur, No heaves, thrills or rubs. GI: Obese, + Bowel sounds, soft and non-tender Musc/Skeletal-Extremities: without significant peripheral edema and with what appears to be full ROM, Homans sign is negative, no lower extremity size changes or asymmetry, no pain in the lower extremities on palpation, no visible superficial veins Neuro: Patient is alert and oriented to person, place, and time. Psych: Patient does not appear anxious, appears appropriate, with normal non- pressured speech and what appears to be appropriate judgement Laboratory Review: Results for orders placed or performed during the hospital encounter of (from the past 48 hour(s)) CBC AND DIFF Collection Time: 08/19/18 9:40 PM # # Low-High White Blood Cells 4.8 4.5 - 11.0 K/UL RBC 3.60 (L) 4.4 - 5.5 M/UL Hemoglobin 10.9 (L) 13.5 - 16.5 GM/DL Hematocrit 31.8 (L) 40 - 50 % MCV 88.2 80 - 100 FL MCH 30.2 26 - 34 PG MCHC 34.2 32.0 - 36.0 G/DL RDW 14.1 11 - 15 % Platelet Count 114 (L) 150 - 400 K/UL MPV 9.1 7 - 11 FL Neutrophils 68 41 - 77 % Lymphocytes 21 (L) 24 - 44 % Monocytes 8 4 - 12 % Eosinophils 3 0 - 5 % Basophils 0 0 - 2 % Absolute Neutrophil Count 3.20 1.8 - 7.0 K/UL Absolute Lymph Count 1.00 1.0 - 4.8 K/UL Absolute Monocyte Count 0.40 0 - 0.80 K/UL Absolute Eosinophil Count 0.10 0 - 0.45 K/UL Absolute Basophil Count 0.00 0 - 0.20 K/UL PROTIME INR (PT) Collection Time: 08/19/18 9:40 PM # # Low-High INR 1.1 0.8 - 1.2 COMPREHENSIVE METABOLIC PANEL Collection Time: 08/19/18 9:40 PM # # Low-High Sodium 139 137 - 147 MMOL/L Potassium 3.8 3.5 - 5.1 MMOL/L Chloride 109 98 - 110 MMOL/L Glucose 132 (H) 70 - 100 MG/DL Blood Urea Nitrogen 26 (H) 7 - 25 MG/DL Creatinine 1.58 (H) 0.4 - 1.24 MG/DL Calcium 8.9 8.5 - 10.6 MG/DL Total Protein 6.8 6.0 - 8.0 G/DL Total Bilirubin 0.4 0.3 - 1.2 MG/DL Albumin 4.3 3.5 - 5.0 G/DL Alk Phosphatase 60 25 - 110 U/L AST (SGOT) 25 7 - 40 U/L CO2 21 21 - 30 MMOL/L ALT (SGPT) 45 7 - 56 U/L Anion Gap 9 3 - 12 eGFR Non 43 (L) >60 mL/min eGFR 52 (L) >60 mL/min IONIZED CALCIUM Collection Time: 08/19/18 9:40 PM # # Low-High Ionized Calcium 1.09 1.0 - 1.3 MMOL/L MAGNESIUM Collection Time: 08/19/18 9:40 PM # # Low-High Magnesium 1.6 1.6 - 2.6 mg/dL PHOSPHORUS Collection Time: 08/19/18 9:40 PM # # Low-High Phosphorus 2.7 2.0 - 4.5 MG/DL AMPHETAMINES-URINE RANDOM Collection Time: 08/19/18 10:49 PM # # Low-High Amphetamines NEG NEG-NEG BARBITURATES-URINE RANDOM Collection Time: 08/19/18 10:49 PM # # Low-High Barbiturates,Urine NEG NEG-NEG BENZODIAZEPINES-URINE RANDOM Collection Time: 08/19/18 10:49 PM # # Low-High Benzodiazepines NEG NEG-NEG CANNABINOIDS-URINE RANDOM Collection Time: 08/19/18 10:49 PM # # Low-High THC NEG NEG-NEG COCAINE-URINE RANDOM Collection Time: 08/19/18 10:49 PM # # Low-High Cocaine-Urine NEG NEG-NEG OPIATES-URINE RANDOM Collection Time: 08/19/18 10:49 PM # # Low-High Opiates-Urine NEG NEG-NEG PHENCYCLIDINES-URINE RANDOM Collection Time: 08/19/18 10:49 PM # # Low-High Phencyclidine (PCP) NEG NEG-NEG BASIC METABOLIC PANEL Collection Time: 08/20/18 4:37 AM # # Low-High Sodium 137 137 - 147 MMOL/L Potassium 4.3 3.5 - 5.1 MMOL/L Chloride 107 98 - 110 MMOL/L CO2 20 (L) 21 - 30 MMOL/L Anion Gap 10 3 - 12 Glucose 179 (H) 70 - 100 MG/DL Blood Urea Nitrogen 31 (H) 7 - 25 MG/DL Creatinine 1.83 (H) 0.4 - 1.24 MG/DL Calcium 9.4 8.5 - 10.6 MG/DL eGFR Non 36 (L) >60 mL/min eGFR 44 (L) >60 mL/min CBC AND DIFF Collection Time: 08/20/18 4:37 AM # # Low-High White Blood Cells 6.7 4.5 - 11.0 K/UL RBC 3.51 (L) 4.4 - 5.5 M/UL Hemoglobin 10.8 (L) 13.5 - 16.5 GM/DL Hematocrit 30.9 (L) 40 - 50 % MCV 87.8 80 - 100 FL MCH 30.6 26 - 34 PG MCHC 34.8 32.0 - 36.0 G/DL RDW 14.1 11 - 15 % Platelet Count 108 (L) 150 - 400 K/UL MPV 9.3 7 - 11 FL Neutrophils 80 (H) 41 - 77 % Lymphocytes 13 (L) 24 - 44 % Monocytes 6 4 - 12 % Eosinophils 1 0 - 5 % Basophils 0 0 - 2 % Absolute Neutrophil Count 5.40 1.8 - 7.0 K/UL Absolute Lymph Count 0.90 (L) 1.0 - 4.8 K/UL Absolute Monocyte Count 0.40 0 - 0.80 K/UL Absolute Eosinophil Count 0.10 0 - 0.45 K/UL Absolute Basophil Count 0.00 0 - 0.20 K/UL IONIZED CALCIUM Collection Time: 08/20/18 4:37 AM # # Low-High Ionized Calcium 1.15 1.0 - 1.3 MMOL/L MAGNESIUM Collection Time: 08/20/18 4:37 AM # # Low-High Magnesium 1.7 1.6 - 2.6 mg/dL PHOSPHORUS Collection Time: 08/20/18 4:37 AM # # Low-High Phosphorus 3.1 2.0 - 4.5 MG/DL PROTIME INR (PT) Collection Time: 08/20/18 5:24 AM # # Low-High INR 1.1 0.8 - 1.2 POC GLUCOSE Collection Time: 08/20/18 8:21 AM # # Low-High Glucose, POC 164 (H) 70 - 100 MG/DL HEMOGLOBIN A1C Collection Time: 08/20/18 10:17 AM # # Low-High Hemoglobin A1C 7.3 (H) 4.0 - 6.0 % LIPID PROFILE Collection Time: 08/20/18 10:17 AM # # Low-High Cholesterol 179 <200 MG/DL Triglycerides 204 (H) <150 MG/DL HDL 26 (L) >40 MG/DL LDL 111 (H) <100 MG/DL VLDL 41 MG/DL Non HDL Cholesterol 153 MG/DL POC GLUCOSE Collection Time: 08/20/18 12:46 PM # # Low-High Glucose, POC 153 (H) 70 - 100 MG/DL TROPONIN-I Collection Time: 08/20/18 4:51 PM # # Low-High Troponin-I 0.04 0.0 - 0.05 NG/ML BASIC METABOLIC PANEL Collection Time: 08/20/18 4:51 PM # # Low-High Sodium 137 137 - 147 MMOL/L Potassium 4.1 3.5 - 5.1 MMOL/L Chloride 106 98 - 110 MMOL/L CO2 20 (L) 21 - 30 MMOL/L Anion Gap 11 3 - 12 Glucose 304 (H) 70 - 100 MG/DL Blood Urea Nitrogen 35 (H) 7 - 25 MG/DL Creatinine 2.00 (H) 0.4 - 1.24 MG/DL Calcium 9.1 8.5 - 10.6 MG/DL eGFR Non 33 (L) >60 mL/min eGFR 39 (L) >60 mL/min MAGNESIUM Collection Time: 08/20/18 4:51 PM # # Low-High Magnesium 1.8 1.6 - 2.6 mg/dL POC GLUCOSE Collection Time: 08/20/18 5:29 PM # # Low-High Glucose, POC 290 (H) 70 - 100 MG/DL POC GLUCOSE Collection Time: 08/20/18 8:35 PM # # Low-High Glucose, POC 273 (H) 70 - 100 MG/DL TROPONIN-I Collection Time: 08/20/18 11:05 PM # # Low-High Troponin-I 0.06 (H) 0.0 - 0.05 NG/ML POC GLUCOSE Collection Time: 08/21/18 3:04 AM # # Low-High Glucose, POC 160 (H) 70 - 100 MG/DL IONIZED CALCIUM Collection Time: 08/21/18 4:00 AM # # Low-High Ionized Calcium 1.22 1.0 - 1.3 MMOL/L BASIC METABOLIC PANEL Collection Time: 08/21/18 4:50 AM # # Low-High Sodium 140 137 - 147 MMOL/L Potassium 3.9 3.5 - 5.1 MMOL/L Chloride 110 98 - 110 MMOL/L CO2 21 21 - 30 MMOL/L Anion Gap 9 3 - 12 Glucose 160 (H) 70 - 100 MG/DL Blood Urea Nitrogen 38 (H) 7 - 25 MG/DL Creatinine 1.81 (H) 0.4 - 1.24 MG/DL Calcium 9.3 8.5 - 10.6 MG/DL eGFR Non 37 (L) >60 mL/min eGFR 44 (L) >60 mL/min CBC AND DIFF Collection Time: 08/21/18 4:50 AM # # Low-High White Blood Cells 5.4 4.5 - 11.0 K/UL RBC 3.70 (L) 4.4 - 5.5 M/UL Hemoglobin 11.2 (L) 13.5 - 16.5 GM/DL Hematocrit 32.3 (L) 40 - 50 % MCV 87.2 80 - 100 FL MCH 30.4 26 - 34 PG MCHC 34.8 32.0 - 36.0 G/DL RDW 14.4 11 - 15 % Platelet Count 102 (L) 150 - 400 K/UL MPV 9.7 7 - 11 FL Neutrophils 72 41 - 77 % Lymphocytes 18 (L) 24 - 44 % Monocytes 7 4 - 12 % Eosinophils 2 0 - 5 % Basophils 1 0 - 2 % Absolute Neutrophil Count 3.90 1.8 - 7.0 K/UL Absolute Lymph Count 1.00 1.0 - 4.8 K/UL Absolute Monocyte Count 0.40 0 - 0.80 K/UL Absolute Eosinophil Count 0.10 0 - 0.45 K/UL Absolute Basophil Count 0.00 0 - 0.20 K/UL MAGNESIUM Collection Time: 08/21/18 4:50 AM # # Low-High Magnesium 2.5 1.6 - 2.6 mg/dL PHOSPHORUS Collection Time: 08/21/18 4:50 AM # # Low-High Phosphorus 3.4 2.0 - 4.5 MG/DL TROPONIN-I Collection Time: 08/21/18 4:50 AM # # Low-High Troponin-I 0.07 (H) 0.0 - 0.05 NG/ML POC GLUCOSE Collection Time: 08/21/18 7:57 AM # # Low-High Glucose, POC 197 (H) 70 - 100 MG/DL TROPONIN-I Collection Time: 08/21/18 11:00 AM # # Low-High Troponin-I 0.06 (H) 0.0 - 0.05 NG/ML POC GLUCOSE Collection Time: 08/21/18 11:15 AM # # Low-High Glucose, POC 176 (H) 70 - 100 MG/DL POC GLUCOSE Collection Time: 08/21/18 3:29 PM # # Low-High Glucose, POC 238 (H) 70 - 100 MG/DL WORK AUTO TRIMMER in this encounter Miscellaneous Notes * Case Mgmt DC Plan - Marjgiovanni Nick - 08/30/2018 11:28 AM BODY WORK AUTO TRIMMER Case Management Progress NoteNAME:Kirsty Valencia :1940 AGE: 78 y.o. ADMISSION DATE: 08/19/2018 DAYS ADMITTED: LOS: 11 days Todays Date: 08/30/2018 Plan Pt to d/c to [facility] today 08/30/18 via family transport around 10 am. Interventions ? Support Support: Pt/Family Updates re:POC or DC Plan, Counseling for Adaptation to Illness, Counseling for Psychosocial issues ? Info or Referral ? Discharge Planning Discharge Planning: Inpatient Rehabilitation JUSTIN spoke with neuro resident, who confirms that pt is stable for d/c today 08/30. JUSTIN spoke with bedside RN who is agreeable to RN report to [phone]. JUSTIN faxed interfacility orders to [phone]. Family to transport. ? Medication Needs ? Financial ? Legal ? Other Other/None: No needs identified Disposition ? Expected Discharge Date Expected Discharge Date: 08/30/18 ? Transportation Does the patient need discharge transport arranged?: No Transportation Name, Phone and Availability #1: Franisco Valencia [phone](son) ? Next Level of Care (Acute Psych discharges only) ? Discharge Disposition Durable Medical Equipment No service has been selected for the patient. Destination - Selection Complete Service Provider Request Status Selected Services Address Phone Number Fax Number [facility] Selected Inpatient Rehabilitation [address] [facility] [address] [phone] Home Care No service has been selected for the patient. Dialysis/Infusion No service has been selected for the patient. Nick Torres LMSW Phone: [phone] Pager: [phone] WORK AUTO TRIMMER * Case Mgmt DC Plan - Teresa Matos - 08/29/2018 3:14 PM BODY WORK AUTO TRIMMER CADD MANAGER Note: This investigative writer printed and placed transfer packet in pt's chart drawer, per request from [facility] Vicky Costa. Teresa Matos Conservation Biology Professor For additional assistance, please contact [facility] Vicky Csota [phone] WORK AUTO TRIMMER * Case Mgmt DC Plan - Vicky Costa - 08/29/2018 10:37 AM BODY WORK AUTO TRIMMER Holiday Needs of [place] and time: Wednesday at 10:00am Weekend Contact info for Primary Team: Neuro *[phone] Instructions for W/E Staff: D/c to [facility] at 10:00am via family transportation. Please fax d/c orders to [phone]. Thanks! Discharge Disposition (SNF, LTACH, IPR, hospice house, home, etc): [facility] Weekend Contact: Weekend Transportation to be provided by: tay Bateman Contact number: [phone] Transfer Packet completed: [facility] Case Management Progress NoteNAME:Kirsty Valencia :1940 AGE: 78 y.o. ADMISSION DATE: 08/19/2018 DAYS ADMITTED: LOS: 10 days Todays Date: 08/29/2018 Plan D/c to [facility] tomorrow at 10:00am via family transport. Interventions SW reviewed EMR and met with Neuro team for huddle. ? Support Support: Pt/Family Updates re:POC or DC Plan, Counseling for Adaptation to Illness, Counseling for Psychosocial issues SW attempted to visit pt and family at bedside, however no family present. JUSTIN attempted to speak with pt's son Mak ([phone]), however no answer. JUSTIN spoke with pt's son Fransico ([phone]) to discuss DCP. Fransico agreeable to IPR setting and aware of such benefit. Fransico requested referral to [facility] and aware of tentative DCP timeline. Fransico educated that family would be agreeable to providing transportation and denied concerns. Update 2:33pm: JUSTIN spoke with pt's son Fransico to update. Fransico verbalized agreement with DCP and educated that family can be present tomorrow at 10:00am for transportation to [facility]. ? Info or Referral ? Discharge Planning Discharge Planning: Inpatient Rehabilitation SW sent referral to [facility]. Update 2:33pm: JUSTIN spoke with Terri ([phone]) at [facility] and they have accepted for admission. Terri agreeable to d/c tomorrow at 10: 00am. JUSTIN spoke with Neuro Team to update. JUSTIN spoke with bedside RN to update. JUSTIN tasked CADD MANAGER to deliver transfer packet. RN Report: [phone] ? Medication Needs ? Financial ? Legal ? Other Other/None: No needs identified Disposition ? Expected Discharge Date Expected Discharge Date: 08/30/18 ? Transportation Does the patient need discharge transport arranged?: No Transportation Name, Phone and Availability #1: Fransico Valencia [phone](son) ? Next Level of Care (Acute Psych discharges only) ? Discharge Disposition Durable Medical Equipment No service has been selected for the patient. Destination No service has been selected for the patient. Home Care No service has been selected for the patient. Dialysis/Infusion No service has been selected for the patient. Vicky Costa LMSW Phone: [phone] Pager: *[phone] WORK AUTO TRIMMER * Case Mgmt DC Plan - Vicky Costa - 08/26/2018 12:19 PM BODY WORK AUTO TRIMMER Case Management Progress NoteNAME:Kirsty Valencia :1940 AGE: 78 y.o. ADMISSION DATE: 08/19/2018 DAYS ADMITTED: LOS: 7 days Todays Date: 08/26/2018 Plan Anticipate d/c home with family assistance and OP therapies early next week pending pt stability and progression. Interventions SW reviewed EMR and met with Neuro team for huddle. ? Support Support: Pt/Family Updates re:POC or DC Plan, Counseling for Adaptation to Illness, Counseling for Psychosocial issues SW visited pt, pt's , and pt's DIL at bedside to discuss DCP. SW educated on benefit of IPR setting for ongoing rehab prior to d/c home. Pt's and DIL expressing concerns that pt would not recover as well at rehab. Family expressing concerns that pt's aphasia and language barrier would make IPR setting more challenging. Family expressing that it pt also prefers his own home setting and this would remote better recovery. SW expressed understanding of such, however expressed concerns that pt is currently requiring consistent assistance including physical support. Pt's reports that she will be home consistently and that pt has several siblings, children, and other family locally that could assist. Family endorsing interest in OP therapies and aware of such benefit. SW and family agreed to follow up on Wednesday to evaluate pt's functional improvement to confirm appropriate DCP. ? Info or Referral ? Discharge Planning Discharge Planning: Independent/Assisted Living SW spoke with PT to update of pt's interest. ? Medication Needs ? Financial ? Legal ? Other Other/None: No needs identified Disposition ? Expected Discharge Date Expected Discharge Date: 08/29/18 ? Transportation Does the patient need discharge transport arranged?: No Transportation Name, Phone and Availability #1: Fransico Valencia [phone](son) ? Next Level of Care (Acute Psych discharges only) ? Discharge Disposition Durable Medical Equipment No service has been selected for the patient. Destination No service has been selected for the patient. Home Care No service has been selected for the patient. Dialysis/Infusion No service has been selected for the patient. Vicky Igor, ENVIRONMENTAL ANALYST Phone: [phone] Pager: [phone] WORK AUTO TRIMMER * Care Plan - Suma Oquendo RN - 08/25/2018 6:37 PM BODY WORK AUTO TRIMMER Problem: Discharge Planning Goal: Participation in plan of care Outcome: Goal Ongoing Pt has been encouraged to ask questions regarding POC. Goal: Knowledge regarding plan of care Outcome: Goal Ongoing Pt and family have been updated on POC for this stay. Problem: Infection, Risk of, Urinary Catheter-Associated Urinary Tract Infection Goal: Absence of urinary catheter-associated infection Outcome: Goal Achieved Date Met: 08/25/18 NA Problem: Neurological Status, Impaired/Altered Goal: Progress toward maximizing functional outcomes Outcome: Goal Ongoing Pt is participating in therapies daily to improve functional outcomes. Goal: Cognitive status restored to baseline Outcome: Goal Ongoing Pt is not yet at a baseline. Problem: Falls, High Risk of Goal: Absence of falls-Adult Patient Outcome: Goal Ongoing Pt has fall bundle in place. Pt has been educated on using call light to get up. Pt verbalizes understanding. Goal: Absence of Falls-Pediatric patient Outcome: Goal Ongoing Pt has fall bundle in place. Pt has been educated on using call light to get up. Pt verbalizes understanding. WORK AUTO TRIMMER * Case Mgmt DC Plan - Vicky Costa - 08/25/2018 2:26 PM BODY WORK AUTO TRIMMER Social Work Note Plan: Anticipate d/c to IP setting early next week pending pt stability. Intervention: SW reviewed EMR and met with Neuro team for huddle. PT/OT recs pending. Rehab consulted. Cardiac diet. SW made several attempts to visit pt and family at bedside to discuss DCP, however pt resting and no family present. SW holding on discussing DCP until therapy evaluations and rehab consult completed to help better determine pt's endurance for IPR vs SNF admission. SW will continue to follow. Vicky Costa LMSW Phone: [phone] Pager: [phone] WORK AUTO TRIMMER * Response Teams - Nina Baca RN - 08/25/2018 7:53 AM BODY WORK AUTO TRIMMER Rapid Response Team Progress Note Date: 08/25/2018 Time: 7:53 AM Patient: Kirsty Valencia Attending: Boy Overton MD Service: Neurology Stroke Admission Date: 08/19/2018 LOS: 6 days A Code/Rapid Response Timeline Event Report has been created for this patient on 08/25/18 at 0714. [employer] MUSIC TEACHER called for chest pain and increased O2 needs. Primary RN reports that pt was attempting to get out of bed, O2 sats 85% on 2L NC. Pt stated yes when asked if in pain and gestured to chest. Pt placed on 6L NC with improved O2 sats. Pt is Montserratian speaking. Upon arrival of MIDDLE SCHOOL MUSIC TEACHER, pt with intermittent grimacing and tachypnea. With use of interpretive phone pt denies chest pain. ABG/iSTAT troponin obtained. EKG/CXR completed. Pt given GI cocktail , as primary RN states pt ate around 0300 before going back to sleep. Primary team states pt has c/o GERD recently. Pt's O2 weaned down to 3L NC. Pt resting comfortably. Repeat troponin at 1300. [employer] MUSIC TEACHER will follow up in ~ 2hrs. The Attending physician will be notified by Elsa Howell APRN, of this event. Nina Baca RN WORK AUTO TRIMMER * Transfer - Neil Howell APRN - 08/24/2018 2:50 PM BODY WORK AUTO TRIMMER Neuro Critical Care Transfer Note 08/24/2018 Kirsty Valencia Admission date: 08/19/2018 Admitting Neuro Pointer Helper: Mert Schwartz Neuro-manager health: Tricia Length of stay in ICU: LOS: 5 days Admission diagnosis: ICH (intracerebral hemorrhage) (HCC) [I61.9] Allergies: Patient has no known allergies. Code Status: Full Code ICU problem list: Patient Active Problem List Diagnosis Date Noted Diabetes (HCC) ICH (intracerebral hemorrhage) (HCC) Hypertension ICU course: 78 y.o. male with history of diabetes, HTN, CAD. He recently underwent a diagnostic cardiac cath at his local hospital for dyspnea on 2017 and he was started on Plavix and ASA due to small vessel disease.He was discharge home post procedurally He presented to OSH 08/19 after his family noted continued confusion that began in the evening of 08/18/2018. CT demonstrated a left basal ganglia bleed. He was subsequently transferred to [facility] for evaluation and treatment. Neuro: The patient's primary language is Montserratian, with an translator/interpreter, he appears to have expressive aphasia. He moves all extremities with equal strength , follows commands. Head CT stable again 08/24 Cardiac: NSR, NSTEMI- troponins trending down. No angina today. SBP goal < 130. Holding GATE TENDER Cozaar d/t renal issues. Increased Amlodipine to 10mg 08/24 and toperol XL to 75mg daily. PRN hydralazine and labetolol in place. Discussed case with cardiology and OSH career center advisor, no need for plavix- ASA appropriate Pulmonary: Lungs clear to ausculation, on 2liters NC- wean to room air as tolerated GI/: cleared by speech for diabetic, cardiac diet. Concern for GERD, added protonix. TRACIE versus acute on chronic kidney injury. Creat at OSH 1.89. Incontentet of urine at times, bladder scan and straight cath for urinary retention. Heme: stable- subq heparin for ppx ID: Low grade fever, galloway culture performed on 08/24 UA with 3+ Leuks, packed WBCs. Started Rocephin. UA reflexed to culture per protocol. FEN: Started on NS at 40ml/hr x24 hours while not taking PO well. Endocrine: DM- A1C here 7.3. was initally on an insulin gtt on first day of admission. Weaned to SSI with 5x day accuchecks. Good control. Procedures performed in NEICU: None Tests performed in NEICU 08/24/18 CT HEAD WO CONTRAST Narrative EXAM: CT HEAD HISTORY: 78-year-old male, altered [...] effacement of the third ventricle and minimal xhet-nf-dhutp midline shift, measuring 3 mm, previously 4 mm. No hydrocephalus or intraventricular extension of hemorrhage. Baca-white matter interfaces are otherwise maintained. The basal cisterns are patent. The mastoid air cells and visualized paranasal sinuses are well-aerated. Impression 1. No significant change in left thalamic [...] Haroldo Garcia M.D. on 08/24/2018 1:01 PM. Medication list: [START ON 08/25/2018] amLODIPine (NORVASC) tablet 10 mg 10 mg Oral QDAY aspirin EC tablet 81 mg 81 mg Oral QDAY atorvastatin (LIPITOR) tablet 20 mg 20 mg Oral QHS cefTRIAXone (ROCEPHIN) IVP 1 g 1 g Intravenous Q24H* docusate (COLACE) capsule 100 mg 100 mg Oral BID heparin (porcine) PF syringe 5,000 Units 5,000 Units Subcutaneous Q8H insulin aspart U-100 (NOVOLOG FLEXPEN) injection PEN 0-7 Units 0-7 Units Subcutaneous ACHS isosorbide mononitrate SR (IMDUR) tablet 15 mg 15 mg Oral QHS isosorbide mononitrate SR (IMDUR) tablet 30 mg 30 mg Oral QDAY metoprolol XL (TOPROL XL) tablet 75 mg 75 mg Oral QDAY(21) milk of magnesia (CONC) oral suspension 10 mL 10 mL Oral QDAY pantoprazole DR (PROTONIX) tablet 40 mg 40 mg Oral QDAY(21) senna/docusate (SENOKOT-S) tablet 1 tablet 1 tablet Oral BID Recent Pertinent Lab Results: WBC 08/24 8.6 Glucose range 133-214 last 24 hours SSI with accuchecks Recent Micro Results: 08/24 UA with 3+ leukocytes, packed WBCs- reflex to culture 08/24 Galloway culture pending Recommendations for accepting service: follow up on Galloway culture results, length of time for rocephin titrate BP meds- increased Norvasc and Metoprolol 08/24 SBP goal <130 Bladder scans with straight cath PRN EKG and troponin PRN chest pain. Nitro SL available Consultation services following patient in ICU: Cardiology- signed off Transfer hand off to : Name of Staff accepting patient: Tian Name of resident accepting handoff: Delio Time of handoff : 1615- NEICU will take call overnight Lisa [phone] WORK AUTO TRIMMER * Case Mgmt DC Plan - Jennifer Cardona RN - 08/22/2018 1:50 PM BODY WORK AUTO TRIMMER Case Management Admission AssessmentNAME:Kirsty Valencia :1940 AGE: 78 y.o. ADMISSION DATE: 08/19/2018 DAYS ADMITTED: LOS: 3 days Todays Date: 08/22/2018 Source of Information: EMR and son Fransico Per Chart: 78 y.o.malewith history of diabetes, HTN, CAD with PCI on 08/17 where he was started on Plavix and ASA. He presented to OSH today with confusion x [address] demonstrated a left basal ganglia bleed. Pt is transferred to [facility] for further evaluation and treatment. Interventions: Reviewed EMR. Attempted to meet with patient at 1:15 pm but patient sleeping and family not available. Called his son, Fransico [phone], for assessment. Introduced self and explained NCM role. Plan Plan: Case Management Assessment, Assist PRN with SW/NCM Services, Discharge Planning for Home Anticipated Patient Address/Phone [address] [place] [address] , Stephanie, cell phone Emergency Contact Extended Emergency Contact Information Primary Emergency Contact: Mak Valencia Mobile Relation: Son Son Ciaran Valencia [phone] Healthcare Directive Healthcare Directive: No, patient does not have a healthcare directive Would patient like to fill out a (a new) Healthcare Directive?: No, patient declined Psych Advance Directive (Psych unit only): Unknown, patient unable to respond due to medical condition Transportation Does the patient need discharge transport arranged?: No Transportation Name, Phone and Availability #1: Fransico Valencia [phone](son) Expected Discharge Date Expected Discharge Date: 08/25/18 Living Situation Prior to Admission ? Living Arrangements Type of Residence: Home, independent Living Arrangements: Spouse/significant other Bathroom Shower / Tub: Tub/Shower Unit, Walk-in Shower(one of each) How many levels in the residence?: 1 Can patient live on one level if needed?: Yes Does residence have entry and/or side stairs?: No Assistance needed prior to admit or anticipated on discharge: Yes Who provides assistance or could if needed?: and three sons(son Fransico lives 30 minutes away in [place]; son Tani is the powder core tester in their town, another son Mak lives close; is in great health) Are they in good health?: Yes Can support system provide 24/7 care if needed?: Yes ? Level of Function Prior level of function: Independent(patient was completely independent GATE TENDER) ? Cognitive Abilities Cognitive Abilities: Continue to Assess(patient was sleeping; RN reports patient is not speaking Swazi; assessment completed with tay Bateman) Financial Resources ? Coverage Primary Insurance: Medicare([facility] Medicare) Secondary Insurance: (son believes his father has a secondary insurance. He will be checking with his mother and bring information tomorrow when he visits.) Additional Coverage: ([facility]) ? Source of Income Source Of Income: Other care home income ? Financial Assistance Needed? No Psychosocial Needs ? Mental Health Mental Health History: No(tay Bateman denies) ? Substance Use History Substance Use History Screen: No ? Other N/a Current/Previous Services ? PCP Goran Jhaveri ? Pharmacy [address] [place], [place] [address] [facility] [address] ? Durable Medical Equipment Durable Medical Equipment at home: None ? 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 Hemodialysis or Peritoneal Dialysis Undergoing hemodialysis or peritoneal dialysis: No ? Tube/Enteral Feeds Receive tube/enteral feeds: No ? Infusion Receive infusions: No ? Private Duty Private duty help used: No ? Home and Community Based Services Home and community based services: No ? Jacob White Jacob White: N/A ? Hospice Hospice: No ? Outpatient Therapy PT: No OT: No LIGHTHOUSE KEEPER: No ? Care Home Facility/Fdc SNF: No NH: No ? Inpatient Rehab IPR: No ? Long-Term Acute Care Hospital LTACH: No ? Acute Hospital Stay Acute Hospital Stay: In the past(2006 for quadruple bipass) Jennifer LAINEZ, RN, ACM Integrated Nurse Central Supply Nurse Neurology Service Pager: [phone] WORK AUTO TRIMMER in this encounter Plan of Treatment Order Schedule Name Priority Associated Diagnoses ONE TIME for 1 Occurrences starting 08/19/2018 until 08/19/2018 ECG 12-LEAD STAT ONE TIME for 1 Occurrences starting 08/21/2018 until 08/21/2018, [address] HEAD EXTERNAL IMAGING Routine Diagnosis unknown as of this encounter Procedures Comments Procedure Name Priority Date/Time Associated Diagnosis POC GLUCOSE 08/30/2018 7:53 AM BODY WORK AUTO TRIMMER CBC Routine 08/30/2018 5:30 AM BODY WORK AUTO TRIMMER PHOSPHORUS Routine 08/30/2018 5:30 AM BODY WORK AUTO TRIMMER MAGNESIUM Routine 08/30/2018 5:30 AM BODY WORK AUTO TRIMMER BASIC METABOLIC PANEL Routine 08/30/2018 5:30 AM BODY WORK AUTO TRIMMER POC GLUCOSE 08/29/2018 8:21 PM BODY WORK AUTO TRIMMER POC GLUCOSE 08/29/2018 5:28 PM BODY WORK AUTO TRIMMER POC GLUCOSE 08/29/2018 11:52 AM BODY WORK AUTO TRIMMER POC GLUCOSE 08/29/2018 7:52 AM BODY WORK AUTO TRIMMER CBC Routine 08/29/2018 4:49 AM BODY WORK AUTO TRIMMER PHOSPHORUS Routine 08/29/2018 4:49 AM BODY WORK AUTO TRIMMER MAGNESIUM Routine 08/29/2018 4:49 AM BODY WORK AUTO TRIMMER COMPREHENSIVE METABOLIC Routine 08/29/2018 PANEL 4:49 AM BODY WORK AUTO TRIMMER POC GLUCOSE 08/28/2018 8:34 PM BODY WORK AUTO TRIMMER MAGNESIUM Routine 08/28/2018 6:00 PM BODY WORK AUTO TRIMMER POC GLUCOSE 08/28/2018 5:01 PM BODY WORK AUTO TRIMMER POC GLUCOSE 08/28/2018 2:22 PM BODY WORK AUTO TRIMMER POC GLUCOSE 08/28/2018 11:25 AM BODY WORK AUTO TRIMMER ECG 12-LEAD Routine 08/28/2018 10:15 AM BODY WORK AUTO TRIMMER POC GLUCOSE 08/28/2018 8:11 AM BODY WORK AUTO TRIMMER BASIC METABOLIC PANEL Routine 08/28/2018 4:29 AM BODY WORK AUTO TRIMMER POC GLUCOSE 08/27/2018 9:25 PM BODY WORK AUTO TRIMMER POC GLUCOSE 08/27/2018 5:09 PM BODY WORK AUTO TRIMMER POC GLUCOSE 08/27/2018 11:55 AM BODY WORK AUTO TRIMMER ECG 12-LEAD Routine 08/27/2018 10:15 AM BODY WORK AUTO TRIMMER POC GLUCOSE 08/27/2018 7:53 AM BODY WORK AUTO TRIMMER CBC AND DIFF Routine 08/27/2018 5:28 AM BODY WORK AUTO TRIMMER BASIC METABOLIC PANEL Routine 08/27/2018 5:28 AM BODY WORK AUTO TRIMMER BASIC METABOLIC PANEL Routine 08/26/2018 10:10 PM BODY WORK AUTO TRIMMER CONSULT IV THERAPY TEAM Routine 08/26/2018 9:37 PM BODY WORK AUTO TRIMMER POC GLUCOSE 08/26/2018 9:12 PM BODY WORK AUTO TRIMMER POC GLUCOSE 08/26/2018 4:54 PM BODY WORK AUTO TRIMMER CREATININE Routine 08/26/2018 3:45 PM BODY WORK AUTO TRIMMER TROPONIN-I Routine 08/26/2018 11:50 AM BODY WORK AUTO TRIMMER OSMOLALITY Routine 08/26/2018 11:50 AM BODY WORK AUTO TRIMMER POC GLUCOSE 08/26/2018 11:27 AM BODY WORK AUTO TRIMMER ECG 12-LEAD Routine 08/26/2018 10:15 AM BODY WORK AUTO TRIMMER SODIUM-URINE RANDOM Routine 08/26/2018 8:21 AM BODY WORK AUTO TRIMMER OSMOLALITY-URINE RANDOM Routine 08/26/2018 8:21 AM BODY WORK AUTO TRIMMER CREATININE-URINE RANDOM Routine 08/26/2018 8:21 AM BODY WORK AUTO TRIMMER CHEST SINGLE VIEW BLANCA 08/26/2018 8:17 AM BODY WORK AUTO TRIMMER POC GLUCOSE 08/26/2018 7:54 AM BODY WORK AUTO TRIMMER TROPONIN-I Routine 08/26/2018 6:22 AM BODY WORK AUTO TRIMMER CBC AND DIFF Routine 08/26/2018 6:22 AM BODY WORK AUTO TRIMMER BASIC METABOLIC PANEL Routine 08/26/2018 6:22 AM BODY WORK AUTO TRIMMER TROPONIN-I STAT 08/25/2018 8:30 PM BODY WORK AUTO TRIMMER POC GLUCOSE 08/25/2018 8:24 PM BODY WORK AUTO TRIMMER POC GLUCOSE 08/25/2018 6:33 PM BODY WORK AUTO TRIMMER POC GLUCOSE 08/25/2018 5:30 PM BODY WORK AUTO TRIMMER 2-D + DOPPLER Routine 08/25/2018 ECHOCARDIOGRAM 3:43 PM BODY WORK AUTO TRIMMER TROPONIN-I Routine 08/25/2018 1:27 PM BODY WORK AUTO TRIMMER BNP (B-TYPE NATRIURETIC Add on 08/25/2018 PEPTI) 1:27 PM BODY WORK AUTO TRIMMER POC GLUCOSE 08/25/2018 11:46 AM BODY WORK AUTO TRIMMER POC GLUCOSE 08/25/2018 8:50 AM BODY WORK AUTO TRIMMER CHEST SINGLE VIEW Code 08/25/2018 7:59 AM BODY WORK AUTO TRIMMER POC BLOOD GAS ARTERIAL 08/25/2018 7:42 AM BODY WORK AUTO TRIMMER POC TROPONIN 08/25/2018 7:30 AM BODY WORK AUTO TRIMMER POC GLUCOSE 08/25/2018 7:13 AM BODY WORK AUTO TRIMMER ECG 12-LEAD Routine 08/25/2018 7:11 AM BODY WORK AUTO TRIMMER CBC AND DIFF Routine 08/25/2018 5:47 AM BODY WORK AUTO TRIMMER BASIC METABOLIC PANEL Routine 08/25/2018 5:47 AM BODY WORK AUTO TRIMMER POC GLUCOSE 08/24/2018 10:56 PM BODY WORK AUTO TRIMMER MRI HEAD WO CONTRAST Routine 08/24/2018 9:42 PM BODY WORK AUTO TRIMMER POC GLUCOSE 08/24/2018 4:52 PM BODY WORK AUTO TRIMMER UA REFLEX CULTURE LABEL Routine 08/24/2018 1:52 PM BODY WORK AUTO TRIMMER URINALYSIS MICROSCOPIC Routine 08/24/2018 REFLEX TO CULTURE 1:52 PM BODY WORK AUTO TRIMMER URINALYSIS DIPSTICK Routine 08/24/2018 REFLEX TO CULTURE 1:52 PM BODY WORK AUTO TRIMMER CULTURE-URINE 08/24/2018 W/SENSITIVITY 1:52 PM BODY WORK AUTO TRIMMER CULTURE-BLOOD Routine 08/24/2018 W/SENSITIVITY 1:49 PM BODY WORK AUTO TRIMMER CULTURE-BLOOD Routine 08/24/2018 W/SENSITIVITY 1:37 PM BODY WORK AUTO TRIMMER CHEST SINGLE VIEW STAT 08/24/2018 1:06 PM BODY WORK AUTO TRIMMER CT HEAD WO CONTRAST STAT 08/24/2018 12:48 PM BODY WORK AUTO TRIMMER POC GLUCOSE 08/24/2018 11:22 AM BODY WORK AUTO TRIMMER POC GLUCOSE 08/24/2018 7:36 AM BODY WORK AUTO TRIMMER CBC AND DIFF Routine 08/24/2018 4:05 AM BODY WORK AUTO TRIMMER PHOSPHORUS Routine 08/24/2018 4:05 AM BODY WORK AUTO TRIMMER MAGNESIUM Routine 08/24/2018 4:05 AM BODY WORK AUTO TRIMMER IONIZED CALCIUM Routine 08/24/2018 4:05 AM BODY WORK AUTO TRIMMER BASIC METABOLIC PANEL Routine 08/24/2018 4:05 AM BODY WORK AUTO TRIMMER POC GLUCOSE 08/23/2018 9:11 PM BODY WORK AUTO TRIMMER POC GLUCOSE 08/23/2018 6:19 PM BODY WORK AUTO TRIMMER TROPONIN-I Routine 08/23/2018 12:10 PM BODY WORK AUTO TRIMMER POC GLUCOSE 08/23/2018 11:53 AM BODY WORK AUTO TRIMMER POC GLUCOSE 08/23/2018 8:12 AM BODY WORK AUTO TRIMMER CBC AND DIFF Routine 08/23/2018 3:30 AM BODY WORK AUTO TRIMMER PHOSPHORUS Routine 08/23/2018 3:30 AM BODY WORK AUTO TRIMMER MAGNESIUM Routine 08/23/2018 3:30 AM BODY WORK AUTO TRIMMER IONIZED CALCIUM Routine 08/23/2018 3:30 AM BODY WORK AUTO TRIMMER BASIC METABOLIC PANEL Routine 08/23/2018 3:30 AM BODY WORK AUTO TRIMMER CT HEAD WO CONTRAST Routine 08/23/2018 1:43 AM BODY WORK AUTO TRIMMER POC GLUCOSE 08/22/2018 8:57 PM BODY WORK AUTO TRIMMER POC GLUCOSE 08/22/2018 6:02 PM BODY WORK AUTO TRIMMER TROPONIN-I Routine 08/22/2018 12:42 PM BODY WORK AUTO TRIMMER POC GLUCOSE 08/22/2018 11:34 AM BODY WORK AUTO TRIMMER POC GLUCOSE 08/22/2018 9:02 AM BODY WORK AUTO TRIMMER POC GLUCOSE 08/22/2018 7:34 AM BODY WORK AUTO TRIMMER POC GLUCOSE 08/22/2018 6:31 AM BODY WORK AUTO TRIMMER TROPONIN-I STAT 08/22/2018 6:31 AM BODY WORK AUTO TRIMMER POC GLUCOSE 08/22/2018 4:03 AM BODY WORK AUTO TRIMMER POC GLUCOSE 08/22/2018 2:56 AM BODY WORK AUTO TRIMMER TROPONIN-I STAT 08/22/2018 2:10 AM BODY WORK AUTO TRIMMER CBC AND DIFF Routine 08/22/2018 2:10 AM BODY WORK AUTO TRIMMER PHOSPHORUS Routine 08/22/2018 2:10 AM BODY WORK AUTO TRIMMER MAGNESIUM Routine 08/22/2018 2:10 AM BODY WORK AUTO TRIMMER IONIZED CALCIUM Routine 08/22/2018 2:10 AM BODY WORK AUTO TRIMMER BASIC METABOLIC PANEL Routine 08/22/2018 2:10 AM BODY WORK AUTO TRIMMER POC GLUCOSE 08/22/2018 2:09 AM BODY WORK AUTO TRIMMER POC GLUCOSE 08/22/2018 12:56 AM BODY WORK AUTO TRIMMER POC GLUCOSE 08/22/2018 12:04 AM BODY WORK AUTO TRIMMER TROPONIN-I STAT 08/22/2018 12:03 AM BODY WORK AUTO TRIMMER POC GLUCOSE 08/21/2018 10:43 PM BODY WORK AUTO TRIMMER TROPONIN-I STAT 08/21/2018 9:30 PM BODY WORK AUTO TRIMMER POC GLUCOSE 08/21/2018 8:07 PM BODY WORK AUTO TRIMMER ABDOMEN AP ONLY BLANCA 08/21/2018 7:46 PM BODY WORK AUTO TRIMMER ECG 12-LEAD STAT 08/21/2018 7:29 PM BODY WORK AUTO TRIMMER TROPONIN-I STAT 08/21/2018 6:30 PM BODY WORK AUTO TRIMMER PHOSPHORUS STAT 08/21/2018 6:30 PM BODY WORK AUTO TRIMMER MAGNESIUM STAT 08/21/2018 6:30 PM BODY WORK AUTO TRIMMER BASIC METABOLIC PANEL STAT 08/21/2018 6:30 PM BODY WORK AUTO TRIMMER ECG 12-LEAD STAT 08/21/2018 6:23 PM BODY WORK AUTO TRIMMER POC GLUCOSE 08/21/2018 3:29 PM BODY WORK AUTO TRIMMER POC GLUCOSE 08/21/2018 11:15 AM BODY WORK AUTO TRIMMER TROPONIN-I Routine 08/21/2018 11:00 AM BODY WORK AUTO TRIMMER CT HEAD WO CONTRAST Routine 08/21/2018 10:38 AM BODY WORK AUTO TRIMMER POC GLUCOSE 08/21/2018 7:57 AM BODY WORK AUTO TRIMMER TROPONIN-I Routine 08/21/2018 4:50 AM BODY WORK AUTO TRIMMER CBC AND DIFF Routine 08/21/2018 4:50 AM BODY WORK AUTO TRIMMER PHOSPHORUS Routine 08/21/2018 4:50 AM BODY WORK AUTO TRIMMER MAGNESIUM Routine 08/21/2018 4:50 AM BODY WORK AUTO TRIMMER BASIC METABOLIC PANEL Routine 08/21/2018 4:50 AM BODY WORK AUTO TRIMMER IONIZED CALCIUM Routine 08/21/2018 4:00 AM BODY WORK AUTO TRIMMER POC GLUCOSE 08/21/2018 3:04 AM BODY WORK AUTO TRIMMER TROPONIN-I Routine 08/20/2018 11:05 PM BODY WORK AUTO TRIMMER POC GLUCOSE 08/20/2018 8:35 PM BODY WORK AUTO TRIMMER POC GLUCOSE 08/20/2018 5:29 PM BODY WORK AUTO TRIMMER TROPONIN-I Routine 08/20/2018 4:51 PM BODY WORK AUTO TRIMMER MAGNESIUM Routine 08/20/2018 4:51 PM BODY WORK AUTO TRIMMER BASIC METABOLIC PANEL Routine 08/20/2018 4:51 PM BODY WORK AUTO TRIMMER POC GLUCOSE 08/20/2018 12:46 PM BODY WORK AUTO TRIMMER HEMOGLOBIN A1C Routine 08/20/2018 10:17 AM BODY WORK AUTO TRIMMER LIPID PROFILE Routine 08/20/2018 10:17 AM BODY WORK AUTO TRIMMER CT HEAD WO CONTRAST BLANCA 08/20/2018 9:26 AM BODY WORK AUTO TRIMMER POC GLUCOSE 08/20/2018 8:21 AM BODY WORK AUTO TRIMMER PROTIME INR (PT) Routine 08/20/2018 5:24 AM BODY WORK AUTO TRIMMER CBC AND DIFF Routine 08/20/2018 4:37 AM BODY WORK AUTO TRIMMER PHOSPHORUS Routine 08/20/2018 4:37 AM BODY WORK AUTO TRIMMER MAGNESIUM Routine 08/20/2018 4:37 AM BODY WORK AUTO TRIMMER IONIZED CALCIUM Routine 08/20/2018 4:37 AM BODY WORK AUTO TRIMMER BASIC METABOLIC PANEL Routine 08/20/2018 4:37 AM BODY WORK AUTO TRIMMER ECG-SCAN 08/20/2018 12:00 AM BODY WORK AUTO TRIMMER PHENCYCLIDINES-URINE Routine 08/19/2018 RANDOM 10:49 PM BODY WORK AUTO TRIMMER OPIATES-URINE RANDOM Routine 08/19/2018 10:49 PM BODY WORK AUTO TRIMMER COCAINE-URINE RANDOM Routine 08/19/2018 10:49 PM BODY WORK AUTO TRIMMER CANNABINOIDS-URINE RANDOM Routine 08/19/2018 10:49 PM BODY WORK AUTO TRIMMER BENZODIAZEPINES-URINE Routine 08/19/2018 RANDOM 10:49 PM BODY WORK AUTO TRIMMER BARBITURATES-URINE RANDOM Routine 08/19/2018 10:49 PM BODY WORK AUTO TRIMMER AMPHETAMINES-URINE RANDOM Routine 08/19/2018 10:49 PM BODY WORK AUTO TRIMMER CT HEAD WO CONTRAST STAT 08/19/2018 9:53 PM BODY WORK AUTO TRIMMER PROTIME INR (PT) STAT 08/19/2018 9:40 PM BODY WORK AUTO TRIMMER CBC AND DIFF STAT 08/19/2018 9:40 PM BODY WORK AUTO TRIMMER PHOSPHORUS STAT 08/19/2018 9:40 PM BODY WORK AUTO TRIMMER MAGNESIUM STAT 08/19/2018 9:40 PM BODY WORK AUTO TRIMMER IONIZED CALCIUM STAT 08/19/2018 9:40 PM BODY WORK AUTO TRIMMER COMPREHENSIVE METABOLIC STAT 08/19/2018 PANEL 9:40 PM BODY WORK AUTO TRIMMER CT HEAD EXTERNAL IMAGING Routine 08/19/2018 Diagnosis unknown 12:00 AM BODY WORK AUTO TRIMMER ECG-SCAN 08/19/2018 12:00 AM BODY WORK AUTO TRIMMER ECG-SCAN 08/19/2018 12:00 AM BODY WORK AUTO TRIMMER ECG-SCAN 08/19/2018 12:00 AM BODY WORK AUTO TRIMMER in this encounter Results * POC GLUCOSE (08/30/2018 7:53 AM BODY WORK AUTO TRIMMER) Glucose, POC 216 (H) 70 - 100 MG/DL [facility] Performing Organization Address [facility] Phone Number [facility] [address] [place] [address] * PHOSPHORUS (08/30/2018 5:30 AM BODY WORK AUTO TRIMMER) Phosphorus 3.6Comment: NOTE NEW REFERENCE 2.0 - 4.5 MG/DL [facility] RANGES Specimen Blood Performing Organization Address [facility] Phone Number MAIN LAB [address] [place] [address] * MAGNESIUM (08/30/2018 5:30 AM BODY WORK AUTO TRIMMER) Magnesium 1.8 1.6 - 2.6 mg/dL [facility] Specimen Blood Performing Organization Address [facility] Phone Number [facility] [address] [place] [address] * BASIC METABOLIC PANEL (08/30/2018 5:30 AM BODY WORK AUTO TRIMMER) Sodium 137 137 - 147 MMOL/L K[facility] [...] for questions. Specimen Blood Performing Organization Address City/[facility]/Zipcode Phone Number MAIN LAB [address] [place] [address] * CBC (08/30/2018 5:30 AM BODY WORK AUTO TRIMMER) White Blood Cells 6.3 4.5 - 11.0 [...] LAB RDW 13.6 11 - 15 % [facility] Platelet Count 147 (L) 150 - 400 K/UL [facility] MPV 8.9 7 - 11 FL [facility] Specimen Blood Performing Organization Address City/[facility] Phone Number [facility] [address] [place] [address] * POC GLUCOSE (08/29/2018 8:21 PM BODY WORK AUTO TRIMMER) Glucose, POC 229 (H) 70 - 100 MG/DL [facility] Performing Organization Address City/[facility] Phone Number [facility] [address] [place] [address] * POC GLUCOSE (08/29/2018 5:28 PM BODY WORK AUTO TRIMMER) Glucose, POC 196 (H) 70 - 100 MG/DL [facility] Performing Organization Address City/[facility]/Zipcode Phone Number [facility] [address] [place] [phone] * POC GLUCOSE (08/29/2018 11:52 AM BODY WORK AUTO TRIMMER) Glucose, POC 248 (H) 70 - 100 MG/DL [facility] Performing Organization Address City/[facility]/Zipcode Phone Number [facility] [address] [place] [address] * POC GLUCOSE (08/29/2018 7:52 AM BODY WORK AUTO TRIMMER) Glucose, POC 201 (H) 70 - 100 MG/DL [facility] Performing Organization Address [facility] [place] [place] Phone Number [facility] [address] [place] [address] * PHOSPHORUS (08/29/2018 4:49 AM BODY WORK AUTO TRIMMER) Phosphorus 2.9Comment: NOTE NEW REFERENCE 2.0 - 4.5 MG/DL [facility] RANGES Specimen Blood Performing Organization Address [facility] [place] [place] Phone Number [facility] [address] [place] [phone] * MAGNESIUM (08/29/2018 4:49 AM BODY WORK AUTO TRIMMER) Magnesium 1.9 1.6 - 2.6 mg/dL [facility] Specimen Blood Performing Organization Address [facility] [place], [place] Phone Number [facility] [address] [place] [address] * CBC (08/29/2018 4:49 AM BODY WORK AUTO TRIMMER) White Blood Cells 5.8 4.5 - 11.0 K/UL [facility] RBC 3.25 (L) 4.4 - 5.5 M/UL [facility] Hemoglobin 9.7 (L) 13.5 - 16.5 GM/DL [facility] Hematocrit 28.3 (L) 40 - 50 % [facility] MCV 86.9 80 - 100 FL [facility] MCH 29.9 26 - 34 PG [facility] MCHC 34.4 32.0 - 36.0 G/DL [facility] RDW 13.7 11 - 15 % [facility] Platelet Count 150 150 - 400 K/UL [facility] MPV 8.5 7 - 11 FL [facility] Specimen Blood Performing Organization Address [facility] [place], [place] Phone Number [facility] [address] [place] [address] * COMPREHENSIVE METABOLIC PANEL (08/29/2018 4:49 AM BODY WORK AUTO TRIMMER) Sodium 137 137 - 147 MMOL/L KU [...] Alk Phosphatase 56 25 - 110 U/L MAIN LAB AST (SGOT) 26 7 - 40 U/L [facility] CO2 24 21 - 30 MMOL/L MAIN LAB ALT (SGPT) 37 7 - 56 U/L MAIN LAB Anion Gap 7 3 - 12 MAIN LAB eGFR Non 35 (L) >60 [...] for questions. Specimen Blood Performing Organization Address City/[facility]/[employer] Phone Number MAIN LAB [address] [place] [address] * POC GLUCOSE (08/28/2018 8:34 PM BODY WORK AUTO TRIMMER) Glucose, POC 192 (H) 70 - 100 MG/DL MAIN LAB Performing Organization Address [facility] [place], [place] Phone Number MAIN LAB [address] [place] [address] * MAGNESIUM (08/28/2018 6:00 PM BODY WORK AUTO TRIMMER) Magnesium 2.1 1.6 - 2.6 mg/dL MAIN LAB Specimen Blood Performing Organization Address City/[facility]/[employer] Phone Number MAIN LAB [address] [place] [address] * POC GLUCOSE (08/28/2018 5:01 PM BODY WORK AUTO TRIMMER) Glucose, POC 296 (H) 70 - 100 MG/DL [facility] Performing Organization Address City/[facility] Phone Number MAIN LAB [address] [place] [address] * POC GLUCOSE (08/28/2018 2:22 PM BODY WORK AUTO TRIMMER) Glucose, POC 291 (H) 70 - 100 MG/DL [facility] Performing Organization Address [facility] Phone Number [facility] [address] [place] [address] * POC GLUCOSE (08/28/2018 11:25 AM BODY WORK AUTO TRIMMER) Glucose, POC 258 (H) 70 - 100 MG/DL [facility] Performing Organization Address City/[facility] Phone Number [facility] [address] [place] [address] * POC GLUCOSE (08/28/2018 8:11 AM BODY WORK AUTO TRIMMER) Glucose, POC 203 (H) 70 - 100 MG/DL [facility] Performing Organization Address [facility] Phone Number [facility] [address] [place] [address] * BASIC METABOLIC PANEL (08/28/2018 4:29 AM BODY WORK AUTO TRIMMER) Sodium 137 137 - 147 MMOL/L [facility] Potassium 4.1 3.5 - 5.1 MMOL/L [facility] Chloride 106 98 - 110 MMOL/L [facility] CO2 23 21 - 30 MMOL/L [facility] Anion Gap 8 3 - 12 [facility] Glucose 179 (H) 70 - 100 MG/DL [facility] Blood Urea Nitrogen 38 (H) 7 - 25 MG/DL [facility] Creatinine 1.66 (H) 0.4 - 1.24 MG/DL [facility] MAIN [...] for questions. Specimen Blood Performing Organization Address City/[facility]/Zipcode Phone Number [facility] [address] [place] [address] * POC GLUCOSE (08/27/2018 9:25 PM BODY WORK AUTO TRIMMER) Glucose, POC 160 (H) 70 - 100 MG/DL [facility] Performing Organization Address [facility] Phone Number [facility] [address] [place] [address] * POC GLUCOSE (08/27/2018 5:09 PM BODY WORK AUTO TRIMMER) Glucose, POC 246 (H) 70 - 100 MG/DL [facility] Performing Organization Address [facility] Phone Number [facility] [address] [place] [phone] * POC GLUCOSE (08/27/2018 11:55 AM BODY WORK AUTO TRIMMER) Glucose, POC 204 (H) 70 - 100 MG/DL [facility] Performing Organization Address [facility] [place] [place] Phone Number [facility] [address] [place] [phone] * POC GLUCOSE (08/27/2018 7:53 AM BODY WORK AUTO TRIMMER) Glucose, POC 190 (H) 70 - 100 MG/DL [facility] Performing Organization Address [facility] [place] [place] Phone Number [facility] [address] [place] [address] * BASIC METABOLIC PANEL (08/27/2018 5:28 AM BODY WORK AUTO TRIMMER) Sodium 137 137 - 147 MMOL/L [facility] Potassium 3.9 3.5 - 5.1 MMOL/L [facility] Chloride 107 98 - 110 MMOL/L [facility] CO2 22 21 - 30 MMOL/L [facility] Anion Gap 8 3 - 12 [facility] Glucose 173 (H) 70 - 100 MG/DL [facility] Blood Urea Nitrogen 41 (H) 7 - 25 MG/DL [facility] Creatinine 1.77 (H) 0.4 - 1.24 MG/DL [facility] Calcium 8.7 8.5 - 10.6 MG/DL [facility] eGFR Non 37 (L) >60 mL/min [facility] Comment: The eGFR is not validated for use in drug dosing adjustments.Continue to use estimated creatinine clearance per dosing reference text.Please contact the Clinical Pharmacist for questions. eGFR 45 (L) >60 mL/min [facility] Comment: The eGFR is not validated for use in drug dosing adjustments.Continue to use estimated creatinine clearance per dosing reference text.Please contact the Clinical Pharmacist for questions. Specimen Blood Performing Organization Address City/[facility] Phone Number [facility] [address] [place] [phone] * CBC AND DIFF (08/27/2018 5:28 AM BODY WORK AUTO TRIMMER) White Blood Cells 5.5 4.5 - 11.0 [...] Blood Performing Organization Address City/State/Zipcode Phone Number [facility] [address] [place] [address] * BASIC METABOLIC PANEL (08/26/2018 10:10 PM BODY WORK AUTO TRIMMER) Sodium 134 (L) 137 - 147 MMOL/L [facility] Potassium 3.9 3.5 - 5.1 MMOL/L [facility] Chloride 106 98 - 110 MMOL/L [facility] CO2 21 21 - 30 MMOL/L [facility] Anion Gap 7 3 - 12 [facility] Glucose 211 (H) 70 - 100 MG/DL [facility] Blood Urea Nitrogen 44 (H) 7 - 25 MG/DL [facility] Creatinine 1.95 (H) 0.4 - 1.24 MG/DL [facility] Calcium 8.6 8.5 - 10.6 MG/DL [facility] eGFR Non 34 (L) >60 mL/min [facility] Comment: The eGFR is not validated for use in drug dosing adjustments.Continue to use estimated creatinine clearance per dosing reference text.Please contact the Clinical Pharmacist for questions. eGFR 41 (L) >60 mL/min [facility] Comment: The eGFR is not validated for use in drug dosing adjustments.Continue to use estimated creatinine clearance per dosing reference text.Please contact the Clinical Pharmacist for questions. Specimen Blood Performing Organization Address City/[facility]/Zipcode Phone Number MAIN LAB [address] [place] [address] * POC GLUCOSE (08/26/2018 9:12 PM BODY WORK AUTO TRIMMER) Glucose, POC 196 (H) 70 - 100 MG/DL [facility] Performing Organization Address [facility] Phone Number MAIN LAB [address] [place] [address] * POC GLUCOSE (08/26/2018 4:54 PM BODY WORK AUTO TRIMMER) Glucose, POC 205 (H) 70 - 100 MG/DL [facility] Performing Organization Address [facility] [place] [place] Phone Number MAIN LAB [address] [place] [address] * CREATININE (08/26/2018 3:45 PM BODY WORK AUTO TRIMMER) Creatinine 2.10 (H) 0.4 - 1.24 MG/DL MAIN LAB eGFR Non 31 (L) >60 mL/min MAIN LAB Comment: The eGFR is not validated for use in drug dosing adjustments.Continue to use estimated creatinine clearance per dosing reference text.Please contact the Clinical Pharmacist for questions. eGFR 37 (L) >60 mL/min [facility] Comment: The eGFR is not validated for use in drug dosing adjustments.Continue to use estimated creatinine clearance per dosing reference text.Please contact the Clinical Pharmacist for questions. Specimen Blood Performing Organization Address [facility]/Zipcode Phone Number MAIN LAB [address] [place] [address] * TROPONIN-I (08/26/2018 11:50 AM BODY WORK AUTO TRIMMER) Troponin-I 0.90 (H) 0.0 - 0.05 NG/ML MAIN LAB Specimen Blood Performing Organization Address [facility] Phone Number MAIN LAB [address] [place] [address] * OSMOLALITY (08/26/2018 11:50 AM BODY WORK AUTO TRIMMER) Osmolality 308 (H) 280 - 307 MOSMOL/KG MAIN LAB Specimen Blood Performing Organization Address [facility] Phone Number MAIN LAB [address] [place] [address] * POC GLUCOSE (08/26/2018 11:27 AM BODY WORK AUTO TRIMMER) Glucose, POC 263 (H) 70 - 100 MG/DL MAIN LAB Performing Organization Address [facility] [place], [place] Phone Number MAIN LAB [address] [place] [address] * OSMOLALITY-URINE RANDOM (08/26/2018 8:21 AM BODY WORK AUTO TRIMMER) Osmolality-Urine 514 50 - 1,400 MOS/KG MAIN LAB Specimen Urine - Urine Performing Organization Address [facility] [place], [place] Phone Number MAIN LAB [address] [place] [address] * CREATININE-URINE RANDOM (08/26/2018 8:21 AM BODY WORK AUTO TRIMMER) Creatinine, Random 102 MG/DL MAIN LAB Specimen Urine - Urine Performing Organization Address [facility] [place], [place] Phone Number [facility] [address] [place] [address] * SODIUM-URINE RANDOM (08/26/2018 8:21 AM BODY WORK AUTO TRIMMER) Sodium, Random 53 MMOL/L MAIN LAB Specimen Urine - Urine Performing Organization Address [facility] [place], [place] Phone Number MAIN LAB [address] [place] [address] * CHEST SINGLE VIEW (08/26/2018 8:17 AM BODY WORK AUTO TRIMMER) Impressions Performed At Stable chest radiograph with [...] Interface, Radiant Results - 08/26/2018 12:48 PM BODY WORK AUTO TRIMMER Procedure: CHEST SINGLE VIEW Clinical Indication: 78-year-old [...] on 08/26/2018 9:33 AM. Performing Organization Address [facility] Phone Number RAD RESULTS * POC GLUCOSE (08/26/2018 7:54 AM BODY WORK AUTO TRIMMER) Glucose, POC 151 (H) 70 - 100 MG/DL MAIN LAB Performing Organization Address [facility] Phone Number MAIN LAB [address] [place] [address] * TROPONIN-I (08/26/2018 6:22 AM BODY WORK AUTO TRIMMER) Troponin-I 1.51 (H) 0.0 - 0.05 NG/ML MAIN LAB Specimen Blood Performing Organization Address [facility] Phone Number MAIN LAB [address] [place] [address] * BASIC METABOLIC PANEL (08/26/2018 6:22 AM BODY WORK AUTO TRIMMER) Sodium 138 137 - 147 MMOL/L [facility] Potassium 3.7 3.5 - 5.1 MMOL/L [facility] Chloride 106 98 - 110 MMOL/L [facility] CO2 22 21 - 30 MMOL/L [facility] Anion Gap 10 3 - 12 [facility] Glucose 149 (H) 70 - 100 MG/DL [facility] Blood Urea Nitrogen 43 (H) 7 - 25 MG/DL [facility] Creatinine 1.99 (H) 0.4 - 1.24 MG/DL [facility] Calcium 9.1 8.5 - 10.6 MG/DL [facility] eGFR Non 33 (L) >60 mL/min [facility] Comment: The eGFR is not validated for use in drug dosing adjustments.Continue to use estimated creatinine clearance per dosing reference text.Please contact the Clinical Pharmacist for questions. eGFR 40 (L) >60 mL/min [facility] Comment: The eGFR is not validated for use in drug dosing adjustments.Continue to use estimated creatinine clearance per dosing reference text.Please contact the Clinical Pharmacist for questions. Specimen Blood Performing Organization Address City/State/Zipcode Phone Number [facility] [address] [place] [address] * CBC AND DIFF (08/26/2018 6:22 AM BODY WORK AUTO TRIMMER) White Blood Cells 5.5 4.5 - 11.0 K/UL [facility] RBC 3.06 (L) 4.4 - 5.5 M/UL [facility] Hemoglobin 9.3 (L) 13.5 - 16.5 GM/DL [facility] Hematocrit 27.2 (L) 40 - 50 % [facility] MCV 88.9 80 - 100 FL [facility] MCH 30.3 26 - 34 PG [facility] MCHC 34.0 32.0 - 36.0 G/DL [facility] RDW 14.1 11 - 15 % [facility] Platelet Count 106 (L) 150 - 400 K/UL [facility] MPV 9.2 7 - 11 FL [facility] Neutrophils 77 41 - 77 % [facility] Lymphocytes 13 (L) 24 - 44 % [facility] Monocytes 9 4 - 12 % [facility] Eosinophils 1 0 - 5 % [facility] Basophils 0 0 - 2 % [facility] Absolute Neutrophil Count 4.20 1.8 - 7.0 K/UL [facility] Absolute Lymph Count 0.70 (L) 1.0 - 4.8 K/UL [facility] Absolute Monocyte Count 0.50 0 - 0.80 K/UL [facility] Absolute Eosinophil Count 0.10 0 - 0.45 K/UL [facility] Absolute Basophil Count 0.00 0 - 0.20 K/UL MAIN LAB Specimen Blood Performing Organization Address City/[facility]/Zipcode Phone Number MAIN LAB [address] [place] [address] * TROPONIN-I (08/25/2018 8:30 PM BODY WORK AUTO TRIMMER) Troponin-I 1.56 (H) 0.0 - 0.05 NG/ML MAIN LAB Specimen Blood Performing Organization Address City/[facility] Phone Number MAIN LAB [address] [place] [address] * POC GLUCOSE (08/25/2018 8:24 PM BODY WORK AUTO TRIMMER) Glucose, POC 167 (H) 70 - 100 MG/DL [facility] Performing Organization Address City/[facility] Phone Number MAIN LAB [address] [place] [address] * POC GLUCOSE (08/25/2018 6:33 PM BODY WORK AUTO TRIMMER) Glucose, POC 198 (H) 70 - 100 MG/DL MAIN LAB Performing Organization Address City/[facility] Phone Number MAIN LAB [address] [place] [address] * POC GLUCOSE (08/25/2018 5:30 PM BODY WORK AUTO TRIMMER) Glucose, POC 225 (H) 70 - 100 MG/DL MAIN LAB Performing Organization Address [facility] [place] [place] Phone Number MAIN LAB [address] [place] [phone] * 2-D + DOPPLER ECHOCARDIOGRAM (08/25/2018 3:43 PM BODY WORK AUTO TRIMMER) IVS 1.23 0.6 - 1.0 cm OTHER [...] m2 OTHER OUTSIDE LAB CV ECHO PV MANAGER MEDICAL MARIS Pisano OTHER OUTSIDE LAB FS 19.14 [...] 34 OTHER OUTSIDE LAB Cardiology Ultrasound [employer] [id number] OTHER OUTSIDE LAB Machine Left Ventricle Mass [...] City/State/Zipcode Phone Number OTHER OUTSIDE LAB * TROPONIN-I (08/25/2018 1:27 PM BODY WORK AUTO TRIMMER) Troponin-I 1.23 (H) 0.0 - 0.05 NG/ML MAIN LAB Specimen Blood Performing Organization Address City/State/Zipcode Phone Number MAIN LAB [address] [place] [address] * BNP (B-TYPE NATRIURETIC PEPTI) (08/25/2018 1:27 PM BODY WORK AUTO TRIMMER) B Type Natriuretic 1,148.0 (H) 0 - 100 PG/ML [facility] Peptide Specimen Blood Performing Organization Address City/[facility] Phone Number [facility] [address] [place] [address] * POC GLUCOSE (08/25/2018 11:46 AM BODY WORK AUTO TRIMMER) Glucose, POC 202 (H) 70 - 100 MG/DL [facility] Performing Organization Address [facility] Phone Number [facility] [address] [place] [address] * POC GLUCOSE (08/25/2018 8:50 AM BODY WORK AUTO TRIMMER) Glucose, POC 295 (H) 70 - 100 MG/DL [facility] Performing Organization Address [facility] [place] [place] Phone Number [facility] [address] [place] [phone] * CHEST SINGLE VIEW (08/25/2018 7:59 AM BODY WORK AUTO TRIMMER) Impressions Performed At Mildly enlarged cardiac silhouette with vascular congestion and diffuse [facility] RAD RESULTS interstitial opacities, likely edema. Small bilateral pleural effusions and adjacent consolidation, likely atelectasis. Finalized by TIFFANIE CONTRERAS M.D. on 08/25/2018 8:47 AM. Dictated by TIFFANIE CONTRERAS M.D. on 08/25/2018 8:46 AM. Narrative Performed At CHEST SINGLE VIEW [facility] RAD RESULTS Clinical history: increased O2 needs. Comparison: Chest radiograph of one day earlier Findings: Exam is limited by patient rotation. The cardiac silhouette remains mildly enlarged with vascular congestion and diffuse interstitial opacities. There are probable small bilateral pleural effusions and mild adjacent consolidation. No pneumothorax is seen. 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 Procedure Note Interface, Radiant Results - 08/25/2018 8:50 AM BODY WORK AUTO TRIMMER CHEST SINGLE VIEW Clinical history: increased O2 needs. Comparison: Chest radiograph of one day earlier Findings: Exam is limited by patient rotation. The cardiac silhouette remains mildly enlarged with vascular congestion and diffuse interstitial opacities. There are probable small bilateral pleural effusions and mild adjacent consolidation. No pneumothorax is seen. 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 IMPRESSION Mildly enlarged cardiac silhouette with vascular congestion and diffuse interstitial opacities, likely edema. Small bilateral pleural effusions and adjacent consolidation, likely atelectasis. Finalized by TIFFANIE CONTRERAS M.D. on 08/25/2018 8:47 AM. Dictated by TIFFANIE CONTRERAS M.D. on 08/25/2018 8:46 AM. Performing Organization Address City/[facility] Phone Number RAD RESULTS * POC BLOOD GAS ARTERIAL (08/25/2018 7:42 AM BODY WORK AUTO TRIMMER) PH-ART-POC 7.46 (H) 7.35 - 7.45 [facility]IN [facility] [id number] 23 (L) 35 - 45 MMHG [facility]IN [facility] PO2-ART-POC 104 (H) 80 - 100 MMHG [facility]IN [facility] Base Def-ART-POC 8.0 MMOL/L [facility]IN [facility] O2 Sat-ART-POC 98.0 95 - 99 % [facility] MAIN [facility] Silgmlazkpa-ASV-BXN 16.3 (L) 21 - 28 MMOL/L [facility]IN [facility] Performing Organization Address [facility] [place] [place] Phone Number MAIN LAB [address] [place] [address] * POC TROPONIN (08/25/2018 7:30 AM BODY WORK AUTO TRIMMER) Yxuauldt-V-PQP 0.69 (H) 0.00 - 0.05 NG/ML [facility] Performing Organization Address [facility] [place] [place] Phone Number MAIN LAB [address] [place] [address] * POC GLUCOSE (08/25/2018 7:13 AM BODY WORK AUTO TRIMMER) Glucose, POC 293 (H) 70 - 100 MG/DL [facility] Performing Organization Address [facility] [place] [place] Phone Number MAIN LAB [address] [place] [address] * BASIC METABOLIC PANEL (08/25/2018 5:47 AM BODY WORK AUTO TRIMMER) Sodium 135 (L) 137 - 147 MMOL/L [facility] Potassium 3.9 3.5 - 5.1 MMOL/L [facility] Chloride 107 98 - 110 MMOL/L [facility] CO2 17 (L) 21 - 30 MMOL/L [facility] Anion Gap 11 3 - 12 [facility] Glucose 267 (H) 70 - 100 MG/DL [facility] Blood Urea Nitrogen 43 (H) 7 - 25 MG/DL [facility] Creatinine 1.94 (H) 0.4 - 1.24 MG/DL [facility] Calcium 9.1 8.5 - 10.6 MG/DL [facility]IN [facility] eGFR Non 34 (L) >60 mL/min [facility] Comment: The eGFR is not validated for use in drug dosing adjustments.Continue to use estimated creatinine clearance per dosing reference text.Please contact the Clinical Pharmacist for questions. eGFR 41 (L) >60 mL/min [facility] Comment: The eGFR is not validated for use in drug dosing adjustments.Continue to use estimated creatinine clearance per dosing reference text.Please contact the Clinical Pharmacist for questions. Specimen Blood Performing Organization Address City/[facility]/Zipcode Phone Number MAIN LAB [address] [place] [address] * CBC AND DIFF (08/25/2018 5:47 AM BODY WORK AUTO TRIMMER) White Blood Cells 7.2 4.5 - 11.0 K/UL [facility] RBC 3.20 (L) 4.4 - 5.5 M/UL [facility] Hemoglobin 9.7 (L) 13.5 - 16.5 GM/DL [facility]IN [facility] Hematocrit 28.3 (L) 40 - 50 % [facility] MCV 88.2 80 - 100 FL [facility]IN [facility] MCH 30.2 26 - 34 PG [facility] MCHC 34.3 32.0 - 36.0 G/DL [facility] RDW 13.9 11 - 15 % [facility]IN [facility] Platelet Count 98 (L) 150 - 400 K/UL [facility] MPV 9.8 7 - 11 FL [facility] Neutrophils 86 (H) 41 - 77 % [facility] Lymphocytes 7 (L) 24 - 44 % [facility] Monocytes 7 4 - 12 % [facility] Eosinophils 0 0 - 5 % [facility] Basophils 0 0 - 2 % [facility] Absolute Neutrophil Count 6.10 1.8 - 7.0 K/UL [facility] Absolute Lymph Count 0.50 (L) 1.0 - 4.8 K/UL [facility] Absolute Monocyte Count 0.50 0 - 0.80 K/UL [facility] Absolute Eosinophil Count 0.00 0 - 0.45 K/UL [facility] Absolute Basophil Count 0.00 0 - 0.20 K/UL [facility] Specimen Blood Performing Organization Address City/[facility]/Zipcode Phone Number MAIN LAB [address] [place] [address] * POC GLUCOSE (08/24/2018 10:56 PM BODY WORK AUTO TRIMMER) Glucose, POC 149 (H) 70 - 100 MG/DL MAIN LAB Performing Organization Address City/State/Zipcode Phone Number MAIN LAB [address] [place] [address] * MRI HEAD WO CONTRAST (08/24/2018 9:42 PM BODY WORK AUTO TRIMMER) Impressions Performed At 1.Unchanged acute to early [...] Interface, Radiant Results - 08/25/2018 12:30 PM BODY WORK AUTO TRIMMER EXAM: MRI BRAIN HISTORY: Intracerebral hemorrhage. TECHNIQUE: [...] on 08/25/2018 7:23 AM. Performing Organization Address City/State/Zipcode Phone Number [facility] RAD RESULTS * POC GLUCOSE (08/24/2018 4:52 PM BODY WORK AUTO TRIMMER) Glucose, POC 169 (H) 70 - 100 MG/DL MAIN LAB Performing Organization Address City/State/Zipcode Phone Number MAIN LAB [address] [place] [address] * CULTURE-URINE W/SENSITIVITY (08/24/2018 1:52 PM BODY WORK AUTO TRIMMER) Battery Name URINE CULTURE [facility] MAIN LAB Specimen Description URINE [facility] MAIN LAB Special Requests NONE [facility] MAIN LAB Culture >100,000 organisms/ml MAIN LAB [...] >100,000 organisms/ml morganella morganii Performing Organization Address [facility] Phone Number [facility] MAIN [facility] [address] [place] [address] * UA REFLEX CULTURE LABEL (08/24/2018 1:52 PM BODY WORK AUTO TRIMMER) UA Reflex Culture LAB LABEL [facility] MAIN LAB Specimen Urine Performing Organization Address [facility] Phone Number [facility] MAIN LAB [address] [place] [address] * URINALYSIS MICROSCOPIC REFLEX TO CULTURE (08/24/2018 1:52 PM BODY WORK AUTO TRIMMER) WBCs,UA PACKED 0 - 2 /HPF KU [...] MAIN LAB Specimen Urine Performing Organization Address [facility] [place], [place] Phone Number [facility] MAIN LAB [address] [place] [address] * URINALYSIS DIPSTICK REFLEX TO CULTURE (08/24/2018 1:52 PM BODY WORK AUTO TRIMMER) Color,UA YELLOW [facility] MAIN LAB Turbidity,UA CLEAR CLEAR-CLEAR [facility] MAIN LAB Specific [place]-Urine 1.016 1.003 - 1.035 K[facility] MAIN LAB [...] LAB Urine Ascorbic Acid, UA NEG NEG-NEG [facility] MAIN LAB Specimen Urine Performing Organization Address [facility]/State/Zipcode Phone Number [facility] MAIN LAB [address] [place] [address] * CULTURE-BLOOD W/SENSITIVITY (08/24/2018 1:49 PM BODY WORK AUTO TRIMMER) Battery Name BLOOD CULTURE [facility] MAIN LAB Specimen Description BLOOD [facility] MAIN LAB LEFT ANTECUBITAL Special Requests NONE [facility] MAIN LAB Culture NO GROWTH 5 DAYS [facility] MAIN LAB Report Status FINAL [facility] MAIN LAB 08/30/2018 Specimen Blood Performing Organization Address City/[facility]/Zipcode Phone Number [facility] MAIN LAB [address] [place] [address] * CULTURE-BLOOD W/SENSITIVITY (08/24/2018 1:37 PM BODY WORK AUTO TRIMMER) Battery Name BLOOD CULTURE [facility] MAIN LAB Specimen Description BLOOD [facility] MAIN LAB RIGHT ANTECUBITAL Special Requests NONE [facility] MAIN LAB Culture NO GROWTH 5 DAYS [facility] MAIN LAB Report Status FINAL [facility] MAIN LAB 08/30/2018 Specimen Blood Performing Organization Address City/[facility]/Zipcode Phone Number [facility] MAIN LAB [address] [place] [address] * CHEST SINGLE VIEW (08/24/2018 1:06 PM BODY WORK AUTO TRIMMER) Impressions Performed At Mild enlargement of the cardiac silhouette with vascular congestion and diffuse [facility] RAD RESULTS interstitial opacities, suggesting CHF or volume overload. Approved by Michael Parada D.O. on 08/24/2018 3:35 PM By my electronic signature, I attest that I have personally reviewed the images for this examination and formulated the interpretations and opinions expressed in this report Finalized by TIFFANIE CONTRERAS M.D. on 08/24/2018 5:54 PM. Dictated by Michael Parada D.O. on 08/24/2018 1:11 PM. Narrative Performed At Procedure: CHEST SINGLE VIEW [facility] RAD RESULTS Clinical Indication: 78-year-old male; increased respiratory rate. Comparison: No prior examinations available for comparison. FINDINGS: Prior median sternotomy and CABG. The cardiac silhouette is mildly enlarged. Mild pulmonary vascular congestion and prominent interstitial opacities. There are probable small bilateral pleural effusions. No pneumothorax is identified. Procedure Note Interface, Radiant Results - 08/24/2018 5:58 PM BODY WORK AUTO TRIMMER Procedure: CHEST SINGLE VIEW Clinical Indication: 78-year-old male; increased respiratory rate. Comparison: No prior examinations available for comparison. FINDINGS: Prior median sternotomy and CABG. The cardiac silhouette is mildly enlarged. Mild pulmonary vascular congestion and prominent interstitial opacities. There are probable small bilateral pleural effusions. No pneumothorax is identified. IMPRESSION Mild enlargement of the cardiac silhouette with vascular congestion and diffuse interstitial opacities, suggesting CHF or volume overload. Approved by Michael Parada D.O. on 08/24/2018 3:35 PM By my electronic signature, I attest that I have personally reviewed the images for this examination and formulated the interpretations and opinions expressed in this report Finalized by TIFFANIE CONTRERAS M.D. on 08/24/2018 5:54 PM. Dictated by Michael Parada D.O. on 08/24/2018 1:11 PM. Performing Organization Address City/State/Zipcode Phone Number [facility] RAD RESULTS * CT HEAD WO CONTRAST (08/24/2018 12:48 PM BODY WORK AUTO TRIMMER) Impressions Performed At 1. No significant change [...] effacement of the third ventricle and minimal ojfv-px-yaptx midline shift, measuring 3 mm, previously 4 mm. No hydrocephalus or intraventricular extension of hemorrhage. Baca-white matter interfaces are otherwise maintained. The basal cisterns are patent. The mastoid air cells and visualized paranasal sinuses are well-aerated. Procedure Note Interface, Radiant Results - 08/24/2018 1:39 PM BODY WORK AUTO TRIMMER EXAM: CT HEAD HISTORY: 78-year-old male, altered [...] effacement of the third ventricle and minimal gpzu-rz-trkph midline shift, measuring 3 mm, previously 4 [...] on 08/24/2018 1:01 PM. Performing Organization Address City/[facility]/Zipcode Phone Number RAD RESULTS * POC GLUCOSE (08/24/2018 11:22 AM BODY WORK AUTO TRIMMER) Glucose, POC 182 (H) 70 - 100 MG/DL [facility] MAIN LAB Performing Organization Address City/[facility]/Zipcode Phone Number [facility] MAIN LAB [address] [place] [address] * POC GLUCOSE (08/24/2018 7:36 AM BODY WORK AUTO TRIMMER) Glucose, POC 159 (H) 70 - 100 MG/DL [facility] MAIN LAB Performing Organization Address [facility] Phone Number MAIN LAB [address] [place] [address] * PHOSPHORUS (08/24/2018 4:05 AM BODY WORK AUTO TRIMMER) Phosphorus 3.0Comment: NOTE NEW REFERENCE 2.0 - 4.5 MG/DL [facility] MAIN LAB RANGES Specimen Blood Performing Organization Address [facility] Phone Number [facility] MAIN LAB [address] [place] [address] * MAGNESIUM (08/24/2018 4:05 AM BODY WORK AUTO TRIMMER) Magnesium 2.4 1.6 - 2.6 mg/dL [facility] MAIN LAB Specimen Blood Performing Organization Address City/[facility] Phone Number [facility] MAIN LAB [address] [place] [address] * IONIZED CALCIUM (08/24/2018 4:05 AM BODY WORK AUTO TRIMMER) Ionized Calcium 1.15 1.0 - 1.3 MMOL/L [facility] MAIN LAB Specimen Blood Performing Organization Address [facility] [place], [place] Phone Number [facility] MAIN LAB [address] [place] [address] * CBC AND DIFF (08/24/2018 4:05 AM BODY WORK AUTO TRIMMER) White Blood Cells 8.6 4.5 - 11.0 K/UL MAIN LAB RBC 3.39 (L) 4.4 - 5.5 M/UL MAIN LAB Hemoglobin 10.2 (L) 13.5 - 16.5 GM/DL [facility] MAIN LAB Hematocrit 30.0 (L) 40 - 50 % [facility] MAIN LAB MCV 88.6 80 - 100 FL MAIN LAB MCH 30.2 26 - 34 PG MAIN LAB MCHC 34.1 32.0 - 36.0 G/DL MAIN LAB RDW 14.4 11 - 15 % [facility] MAIN LAB Platelet Count 114 (L) 150 - 400 K/UL [facility] MAIN LAB MPV 10.2 7 - 11 FL [facility] MAIN LAB Neutrophils 84 (H) 41 - 77 % [facility] MAIN LAB Lymphocytes 8 (L) 24 - 44 % [facility] MAIN LAB Monocytes 7 4 - 12 % [facility] MAIN LAB Eosinophils 1 0 - 5 % [facility] MAIN LAB Basophils 0 0 - 2 % [facility] MAIN LAB Absolute Neutrophil Count 7.20 (H) 1.8 - 7.0 K/UL [facility] MAIN LAB Absolute Lymph Count 0.70 (L) 1.0 - 4.8 K/UL [facility] MAIN LAB Absolute Monocyte Count 0.60 0 - 0.80 K/UL [facility] MAIN LAB Absolute Eosinophil Count 0.10 0 - 0.45 K/UL [facility] MAIN LAB Absolute Basophil Count 0.00 0 - 0.20 K/UL [facility] MAIN LAB Specimen Blood Performing Organization Address City/[facility]/Zipcode Phone Number MAIN LAB [address] [place] [address] * BASIC METABOLIC PANEL (08/24/2018 4:05 AM BODY WORK AUTO TRIMMER) Sodium 138 137 - 147 MMOL/L [facility] MAIN LAB Potassium 4.3 3.5 - 5.1 MMOL/L [facility] MAIN LAB Chloride 109 98 - 110 MMOL/L [facility] MAIN LAB CO2 18 (L) 21 - 30 MMOL/L [facility] MAIN LAB Anion Gap 11 3 - 12 [facility] MAIN LAB Glucose 158 (H) 70 - 100 MG/DL [facility] MAIN LAB Blood Urea Nitrogen 41 (H) 7 - 25 MG/DL [facility] MAIN LAB Creatinine 1.91 (H) 0.4 - 1.24 MG/DL [facility] MAIN LAB Calcium 9.4 8.5 - 10.6 MG/DL [facility] MAIN LAB eGFR Non 34 (L) >60 mL/min [facility] MAIN LAB Comment: The eGFR is not validated for use in drug dosing adjustments.Continue to use estimated creatinine clearance per dosing reference text.Please contact the Clinical Pharmacist for questions. eGFR 42 (L) >60 mL/min [facility] MAIN LAB Comment: The eGFR is not validated for use in drug dosing adjustments.Continue to use estimated creatinine clearance per dosing reference text.Please contact the Clinical Pharmacist for questions. Specimen Blood Performing Organization Address [facility]/Zipcode Phone Number MAIN LAB [address] [place] [address] * POC GLUCOSE (08/23/2018 9:11 PM BODY WORK AUTO TRIMMER) Glucose, POC 214 (H) 70 - 100 MG/DL [facility] MAIN LAB Performing Organization Address City/[facility]/Zipcode Phone Number MAIN LAB [address] [place] [address] * POC GLUCOSE (08/23/2018 6:19 PM BODY WORK AUTO TRIMMER) Glucose, POC 165 (H) 70 - 100 MG/DL [facility] MAIN LAB Performing Organization Address City/[facility]/Zipcode Phone Number MAIN LAB [address] [place] [address] * TROPONIN-I (08/23/2018 12:10 PM BODY WORK AUTO TRIMMER) Troponin-I 0.19 (H) 0.0 - 0.05 NG/ML [facility] MAIN LAB Specimen Blood Performing Organization Address [facility] Phone Number [facility] MAIN LAB [address] [place] [address] * POC GLUCOSE (08/23/2018 11:53 AM BODY WORK AUTO TRIMMER) Glucose, POC 200 (H) 70 - 100 MG/DL [facility] MAIN LAB Performing Organization Address [facility] Phone Number [facility] MAIN [facility] [address] [place] [address] * POC GLUCOSE (08/23/2018 8:12 AM BODY WORK AUTO TRIMMER) Glucose, POC 163 (H) 70 - 100 MG/DL [facility] MAIN LAB Performing Organization Address [facility] Phone Number MAIN LAB [address] [place] [phone] * PHOSPHORUS (08/23/2018 3:30 AM BODY WORK AUTO TRIMMER) Phosphorus 3.5Comment: NOTE NEW REFERENCE 2.0 - 4.5 MG/DL [facility] MAIN LAB RANGES Specimen Blood Performing Organization Address [facility] Phone Number [facility] MAIN LAB [address] [place] [phone] * MAGNESIUM (08/23/2018 3:30 AM BODY WORK AUTO TRIMMER) Magnesium 2.3 1.6 - 2.6 mg/dL [facility] MAIN LAB Specimen Blood Performing Organization Address [facility] [place], [place] Phone Number [facility] MAIN LAB [address] [place] [phone] * IONIZED CALCIUM (08/23/2018 3:30 AM BODY WORK AUTO TRIMMER) Ionized Calcium 1.10 1.0 - 1.3 MMOL/L [facility] MAIN LAB Specimen Blood Performing Organization Address [facility] Phone Number [facility] MAIN LAB [address] [place] [address] * CBC AND DIFF (08/23/2018 3:30 AM BODY WORK AUTO TRIMMER) White Blood Cells 8.3 4.5 - 11.0 K/UL [facility] MAIN LAB RBC 3.40 (L) 4.4 - 5.5 M/UL [facility] MAIN LAB Hemoglobin 10.2 (L) 13.5 - 16.5 GM/DL [facility] MAIN LAB Hematocrit 30.1 (L) 40 - 50 % [facility] MAIN LAB MCV 88.5 80 - 100 FL [facility] MAIN LAB MCH 29.9 26 - 34 PG [facility] MAIN LAB MCHC 33.7 32.0 - 36.0 G/DL [facility] MAIN LAB RDW 14.4 11 - 15 % [facility] MAIN LAB Platelet Count 105 (L) 150 - 400 K/UL [facility] MAIN LAB MPV 10.4 7 - 11 FL [facility] MAIN LAB Neutrophils 82 (H) 41 - 77 % [facility] MAIN LAB Lymphocytes 10 (L) 24 - 44 % [facility] MAIN LAB Monocytes 7 4 - 12 % [facility] MAIN LAB Eosinophils 1 0 - 5 % [facility] MAIN LAB Basophils 0 0 - 2 % [facility] MAIN LAB Absolute Neutrophil Count 6.80 1.8 - 7.0 K/UL [facility] MAIN LAB Absolute Lymph Count 0.80 (L) 1.0 - 4.8 K/UL [facility] MAIN LAB Absolute Monocyte Count 0.60 0 - 0.80 K/UL [facility] MAIN LAB Absolute Eosinophil Count 0.10 0 - 0.45 K/UL [facility] MAIN LAB Absolute Basophil Count 0.00 0 - 0.20 K/UL [facility] MAIN LAB Specimen Blood Performing Organization Address City/[facility] Phone Number MAIN LAB [address] [place] [address] * BASIC METABOLIC PANEL (08/23/2018 3:30 AM BODY WORK AUTO TRIMMER) Sodium 136 (L) 137 - 147 MMOL/L [facility] MAIN LAB Potassium 4.5 3.5 - 5.1 MMOL/L [facility] MAIN LAB Chloride 108 98 - 110 MMOL/L [facility] MAIN LAB CO2 18 (L) 21 - 30 MMOL/L [facility] MAIN LAB Anion Gap 10 3 - 12 [facility] MAIN LAB Glucose 190 (H) 70 - 100 MG/DL [facility] MAIN LAB Blood Urea Nitrogen 34 (H) 7 - 25 MG/DL [facility] MAIN LAB Creatinine 1.60 (H) 0.4 - 1.24 MG/DL [facility] MAIN LAB Calcium 9.3 8.5 - 10.6 MG/DL [facility] MAIN LAB eGFR Non 42 (L) >60 mL/min [facility] MAIN LAB Comment: The eGFR is not validated for use in drug dosing adjustments.Continue to use estimated creatinine clearance per dosing reference text.Please contact the Clinical Pharmacist for questions. eGFR 51 (L) >60 mL/min [facility] MAIN LAB Comment: The eGFR is not validated for use in drug dosing adjustments.Continue to use estimated creatinine clearance per dosing reference text.Please contact the Clinical Pharmacist for questions. Specimen Blood Performing Organization Address City/State/[facility] Phone Number MAIN LAB [address] [place] [address] * CT HEAD WO CONTRAST (08/23/2018 1:43 AM BODY WORK AUTO TRIMMER) Impressions Performed At Stable left thalamic and internal capsule hemorrhage with localized mass effect [facility] RAD RESULTS on the third ventricle, which remains patent. No new hemorrhage or intracranial abnormality. By my electronic signature, I attest that I have personally reviewed the images for this examination and formulated the interpretations and opinions expressed in this report Finalized by Solis Aviles MD on 08/23/2018 9:13 AM. Dictated by Mc Arshad M.D. on 08/23/2018 8:40 AM. Narrative Performed At EXAM: CT HEAD [facility] RAD RESULTS HISTORY: 78-year-old male, with intraparenchymal hemorrhage. TECHNIQUE: Multiple contiguous axial images were obtained of the brain without intravenous contrast. COMPARISON: CT head August 21, 2018 FINDINGS: There is redemonstration of left thalamic hemorrhage which extends into the anterior limb of the internal capsule. Mild surrounding vasogenic edema results in stable nksr-dq-piswl shift of the left medial thalamus. The hematoma has not significantly changed in size, measuring 1.6 cm in maximum width (Series 2 #18 ). N o evidence of intraventricular hemorrhage extension. Mild nonspecific white matter disease is noted bilaterally. No midline shift or herniation. Basal cisterns are patent. Mastoid air cells and visualized paranasal sinuses are well-aerated. Hard palate is edentulous. Procedure Note Interface, Radiant Results - 08/23/2018 9:16 AM BODY WORK AUTO TRIMMER EXAM: CT HEAD HISTORY: 78-year-old male, with intraparenchymal hemorrhage. TECHNIQUE: Multiple contiguous axial images were obtained of the brain without intravenous contrast. COMPARISON: CT head August 21, 2018 FINDINGS: There is redemonstration of left thalamic hemorrhage which extends into the anterior limb of the internal capsule. Mild surrounding vasogenic edema results in stable dhus-nr-sgaor shift of the left medial thalamus. The hematoma has not significantly changed in size, measuring 1.6 cm in maximum width (Series 2 #18) . No evidence of intraventricular hemorrhage extension. Mild nonspecific white matter disease is noted bilaterally. No midline shift or herniation. Basal cisterns are patent. Mastoid air cells and visualized paranasal sinuses are well-aerated. Hard palate is edentulous. IMPRESSION Stable left thalamic and internal capsule hemorrhage with localized mass effect on the third ventricle, which remains patent. No new hemorrhage or intracranial abnormality. By my electronic signature, I attest that I have personally reviewed the images for this examination and formulated the interpretations and opinions expressed in this report Finalized by Solis Aviles MD on 08/23/2018 9:13 AM. Dictated by Mc Arshad M.D. on 08/23/2018 8:40 AM. Performing Organization Address City/[facility] Phone Number RAD RESULTS * POC GLUCOSE (08/22/2018 8:57 PM BODY WORK AUTO TRIMMER) Glucose, POC 182 (H) 70 - 100 MG/DL MAIN LAB Performing Organization Address [facility] Phone Number MAIN LAB [address] [place] [address] * POC GLUCOSE (08/22/2018 6:02 PM BODY WORK AUTO TRIMMER) Glucose, POC 187 (H) 70 - 100 MG/DL [facility] MAIN LAB Performing Organization Address [facility] [place], [place] Phone Number MAIN LAB [address] [place] [address] * TROPONIN-I (08/22/2018 12:42 PM BODY WORK AUTO TRIMMER) Troponin-I 0.35 (H) 0.0 - 0.05 NG/ML MAIN LAB Specimen Blood Performing Organization Address [facility] [place], [place] Phone Number MAIN LAB [address] [place] [address] * POC GLUCOSE (08/22/2018 11:34 AM BODY WORK AUTO TRIMMER) Glucose, POC 144 (H) 70 - 100 MG/DL [facility] MAIN LAB Performing Organization Address [facility] Phone Number MAIN LAB [address] [place] [address] * POC GLUCOSE (08/22/2018 9:02 AM BODY WORK AUTO TRIMMER) Glucose, POC 133 (H) 70 - 100 MG/DL [facility] MAIN LAB Performing Organization Address [facility] Phone Number MAIN LAB [address] [place] [address] * POC GLUCOSE (08/22/2018 7:34 AM BODY WORK AUTO TRIMMER) Glucose, POC 155 (H) 70 - 100 MG/DL [facility] MAIN LAB Performing Organization Address [facility]/State/Zipcode Phone Number MAIN LAB [address] [place] [address] * POC GLUCOSE (08/22/2018 6:31 AM BODY WORK AUTO TRIMMER) Glucose, POC 136 (H) 70 - 100 MG/DL [facility] MAIN LAB Performing Organization Address City/[facility] Phone Number MAIN LAB [address] [place] [address] * TROPONIN-I (08/22/2018 6:31 AM BODY WORK AUTO TRIMMER) Troponin-I 0.28 (H) 0.0 - 0.05 NG/ML MAIN LAB Specimen Blood Performing Organization Address City/[facility]/Zipcode Phone Number MAIN LAB [address] [place] [address] * POC GLUCOSE (08/22/2018 4:03 AM BODY WORK AUTO TRIMMER) Glucose, POC 167 (H) 70 - 100 MG/DL MAIN LAB Performing Organization Address [facility] Phone Number MAIN LAB [address] [place] [address] * POC GLUCOSE (08/22/2018 2:56 AM BODY WORK AUTO TRIMMER) Glucose, POC 175 (H) 70 - 100 MG/DL MAIN LAB Performing Organization Address [facility] Phone Number MAIN LAB [address] [place] [address] * TROPONIN-I (08/22/2018 2:10 AM BODY WORK AUTO TRIMMER) Troponin-I 0.15 (H) 0.0 - 0.05 NG/ML MAIN LAB Specimen Blood Performing Organization Address [facility] Phone Number MAIN LAB [address] [place] [address] * PHOSPHORUS (08/22/2018 2:10 AM BODY WORK AUTO TRIMMER) Phosphorus 2.8Comment: NOTE NEW REFERENCE 2.0 - 4.5 MG/DL MAIN LAB RANGES Specimen Blood Performing Organization Address City/[facility]/Zipcode Phone Number MAIN LAB [address] [place] [address] * MAGNESIUM (08/22/2018 2:10 AM BODY WORK AUTO TRIMMER) Magnesium 2.4 1.6 - 2.6 mg/dL MAIN LAB Specimen Blood Performing Organization Address City/[facility]/Zipcode Phone Number MAIN LAB [address] [place] [address] * IONIZED CALCIUM (08/22/2018 2:10 AM BODY WORK AUTO TRIMMER) Ionized Calcium 1.18 1.0 - 1.3 MMOL/L MAIN LAB Specimen Blood Performing Organization Address City/[facility]/Zipcode Phone Number MAIN LAB [address] [place] [address] * CBC AND DIFF (08/22/2018 2:10 AM BODY WORK AUTO TRIMMER) White Blood Cells 9.9 4.5 - 11.0 K/UL [facility] MAIN LAB RBC 3.43 (L) 4.4 - 5.5 M/UL [facility] MAIN LAB Hemoglobin 10.5 (L) 13.5 - 16.5 GM/DL [facility] MAIN LAB Hematocrit 30.5 (L) 40 - 50 % [facility] MAIN LAB MCV 88.9 80 - 100 FL MAIN LAB MCH 30.5 26 - 34 PG MAIN LAB MCHC 34.3 32.0 - 36.0 G/DL MAIN LAB RDW 14.5 11 - 15 % [facility] MAIN LAB Platelet Count 139 (L) 150 - 400 K/UL [facility] MAIN LAB MPV 9.8 7 - 11 FL [facility] MAIN LAB Neutrophils 83 (H) 41 - 77 % [facility] MAIN LAB Lymphocytes 9 (L) 24 - 44 % [facility] MAIN LAB Monocytes 7 4 - 12 % MAIN LAB Eosinophils 1 0 - 5 % [facility] MAIN LAB Basophils 0 0 - 2 % [facility] MAIN LAB Absolute Neutrophil Count 8.20 (H) 1.8 - 7.0 K/UL [facility] MAIN LAB Absolute Lymph Count 0.90 (L) 1.0 - 4.8 K/UL MAIN LAB Absolute Monocyte Count 0.70 0 - 0.80 K/UL MAIN LAB Absolute Eosinophil Count 0.10 0 - 0.45 K/UL MAIN LAB Absolute Basophil Count 0.00 0 - 0.20 K/UL MAIN LAB Specimen Blood Performing Organization Address City/[facility]/Zipcode Phone Number MAIN LAB [address] [place] [address] * BASIC METABOLIC PANEL (08/22/2018 2:10 AM BODY WORK AUTO TRIMMER) Sodium 137 137 - 147 MMOL/L [facility] MAIN LAB Potassium 4.5 3.5 - 5.1 MMOL/L MAIN LAB Chloride 110 98 - 110 MMOL/L [facility] MAIN LAB CO2 21 21 - 30 MMOL/L [facility] MAIN LAB Anion Gap 6 3 - 12 [facility] MAIN LAB Glucose 183 (H) 70 - 100 MG/DL MAIN LAB Blood Urea Nitrogen 35 (H) 7 - 25 MG/DL MAIN LAB Creatinine 1.84 (H) 0.4 - 1.24 MG/DL [facility] MAIN LAB Calcium 8.8 8.5 - 10.6 MG/DL [facility] MAIN LAB eGFR Non 36 (L) >60 mL/min [facility] MAIN LAB Comment: [...] for questions. Specimen Blood Performing Organization Address City/[facility]/Zipcode Phone Number MAIN LAB [address] [place] [address] * POC GLUCOSE (08/22/2018 2:09 AM BODY WORK AUTO TRIMMER) Glucose, POC 181 (H) 70 - 100 MG/DL [facility] MAIN LAB Performing Organization Address City/[facility] Phone Number MAIN LAB [address] [place] [address] * POC GLUCOSE (08/22/2018 12:56 AM BODY WORK AUTO TRIMMER) Glucose, POC 198 (H) 70 - 100 MG/DL [facility] MAIN LAB Performing Organization Address City/[facility] Phone Number MAIN LAB [address] [place] [address] * POC GLUCOSE (08/22/2018 12:04 AM BODY WORK AUTO TRIMMER) Glucose, POC 200 (H) 70 - 100 MG/DL [facility] MAIN LAB Performing Organization Address City/[facility]/Zipcode Phone Number MAIN LAB [address] [place] [address] * TROPONIN-I (08/22/2018 12:03 AM BODY WORK AUTO TRIMMER) Troponin-I 0.08 (H) 0.0 - 0.05 NG/ML [facility] MAIN LAB Specimen Blood Performing Organization Address City/[facility]/Zipcode Phone Number MAIN LAB [address] [place] [address] * POC GLUCOSE (08/21/2018 10:43 PM BODY WORK AUTO TRIMMER) Glucose, POC 230 (H) 70 - 100 MG/DL [facility] MAIN LAB Performing Organization Address [facility] Phone Number [facility] MAIN LAB [address] [place] [address] * TROPONIN-I (08/21/2018 9:30 PM BODY WORK AUTO TRIMMER) Troponin-I 0.04 0.0 - 0.05 NG/ML [facility] Specimen Blood Performing Organization Address [facility] [place], [place] Phone Number [facility] [address] [place] [address] * POC GLUCOSE (08/21/2018 8:07 PM BODY WORK AUTO TRIMMER) Glucose, POC 204 (H) 70 - 100 MG/DL [facility] Performing Organization Address [facility] [place], [place] Phone Number [facility] [address] [place] [address] * ABDOMEN AP ONLY (08/21/2018 7:46 PM BODY WORK AUTO TRIMMER) Impressions Performed At Initial abdominal radiograph demonstrating [...] Interface, Radiant Results - 08/22/2018 7:23 AM BODY WORK AUTO TRIMMER OG placement. Technique: 2 AP supine views [...] on 08/22/2018 7:17 AM. Performing Organization Address [facility] Phone Number RAD RESULTS * TROPONIN-I (08/21/2018 6:30 PM BODY WORK AUTO TRIMMER) Troponin-I 0.05 0.0 - 0.05 NG/ML [facility] Specimen Blood Performing Organization Address [facility] [place], [place] Phone Number [facility] [address] [place] [address] * PHOSPHORUS (08/21/2018 6:30 PM BODY WORK AUTO TRIMMER) Phosphorus 2.3Comment: NOTE NEW REFERENCE 2.0 - 4.5 MG/DL [facility] RANGES Specimen Blood Performing Organization Address [facility] [place], [place] Phone Number [facility] [address] [place] [address] * MAGNESIUM (08/21/2018 6:30 PM BODY WORK AUTO TRIMMER) Magnesium 2.6 1.6 - 2.6 mg/dL [facility] Specimen Blood Performing Organization Address [facility] [place], [place] Phone Number [facility] [address] [place] [address] * BASIC METABOLIC PANEL (08/21/2018 6:30 PM BODY WORK AUTO TRIMMER) Sodium 138 137 - 147 MMOL/L [facility] Potassium 4.2 3.5 - 5.1 MMOL/L [facility] Chloride 110 98 - 110 MMOL/L [facility] CO2 20 (L) 21 - 30 MMOL/L [facility] Anion Gap 8 3 - 12 [facility] Glucose 204 (H) 70 - 100 MG/DL [facility] Blood Urea Nitrogen 36 (H) 7 - 25 MG/DL [facility] Creatinine 1.71 (H) 0.4 - 1.24 MG/DL [facility] Calcium 9.5 8.5 - 10.6 MG/DL [facility] eGFR Non 39 (L) >60 mL/min [facility] Comment: The eGFR is not validated for use in drug dosing adjustments.Continue to use estimated creatinine clearance per dosing reference text.Please contact the Clinical Pharmacist for questions. eGFR 47 (L) >60 mL/min [facility] Comment: The eGFR is not validated for use in drug dosing adjustments.Continue to use estimated creatinine clearance per dosing reference text.Please contact the Clinical Pharmacist for questions. Specimen Blood Performing Organization Address City/[facility]/Zipcode Phone Number [facility] [address] [place] [address] * POC GLUCOSE (08/21/2018 3:29 PM BODY WORK AUTO TRIMMER) Glucose, POC 238 (H) 70 - 100 MG/DL [facility] Performing Organization Address [facility] Phone Number [facility] [address] [place] [address] * POC GLUCOSE (08/21/2018 11:15 AM BODY WORK AUTO TRIMMER) Glucose, POC 176 (H) 70 - 100 MG/DL [facility] Performing Organization Address [facility] Phone Number [facility] [address] [place] [phone] * TROPONIN-I (08/21/2018 11:00 AM BODY WORK AUTO TRIMMER) Troponin-I 0.06 (H) 0.0 - 0.05 NG/ML [facility] Specimen Blood Performing Organization Address [facility] Phone Number [facility] [address] [place] [address] * CT HEAD WO CONTRAST (08/21/2018 10:38 AM BODY WORK AUTO TRIMMER) Impressions Performed At No significant change in size and expected evolution of the left thalamic and [facility] RAD RESULTS internal capsule hemorrhage with localized mass effect on the third ventricle which remains widely patent. No new hemorrhage or intracranial abnormality. Finalized by NILSON FIGUEROA M.D. on 08/21/2018 10:58 AM. Dictated by NILSON FIGUEROA M.D. on 08/21/2018 10:52 AM. Narrative Performed At CT HEAD WITHOUT CONTRAST [facility] RAD RESULTS HISTORY: 78 years old Male, intracranial hemorrhage. TECHNIQUE: CT images of the head were acquired without intravenous contrast. COMPARISON: CT from one day prior. FINDINGS: BRAIN PARENCHYMA: Redemonstration of left thalamic and internal capsule hemorrhage with expected evolution with increased conspicuity of margins and surrounding vasogenic edema. The size of the hematoma has not changed and measures 16 mm in maximal width. There is local mass effect on the third ventricle which remains patent. No herniation. 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 White matter is within normal limits for age. VENTRICLES/EXTRA-AXIAL SPACES: No hydrocephalus or extra-axial fluid collections. EXTRACRANIAL STRUCTURES: Normal bones and soft tissues. Visualized paranasal sinuses and mastoids are clear. Procedure Note Interface, Radiant Results - 08/21/2018 11:01 AM BODY WORK AUTO TRIMMER CT HEAD WITHOUT CONTRAST HISTORY: 78 years old Male, intracranial hemorrhage. TECHNIQUE: CT images of the head were acquired without intravenous contrast. COMPARISON: CT from one day prior. FINDINGS: BRAIN PARENCHYMA: Redemonstration of left thalamic and internal capsule hemorrhage with expected evolution with increased conspicuity of margins and surrounding vasogenic edema. The size of the hematoma has not changed and measures 16 mm in maximal width. There is local mass effect on the third ventricle which remains patent. No herniation. 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 White matter is within normal limits for age. VENTRICLES/EXTRA-AXIAL SPACES: No hydrocephalus or extra-axial fluid collections. EXTRACRANIAL STRUCTURES: Normal bones and soft tissues. Visualized paranasal sinuses and mastoids are clear. IMPRESSION No significant change in size and expected evolution of the left thalamic and internal capsule hemorrhage with localized mass effect on the third ventricle which remains widely patent. No new hemorrhage or intracranial abnormality. Finalized by NILSON FIGUEROA M.D. on 08/21/2018 10:58 AM. Dictated by NILSON FIGUEROA M.D. on 08/21/2018 10:52 AM. Performing Organization Address City/State/Zipcode Phone Number RAD RESULTS * POC GLUCOSE (08/21/2018 7:57 AM BODY WORK AUTO TRIMMER) Glucose, POC 197 (H) 70 - 100 MG/DL MAIN LAB Performing Organization Address City/State/Zipcode Phone Number MAIN LAB [address] [place] [address] * TROPONIN-I (08/21/2018 4:50 AM BODY WORK AUTO TRIMMER) Troponin-I 0.07 (H) 0.0 - 0.05 NG/ML [facility] Specimen Blood Performing Organization Address City/[facility]/Zipcode Phone Number [facility] [address] [place] [address] * PHOSPHORUS (08/21/2018 4:50 AM BODY WORK AUTO TRIMMER) Phosphorus 3.4Comment: NOTE NEW REFERENCE 2.0 - 4.5 MG/DL [facility] RANGES Specimen Blood Performing Organization Address [facility] Phone Number [facility] [address] [place] [address] * MAGNESIUM (08/21/2018 4:50 AM BODY WORK AUTO TRIMMER) Magnesium 2.5 1.6 - 2.6 mg/dL [facility] Specimen Blood Performing Organization Address [facility] [place], [place] Phone Number [facility] [address] [place] [address] * CBC AND DIFF (08/21/2018 4:50 AM BODY WORK AUTO TRIMMER) White Blood Cells 5.4 4.5 - 11.0 K/UL MAIN LAB RBC 3.70 (L) 4.4 - 5.5 M/UL MAIN LAB Hemoglobin 11.2 (L) 13.5 - 16.5 GM/DL MAIN LAB Hematocrit 32.3 (L) 40 - 50 % MAIN LAB MCV 87.2 80 - 100 FL MAIN LAB MCH 30.4 26 - 34 PG MAIN LAB MCHC 34.8 32.0 - 36.0 G/DL MAIN LAB RDW 14.4 11 - 15 % [facility] Platelet Count 102 (L) 150 - 400 K/UL MAIN LAB MPV 9.7 7 - 11 FL MAIN LAB Neutrophils 72 41 - 77 % [facility] Lymphocytes 18 (L) 24 - 44 % [facility] Monocytes 7 4 - 12 % [facility] Eosinophils 2 0 - 5 % [facility] Basophils 1 0 - 2 % [facility] Absolute Neutrophil Count 3.90 1.8 - 7.0 K/UL [facility] Absolute Lymph Count 1.00 1.0 - 4.8 K/UL [facility] Absolute Monocyte Count 0.40 0 - 0.80 K/UL [facility] Absolute Eosinophil Count 0.10 0 - 0.45 K/UL [facility] Absolute Basophil Count 0.00 0 - 0.20 K/UL [facility] Specimen Blood Performing Organization Address City/[facility]/Zipcode Phone Number MAIN LAB [address] [place] [address] * BASIC METABOLIC PANEL (08/21/2018 4:50 AM BODY WORK AUTO TRIMMER) Sodium 140 137 - 147 MMOL/L [facility] Potassium 3.9 3.5 - 5.1 MMOL/L [facility] Chloride 110 98 - 110 MMOL/L [facility] CO2 21 21 - 30 MMOL/L [facility] Anion Gap 9 3 - 12 [facility] Glucose 160 (H) 70 - 100 MG/DL [facility] Blood Urea Nitrogen 38 (H) 7 - 25 MG/DL [facility] Creatinine 1.81 (H) 0.4 - 1.24 MG/DL [facility] Calcium 9.3 8.5 - 10.6 MG/DL [facility] eGFR Non 37 (L) >60 mL/min [facility] Comment: The eGFR is not validated for use in drug dosing adjustments.Continue to use estimated creatinine clearance per dosing reference text.Please contact the Clinical Pharmacist for questions. eGFR 44 (L) >60 mL/min [facility] Comment: The eGFR is not validated for use in drug dosing adjustments.Continue to use estimated creatinine clearance per dosing reference text.Please contact the Clinical Pharmacist for questions. Specimen Blood Narrative Performed At Performing Organization Address [facility] Phone Number [facility] [address] [place] [address] * IONIZED CALCIUM (08/21/2018 4:00 AM BODY WORK AUTO TRIMMER) Ionized Calcium 1.22 1.0 - 1.3 MMOL/L MAIN LAB Specimen Blood Performing Organization Address City/[facility]/Zipcode Phone Number [facility] [address] [place] [address] * POC GLUCOSE (08/21/2018 3:04 AM BODY WORK AUTO TRIMMER) Glucose, POC 160 (H) 70 - 100 MG/DL MAIN LAB Performing Organization Address [facility] Phone Number [facility] [address] [place] [address] * TROPONIN-I (08/20/2018 11:05 PM BODY WORK AUTO TRIMMER) Troponin-I 0.06 (H) 0.0 - 0.05 NG/ML [facility] Specimen Blood Performing Organization Address City/[facility] Phone Number [facility] [address] [place] [address] * POC GLUCOSE (08/20/2018 8:35 PM BODY WORK AUTO TRIMMER) Glucose, POC 273 (H) 70 - 100 MG/DL [facility] Performing Organization Address [facility] Phone Number [facility] [address] [place] [address] * POC GLUCOSE (08/20/2018 5:29 PM BODY WORK AUTO TRIMMER) Glucose, POC 290 (H) 70 - 100 MG/DL [facility] Performing Organization Address [facility] Phone Number [facility] [address] [place] [phone] * MAGNESIUM (08/20/2018 4:51 PM BODY WORK AUTO TRIMMER) Magnesium 1.8 1.6 - 2.6 mg/dL [facility] Specimen Blood Performing Organization Address [facility] [place], [place] Phone Number [facility] [address] [place] [address] * BASIC METABOLIC PANEL (08/20/2018 4:51 PM BODY WORK AUTO TRIMMER) Sodium 137 137 - 147 MMOL/L [facility] Potassium 4.1 3.5 - 5.1 MMOL/L [facility] Chloride 106 98 - 110 MMOL/L [facility] CO2 20 (L) 21 - 30 MMOL/L [facility] Anion Gap 11 3 - 12 [facility] Glucose 304 (H) 70 - 100 MG/DL [facility] Blood Urea Nitrogen 35 (H) 7 - 25 MG/DL [facility] Creatinine 2.00 (H) 0.4 - 1.24 MG/DL [facility] Calcium 9.1 8.5 - 10.6 MG/DL [facility] eGFR Non 33 (L) >60 mL/min [facility] Comment: The eGFR is not validated for use in drug dosing adjustments.Continue to use estimated creatinine clearance per dosing reference text.Please contact the Clinical Pharmacist for questions. eGFR 39 (L) >60 mL/min [facility] Comment: The eGFR is not validated for use in drug dosing adjustments.Continue to use estimated creatinine clearance per dosing reference text.Please contact the Clinical Pharmacist for questions. Specimen Blood Performing Organization Address City/[facility] Phone Number MAIN LAB [address] [place] [address] * TROPONIN-I (08/20/2018 4:51 PM BODY WORK AUTO TRIMMER) Troponin-I 0.04 0.0 - 0.05 NG/ML MAIN LAB Specimen Blood Performing Organization Address [facility] Phone Number MAIN LAB [address] [place] [address] * POC GLUCOSE (08/20/2018 12:46 PM BODY WORK AUTO TRIMMER) Glucose, POC 153 (H) 70 - 100 MG/DL [facility] Performing Organization Address [facility] [place], [place] Phone Number MAIN LAB [address] [place] [address] * LIPID PROFILE (08/20/2018 10:17 AM BODY WORK AUTO TRIMMER) Cholesterol 179 <200 MG/DL [facility] Triglycerides 204 (H) <150 MG/DL [facility] HDL 26 (L) >40 MG/DL [facility] LDL 111 (H) <100 MG/DL [facility] VLDL 41 MG/DL [facility] Non HDL Cholesterol 153 MG/DL MAIN LAB Comment: Calculated non-HDL Cholesterol (non-HDL-C) indirectly measures LDL-C, Lp(a), IDL-C, and VLDL-C.It is a surrogate marker for Apoprotein B.Goal should be less than 130 mg/dL. Specimen Blood Performing Organization Address [facility] [place], [place] Phone Number MAIN LAB [address] [place] [address] * HEMOGLOBIN A1C (08/20/2018 10:17 AM BODY WORK AUTO TRIMMER) Hemoglobin A1C 7.3 (H) 4.0 - 6.0 % MAIN LAB Comment: The ADA recommends that most patients with type 1 and type 2 diabetes maintain an A1c level <7%. Specimen Blood Performing Organization Address [facility] Phone Number MAIN LAB [address] [place] [address] * CT HEAD WO CONTRAST (08/20/2018 9:26 AM BODY WORK AUTO TRIMMER) Impressions Performed At Unchanged examination. Left thalamic and internal capsule 1.8 cm hematoma with [facility] RAD RESULTS mild local mass effect. No new intracranial abnormality. Finalized by NILSON FIGUEROA M.D. on 08/20/2018 9:35 AM. Dictated by NILSON FIGUEROA M.D. on 08/20/2018 9:32 AM. Narrative Performed At CT HEAD WITHOUT CONTRAST [facility] RAD RESULTS HISTORY: 78 years old Male, intracranial hemorrhage. TECHNIQUE: CT images of the head were acquired without intravenous contrast. COMPARISON: CT head from one day prior. FINDINGS: BRAIN PARENCHYMA: No significant change in 1.8 cm left thalamus and internal capsule hematoma. Mild local mass effect is unchanged. Baac-white differentiation is otherwise maintained. White matter is within normal limits for age. VENTRICLES/EXTRA-AXIAL SPACES: No hydrocephalus or extra-axial fluid collections. EXTRACRANIAL STRUCTURES: Normal bones and soft tissues. Visualized paranasal sinuses and mastoids are clear. Procedure Note Interface, Radiant Results - 08/20/2018 9:38 AM BODY WORK AUTO TRIMMER CT HEAD WITHOUT CONTRAST HISTORY: 78 years old Male, intracranial hemorrhage. TECHNIQUE: CT images of the head were acquired without intravenous contrast. COMPARISON: CT head from one day prior. FINDINGS: BRAIN PARENCHYMA: No significant change in 1.8 cm left thalamus and internal capsule hematoma. Mild local mass effect is unchanged. Baca-white differentiation is otherwise maintained. White matter is within normal limits for age. VENTRICLES/EXTRA-AXIAL SPACES: No hydrocephalus or extra-axial fluid collections. EXTRACRANIAL STRUCTURES: Normal bones and soft tissues. Visualized paranasal sinuses and mastoids are clear. IMPRESSION Unchanged examination. Left thalamic and internal capsule 1.8 cm hematoma with mild local mass effect. No new intracranial abnormality. Finalized by NILSON FIGUEROA M.D. on 08/20/2018 9:35 AM. Dictated by NILSON FIGUEROA M.D. on 08/20/2018 9:32 AM. Performing Organization Address [facility] Phone Number [facility] RESULTS * POC GLUCOSE (08/20/2018 8:21 AM BODY WORK AUTO TRIMMER) Glucose, POC 164 (H) 70 - 100 MG/DL [facility] Performing Organization Address City/[facility]/[employer] Phone Number [facility]IN [facility] [address] [place] [address] * PROTIME INR (PT) (08/20/2018 5:24 AM BODY WORK AUTO TRIMMER) INR 1.1 0.8 - 1.2 [facility] Specimen Blood Performing Organization Address [facility]/[employer] Phone Number [facility] [address] [place] [address] * PHOSPHORUS (08/20/2018 4:37 AM BODY WORK AUTO TRIMMER) Phosphorus 3.1Comment: NOTE NEW REFERENCE 2.0 - 4.5 MG/DL [facility] MAIN [facility] RANGES Specimen Blood Performing Organization Address [facility] Phone Number [facility] [address] [place] [address] * MAGNESIUM (08/20/2018 4:37 AM BODY WORK AUTO TRIMMER) Magnesium 1.7 1.6 - 2.6 mg/dL [facility] Specimen Blood Performing Organization Address [facility] Phone Number [facility] [address] [place] [address] * IONIZED CALCIUM (08/20/2018 4:37 AM BODY WORK AUTO TRIMMER) Ionized Calcium 1.15 1.0 - 1.3 MMOL/L [facility] Specimen Blood Performing Organization Address [facility] Phone Number [facility] [address] [place] [address] * CBC AND DIFF (08/20/2018 4:37 AM BODY WORK AUTO TRIMMER) White Blood Cells 6.7 4.5 - 11.0 K/UL MAIN LAB RBC 3.51 (L) 4.4 - 5.5 M/UL MAIN LAB Hemoglobin 10.8 (L) 13.5 - 16.5 GM/DL [facility] MAIN [facility] Hematocrit 30.9 (L) 40 - 50 % MAIN LAB MCV 87.8 80 - 100 FL MAIN LAB MCH 30.6 26 - 34 PG MAIN LAB MCHC 34.8 32.0 - 36.0 G/DL MAIN LAB RDW 14.1 11 - 15 % [facility] MAIN [facility] Platelet Count 108 (L) 150 - 400 K/UL MAIN LAB MPV 9.3 7 - 11 FL MAIN LAB Neutrophils 80 (H) 41 - 77 % [facility]IN [facility] Lymphocytes 13 (L) 24 - 44 % [facility] Monocytes 6 4 - 12 % [facility] Eosinophils 1 0 - 5 % [facility] Basophils 0 0 - 2 % [facility] Absolute Neutrophil Count 5.40 1.8 - 7.0 K/UL [facility]IN [facility] Absolute Lymph Count 0.90 (L) 1.0 - 4.8 K/UL [facility]IN [facility] Absolute Monocyte Count 0.40 0 - 0.80 K/UL MAIN LAB Absolute Eosinophil Count 0.10 0 - 0.45 K/UL MAIN LAB Absolute Basophil Count 0.00 0 - 0.20 K/UL MAIN LAB Specimen Blood Performing Organization Address City/[facility] Phone Number MAIN LAB [address] [place] [address] * BASIC METABOLIC PANEL (08/20/2018 4:37 AM BODY WORK AUTO TRIMMER) Sodium 137 137 - 147 MMOL/L MAIN LAB Potassium 4.3 3.5 - 5.1 MMOL/L [facility] Chloride 107 98 - 110 MMOL/L MAIN LAB CO2 20 (L) 21 - 30 MMOL/L [facility] Anion Gap 10 3 - 12 MAIN LAB Glucose 179 (H) 70 - 100 MG/DL [facility] Blood Urea Nitrogen 31 (H) 7 - 25 MG/DL MAIN LAB Creatinine 1.83 (H) 0.4 - 1.24 MG/DL [facility] Calcium 9.4 8.5 - 10.6 MG/DL MAIN LAB eGFR Non 36 (L) >60 mL/min MAIN LAB Comment: The eGFR is not validated for use in drug dosing adjustments.Continue to use estimated creatinine clearance per dosing reference text.Please contact the Clinical Pharmacist for questions. eGFR 44 (L) >60 mL/min MAIN LAB Comment: The eGFR is not validated for use in drug dosing adjustments.Continue to use estimated creatinine clearance per dosing reference text.Please contact the Clinical Pharmacist for questions. Specimen Blood Performing Organization Address [facility] [place], [place] Phone Number [facility] [address] [place] [address] * ECG-SCAN (08/20/2018 12:00 AM BODY WORK AUTO TRIMMER) Narrative Performed At Ordered by an unspecified provider. * PHENCYCLIDINES-URINE RANDOM (08/19/2018 10:49 PM BODY WORK AUTO TRIMMER) Phencyclidine (PCP) NEG NEG-NEG MAIN LAB Comment: RESULTS WERE OBTAINED BY IMMUNOASSAY AND ARE PRESUMPTIVE ONLY. POSITIVE INDICATES THE PRESENCE OF SUBSTANCE WITH CHARACTERISTICS SIMILAR TO DRUG-DRUG CLASS OR METABOLITE IN CONC. EQUAL TO OR EXCEEDING VALUES LISTED. PHENCYCLIDINE (PCP)25 NG/ML Specimen Urine - Urine Performing Organization Address City/[facility] Phone Number MAIN LAB [address] [place] [address] * OPIATES-URINE RANDOM (08/19/2018 10:49 PM BODY WORK AUTO TRIMMER) Opiates-Urine NEG NEG-NEG [facility] Comment: RESULTS WERE OBTAINED BY IMMUNOASSAY AND ARE PRESUMPTIVE ONLY. POSITIVE INDICATES THE PRESENCE OF SUBSTANCE WITH CHARACTERISTICS SIMILAR TO DRUG-DRUG CLASS OR METABOLITE IN CONC. EQUAL TO OR EXCEEDING VALUES LISTED. OPIATES 2000 NG/ML Specimen Urine - Urine Performing Organization Address [facility], [place] Phone Number [facility] [address] [place] [address] * COCAINE-URINE RANDOM (08/19/2018 10:49 PM BODY WORK AUTO TRIMMER) Cocaine-Urine NEG NEG-NEG MAIN LAB Comment: RESULTS WERE OBTAINED BY IMMUNOASSAY AND ARE PRESUMPTIVE ONLY. POSITIVE INDICATES THE PRESENCE OF SUBSTANCE WITH CHARACTERISTICS SIMILAR TO DRUG-DRUG CLASS OR METABOLITE IN CONC. EQUAL TO OR EXCEEDING VALUES LISTED. COCAINE 300 NG/ML Specimen Urine - Urine Performing Organization Address [facility] [place], [place] Phone Number [facility] [address] [place] [address] * CANNABINOIDS-URINE RANDOM (08/19/2018 10:49 PM BODY WORK AUTO TRIMMER) THC NEG NEG-NEG MAIN LAB Comment: RESULTS WERE OBTAINED BY IMMUNOASSAY AND ARE PRESUMPTIVE ONLY. POSITIVE INDICATES THE PRESENCE OF SUBSTANCE WITH CHARACTERISTICS SIMILAR TO DRUG-DRUG CLASS OR METABOLITE IN CONC. EQUAL TO OR EXCEEDING VALUES LISTED. CANNABINOIDS 50 NG/ML Specimen Urine - Urine Performing Organization Address [facility] [place], [place] Phone Number [facility] [address] [place] [address] * BENZODIAZEPINES-URINE RANDOM (08/19/2018 10:49 PM BODY WORK AUTO TRIMMER) Benzodiazepines NEG NEG-NEG [facility] Comment: RESULTS WERE OBTAINED BY IMMUNOASSAY AND ARE PRESUMPTIVE ONLY. POSITIVE INDICATES THE PRESENCE OF SUBSTANCE WITH CHARACTERISTICS SIMILAR TO DRUG-DRUG CLASS OR METABOLITE IN CONC. EQUAL TO OR EXCEEDING VALUES LISTED. BENZODIAZEPINES 200 NG/ML Specimen Urine - Urine Performing Organization Address [facility] [place], [place] Phone Number [facility] [address] [place] [address] * BARBITURATES-URINE RANDOM (08/19/2018 10:49 PM BODY WORK AUTO TRIMMER) Barbiturates,Urine NEG NEG-NEG [facility] Comment: RESULTS WERE OBTAINED BY IMMUNOASSAY AND ARE PRESUMPTIVE ONLY. POSITIVE INDICATES THE PRESENCE OF SUBSTANCE WITH CHARACTERISTICS SIMILAR TO DRUG-DRUG CLASS OR METABOLITE IN CONC. EQUAL TO OR EXCEEDING VALUES LISTED. BARBITURATES 200 NG/ML Specimen Urine - Urine Performing Organization Address [facility] Phone Number [facility]IN [facility] [address] [place] [address] * AMPHETAMINES-URINE RANDOM (08/19/2018 10:49 PM BODY WORK AUTO TRIMMER) Amphetamines NEG NEG-NEG [facility] Comment: RESULTS WERE OBTAINED BY IMMUNOASSAY AND ARE PRESUMPTIVE ONLY. POSITIVE INDICATES THE PRESENCE OF SUBSTANCE WITH CHARACTERISTICS SIMILAR TO DRUG-DRUG CLASS OR METABOLITE IN CONC. EQUAL TO OR EXCEEDING VALUES LISTED. AMPHETAMINES 1000 NG/ML Specimen Urine - Urine Performing Organization Address [facility] Phone Number [facility] [address] [place] [address] * CT HEAD WO CONTRAST (08/19/2018 9:53 PM BODY WORK AUTO TRIMMER) Impressions Performed At 1.Mild increased size of intraparenchymal hemorrhage centered in the left [facility] thalamus extending into the internal capsule. Similar mild adjacent vasogenic edema with mild associated mass effect and minimal localized left to right midline shift. 2.No hydrocephalus. By my electronic signature, I attest that I have personally reviewed the images for this examination and formulated the interpretations and opinions expressed in this report Finalized by Serjio Plummer M.D. on 08/19/2018 11:20 PM. Dictated by Maximino Hayes D.O. on 08/19/2018 10:40 PM. Narrative Performed At EXAM: CT HEAD [facility] CLINICAL INDICATION: Male, 78 years. Intraparenchymal hemorrhage. TECHNIQUE: Multiple contiguous axial images were obtained of the brain without intravenous contrast. COMPARISON: External CT head from earlier same day FINDINGS: The intraparenchymal hemorrhage centered in the anterior left thalamus appears mildly increased in size compared to the outside exam, with the dominant portion of the hemorrhage at the anterior left thalamus measuring approximately 1.8 x 1.6 cm (series 2, image 18), compared 1.6 x 1.3 cm on prior when measured in similar fashion. There is similar mild extension of parenchymal hemorrhage in the region of the left internal capsule anterior limb. There is mild adjacent vasogenic edema and mild mass effect. There is some minimal localized left right midline shift at the level of the hemorrhage and some minimal compression of the left lateral ventricle. No significant hydrocephalus. The baac-white matter interfaces are overall maintained. The basal cisterns are patent. The calvarium is intact. Mastoid air cells and paranasal sinuses are unremarkable. The globes and orbits are unremarkable apart from prior bilateral ocular lens replacement. Bilateral moderate distal internal carotid and mild vertebral basilar atherosclerotic calcified plaque. Procedure Note Interface, Radiant Results - 08/19/2018 11:23 PM BODY WORK AUTO TRIMMER EXAM: CT HEAD CLINICAL INDICATION: Male, 78 years. Intraparenchymal hemorrhage. TECHNIQUE: Multiple contiguous axial images were obtained of the brain without intravenous contrast. COMPARISON: External CT head from earlier same day FINDINGS: The intraparenchymal hemorrhage centered in the anterior left thalamus appears mildly increased in size compared to the outside exam, with the dominant portion of the hemorrhage at the anterior left thalamus measuring approximately 1.8 x 1.6 cm (series 2, image 18), compared 1.6 x 1.3 cm on prior when measured in similar fashion. There is similar mild extension of parenchymal hemorrhage in the region of the left internal capsule anterior limb. There is mild adjacent vasogenic edema and mild mass effect. There is some minimal localized left right midline shift at the level of the hemorrhage and some minimal compression of the left lateral ventricle. No significant hydrocephalus. The baca-white matter interfaces are overall maintained. The basal cisterns are patent. The calvarium is intact. Mastoid air cells and paranasal sinuses are unremarkable. The globes and orbits are unremarkable apart from prior bilateral ocular lens replacement. Bilateral moderate distal internal carotid and mild vertebral basilar atherosclerotic calcified plaque. IMPRESSION 1. Mild increased size of intraparenchymal hemorrhage centered in the left thalamus extending into the internal capsule. Similar mild adjacent vasogenic edema with mild associated mass effect and minimal localized left to right midline shift. 2. No hydrocephalus. By my electronic signature, I attest that I have personally reviewed the images for this examination and formulated the interpretations and opinions expressed in this report Finalized by Serjio Plummer M.D. on 08/19/2018 11:20 PM. Dictated by Maximino Hayes D.O. on 08/19/2018 10:40 PM. Performing Organization Address City/State/Zipcode Phone Number [facility] * PHOSPHORUS (08/19/2018 9:40 PM BODY WORK AUTO TRIMMER) Phosphorus 2.7Comment: NOTE NEW REFERENCE 2.0 - 4.5 MG/DL [facility] Specimen Blood Performing Organization Address City/[facility]/Zipcode Phone Number [facility] [address] [place] [address] * MAGNESIUM (08/19/2018 9:40 PM BODY WORK AUTO TRIMMER) Magnesium 1.6 1.6 - 2.6 mg/dL [facility] Specimen Blood Performing Organization Address [facility] Phone Number [facility] [address] [place] [address] * IONIZED CALCIUM (08/19/2018 9:40 PM BODY WORK AUTO TRIMMER) Ionized Calcium 1.09 1.0 - 1.3 MMOL/L [facility] Specimen Blood Performing Organization Address [facility] Phone Number [facility] [address] [place] [address] * COMPREHENSIVE METABOLIC PANEL (08/19/2018 9:40 PM BODY WORK AUTO TRIMMER) Sodium 139 137 - 147 MMOL/L [facility] Potassium 3.8 3.5 - 5.1 MMOL/L [facility] Chloride 109 98 - 110 MMOL/L [facility] Glucose 132 (H) 70 - 100 MG/DL [facility] Blood Urea Nitrogen 26 (H) 7 - 25 MG/DL [facility] Creatinine 1.58 (H) 0.4 - 1.24 MG/DL [facility] Calcium 8.9 8.5 - 10.6 MG/DL [facility] Total Protein 6.8 6.0 - 8.0 G/DL [facility] Total Bilirubin 0.4 0.3 - 1.2 MG/DL [facility] Albumin 4.3 3.5 - 5.0 G/DL [facility] Alk Phosphatase 60 25 - 110 U/L [facility] AST (SGOT) 25 7 - 40 U/L [facility] CO2 21 21 - 30 MMOL/L [facility] ALT (SGPT) 45 7 - 56 U/L [facility] Anion Gap 9 3 - 12 [facility] eGFR Non 43 (L) >60 mL/min [facility] Comment: The eGFR is not validated for use in drug dosing adjustments.Continue to use estimated creatinine clearance per dosing reference text.Please contact the Clinical Pharmacist for questions. eGFR 52 (L) >60 mL/min [facility] Comment: The eGFR is not validated for use in drug dosing adjustments.Continue to use estimated creatinine clearance per dosing reference text.Please contact the Clinical Pharmacist for questions. Specimen Blood Performing Organization Address City/[facility]/Zipcode Phone Number MAIN LAB [address] [place] [address] * PROTIME INR (PT) (08/19/2018 9:40 PM BODY WORK AUTO TRIMMER) INR 1.1 0.8 - 1.2 MAIN LAB Specimen Blood Performing Organization Address [facility] Phone Number MA[facility] LAB [address] [place] [address] * CBC AND DIFF (08/19/2018 9:40 PM BODY WORK AUTO TRIMMER) White Blood Cells 4.8 4.5 - 11.0 K/[facility]IN [facility] RBC 3.60 (L) 4.4 - 5.5 M/UL MAIN LAB Hemoglobin 10.9 (L) 13.5 - 16.5 GM/DL MAIN LAB Hematocrit 31.8 (L) 40 - 50 % MAIN LAB MCV 88.2 80 - 100 FL MAIN LAB MCH 30.2 26 - 34 PG MAIN LAB MCHC 34.2 32.0 - 36.0 G/DL MAIN LAB RDW 14.1 11 - 15 % [facility] Platelet Count 114 (L) 150 - 400 K[facility]IN [facility] MPV 9.1 7 - 11 FL [facility] Neutrophils 68 41 - 77 % [facility] Lymphocytes 21 (L) 24 - 44 % MAIN LAB Monocytes 8 4 - 12 % MAIN LAB Eosinophils 3 0 - 5 % [facility] Basophils 0 0 - 2 % [facility] Absolute Neutrophil Count 3.20 1.8 - 7.0 K/UL [facility] Absolute Lymph Count 1.00 1.0 - 4.8 K/UL [facility] Absolute Monocyte Count 0.40 0 - 0.80 K/UL [facility] Absolute Eosinophil Count 0.10 0 - 0.45 K/UL [facility] Absolute Basophil Count 0.00 0 - 0.20 K/[facility]IN [facility] Specimen Blood Performing Organization Address [facility]/Zipcode Phone Number MAIN LAB [address] [place] [address] * ECG-SCAN (08/19/2018 12:00 AM BODY WORK AUTO TRIMMER) Narrative Performed At Ordered by an unspecified provider. * ECG-SCAN (08/19/2018 12:00 AM BODY WORK AUTO TRIMMER) Narrative Performed At Ordered by an unspecified provider. * ECG-SCAN (08/19/2018 12:00 AM BODY WORK AUTO TRIMMER) Narrative Performed At Ordered by an unspecified provider. * CT HEAD EXTERNAL IMAGING (08/19/2018 12:00 AM BODY WORK AUTO TRIMMER) Narrative Performed At This order has been auto finalized and does not contain a result. in this encounter Visit Diagnoses Diagnosis ICH (intracerebral hemorrhage) (HCC) - Primary Intracerebral hemorrhage Other left-sided nontraumatic intracerebral hemorrhage (HCC) Diagnosis unknown Other unknown and unspecified cause of morbidity or mortality Non-insulin treated type 2 diabetes mellitus (HCC) Essential hypertension Unspecified essential hypertension Diabetes (HCC) Type II or unspecified type diabetes mellitus without mention of complication , not stated as uncontrolled Hypertension Unspecified essential hypertension Hyperlipidemia Other and unspecified hyperlipidemia Chronic stable angina (HCC) 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) in this encounter Admitting Diagnoses Diagnosis ICH (intracerebral hemorrhage) (HCC) Intracerebral hemorrhage in this encounter Administered Medications Action Date Dose Rate Site Medication Order MAR Action 08/24/2018 10:48 PM BODY WORK AUT[employer] TRIMMER 650 mg acetaminophen (TYLENOL) tablet 650 mg Given 650 mg, Oral, EVERY 4 HOURS PRN, Starting 08/20/18 at 0244, Until 08/30/18 at 1328, Headache, Pain non-opioid: may be used alone or in combination with opioid analgesia, TOTAL ACETAMINOPHEN DOSE NOT TO EXCEED 4GM DAILY, 08/25/2018 7:31 AM BODY WORK AUTO TRIMMER 30 mL acetaminophen/lidocaine/antacid DS(#) Given (GI COCKTAIL) 1:1:3 suspension 30 mL 30 mL, Oral, ONCE, 1 dose, Rosa 08/25/18 at 0715, 30mL (1:1:3)=192mg/6mL acetamin-6mL 2% vis lidocaine-18mL Antacid DS, 08/30/2018 8:57 AM BODY WORK AUTO TRIMMER 10 mg amLODIPine (NORVASC) tablet 10 mg Given 10 mg, Oral, DAILY, First dose on Rosa 08/25/18 at 0900, Until Discontinued, NURSING: Please educate patient and document: Do not give with grapefruit juice., 10 mg Given 08/29/2018 9:16 AM BODY WORK AUTO TRIMMER 10 mg Given 08/28/2018 10:36 AM BODY WORK AUTO TRIMMER 08/24/2018 9:51 AM BODY WORK AUTO TRIMMER 5 mg amLODIPine (NORVASC) tablet 5 mg Given 5 mg, Oral, DAILY, First dose on Wed08/22/18 at 1115, Until Discontinued, NURSING: Please educate patient and document: Do not give with grapefruit juice., 5 mg Given 08/23/2018 8:10 AM BODY WORK AUTO TRIMMER 5 mg Given 08/22/2018 11:28 AM BODY WORK AUTO TRIMMER 08/24/2018 12:32 PM BODY WORK AUTO TRIMMER 5 mg amLODIPine (NORVASC) tablet 5 mg Given 5 mg, Oral, ONCE, 1 dose, Wed08/24/18 at 1215, NURSING: Please educate patient and document: Do not give with grapefruit juice., 08/30/2018 8:57 AM BODY WORK AUTO TRIMMER 81 mg aspirin EC tablet 81 mg Given 81 mg, Oral, DAILY, First dose on Wed08/21/18 at 1230, Until Discontinued 81 mg Given 08/29/2018 9:16 AM BODY WORK AUTO TRIMMER 81 mg Given 08/28/2018 10:38 AM BODY WORK AUTO TRIMMER 08/25/2018 8:38 PM BODY WORK AUTO TRIMMER 20 mg atorvastatin (LIPITOR) tablet 20 mg Given 20 mg, Oral, AT BEDTIME DAILY, First dose on Wed08/21/18 at 2100, Until Discontinued 20 mg Given 08/24/2018 10:48 PM BODY WORK AUTO TRIMMER 20 mg Given 08/23/2018 8:10 PM BODY WORK AUTO TRIMMER 08/29/2018 8:22 PM BODY WORK AUTO TRIMMER 40 mg atorvastatin (LIPITOR) tablet 40 mg Given 40 mg, Oral, AT BEDTIME DAILY, First dose on Wed08/26/18 at 2100, Until Discontinued 40 mg Given 08/28/2018 8:39 PM BODY WORK AUTO TRIMMER 40 mg Given 08/27/2018 9:18 PM BODY WORK AUTO TRIMMER 08/25/2018 4:21 PM BODY WORK AUTO TRIMMER 1 g cefTRIAXone (ROCEPHIN) IVP 1 g Given 1 g, Intravenous, EVERY 24 HOURS, First dose on Wed08/24/18 at 1600, Until Discontinued, INSTR: IV PUSH -- RECONSTITUTE EACH 1 GM WITH 10 MLS 0.9% NACL , 1 g Given 08/24/2018 4:03 PM BODY WORK AUTO TRIMMER 08/29/2018 5:06 PM BODY WORK AUTO TRIMMER 1 g cefTRIAXone (ROCEPHIN) IVP 1 g Given 1 g, Intravenous, EVERY 24 HOURS, 5 doses, First dose on Wed08/26/18 at 1630, Last dose on Wed08/30/18 at 1630, INSTR: IV PUSH -- RECONSTITUTE EACH 1 GM WITH 10 MLS 0.9% NACL , 1 g Given 08/28/2018 4:46 PM BODY WORK AUTO TRIMMER 1 g Given 08/27/2018 5:59 PM BODY WORK AUTO TRIMMER 08/30/2018 8:57 AM BODY WORK AUTO TRIMMER 100 mg docusate (COLACE) capsule 100 mg Given 100 mg, Oral, TWICE DAILY, First dose on Wed08/19/18 at 2230, Until Discontinued, Hold for loose stools, 100 mg Given 08/29/2018 8:22 PM BODY WORK AUTO TRIMMER 100 mg Given 08/28/2018 8:39 PM BODY WORK AUTO TRIMMER 08/25/2018 1:53 PM BODY WORK AUTO TRIMMER 40 mg furosemide (LASIX) injection 40 mg Given 40 mg, 4 mL, Intravenous, ONCE, 1 dose, Rosa 08/25/18 at 1315, PROTECT FROM LIGHT, 08/30/2018 6:08 AM BODY WORK AUTO TRIMMER 5,000 Units Abdominal Tissue heparin (porcine) PF syringe 5,000 Units Given 5,000 Units, Subcutaneous, EVERY 8 HOURS, First dose on Wed08/22/18 at 1400, Until Discontinued, NOTE: This is a HIGH ALERT Medication., 5,000 Units Abdominal Tissue Given 08/29/2018 10:21 PM BODY WORK AUTO TRIMMER 5,000 Units Abdomen:RUQ Given 08/29/2018 1:36 PM BODY WORK AUTO TRIMMER 08/25/2018 4:05 AM BODY WORK AUTO TRIMMER 10 mg hydrALAZINE (APRESOLINE) injection 10 mg Given 10 mg, Intravenous, EVERY 2 HOURS PRN, Starting Wed08/21/18 at 1144, Until Rosa 08/25/18 at 0720, Blood Pressure..., Systolic Blood Pressure..., goal <130 10 mg Given 08/24/2018 9:14 AM BODY WORK AUTO TRIMMER 10 mg Given 08/24/2018 5:41 AM BODY WORK AUTO TRIMMER 08/25/2018 7:40 AM BODY WORK AUTO TRIMMER 10 mg hydrALAZINE (APRESOLINE) injection 10 mg Given 10 mg, Intravenous, ONCE, 1 dose, Rosa 08/25/18 at 0745 08/20/2018 9:11 AM BODY WORK AUTO TRIMMER 20 mg hydrALAZINE (APRESOLINE) injection 10-20 Given mg 10-20 mg, Intravenous, EVERY 6 HOURS PRN, Starting Wed08/19/18 at 2125, Until 08/20/18 at 1701, Systolic Blood Pressure..., >140 mmHg or MAP >110 mmHg 20 mg Given 08/20/2018 4:05 AM BODY WORK AUT[employer] TRIMMER 20 mg Given 08/19/2018 10:43 PM BODY WORK AUTO TRIMMER 08/30/2018 8:57 AM BODY WORK AUTO TRIMMER 10 mg hydrALAZINE (APRESOLINE) tablet 10 mg Given 10 mg, Oral, THREE TIMES DAILY, First dose on Wed08/26/18 at 1015, Until Discontinued 10 mg Given 08/29/2018 8:22 PM BODY WORK AUTO TRIMMER 10 mg Given 08/29/2018 5:07 PM BODY WORK AUTO TRIMMER 08/25/2018 7:19 PM BODY WORK AUTO TRIMMER 25 mg hydrALAZINE (APRESOLINE) tablet 25 mg Given 25 mg, Oral, EVERY 8 HOURS PRN, Starting Wed08/25/18 at 1753, Until Wed08/26/18 at 1010, Systolic Blood Pressure..., for SBP > 130 HYDRALAZINE 20 MG/ML IJ SOLN (Basil Overrmarcus) NOW, 1 dose, Rosa 08/25/18 at 0745, Created by basil scales, Created by basil scales, 08/30/2018 8:57 AM BODY WORK AUTO TRIMMER 4 Units Abdominal Tissue insulin aspart U-100 (NOVOLOG FLEXPEN) Given injection PEN 0-14 Units 0-14 Units, Subcutaneous, BEFORE MEALS AND AT BEDTIME, First dose on Rosa 08/25/18 at 1700, Until Discontinued, -POC glucose 140-180mg/dL at , , administer 2 units insulin, at 21, 03* administer 0 units. -POC glucose 181-220mg/dL at , , administer 4 units insulin, at 21, 03* administer 2 units. -POC glucose 221-260mg/dL at , , administer 6 units insulin, at 21, 03* administer 4 units. -POC glucose 261-300mg/dL at , , administer 8 units insulin, at 21, 03* administer 6 units. -POC glucose 301-350mg/dL at , , administer 10 units insulin, at 21, 03* administer 8 units. -POC glucose 351-400mg/dL at , , administer 12 units insulin, at 21, 03* administer 10 units. -POC glucose >400mg/dL at , , administer 14 units insulin, at , 03* administer 12 units. *only if ordered 5x's daily For POCT glucose >350mg/dL give correction bolus and recheck POCT glucose in 2 hours. If POCT glucose at 2 hours >300mg/dL call physician for further orders. For patients who are not eating meals, continue to administer the appropriate correction factor. NOTE: This is a HIGH ALERT Medication., Dispense pens manually with initial order and then upon request. DO NOT uncheck "Do not dispense", 4 Units Abdominal Tissue Given 08/29/2018 8:23 PM BODY WORK AUTO TRIMMER 4 Units Arm, Left Given 08/29/2018 6:33 PM BODY WORK AUTO TRIMMER 08/21/2018 8:09 PM BODY WORK AUTO TRIMMER 4 Units Abdominal Tissue insulin aspart U-100 (NOVOLOG FLEXPEN) Given injection PEN 0-28 Units 0-28 Units, Subcutaneous, FIVE TIMES DAILY, First dose on 08/21/18 at 1930, Until Discontinued, -POC glucose 140-180mg/dL at , administer 4 units insulin, at , 03* administer 0 units. -POC glucose 181-220mg/dL at , , administer 8 units insulin, at , 03* administer 4 units. -POC glucose 221-260mg/dL at administer 12 units insulin, at , 03* administer 8 units. -POC glucose 261-300mg/dL at , , administer 16 units insulin, at , 03* administer 12 units. -POC glucose 301-350mg/dL at , , administer 20 units insulin, at , 03* administer 16 units. -POC glucose 351-400mg/dL at administer 24 units insulin, at , 03* administer 20 units. -POC glucose >400mg/dL at , , administer 28 units insulin, at 21, 03* administer 24 units. *only if ordered 5x's daily For POCT glucose >350mg/dL give correction bolus and recheck POCT glucose in 2 hours. If POCT glucose at 2 hours >300mg/dL call physician for further orders. For patients who are not eating meals, continue to administer the appropriate correction factor. NOTE: This is a HIGH ALERT Medication., Dispense pens manually with initial order and then upon request. DO NOT uncheck "Do not dispense", 08/21/2018 5:22 PM BODY WORK AUTO TRIMMER 3 Units Arm, Right insulin aspart U-100 (NOVOLOG FLEXPEN) Given injection PEN 0-7 Units 0-7 Units, Subcutaneous, FIVE TIMES DAILY, First dose on Wed08/20/18 at 0800, Until Discontinued, -POC glucose 140-180mg/dL at , , administer 1 unit insulin, at 21, 03* administer 0 units. -POC glucose 181-220mg/dL at , , administer 2 units insulin, at , 03* administer 1 unit. -POC glucose 221-260mg/dL at , , administer 3 units insulin, at , 03* administer 2 units. -POC glucose 261-300mg/dL at , , administer 4 units insulin, at , 03* administer 3 units. -POC glucose 301-350mg/dL at , , administer 5 units insulin, at , 03* administer 4 units. -POC glucose 351-400mg/dL at , , administer 6 units insulin, at , 03* administer 5 units. -POC glucose >400mg/dL at , , administer 7 units insulin, at , 03* administer 6 units. *only if ordered 5x's daily For POCT glucose >350mg/dL give correction bolus and recheck POCT glucose in 2 hours. If POCT glucose at 2 hours >300mg/dL call physician for further orders. For patients who are not eating meals, continue to administer the appropriate correction factor. NOTE: This is a HIGH ALERT Medication., Dispense pens manually with initial order and then upon request. DO NOT uncheck "Do not dispense", 1 Units Arm, Right Given 08/21/2018 11:34 AM BODY WORK AUTO TRIMMER 2 Units Arm, Right Given 08/21/2018 8:24 AM BODY WORK AUTO TRIMMER 08/25/2018 11:48 AM BODY WORK AUTO TRIMMER 2 Units Abdominal Tissue insulin aspart U-100 (NOVOLOG FLEXPEN) Given injection PEN 0-7 Units 0-7 Units, Subcutaneous, BEFORE MEALS AND AT BEDTIME, First dose on Wed08/22/18 at 1115, Until Discontinued, -POC glucose 140-180mg/dL at , , administer 1 unit insulin, at 21, 03* administer 0 units. -POC glucose 181-220mg/dL at administer 2 units insulin, at , * administer 1 unit. -POC glucose 221-260mg/dL at administer 3 units insulin, at * administer 2 units. -POC glucose 261-300mg/dL at administer 4 units insulin, at , * administer 3 units. -POC glucose 301-350mg/dL at , administer 5 units insulin, at , * administer 4 units. -POC glucose 351-400mg/dL at administer 6 units insulin, at , * administer 5 units. -POC glucose >400mg/dL at administer 7 units insulin, at * administer 6 units. *only if ordered 5x's daily For POCT glucose >350mg/dL give correction bolus and recheck POCT glucose in 2 hours. If POCT glucose at 2 hours >300mg/dL call physician for further orders. For patients who are not eating meals, continue to administer the appropriate correction factor. NOTE: This is a HIGH ALERT Medication., Dispense pens manually with initial order and then upon request. DO NOT uncheck "Do not dispense", 4 Units Arm, Left Given 08/25/2018 8:50 AM BODY WORK AUTO TRIMMER 1 Units Abdomen:LLQ Given 08/24/2018 4:52 PM BODY WORK AUTO TRIMMER 08/22/2018 9:04 AM BODY WORK AUTO TRIMMER 1 Units/hr 1 mL/hr insulin regular (NOVOLIN R) 100 Units in Dose/Rate sodium chloride 0.9% (NS) 100 mL IV drip Change (std conc) 1-32 Units/hr (1-32 mL/hr) 100 mL, at 1-32 mL/hr, Intravenous, TITRATE DIRECTED , Starting 08/21/18 at 2300, Until Wed08/22/18 at 1007, (Administration Instructions were omitted from this summary because they were too long), 1.5 Units/hr 1.5 mL/hr Dose/Rate Verify 08/22/2018 7:32 AM BODY WORK AUTO TRIMMER 1.5 Units/hr 1.5 mL/hr Dose/Rate Change 08/22/2018 6:38 AM BODY WORK AUTO TRIMMER 08/29/2018 10:22 PM BODY WORK AUT[employer] TRIMMER 15 mg isosorbide mononitrate SR (IMDUR) tablet Given 15 mg 15 mg, Oral, AT BEDTIME DAILY, First dose on Wed08/23/18 at 2100, Until Discontinued, DO NOT Crush tablets (May be cut in half), 15 mg Given 08/28/2018 8:40 PM BODY WORK AUT[employer] TRIMMER 15 mg Given 08/27/2018 9:18 PM BODY WORK AUTO TRIMMER 08/30/2018 8:57 AM BODY WORK AUTO TRIMMER 30 mg isosorbide mononitrate SR (IMDUR) tablet Given 30 mg 30 mg, Oral, DAILY, First dose on Wed08/22/18 at 1715, Until Discontinued, Daily In the morning. DO NOT Crush tablets (May be cut in half), 30 mg Given 08/29/2018 9:16 AM BODY WORK AUT[employer] TRIMMER 30 mg Given 08/28/2018 10:38 AM BODY WORK AUT[employer] TRIMMER 08/25/2018 7:10 AM BODY WORK AUT[employer] TRIMMER 20 mg labetalol (NORMODYNE) injection 10-20 mg Given 10-20 mg, Intravenous, EVERY 15 MIN PRN, Starting Wed08/19/18 at 2125, Until Rosa 08/25/18 at 0721, Other..., For SBP > 140 mmHg or MAP > 110 mmHg, Hold for HR < 60/min and/or MAP < 110 mmHg or SBP < 140 mmHg. , , 10 mg Given 08/24/2018 1:05 PM BODY WORK AUT[employer] TRIMMER 10 mg Given 08/24/2018 11:08 AM BODY WORK AUTO TRIMMER 08/30/2018 8:57 AM BODY WORK AUT[employer] TRIMMER 100 mg losartan (COZAAR) tablet 100 mg Given 100 mg, Oral, DAILY, First dose on Wed08/29/18 at 1245, Until Discontinued 100 mg Given 08/29/2018 1:36 PM BODY WORK AUT[employer] TRIMMER 08/20/2018 6:53 PM BODY WORK AUTO TRIMMER 1 g 100 mL/hr magnesium sulfate 1 g/D5W 100 mL IVPB Given - New 1 g, Intravenous, 100 mL, Administer Bag over 1 Hours, EVERY 1 HOUR FOR 2 DOSES, 2 doses, First dose on 08/20/18 at 1800, Last dose on Wed08/20/18 at 1900, Each 1gm delivers 8.1 mEq Magnesium., 1 g 100 mL/hr Given - New Bag 08/20/2018 5:44 PM BODY WORK AUTO TRIMMER 08/30/2018 8:57 AM BODY WORK AUTO TRIMMER 50 mg metoprolol tartrate (LOPRESSOR) tablet Given 50 mg 50 mg, Oral, TWICE DAILY, First dose on Wed08/26/18 at 0245, Until Discontinued, Hold for heart rate < 60 bpm, 50 mg Given 08/29/2018 8:23 PM BODY WORK AUT[employer] TRIMMER 50 mg Given 08/29/2018 9:16 AM BODY WORK AUTO TRIMMER 08/22/2018 8:10 PM BODY WORK AUT[employer] TRIMMER 25 mg metoprolol XL (TOPROL XL) tablet 25 mg Given 25 mg, Oral, DAILY, First dose on Wed08/20/18 at 2100, Until Discontinued, Hold for heart rate < 60 bpm or systolic BP < 110 tablets may be cut in half, DO NOT CRUSH or CHEW, 25 mg Given 08/21/2018 8:02 PM BODY WORK AUTO TRIMMER 25 mg Given 08/20/2018 6:57 PM BODY WORK AUT[employer] TRIMMER 08/23/2018 8:10 PM BODY WORK AUT[employer] TRIMMER 50 mg metoprolol XL (TOPROL XL) tablet 50 mg Given 50 mg, Oral, DAILY, First dose on Wed08/23/18 at 2100, Until Discontinued, Hold for heart rate < 60 bpm or systolic BP < 110 tablets may be cut in half, DO NOT CRUSH or CHEW, 08/25/2018 8:38 PM BODY WORK AUT[employer] TRIMMER 75 mg metoprolol XL (TOPROL XL) tablet 75 mg Given 75 mg, Oral, DAILY, First dose on Wed08/24/18 at 2100, Until Discontinued, Hold for heart rate < 60 bpm or systolic BP < 110 tablets may be cut in half, DO NOT CRUSH or CHEW, 75 mg Given 08/24/2018 10:48 PM BODY WORK AUTO TRIMMER 08/26/2018 9:51 AM BODY WORK AUTO TRIMMER 10 mL milk of magnesia (CONC) oral suspension Given 10 mL 10 mL, Oral, DAILY, First dose on 08/20/18 at 0900, Until Discontinued, May hold if BM within 24 hours of dose. 10 mL CONC=30 mL MOM, 10 mL Given 08/25/2018 8:52 AM [employer] 10 mL Given 08/23/2018 8:10 AM [employer] 08/20/2018 4:44 PM [employer] 2 mg morphine injection 2 mg Given 2 mg, Intravenous, ONCE, 1 dose, 08/20/18 at 1645 08/20/2018 4:49 PM [employer] 2 mg morphine injection 2 mg Given 2 mg, Intravenous, ONCE, 1 dose, 08/20/18 at 1700 08/21/2018 6:29 PM [employer] 2 mg morphine injection 2 mg Given 2 mg, Intravenous, ONCE, 1 dose, [place] 08/21/18 at 1830 08/24/2018 6:29 AM [employer] 2 mg morphine injection 2-4 mg Given 2-4 mg, Intravenous, EVERY 2 HOURS PRN, Starting 08/20/18 at 1702, Until Wed08/24/18 at 1215, Chest Pain 2 mg Given 08/24/2018 3:04 AM [employer] 2 mg Given 08/24/2018 1:06 AM [employer] 08/19/2018 8:50 PM [employer] 5 mg niCARdipine (cardENE) 20 mg/NS 200 mL Given infusion (std conc)(premade) (Cabinet Override) NOW, 1 dose, Wed08/19/18 at 2100, Created by cabinet override, Created by cabinet override, 08/20/2018 4:05 AM [employer] 3 mg/hr 30 mL/hr niCARdipine (cardENE) 20 mg/NS 200 mL Given - New infusion (std conc)(premade) Bag 200 mL, 5-15 mg/hr (50-150 mL/hr), at 50-150 mL/hr, Intravenous, TITRATE DIRECTED , Starting Wed08/19/18 at 2245, Until Wed08/20/18 at 1655, Initiate at 5 mg/hr Titrate to keep: SBP < 140 mmHg Call MD if patient's dose is 5 mg/hr and able to tolerate oral medications. Std Conc=0.1 mg/ml, 4 mg/hr 40 mL/hr Dose/Rate Change 08/20/2018 3:30 AM [employer] 3 mg/hr 30 mL/hr Dose/Rate Change 08/20/2018 2:40 AM [employer] 08/25/2018 6:54 AM [employer] 0.4 mg nitroglycerin (NITROSTAT) tablet 0.4 mg Given 0.4 mg, Sublingual, EVERY 5 MIN PRN, Starting 08/20/18 at 1636, Until Wed08/30/18 at 1328, Chest Pain, Not to exceed 3 doses per incident of chest pain. Notify physician if chest pain persists after 3 doses., 0.4 mg Given 08/23/2018 9:31 AM [employer] 0.4 mg Given 08/23/2018 9:24 AM [employer] 08/22/2018 3:21 PM [employer] 0.1 mcg/kg/min 2.5 mL/hr nitroGLYCERIN 50 mg/D5W 250 mL infusion Dose/Rate 0.1-3 mcg/kg/min Change 83.2 kg (2.496-74.88 mL/hr, rounded to 2.5-74.9 mL/hr) 250 mL, at 2.5-74.9 mL/hr, Intravenous, TITRATE DIRECTED , Starting 08/20/18 at 1700, Until 08/22/18 at 1605, Initiate at 0.1 mcg/kg/min Titrate to: SBP < 120 mmHg NOTE: For weight-based dosing, use patient dosing weight. Titrate every 5-10 minutes for Chest pain or for increased BP, 0.2 mcg/kg/min 5 mL/hr Dose/Rate Change 08/22/2018 3:01 PM [employer] 0.3 mcg/kg/min 7.5 mL/hr Dose/Rate Change 08/22/2018 2:45 PM [employer] 08/24/2018 1:05 PM [employer] 40 mg pantoprazole (PROTONIX) injection 40 mg Given 40 mg, Intravenous, ONCE, 1 dose, Wed08/24/18 at 1245 08/29/2018 8:22 PM [employer] [address] (PROTONIX) tablet 40 mg Given 40 mg, Oral, DAILY, First dose on Wed08/24/18 at 1215, Until Discontinued, Do not crush or chew tablet., 40 mg Given 08/28/2018 8:39 PM [employer] 40 mg Given 08/27/2018 9:18 PM [employer] 08/25/2018 3:43 PM [employer] 2 Diluted mL perflutren lipid microspheres (DEFINITY) Given injection 1-20 Diluted mL 1-20 Diluted mL, Intravenous, ONCE, 1 dose, [place] 08/25/18 at 1530, NOTE: This is a HIGH ALERT Medication., MAC Procedure Area Only - Medications 08/21/2018 6:53 AM [employer] 40 mEq potassium chloride SR (K-DUR) tablet Given 40-60 mEq 40-60 mEq, Oral, NEEDED, Starting 08/20/18 at 0401, Until [place] 08/25/18 at 0721, Other..., For potassium replacement, See admin instructions, If urine output < 30 mL/hr or SCr >2 mg/dL, check with physician prior to giving K+ replacement. - K 3-4 mmol/L, administer KCl 40 mEq PO/NG x1 dose - K 2.5-2.9 mmol/L, administer KCl 60 mEq PO/NG x1 dose AND notify physician for additional dosing - K < 2.5 mmol/L notify physician for dosing Recheck serum potassium two hours after completion of appropriate replacement dose. Repeat this standing order x 2. Notify physician if serum potassium < 3.3 mmol/L after three replacements. Do NOT break or crush tablet, 08/30/2018 8:59 AM [employer] 500 mg ranolazine ER (RANEXA) tablet 500 mg Given 500 mg, Oral, TWICE DAILY, First dose on Wed08/26/18 at 0900, Until Discontinued, NURSING: DO NOT crush, break or chew tablet, 500 mg Given 08/29/2018 10:22 PM [employer] 500 mg Given 08/29/2018 9:17 AM [employer] 08/29/2018 8:22 PM [employer] 1 tablet senna/docusate (SENOKOT-S) tablet 1 Given tablet 1 tablet, Oral, TWICE DAILY, First dose on Wed08/19/18 at 2230, Until Discontinued, Hold for loose stools. If patient unable to take tablet, give 10 mL of senna/docusate (SENOKOT-S) solution. Send [email or web address] message to pharmacy., If patient unable to take tablet, give 10 mL of senna/docusate (SENOKOT-S) solution., 1 tablet Given 08/28/2018 8:39 PM [employer] 1 tablet Given 08/27/2018 9:09 AM [employer] 08/26/2018 11:30 AM [employer] 250 mL 250 mL/hr sodium chloride 0.45 % infusion Given - New 1,000 mL, 250 mL, Intravenous, at 250 Bag mL/hr, BOLUS, 1 dose, Wed08/26/18 at 1015 08/26/2018 1:30 PM [employer] 250 mL 250 mL/hr sodium chloride 0.45 % infusion Given - New 1,000 mL, 250 mL, Intravenous, at 250 Bag mL/hr, ONCE, 1 dose, Wed08/26/18 at 1330 08/20/2018 4:04 AM [employer] 1,000 mL 75 mL/hr sodium chloride 0.9 % infusion Given - New 1,000 mL, 1,000 mL, Intravenous, at 75 Bag mL/hr, CONTINUOUS, Starting 08/20/18 at 0300, Until 08/20/18 at 1255 08/21/2018 3:23 PM [employer] 50 mL/hr sodium chloride 0.9 % infusion Given - New 1,000 mL, Intravenous, at 50 mL/hr, Bag CONTINUOUS, Starting 08/21/18 at 0915, Until 08/22/18 at 0422 50 mL/hr Given - New Bag 08/21/2018 9:16 AM [employer] 08/24/2018 2:28 PM [employer] 40 mL/hr sodium chloride 0.9 % infusion Given - New 1,000 mL, Intravenous, at 40 mL/hr, Bag CONTINUOUS, Starting Wed08/24/18 at 1345, Until Wed08/24/18 at 1550 08/24/2018 4:07 PM [employer] 500 mL 150 mL/hr sodium chloride 0.9 % infusion Given - New 500 mL, 500 mL, Intravenous, at 150 Bag mL/hr, ONCE, 1 dose, Wed08/24/18 at 1600 08/25/2018 1:53 PM [employer] 1,000 mL 100 mL/hr sodium chloride 0.9 % infusion Given - New 1,000 mL, 1,000 mL, Intravenous, at 100 Bag mL/hr, ONCE, 1 dose, [facility] 08/25/18 at 1315 08/26/2018 5:09 PM [employer] 1,000 mL 100 mL/hr sodium chloride 0.9 % infusion Given - New 1,000 mL, 1,000 mL, Intravenous, at 100 Bag mL/hr, ONCE, 1 dose, Wed08/26/18 at 1645 08/26/2018 4:57 PM [employer] 500 mL 999 mL/hr sodium chloride 0.9 % infusion Given - New 500 mL, 500 mL, Intravenous, at 999 Bag mL/hr, ONCE, 1 dose, Wed08/26/18 at 1645 in this encounter
--- OUTSIDE RECORDS SUMMARY | 2018-08-30 16:14 | XMS REPORT | Encounter Summary ---
Author Author [facility] Organization [facility] Address Unknown Phone Unavailable Care Team Providers Care Transmitter Tester Name Role Phone No Pcp, Na PCP Unavailable Encounter Details Care Team Description Date Type Department 08/19/2018 Hospital [facility] [address] [place] [address] Social History Date Tobacco Use Types Packs/Day Years Used Never Assessed Sex Assigned at Date Recorded Not on file Industry Job Start Date Occupation Not on file Not on file Not on file Travel End Travel History Travel Start No recent travel history available. as of this encounter Medications at Time [...] 400 0 capsule Units by mouth daily. 08/30/2018 amLODIPine (NORVASC) 5 mg Take 5 mg by 0 tablet mouth daily. 08/30/2018 aspirin 81 mg chewable Chew 81 mg by 0 tablet mouth daily. Take with food. 08/30/2018 atorvastatin (LIPITOR) 20 Take 20 mg by 0 mg tablet mouth daily. 08/30/2018 clopiDOGrel (PLAVIX) 75 Take 75 mg by 0 mg tablet mouth daily. 08/30/2018 metoprolol XL (TOPROL XL) Take 25 mg by 0 25 mg extended release mouth daily. 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
--- OUTSIDE RECORDS SUMMARY | 2018-08-30 16:20 | XMS REPORT | Continuity of Care Document ---
Author Author [facility] Organization [facility] Address Unknown Phone Unavailable Allergies Active Description Code Type Severity Reaction Onset Reported/Identified Relationship to Patient Clinical Status Yes NKANo Known Allergies NKA Miscellaneous Allergy Unknown N/A 09/02/2006 Yes eptifibatide [id number] Drug Allergy Unknown N/A 10/22/2014 Yes No Known Drug Allergies [id number] Drug Allergy Unknown N/A 08/17/2018 Medications There [...] MD R Ot 414.01 CORONARY ATHEROSCLEROSIS OF [place] CORON 06/03/2013 EMELI PURDY MD R Ot 486 PNEUMONIA, ORGANISM NOS 06/03/2013 EMELI PURDY MD R Ot 574.20 CHOLELITHIASIS NOS 06/03/2013 EMELI PURDY MD R Ot 591 HYDRONEPHROSIS 06/03/2013 EMELI PURDY MD R Ot 592.0 CALCULUS OF KIDNEY 06/03/2013 EMELI PURDY MD R Ot 600.00 HYPERTROPHY (BENIGN) OF PROSTATE W/O URI 06/03/2013 EMELI PURDY MD R Ot 607.84 IMPOTENCE, ORGANIC ORIGN 06/03/2013 EMELI PURDY MD R Ot 789.01 ABDOMINAL PAIN, RIGHT UPPER QUADRANT 06/03/2013 EMELI PURDY MD R Ot 789.03 ABDOMINAL PAIN, RIGHT LOWER QUADRANT 06/23/2013 LIZZY GARCIA MD Ot 250.00 DIAB MADELYN WO COMPL, TYPE II OR UNSPEC TY 06/23/2013 LIZZY GARCIA MD Ot 272.4 HYPERLIPIDEMIA NEC/NOS 06/23/2013 LIZZY GARCIA MD Ot 401.9 HYPERTENSION NOS 06/23/2013 LIZZY GARCIA MD Ot 414.01 CORONARY ATHEROSCLEROSIS OF [place] CORON 06/23/2013 LIZZY GARCIA MD Ot 428.0 CONGESTIVE HEART FAILURE NOS 06/23/2013 LIZZY GARCIA MD Ot 433.10 CAROTID ARTERY OCCLUSION W O CEREBRAL IN 06/23/2013 LIZZY GARCIA MD Ot 440.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 06/23/2013 LIZZY GARCIA [...] CHAVEZ MD Ot 414.01 CORONARY ATHEROSCLEROSIS OF [place] CORON 10/08/2014 ARIELLE CHAVEZ MD Ot 443.9 [...] INFARCT,SUBSE 10/22/2014 Ot 414.01 CORONARY ATHEROSCLEROSIS OF [place] CORON 10/22/2014 Ot 440.0 AORTIC ATHEROSCLEROSIS 10/22/2014 Ot 440.20 ATHEROSCLEROSIS [place] ARTERIES EXTREMIT 10/22/2014 Ot 440.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,SUBSE 10/30/2014 Ot 414.01 CORONARY ATHEROSCLEROSIS OF [place] CORON 10/30/2014 Ot 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.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 10/30/2014 Ot 440.4 [...] TYPE VESSEL, NATIV 11/13/2014 Ot 440.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 11/13/2014 Ot 440.4 [...] KATHY BLAKE, ARIELLE Reynoso Ot 433.10 11/21/2014 ARIELLE CHAVEZ MD [...] MD, Ot I25.10 ATHSCL HEART DISEASE OF [place] CORONARY 07/19/2015 ARIELLE CHAVEZ MD Ot 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[place] 07/19/2015 ARIELLE CHAVEZ MD Ot I77.9 DISORDER OF ARTERIES AND ARTERIOLES, UNS 07/19/2015 ARIELLE CHAVEZ MD, Ot N18.9 CHRONIC KIDNEY DISEASE, UNSPECIFIED 07/19/2015 ARIELLE CHAVEZ MD Ot R94.39 ABNORMAL RESULT OF OTHER CARDIOVASCULAR 07/19/2015 ARIELLE CHAVEZ MD, Ot Z79.899 OTHER SUPERCHARGER MECHANIC (CURRENT) DRUG THERAPY 07/19/2015 ARIELLE CHAVEZ MD, Ot Z91.19 PATIENT'S NONCOMPLIANCE W [facility] 07/19/2015 ARIELLE CHAVEZ MD, Ot Z95.1 PRESENCE OF AORTOCORONARY BYPASS GRAFT 07/22/2015 CHARLENE ESTES Ot E78.2 07/22/2015 ALBIN PA, CHARLENE Harrison Ot I10 07/22/2015 ALBIN PA, CHARLENE Harrison Ot I25.10 07/22/2015 ALBIN PALOMO, CHARLENE Harrison Ot I65.23 07/31/2015 ALBIN PALOMO, CHARLENE K Ot E78.2 07/31/2015 ALBIN PA, CHARLENE K Ot I10 07/31/2015 ALBIN PA, CHARLENE K Ot I25.10 07/31/2015 ALIBN PALOMO, CHARLENE Harrison Ot I65.23 08/28/2015 Ot [...] KATHY BLAKE, ARIELLE Reynoso Ot 401.9 08/28/2015 KTAHY BLAKE, ARIELLE Reynoso Ot 414.00 08/28/2015 KATHY [...] VILLASENOR-DAVY PA, CHARLENE K Ot I65.23 08/28/2015 [facility] PA, CHARLENE K Ot E78.2 08/28/2015 VILLASENOR-DAVY PA, CHARLENE K Ot I10 08/28/2015 VILLASENOR-DAVY PA, CHARLENE K Ot I25.10 08/28/2015 VILLASENOR-DAVY PA, CHARLENE K Ot I65.23 08/28/2015 [facility] PA, CHARLENE K Ot E78.2 08/28/2015 [facility] PA, CHARLENE K Ot I10 08/28/2015 [facility] PA, CHARLENE K Ot I25.10 08/28/2015 [facility] PA, CHARLENE K Ot I65.23 08/28/2015 [facility] PA, CHARLENE K Ot E78.2 08/28/2015 [facility] PA, CHARLENE K Ot I10 08/28/2015 [facility] PA, CHARLENE K Ot I25.10 08/28/2015 [facility] PA, CHARLENE K Ot I65.23 08/28/2015 [facility] PA, CHARLENE K Ot E78.2 08/28/2015 [facility] PA, CHARLENE K Ot I10 08/28/2015 [facility] PA, CHARLENE K Ot I25.10 08/28/2015 [facility] PA, CHARLENE K Ot I65.23 12/19/[facility] K Ot E78.2 MIXED HYPERLIPIDEMIA 12/19/2015 [facility] PA, CHARLENE K Ot I10 ESSENTIAL (PRIMARY) HYPERTENSION 12/19/2015 [facility] PA, CHARLENE K Ot I25.10 ATHSCL HEART DISEASE OF [place] CORONARY 12/19/2015 [facility] PA, CHARLENE K Ot 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 12/19/[facility] K Ot E78.2 MIXED HYPERLIPIDEMIA 12/19/2015 [facility] PA, CHARLENE K Ot I10 ESSENTIAL (PRIMARY) HYPERTENSION 12/19/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 12/26/2015 [facility]ENOR-DAVY PALOMO CHARLENE K Ot E78.2 MIXED HYPERLIPIDEMIA 12/26/2015 VILLASENORDELIA PALOMO CHARELNE Harrison Ot I10 ESSENTIAL (PRIMARY) HYPERTENSION 12/26/2015 ALBIN PALOMO CHARLENE K Ot I25.10 ATHSCL HEART DISEASE OF [place] CORONARY 12/26/2015 VILLASENORDELIA PALOMO CHARLENE K Ot 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 12/26/2015 VILLASENOR-DAVY PALOMO CHARLENE K Ot E78.2 MIXED HYPERLIPIDEMIA 12/26/2015 V[facility]ASENOR-DAVY PALOMO CHARLENE Harrison Ot I10 ESSENTIAL (PRIMARY) HYPERTENSION 12/26/2015 VILLASENORDELIA PALOMO CHARLENE K Ot I25.10 ATHSCL HEART DISEASE OF [place] CORONARY 12/26/2015 VILLASENORDELIA PALOMO CHARLENE K Ot 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 08/16/2018 RAJWINDER BLAKE, EMELI R Ot 440.20 ATHEROSCLEROSIS [place] ARTERIES EXTREMIT 08/16/2018 ARIELLE CHAVEZ MD Ot [...] ESTES Ot I25.10 ATHSCL HEART DISEASE OF [place] CORONARY 08/16/2018 CHARLENE ESTES Ot 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 08/16/2018 CHARLENE ESTES Ot E78.2 MIXED HYPERLIPIDEMIA 08/16/2018 CHARLENE ESTES Ot I10 ESSENTIAL (PRIMARY) HYPERTENSION 08/16/2018 CHARLENE ESTES Ot I25.10 ATHSCL HEART DISEASE OF [place] CORONARY 08/16/2018 CHARLENE ESTES Ot 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 08/17/2018 RAJWINDER BLAKE, EMELI R Ot 440.20 ATHEROSCLEROSIS [place] ARTERIES EXTREMIT 08/17/2018 KATHY BLAKE, ARIELLE J [...] Ot I10 ESSENTIAL (PRIMARY) HYPERTENSION 08/17/2018 CHARLENE ESTSE Ot I25.10 ATHSCL HEART DISEASE OF [place] CORONARY 08/17/2018 CHARLENE ESTES Ot 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 08/17/2018 CHARLENE ESTES Ot E78.2 MIXED HYPERLIPIDEMIA 08/17/2018 CHARLENE ESTES Ot I10 ESSENTIAL (PRIMARY) HYPERTENSION 08/17/2018 CHARLENE ESTES K Ot I25.10 ATHSCL HEART DISEASE OF [place] CORONARY 08/17/2018 CHARLENE ESTES Ot 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 08/17/2018 ARIELLE CHAVEZ MD Ot E11.9 TYPE 2 DIABETES MELLITUS WITHOUT COMPLIC 08/17/2018 ARIELLE CHAVEZ MD Ot E78.1 PURE HYPERGLYCERIDEMIA 08/17/2018 ARIELLE CHAVEZ MD Ot E78.2 MIXED HYPERLIPIDEMIA 08/17/2018 ARIELLE CHAVEZ MD Ot I11.0 HYPERTENSIVE HEART DISEASE WITH HEART FA 08/17/2018 ARIELLE CHAVEZ MD Ot I25.10 ATHSCL HEART DISEASE OF [place] CORONARY 08/17/2018 ARIELLE CHAVEZ MD Ot I50.9 HEART FAILURE, UNSPECIFIED 08/17/2018 ARIELLE CHAVEZ MD Ot I65.22 OCCLUSION AND STENOSIS OF LEFT CAROTID A 08/17/2018 ARIELLE CHAVEZ MD Ot I73.9 PERIPHERAL VASCULAR DISEASE, UNSPECIFIED 08/17/2018 ARIELLE CHAVEZ MD Ot R07.9 CHEST PAIN, UNSPECIFIED 08/17/2018 ARIELLE CHAVEZ MD Ot Z79.82 SUPERCHARGER MECHANIC (CURRENT) USE OF ASPIRIN 08/17/2018 ARIELLE CHAVEZ MD Ot Z79.84 ALF (CURRENT) USE OF ORAL HYPOGLYC 08/17/2018 ARIELLE CHAVEZ MD Ot Z79.899 OTHER SUPERCHARGER MECHANIC (CURRENT) DRUG THERAPY 08/17/2018 ARIELLE CHAVEZ MD [...] MD Ot I25.10 ATHSCL HEART DISEASE OF [place] CORONARY 08/18/2018 ARIELLE CHAVEZ MD Ot I50.9 HEART FAILURE, UNSPECIFIED 08/18/2018 ARIELLE CHAVEZ MD Ot I65.22 OCCLUSION AND STENOSIS OF LEFT CAROTID A 08/18/2018 ARIELLE CHAVEZ MD Ot I73.9 PERIPHERAL VASCULAR DISEASE, UNSPECIFIED 08/18/2018 ARIELLE CHAVEZ MD Ot R07.9 CHEST PAIN, UNSPECIFIED 08/18/2018 ARIELLE CHAVEZ MD, Ot Z79.82 ALF (CURRENT) USE OF ASPIRIN 08/18/2018 ARIELLE CHAVEZ MD, Ot Z79.84 ALF (CURRENT) USE OF ORAL HYPOGLYC 08/18/2018 ARIELLE CHAVEZ MD, Ot Z79.899 OTHER ALF (CURRENT) DRUG THERAPY 08/18/2018 ARIELLE CHAVEZ MD, [...] urine sediment by light microscopy NONE NRG Complete blood count (CBC) with automated white blood cell (WBC) differential - 08/19/18 18:15 Blood leukocytes automated count (number/volume) 4.9 10*3/uL 4.3-11.0 Blood erythrocytes automated count (number/volume) 4.02 10*6/uL 4.35-5.85 Venous blood hemoglobin measurement (mass/volume) 12.0 g/dL 13.3-17.7 Blood hematocrit (volume fraction) 34 % 40-54 Automated erythrocyte mean corpuscular volume 85 [foz_us] 80-99 Automated erythrocyte mean corpuscular hemoglobin (mass per erythrocyte) 30 pg 25-34 Automated erythrocyte mean corpuscular hemoglobin concentration measurement ( mass/volume) 35 g/dL 32-36 Automated erythrocyte distribution width ratio 13.8 % 10.0-14.5 Automated blood platelet count (count/volume) 123 10*3/uL 130-400 Automated blood platelet mean volume measurement 10.5 [foz_us] 7.4-10.4 Automated blood neutrophils/100 leukocytes 64 % 42-75 Automated blood lymphocytes/100 leukocytes 24 % 12-44 Blood monocytes/100 leukocytes 9 % 0-12 Automated blood eosinophils/100 leukocytes 3 % 0-10 Automated blood basophils/100 leukocytes 0 % 0-10 Blood neutrophils automated count (number/volume) 3.1 10*3 1.8-7.8 Blood lymphocytes automated count (number/volume) 1.2 10*3 1.0-4.0 Blood monocytes automated count (number/volume) 0.5 10*3 0.0-1.0 Automated eosinophil count 0.1 10*3/uL 0.0-0.3 Automated blood basophil count (count/volume) 0.0 10*3/uL 0.0-0.1 PT panel in platelet poor plasma by coagulation assay - 08/19/18 18:15 Prothrombin time (PT) in platelet poor plasma by coagulation assay 13.1 s 12.2-14.7 INR in platelet poor plasma or blood by coagulation assay 1.0 0.8-1.4 Activated partial thromboplastin time (aPTT) in platelet poor plasma bycoagulation assay - 08/19/18 18:15 Activated partial thromboplastin time (aPTT) in platelet poor plasma bycoagulation assay 44 s 24-35 Fibrin D-dimer FEU measurement in platelet poor plasma (mass/volume) - 18:15 Fibrin D-dimer FEU measurement in platelet poor plasma (mass/volume) 0.43 ug/mL 0.00-0.49 Comprehensive metabolic panel - 08/19/18 18:15 Serum or plasma sodium measurement (moles/volume) 137 mmol/L 135-145 Serum or plasma potassium measurement (moles/volume) 4.2 mmol/L 3.6-5.0 Serum or plasma chloride measurement (moles/volume) 104 mmol/L 98-107 Carbon dioxide 20 mmol/L 21-32 Serum or plasma anion gap determination (moles/volume) 13 mmol/L 5-14 Serum or plasma urea nitrogen measurement (mass/volume) 27 mg/dL 7-18 Serum or plasma creatinine measurement (mass/volume) 1.86 mg/dL 0.60-1.30 Serum or plasma urea nitrogen/creatinine mass ratio 15 NRG Serum or plasma creatinine measurement with calculation of estimated glomerular filtration rate 35 NRG Serum or plasma glucose measurement (mass/volume) 119 mg/dL 70-105 Serum or plasma calcium measurement (mass/volume) 9.6 mg/dL 8.5-10.1 Serum or plasma total bilirubin measurement (mass/volume) 0.4 mg/dL 0.1-1.0 Serum or plasma alkaline phosphatase measurement (enzymatic activity/volume) 74 U/L 40-136 Serum or plasma aspartate aminotransferase measurement (enzymatic activity/ volume) 32 U/L 5-34 Serum or plasma alanine aminotransferase measurement (enzymatic activity/volume ) 64 U/L 0-55 Serum or plasma protein measurement (mass/volume) 8.0 g/dL 6.4-8.2 Serum or plasma albumin measurement (mass/volume) 5.0 g/dL 3.2-4.5 Serum or plasma troponin i.cardiac measurement (mass/volume) - 08/19/18 18:15 Serum or plasma troponin i.cardiac measurement (mass/volume) < ng/ mL <0.30 Capillary blood glucose measurement by glucometer (mass/volume) - 08/19/18 18: 45 Capillary blood glucose measurement by glucometer (mass/volume) 117 mg/dL 70-110 Complete urinalysis with reflex to culture - 08/19/18 19:00 Urine color determination YELLOW NRG Urine clarity determination CLEAR NRG Urine pH measurement by test strip 6.5 5-9 Specific gravity of urine by test strip 1.005 1.016- 1.022 Urine protein assay by test strip, semi-quantitative 2+ NEGATIVE Urine glucose detection by automated test strip NEGATIVE NEGATIVE Erythrocytes detection in urine sediment by light microscopy NEGATIVE NEGATIVE Urine ketones detection by automated test strip NEGATIVE NEGATIVE Urine nitrite detection by test strip NEGATIVE NEGATIVE Urine total bilirubin detection by test strip NEGATIVE NEGATIVE Urine urobilinogen measurement by automated test strip (mass/volume) NORMAL NORMAL Urine leukocyte esterase detection by dipstick NEGATIVE NEGATIVE Automated urine sediment erythrocyte count by microscopy (number/high power field) NONE NRG Automated urine sediment leukocyte count by microscopy (number/high power field ) NONE NRG Bacteria detection in urine sediment by light microscopy NONE NRG Squamous epithelial cells detection in urine sediment by light microscopy 0-2 NRG Crystals detection in urine sediment by light microscopy NONE NRG Casts detection in urine sediment by light microscopy NONE NRG Mucus detection in urine sediment by light microscopy NEGATIVE NRG Complete urinalysis with reflex to culture NO NRG Encounters ACCT No. Visit Date/Time Discharge Status Pt. Type Provider Facility Loc./Unit Complaint [id number] 08/19/2018 17:57:00 08/19/2018 19:33:00 DIS Emergency MARTY MALIN DO [facility] ER SLURRED SPEECH,CONFUSION AFTER STENT [id number] 08/17/2018 10:43:00 08/17/2018 18:14:00 DIS Outpatient ARIELLE CHAVEZ MD [facility] CATH CAD,HTN,HLP,DM [id number] 07/19/2015 11:02:00 07/19/2015 18:00:00 DIS Outpatient ARIELLE CHAVEZ MD [facility] CATH ABNORMAL STRESS,CP,CAD, HTN,DM [id number] 07/10/2015 07:58:00 07/10/2015 23:59:59 CLS Outpatient CHARLENE ESTES [facility] CARD CAD,JACOB,HLP, HTN [id number] 06/27/2015 10:48:00 06/27/2015 23:59:59 CLS Outpatient CHARLENE ESTES [facility] CARD CAD,JACOB,HLP, HTN [id number] 12/31/2014 12:02:00 01/02/2015 09:05:00 DIS Outpatient ARIELLE CHAVEZ MD [facility] CR PERIPHERAL [id number];AMI [id number];CARDIAC STENT [id number] 10/19/2014 12:27:00 10/19/2014 23:59:59 CLS Preadmit SACHIN LOCO MD [facility] ONC [id number] 10/01/2014 16:30:00 10/08/2014 19:27:00 DIS Inpatient ARIELLE CHAVEZ MD [facility] CSD CHEST PAIN [id number] 10/04/2014 11:30:00 10/04/2014 23:59:59 CLS Preadmit ARIELLE CHAVEZ MD [facility] CATH [id number] 09/28/2014 07:08:00 09/28/2014 23:59:59 CLS Outpatient ARIELLE CHAVEZ MD [facility] CARD HTN,HLP,CP [id number] 09/27/2014 15:18:00 09/27/2014 23:59:59 CLS Outpatient ARIELLE CHAVEZ MD [facility] CARD CAD,HTN,HLP [id number] 06/14/2013 13:00:00 06/23/2013 14:08:00 DIS Outpatient EMELI PURDY MD [facility] REHAB DISCOORDINATION [id number] 06/22/2013 09:04:00 06/23/2013 12:13:00 DIS Outpatient LIZZY GARCIA MD [facility] CATH ASOD,LEG PAIN [id number] 06/02/2013 12:32:00 06/03/2013 11:55:00 DIS Inpatient EMELI PURDY MD [facility] SURGICAL ABD PAIN CHOLELITHIASIS HYDONEPHROSIS PNEUMONIA [id number] 05/24/2013 08:35:00 05/24/2013 23:59:59 CLS Outpatient EMELI PURDY MD [facility] RAD CLAUDICAFICATION [id number] 11/21/2014 09:50:00 Document Registration [id number] 10/29/2014 07:08:00 Document Registration [id number] 10/22/2014 06:39:00 Document Registration [id number] 09/27/2014 15:18:00 Document Registration [id number] 08/09/2012 13:47:00 Document Registration [id number] 08/06/2012 09:49:00 Document Registration [id number] 03/13/2011 09:55:00 Document Registration [id number] 02/18/2011 08:52:00 Document Registration [id number] 02/12/2011 08:18:00 Document Registration [id number] 02/11/2011 11:02:00 Document Registration [id number] 02/05/2011 11:24:00 Document Registration [id number] 09/05/2010 14:12:00 Document Registration [id number] 05/14/2009 10:06:00 Document Registration
[2018-08-30] MEDS ORDERED: ACETAMINOPHEN 325 MG TABLET PO PRN (17:00)
[2018-08-30] MEDS ORDERED: NITROGLYCERIN 0.4 MG SL TABS BTL 25'S SL PRN (17:00)
[2018-08-30] MEDS: inSUlin ASPART (NovoLOG) 1 UNIT/0.01 ML (CHARGE PER UNIT) SC SCH ×2 (18:34→21:06)
[2018-08-30] MEDS: MAGNESIUM OXIDE (MAG-OX)400 MG TAB PO SCH (18:37)
[2018-08-30] MEDS ORDERED: CALCIUM CARBONATE 500 MG (TUMS) TAB.CHEW PO PRN (19:00)
[2018-08-30] MEDS ORDERED: diphenhydrAMINE 25 MG TAB (BENADRYL) PO PRN (19:00)
[2018-08-30] MEDS ORDERED: MELATONIN 3 MG TABLET PO PRN (19:00)
[2018-08-30] MEDS ORDERED: ONDANSETRON 4 MG (ZOFRAN) ORAL DISSOLVE TAB PO PRN (19:00)
[2018-08-30] MEDS ORDERED: LOPERAMIDE 2 MG (IMODIUM) CAP PO PRN (19:00)
--- NOTE | 2018-08-30 19:02 | History & Physical ---
History of Present Illness History of Present Illness Reason for visit/HPI CC: Debility following ICH 08/18/18 HPI: This is a 78-year-old white male of and who is in the midst of transitioning to a new primary care provider, likely , who presents to the inpatient rehab facility via private vehicle with family after discharge at [facility] after sustaining an intracranial hemorrhage on thought to have been affiliated with Plavix initiation with baby aspirin following a cardiac catheterization on 08/17/18 without intervention required. He was placed in the neurological ICU after he presented to the ER locally with confusion found to have blood on CT scan so sent to [facility] for higher level of care and neurological surgery consultation. He did not require any surgical intervention but residual from the bleeding stroke is confusion, aphasia, ability to comprehend in Latvian but answers in Marshallese, urinary incontinence, loss of balance with fall risk. The patient and family were very hesitant about admission to an inpatient rehab facility but considering his deficits they elected to come to [facility] IRF. Date of Admission Aug 30, 2018 at 16:04 Date Seen by a Provider: Aug 30, 2018 Time Seen by a Provider: 16:30 I consulted on this patient on 08/30/18 18:54 Attending Physician Aixa Hodgson DO Admitting Physician Goran Jhaveri MD Consult Allergies and Home Medications Allergies Coded Allergies: No Known Drug Allergies (Unverified , 08/17/18) Home Medications Amlodipine Besylate 5 Mg Tablet, 5 MG PO DAILY, (Reported) Aspirin 81 Mg Tablet.dr, 81 MG PO DAILY, (Reported) Atorvastatin Calcium 20 Mg Tablet, 20 MG PO DAILY, (Reported) LAST FILLED #120 18 Calcium Carbonate/Vitamin D3 1 Each Tablet, 1 TAB PO DAILY, (Reported) Clopidogrel Bisulfate 75 Mg Tablet, 75 MG PO DAILY, (Reported) LAST FILLED #30 17 Cyanocobalamin (Vitamin B-12) 1,000 Mcg Tablet, 1,000 MCG PO DAILY, (Reported) Gemfibrozil 600 Mg Tablet, 600 MG PO BID, (Reported) LAST FILLED #240 18 Isosorbide Mononitrate 30 Mg Tab.er.24h, 30 MG PO DAILY, (Reported) Losartan Potassium 100 Mg Tablet, 100 MG PO DAILY, (Reported) Magnesium Oxide 400 Mg Tablet, 400 MG PO BID, (Reported) Metoprolol Succinate 25 Mg Tab.er.24h, 25 MG PO DAILY, (Reported) Multivitamin 1 Each Tablet, 1 TAB PO DAILY, (Reported) [place] 3 Polyunsat Fatty Acids 1,000 Mg Cap, 1,000 MG PO TID, (Reported) Vitamin E Acetate 400 Unit Capsule, 400 UNIT PO DAILY, (Reported) Patient Home Medication List Home Medication List Reviewed: Yes Past [id number]-[id number] Hx Past Med/Social Hx: Reviewed Nursing Past Med/Soc Hx, Reviewed and Corrections made Patient Social History Marrital Status: Employed/Student: retired Alcohol Use: Regular Use Alcohol Beverage of Choice: Wine Recreational Drug Use: No Smoking Status: Former Smoker Former Smoker, Quit: Aug 30, 1987 Type Used: Cigarettes Physical Abuse Screen: No Sexual Abuse: No Recent Foreign Travel: Yes Contact w/other who traveled: Yes Recent Hopitalizations: Yes Recent Infectious Disease Expo: No Immunizations Up To Date Tetanus Booster (TDap): Unknown Pediatric: Yes Date of Influenza Vaccine: May 30, 2012 Seasonal Allergies Seasonal Allergies: No Past Medical History Surgeries: Cardiac, CABG, Coronary Stent, Vascular Surgery Cardiac: Angina, Coronary Artery Disease, High Cholesterol, Hypertension, Peripheral Vascular Neurological: Stroke ([facility] 08/18/18) Reproductive: No Sexually Transmitted Disease: No HIV/AIDS: No Genitourinary: Renal Failure Gastrointestinal: Gastrointestinal Bleed Musculoskeletal: Chronic Back Pain Endocrine: Diabetes, Non-Insulin dep Are Your Blood Sugars Over 250: Yes Loss of Vision: Denies Hearing Impairment: Denies Psychosocial: Sleep Difficulties, Depression Skin/Integumentary: Psoriasis History of Blood Disorders: Yes (ANEMIA DUE TO GI BLEED IN PAST) Adverse Reaction to Blood Méndez: No Family History Cardiovascular disease G8 BROTHER (patient states brother has "heart problems and cardiac stents") Hypertension G8 BROTHER Myocardial infarction 19 FATHER ( of heart attack at age 51) G8 SISTER ( from a heart attack) No Family History of: Congenital heart disease Diabetes, Hypertension Review of Systems Constitutional: see HPI, dizziness, malaise, weakness Respiratory: no symptoms reported Cardiovascular: no symptoms reported Gastrointestinal: no symptoms reported Genitourinary: incontinence (stress) Musculoskeletal: no symptoms reported Skin: no symptoms reported Psychiatric/Neurological: Anxiety, Depressed, Tingling, Weakness, Other ( aphasia) All Other Systems Reviewed Negative Unless Noted: Yes Physical Exam Vital Signs Vital Signs - First Documented 08/30/18 16:00 Temp 96.3 Pulse 64 Resp 18 B/P (MAP) 160/63 (95) Pulse Ox 99 O2 Delivery Room Air Capillary Refill : Height, Weight, BMI Height: 5'5.00" Weight: 183lbs. 0.0oz. [id number]; 30.5 BMI Method:Stated General Appearance: No Apparent Distress, WD/WN, Chronically ill Eyes: Bilateral Eye Normal Inspection, Bilateral Eye PERRL, Bilateral Eye EOMI HEENT: PERRL/EOMI, Normal ENT Inspection, Pharynx Normal Neck: Full Range of Motion, Normal Inspection, Non Tender, Supple, Carotid Bruit Respiratory: Chest Non Tender, Lungs Clear, Normal Breath Sounds, No Accessory Muscle Use, No Respiratory Distress Cardiovascular: Regular Rate, Rhythm, No Edema, No Gallop, No JVD, No Murmur, Normal Peripheral Pulses Gastrointestinal: Normal Bowel Sounds, No Organomegaly, No Pulsatile Mass, Non Tender, Soft Back: Normal Inspection, No CVA Tenderness, No Vertebral Tenderness Extremity: Normal Capillary Refill, Normal Inspection, Normal Range of Motion, Non Tender, No Calf Tenderness, No Pedal Edema Neurologic/Psychiatric: Alert, Oriented x3, Normal 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 Centeno sent to [facility] but no surgical intervention Aphasia Confusion Comprehends in Latvian but responds in Marshallese Loss of balance DM [id number] Hypertension Angina chronic CAD CABG Chronic renal insufficiency Anemia Thrombocytopenia Urinary incontinence new Plan: Accu-Cheks AC/at bedtime with NovoLog sliding scale A Continue all meds from [facility] Consult cardiology Initiate therapies per inpatient rehab protocol Bladder management to prevent continued incontinence Monitor blood pressure closely Will likely need insulin initiation due to renal insufficiency previously been on metformin now no longer an option due to renal insufficiency Check labs in a.m. Monitor bowel function Provide walker Fall risk Problems: (1) Hemorrhage, intracranial Status: Acute (2) Aphasia Status: Acute (3) Balance problem Status: Acute Admission Diagnosis Admission Status: Inpatient Order (span 2 midnights) Reason for Inpatient Admission: IRF will likely take 7-14 days Clinical Quality Measures DVT/VTE Risk/Contraindication: Risk Factor Score Per Nursin RFS Level Per Nursing on Admit: 4+=Very High Diagnosis/Problems Diagnosis/Problems (1) Hemorrhage, intracranial Status: Acute (2) Aphasia Status: Acute (3) Confusion Status: Acute (4) Balance problem Status: Acute (5) Hypertension Status: Chronic (6) Diabetes mellitus Status: Chronic (7) CAD (coronary artery disease) (8) Angina pectoris Status: Chronic (9) Hyperlipidemia Status: Chronic (10) Renal insufficiency Status: Chronic (11) Anemia Status: Chronic (12) Thrombocytopenia Status: Acute Problem Qualifiers (1) Hypertension: Hypertension type: essential hypertension Qualified Codes: I10 - Essential ( primary) hypertension (2) Diabetes mellitus: Diabetes mellitus type: type 2 Diabetes mellitus ferry terminal agent insulin use: without ferry terminal agent use Diabetes mellitus complication status: with kidney complications Diabetes mellitus complication detail: with chronic kidney disease Chronic kidney disease stage: stage 3 (moderate) Qualified Codes: E11.22 - Type 2 diabetes mellitus with diabetic chronic kidney disease; N18.3 - Chronic kidney disease, stage 3 (moderate) (3) CAD (coronary artery disease): Coronary Disease-Associated Artery/Lesion type: [place] artery [place] vs. transplanted heart: cherokee heart Associated angina: with stable angina Qualified Codes: I25.118 - Atherosclerotic heart disease of cherokee coronary artery with other forms of angina pectoris (4) Hyperlipidemia: Hyperlipidemia type: mixed hyperlipidemia Qualified Codes: E78.2 - Mixed hyperlipidemia (5) Anemia: Anemia type: unspecified type Qualified Codes: D64.9 - Anemia, unspecified AIXA HODGSON DO Aug 30, 2018 19:02
--- NOTE | 2018-08-30 19:52 | Consultation-Cardiology ---
HPI-Cardiology Cardiology Consultation Date of Consultation 08/30/18 Date of Admission Time Seen by Provider: 19:44 HPI 78 years old gentleman with history of coronary artery disease, underwent cardiac catheterization on August 17, 2018, had labile hypertension, started to get more confused on the next day after the cardiac catheterization then his and family brought him to the emergency room on August 19, 2018 noted to have intracranial bleed, he was having aphagia and confused and having slight right-sided weakness, transferred to [facility], treated conservatively, during his hospital stay on August 23, 2018 8 was reported that he had an episode of chest pain and started on nitroglycerin drip, had non-ST elevation myocardial infarction with mild elevation in troponin level. Continue to be treated conservatively with single antiplatelet therapy with aspirin. No further episode of chest pain were noted on his record. I was called for cardiac management during this hospital stay. He is laying down in bed comfortably. No new complaint. No active chest pain at this time. Home Medications & Allergies Allergies: Coded Allergies: No Known Drug Allergies (Unverified , 08/17/18) Home Medication List Reviewed: Yes IPE-[id number]-Jjqjfw Hx Patient Social History Marital Status: Employed/Student: retired Alcohol Use: Regular Use Recreational Drug Use: No Smoking Status: Former Smoker Type Used: Cigarettes Recent Foreign Travel: Yes Recent Infectious Disease Expo: No Recent Hopitalizations: Yes Physical Abuse Screen: No Sexual Abuse: No Immunizations Up To Date Tetanus Booster (TDap): Unknown Date of Influenza Vaccine: May 30, 2012 Past Medical History Past medical history as described below Family Medical History Significant Family History: Diabetes, Hypertension Family History: Cardiovascular disease G8 BROTHER (patient states brother has "heart problems and cardiac stents") Hypertension G8 BROTHER Myocardial infarction 19 FATHER ( of heart attack at age 51) G8 SISTER ( from a heart attack) No Family History of: Congenital heart disease Review of Systems Constitutional: see HPI, malaise EENTM: see HPI Respiratory: see HPI; No cough, No dyspnea on exertion, No hemoptysis, No orthopnea, No phlegm, No short of breath, No stridor, No wheezing, No other Cardiovascular: see HPI; No chest pain, No edema, No Hx of Intervention, No palpitations, No syncope, No vascular heart diseas, No other Gastrointestinal: no symptoms reported, see HPI Genitourinary: no symptoms reported, see HPI Musculoskeletal: no symptoms reported, see HPI Skin: see HPI Psychiatric/Neurological: See HPI, Other (aphasia) Reviewed Test Results Reviewed Test Results Lab Laboratory Tests Test 08/30/18 18:07 Range/Units Glucometer 242 H 70-110 MG/DL Physical Exam Vital Signs Vital Signs - First Documented 08/30/18 16:00 Temp 96.3 Pulse 64 Resp 18 B/P (MAP) 160/63 (95) Pulse Ox 99 O2 Delivery Room Air Capillary Refill : Height, Weight, BMI Height: 5'5.00" Weight: 183lbs. 0.0oz. 83.251479la; 30.5 BMI Method:Stated General Appearance: No Apparent Distress, WD/WN Eyes: Bilateral Eye Normal Inspection, Bilateral Eye PERRL, Bilateral Eye EOMI HEENT: PERRL/EOMI, TMs Normal, Normal ENT Inspection, Pharynx Normal Neck: Full Range of Motion, Normal Inspection, Non Tender, Supple, Carotid Bruit Respiratory: Chest Non Tender, Lungs Clear, Normal Breath Sounds, No Accessory Muscle Use, No Respiratory Distress Cardiovascular: Regular Rate, Rhythm, No Edema, No JVD, No Murmur, Normal Peripheral Pulses, Systolic Murmur Gastrointestinal: Normal Bowel Sounds, No Organomegaly, No Pulsatile Mass, Non Tender, Soft Back: Normal Inspection, No CVA Tenderness, No Vertebral Tenderness Extremity: Normal Capillary Refill, Normal Inspection, Normal Range of Motion, Non Tender, No Calf Tenderness, No Pedal Edema Neurologic/Psychiatric: Alert, Other (aphasia, no new complaint) Skin: Normal Color, Warm/Dry Lymphatic: No Adenopathy A/P-Cardiology Admission Diagnosis Acute intracranial bleed Coronary artery disease Non-ST elevation myocardial infarction Peripheral arterial disease Hypertension Hyperlipidemia Assessment/Plan Acute intracranial bleed resulted in confusion and aphasia. Transferred back from , left thalamic bleed and basal ganglia bleed. 1.8 cm in diameter. Continue with rehabilitation for now. Coronary artery disease, extensive disease, last cardiac catheterization was done on August 17, 2018 showed occluded right coronary artery and vein graft to the right coronary artery with collaterals filling the right from the left system. Severe ostial LAD and circumflex and ramus intermedius disease with patent ALVARADO to LAD and vein graft to the obtuse marginal branch. Severe peripheral arterial disease, did not evaluate the full anatomy due to the underlying renal insufficiency. Medical therapy was recommended no intervention was done, had non-ST elevation myocardial infarction on August 23, 2018 while he was at and treated with nitroglycerin drip and aspirin Labile hypertension, resistant to multiple medication on top of noncompliance with medication. Restarted medication after the transfer and we will monitor his blood pressure. Hyperlipidemia, continue to monitor lipids History of severe peripheral arterial disease, extensive history multiple interventions in the past. Severe right carotid artery stenosis, history of right carotid endarterectomy, continue to monitor Chronic renal insufficiency, continue to monitor renal function Diabetes mellitus. Clinical Quality Measures DVT/VTE Risk/Contraindication: Risk Factor Score Per Nursin RFS Level Per Nursing on Admit: 4+=Very High ARIELLE CHAVEZ MD Aug 30, 2018 7:52 pm
[2018-08-30] MEDS: RANOLAZINE ER 500 MG TAB (RANEXA) PO SCH (20:07)
[2018-08-30] MEDS: ATORVASTATIN 20 MG (LIPITOR) TABLET PO SCH (20:07)
[2018-08-30] MEDS: meTOprolol TARTRATE 50 MG (LOPRESSOR) TAB PO SCH (20:07)
[2018-08-30] MEDS: ISOSORBIDE MONONITRATE 30 MG (IMDUR) TAB PO SCH (20:07)
[2018-08-30] MEDS: SENNA W/DOCUSATE (SENOKOT S) TABLET PO SCH (20:07)
[2018-08-31] MEDS: inSUlin ASPART (NovoLOG) 1 UNIT/0.01 ML (CHARGE PER UNIT) SC SCH ×4 (05:41→21:10)
[2018-08-31 06:00] VITALS: BP 146/61
[2018-08-31] MEDS: PANTOPRAZOLE 40 MG (PROTONIX) TAB PO SCH (06:18)
[2018-08-31] MEDS: MULTIVIT W/MINERALS TAB (THERAGRAN M) PO SCH (06:18)
[2018-08-31] MEDS: ISOSORBIDE MONONITRATE 30 MG (IMDUR) TAB PO SCH ×2 (06:18→17:47)
[2018-08-31 07:12] LABS: BASOPHILS % (AUTO) 0 % (0-10); EOSINOPHILS # (AUTO) 0.2 10^3/uL (0.0-0.3); EOSINOPHILS % (AUTO) 3 % (0-10); HEMATOCRIT 29 % (40-54); LYMPHOCYTES # (AUTO) 1.2 X 10^3 (1.0-4.0); LYMPHOCYTES % (AUTO) 17 % (12-44); MEAN CORPUSCULAR HEMOGLOBIN 29 PG (25-34); MEAN CORPUSCULAR HGB CONC 34 G/DL (32-36); MEAN CORPUSCULAR VOLUME 85 FL (80-99); MEAN PLATELET VOLUME 10.6 FL (7.4-10.4); MONOCYTES # (AUTO) 0.7 X 10^3 (0.0-1.0); MONOCYTES % (AUTO) 11 % (0-12); NEUTROPHILS # (AUTO) 4.5 X 10^3 (1.8-7.8); NEUTROPHILS % (AUTO) 68 % (42-75); PLATELET COUNT 153 10^3/uL (130-400); RED BLOOD COUNT 3.42 10^6/uL (4.35-5.85); RED CELL DISTRIBUTION WIDTH 13.9 % (10.0-14.5); WHITE BLOOD COUNT 6.6 10^3/uL (4.3-11.0)
[2018-08-31 07:36] LABS: ALBUMIN 3.8 GM/DL (3.2-4.5); BILIRUBIN,TOTAL 0.5 MG/DL (0.1-1.0); CALCIUM 9.6 MG/DL (8.5-10.1); CREATININE SERUM 1.73 MG/DL (0.60-1.30); POTASSIUM 4.1 MMOL/L (3.6-5.0); TOTAL PROTEIN 6.9 GM/DL (6.4-8.2)
[2018-08-31] MEDS ORDERED: FLU QUADRIvalent (5+ YOA) 2018-2019 (AFLURIA) 0.5 ML IM ONE (07:45)
--- NOTE | 2018-08-31 08:31 | Cardiology Progress Note ---
Subjective Date Seen by Provider: Aug 31, 2018 Time Seen by Provider: 08:29 Subjective/Events-last exam Patient with physical therapy, denies any pain. Review of Systems General: Fatigue; No Malaise HEENT: No Visual Changes, No Dysphasia, No Sore Throat Pulmonary: No Dyspnea, No Cough Cardiovascular: No: Chest Pain, Palpitations Gastrointestinal: No: Nausea, Vomiting Genitourinary: No Dysuria, No Frequency Musculoskeletal: No: neck pain, back pain Neurological: Weakness; No: Numbness, Change in speech, Confusion Objective-Cardiology Exam Last Set of Vital Signs Vital Signs 08/31/18 06:00 Temp 72.6 Pulse 55 Resp 16 B/P (MAP) 146/61 (89) Pulse Ox 96 O2 Delivery Room Air Capillary Refill : I&O Intake and Output 08/31/18 00:00 Daily Weight Change No General: Alert, Oriented X3, Cooperative HEENT: Atraumatic, PERRLA Neck: Supple, No JVD, No Thyromegaly Lungs: Clear to Auscultation, Normal Air Movement Heart: Regular Rate, Normal S1, Normal S2, No Murmurs Abdomen: Normal Bowel Sounds, Soft, No Tenderness, No Hepatosplenomegaly, No Masses Extremities: No Clubbing, No Cyanosis Skin: No Rashes, No Significant Lesion Neuro: Normal Gait, Cranial Nerves 3-12 NL Psych/Mental Status: Mental Status NL Results Lab Laboratory Tests 08/31/18 06:39 A/P-Cardiology Admission Diagnosis Acute intracranial bleed Coronary artery disease Non-ST elevation myocardial infarction Peripheral arterial disease Hypertension Hyperlipidemia Assessment/Plan Acute intracranial bleed resulted in confusion and aphasia. Transferred back from , left thalamic bleed and basal ganglia bleed. 1.8 cm in diameter. Continue with rehabilitation for now. Coronary artery disease, extensive disease, last cardiac catheterization was done on August 17, 2018 showed occluded right coronary artery and vein graft to the right coronary artery with collaterals filling the right from the left system. Severe ostial LAD and circumflex and ramus intermedius disease with patent ALVARADO to LAD and vein graft to the obtuse marginal branch. Severe peripheral arterial disease, did not evaluate the full anatomy due to the underlying renal insufficiency. Medical therapy was recommended no intervention was done, had non-ST elevation myocardial infarction on August 23, 2018 while he was at and treated with nitroglycerin drip and aspirin Labile hypertension, resistant to multiple medication on top of noncompliance with medication. Restarted medication after the transfer and we will monitor his blood pressure. Hyperlipidemia, continue to monitor lipids History of severe peripheral arterial disease, extensive history multiple interventions in the past. Severe right carotid artery stenosis, history of right carotid endarterectomy, continue to monitor Chronic renal insufficiency, continue to monitor renal function Diabetes mellitus. Clinical Quality Measures DVT/VTE Risk/Contraindication: Risk Factor Score Per Nursin RFS Level Per Nursing on Admit: 4+=Very High CHARLENE TALAMANTES Aug 31, 2018 08:31
[2018-08-31] MEDS: SENNA W/DOCUSATE (SENOKOT S) TABLET PO SCH ×2 (08:35→21:03)
[2018-08-31] MEDS: LOSARTAN 100 MG (COZAAR) TABLET PO SCH (08:35)
[2018-08-31] MEDS: MAGNESIUM OXIDE (MAG-OX)400 MG TAB PO SCH ×2 (08:35→17:47)
[2018-08-31] MEDS: ASPIRIN E.C. 81 MG (ECOTRIN) TAB PO SCH (08:36)
[2018-08-31] MEDS: RANOLAZINE ER 500 MG TAB (RANEXA) PO SCH ×2 (08:36→21:03)
[2018-08-31] MEDS: meTOprolol TARTRATE 50 MG (LOPRESSOR) TAB PO SCH ×2 (08:36→21:03)
[2018-08-31] MEDS ORDERED: amLODIPine 5 MG (NORVASC) TAB PO SCH (09:00)
[2018-08-31] MEDS ORDERED: ISOSORBIDE MONONITRATE 30 MG (IMDUR) TAB PO SCH (09:00)
--- NOTE | 2018-08-31 09:38 | Physical Therapy Evaluation ---
PT Evaluation-General Medical Diagnosis Admission Date Aug 30, 2018 at 16:04 Medical Diagnosis: CVA Onset Date: Aug 18, 2018 Therapy Diagnosis Therapy Diagnosis: impaired mobility, strength, balance, endurance Height/Weight Height (Feet): 5 Height (Inches): 5.00 Weight (Pounds): 183 Weight (Ounces): 0.0 Precautions Precautions/Isolations: Fall Prevention, Pressure Ulcer Referral Physician: Aixa Muhammad DO Reason for Referral: Evaluation/Treatment Medical History Additional Medical History Past Medical History Surgeries: Cardiac, CABG, Coronary Stent, Vascular Surgery Cardiac: Angina, Coronary Artery Disease, High Cholesterol, Hypertension, Peripheral Vascular Neurological: Stroke ([facility] 08/18/18) Reproductive: No Sexually Transmitted Disease: No HIV/AIDS: No Genitourinary: Renal Failure Gastrointestinal: Gastrointestinal Bleed Musculoskeletal: Chronic Back Pain Endocrine: Diabetes, Non-Insulin dep Are Your Blood Sugars Over 250: Yes Loss of Vision: Denies Hearing Impairment: Denies Psychosocial: Sleep Difficulties, Depression Skin/Integumentary: Psoriasis History of Blood Disorders: Yes (ANEMIA DUE TO GI BLEED IN PAST) Social History unknown, patient is not able to speak [place] Prior/Core FIM Prior Level of Function Therapy Code Descriptions/Definitions Functional [place] Measure: 0=Not Assessed/NA 4=Minimal Assistance 1=Total Assistance 5=Supervision or Setup 2=Maximal Assistance 6=Modified [place] 3=Moderate Assistance 7=Complete [place] Therapy Quality Codes: 6 Independent with activity with or without an assistive device 5 Patient requires set up or clean up by helper. Patient completes activity by themselves 4 Supervision or touching assist (CGA). [place] provide cues , steadying assist 3 The helper provides less than half the effort to complete the activity 2 The helper provides more than half the effort to complete the activity 1 Dependent. The helper does all the effort to complete an activity 7 Patient refused to complete or attempt activity 9 The patient did not perform the activity before the current illness or injury 88 Not attempted due to Medical conditions or safety concerns Functional Abilities and Goals: Independent: Patient completed the activities by him/herself, with or without an assistive device, with no assistance from a helper. Needed Some Help: Patient needed partial assistance from another person to complete activities. Dependent: A helper completed the activities for the patient. Unknown: Not Applicable: unknown PT Evaluation-Current Subjective Patient in bed pre tx, agrees to PT, indicates that he may have some pain in one of his legs but is not able to be any more accurate than that. Patient seems to understand s[place] some or even most of the time but cannot speak it. Pt/Family Goals none stated Objective Patient Orientation: Person, Unable to Assess ROM/Strength ROM Lower Extremities WNL Strenght Lower Extremities left lower extremity 5/5 gross, right lower extremity 4+/5 gross except for dorsiflexion which is 3/5 Neuromuscular (Tone, Coordination, Reflexes) Patient has impaired coordination on the right side stepping during ambulation, impairment is slight Sensory Sensation Lower Extremities unable to test Transfers Therapy Code Descriptions/Definitions Functional [place] Measure: 0=Not Assessed/NA 4=Minimal Assistance 1=Total Assistance 5=Supervision or Setup 2=Maximal Assistance 6=Modified [place] 3=Moderate Assistance 7=Complete [place] Therapy Quality Codes: 6 Independent with activity with or without an assistive device 5 Patient requires set up or clean up by helper. Patient completes activity by themselves 4 Supervision or touching assist (CGA). [place] provide cues , steadying assist 3 The helper provides less than half the effort to complete the activity 2 The helper provides more than half the effort to complete the activity 1 Dependent. The helper does all the effort to complete an activity 7 Patient refused to complete or attempt activity 9 The patient did not perform the activity before the current illness or injury 88 Not attempted due to Medical conditions or safety concerns Transfers (B, C, W/C) (FIM): 4 Scootin Rollin Roll Left to Right (QC): 4 Supine to/from Sit: 5 Sit to/from Stand: 4 Sit to Lying (QC): 4 Lying to Sitting/Side of Bed(Q: 4 Sit to Stand (QC): 4 Chair/Xnq-yq-Enujm Xfer(QC): 4 Car Transfer (QC): 4 Patient performs bed mobility with SBA, supine <-> sit with SBA, sit <-> stand with CGA, transfers with CGA, car transfer CGA. Patient needs cues for direction and safety. He has a hard time following/understanding directions. Gait Does the Patient Walk?: Yes Mode of Locomotion: Walk Anticipated Mode of Locomotion: Walk Gait (FIM): 4 Walk 10 feet (QC): 4 Walk 50 ft with 2 Turns(QC): 4 Walk 150 ft (QC): 4 Walking 10ft/uneven surface-QC: 4 Distance: 150', 80'x2 Gait Level of Assist: 4 Gait Persons Needed: 1 Gait Assistive Device: Handheld Assist Comments/Gait Description Patient can ambulate 150' with [employer] [employer] with CGA (including 50' with at least 2 turns of 90 degrees and 10' over an uneven surface). Patient has slight right foot drop, slight uncoordinated stepping on the right, some unsteadiness but no tenisha LOB. Patient needs cues for direction and safety. Wheelchair Training Does the Pt Use a Wheelchair?: No Stairs Stairs (FIM): 2 #of Steps: 4 Level of Assist: 4 1 Step (curb) (QC): 3 4 Steps (QC): 3 Patient can go up an down 4 steps using 2 handrails with min assist. Cues for direction and safety. Balance Sitting Static: Normal Sitting Dynamic: Normal Standing Static: Fair Standing Dynamic: Fair Treatment seated LAQ for 5 min with 2# ankle weights, standing exercises x20 in parallel bars (heel raises, mini-squats, hip abd, marching) Assessment/Needs Patient has impairments with mobility, strength, endurance, balance. He has difficulty following directions and doesn't seem to be able to speak s[place]. Patient in recliner post tx with nurse call, phone, tray, all needs met. Chair alarm on. Rehab Potential: Fair PT Short Term Goals Short Term Goals Time Frame: Sep 07, 2018 Transfers (B,C,W/C) (FIM): 5 Gait (FIM): 5 Gait Distance Comment: 150' Gait Level of Assist: 5 Gait Assistive Device: Cane Single Point PT Shoe Treer Goals Care Home Goals PT Shoe Treer Goals Time Frame: Sep 21, 2018 Transfers (B,C,W/C) (FIM): 6 Sit to Lying (QC): 6 Lying-Sitting on Side/Bed(QC): 6 Sit to Stand (QC): 6 Rollin Roll Left to Right (QC): 6 Chair/Pzh-lm-Gijoi Xfer(QC): 6 Car Transfer (QC): 6 Gait (FIM): 6 Distance: 200' Walk 10 feet (QC): 6 Walk 10ft-Uneven Surface(QC): 6 Walk 50ft with 2 Turns (QC): 6 Walk 150 ft (QC): 6 Gait Level of Assist: 6 Gait Assistive Device: None, Cane Single Point Stairs (FIM): 2 # of Steps: 4 1 Step (curb) (QC): 4 4 Steps (QC): 4 Stairs Level Of Assist: 5 PT Plan Problem List Problem List: Activity Tolerance, Functional Strength, Safety, Balance, Gait, Transfer, Bed Mobility, ROM Treatment/Plan Treatment Plan: Continue Plan of Care Treatment Plan: Bed Mobility, Education, Functional Activity Colin, Functional Strength, Group Therapy, Gait, Safety, Therapeutic Exercise, Transfers Treatment Duration: Sep 21, 2018 Frequency: At least 5 of 7 days/Wk (IRF) Estimated Hrs Per Day: 1.5 hours per day Patient and/or Family Agrees t: Yes Safety Risks/Education Patient Education: Gait Training, Transfer Techniques, Correct Positioning, Safety Issues Teaching Recipient: Patient Teaching Methods: Demonstration, Discussion Response to Teaching: Reinforcement Needed Discharge Recommendations Plan Patient will perform bed mobility and transfer training, balance and endurance training, functional strengthening, stair training, gait training, and education to improve functional mobility and independence at home. Therapy D/C Recommendations: Home w/ Family Support Time/GCodes Time In: 0800 Time Out: 0900 Total Billed Treatment Time: 60 Total Billed Treatment 1 visit EVM 30' FA 10' EX 20' DONTAE BEAR PT Aug 31, 2018 09:38
--- NOTE | 2018-08-31 09:52 | NUR ---
UPDATED MED REC TO THE MEDICATIONS THE PATIENT WAS TAKING UPON ADMISSION TO USING THE DISCHARGE PAPERWORK. NOTE THE FOLLOWING CHANGES WERE MADE WHEN THE PATIENT DISCHARGED TO [facility]IA [facility] THAT ARE NOT CURRENTLY REFLECTED ON THE HOME MED REC: START TAKING: TYLENOL 325MG 2 Q4H PRN HYDRALAZINE 10MG TID NITROSTAT PRN PROTONIX 40MG DAILY RANEXA 500MG BID SENOKOT S BID METOPROLOL TARTRATE 50MG BID IMDUR 30MG 1/2 TAB HS (IN ADDITION TO 1 TAB AM ALREADY TAKING) CHANGE HOW YOU TAKE: AMLODIPINE 5MG (INCREASE FROM 5MG DAILY TO 10MG DAILY) LIPITOR 20MG (INCREASE FROM 20MG DAILY TO 40MG DAILY) STOP TAKING: METOPROLOL SUCCINATE 25MG DAILY PLAVIX 75MG DAILY
--- NOTE | 2018-08-31 10:04 | NUR ---
Call to Pharmacy re: unable to obtain Vitamin E from [facility].
[2018-08-31] MEDS: VITAMIN E 400 INTLU CAP PO SCH (10:11)
--- NOTE | 2018-08-31 11:07 | PM&R Post Admission Assessment ---
Post Admission Physician Asses Date seen by provider: Aug 31, 2018 Time seen by provider: 10:00 Admisison Dx: (1) Hemorrhage, intracranial Status: Acute (2) Aphasia Status: Acute (3) Confusion Status: Acute (4) Balance problem Status: Acute (5) Hypertension Status: Chronic (6) Diabetes mellitus Status: Chronic (7) CAD (coronary artery disease) (8) Angina pectoris Status: Chronic (9) Hyperlipidemia Status: Chronic (10) Renal insufficiency Status: Chronic (11) Anemia Status: Chronic (12) Thrombocytopenia Status: Acute The preadmission screen agrees with the post admission assessment that the patient is a good candidate for inpatient rehabilitation. The patient will have a comprehensive program of inpatient rehabilitation with a goal of maximizing level of functional independence prior to discharge home with [family]. The patient will have PT/OT ninety minutes per day, each discipline, five days a week for gait, strengthening, conditioning, balance, ADLs, any patient/family/caregiver training as necessary. Speech therapy to do cognitive assessment and treat as indicated. Rehabilitation nursing to assist with bowel, bladder, skin, wound care, medication administration, pain management. Small Engine Specialist to assist with discharge planning, community reentry. SCD's for DVT prophylaxis. He appears to be well motivated to participate in three hours of therapy a day. He should be able to tolerate three hours of therapy a day from a medical standpoint. He should benefit from the three hours of therapy a day. He has a reasonable discharge plan, reasonable discharge rehabilitation goals and a supportive family. He has various comorbidities that need to be closely monitored with medications and treatments adjusted on a daily basis as needed. These include: see above Barriers to discharge for this patient who had been independent prior to this are for him to be modified independent to supervision for ADLs and mobility skills prior to discharge home with [family], so as to lessen the burden of the caregivers. Risks for this patient include: 1. Fall 2. Fracture 3. DVT 4. Pulmonary embolism 5. Wound infection 6. Skin breakdown 7. Contractures 8. Poorly controlled pain 9. Urinary retention 10. UTI 11. Respiratory infection 12. Aspiration Estimated Length of Stay: 14 days Prognosis: Rehab prognosis appears good for goal of discharge home with family modified independent to supervision for ADLs and mobility skills. General: Alert, Cooperative, Other (subtle confusion, diff communicating) HEENT: Atraumatic, PERRLA Neck: Supple, No JVD, No Thyromegaly Lungs: Clear to Auscultation, Normal Air Movement Heart: Regular Rate, Normal S1, Normal S2, No Murmurs Abdomen: Normal Bowel Sounds, Soft, No Tenderness, No Hepatosplenomegaly, No Masses Extremities: No Clubbing, No Cyanosis Skin: No Rashes, No Significant Lesion Neuro: Cranial Nerves 3-12 NL, Other (balance deficits) Psych/Mental Status: Mental Status NL Assessment/Plan Assessment and Plan Subacute intracranial hemorrhage on 08/18/18 following Plavix and aspirin initiation after cardiac catheterization without intervention by Dr. Centeno sent to [facility] but no surgical intervention Aphasia Confusion Comprehends in [place] but responds in [place] Loss of balance DM [id number] Hypertension Angina chronic CAD CABG Chronic renal insufficiency Anemia Thrombocytopenia Urinary incontinence new Plan: Accu-Cheks AC/at bedtime with NovoLog sliding scale A Continue all meds from [facility] Consult cardiology Initiate therapies per inpatient rehab protocol Bladder management to prevent continued incontinence Monitor blood pressure closely Will likely need insulin initiation due to renal insufficiency previously been on metformin now no longer an option due to renal insufficiency Check labs in a.m. Monitor bowel function Provide walker Fall risk Problems: (1) Hemorrhage, intracranial Status: Acute (2) Aphasia Status: Acute (3) Confusion Status: Acute (4) Balance problem Status: Acute (5) Hypertension Status: Chronic Qualifiers: Qualified Codes: I10 - Essential (primary) hypertension (6) Diabetes mellitus Status: Chronic Qualifiers: Qualified Codes: E11.22 - Type 2 diabetes mellitus with diabetic chronic kidney disease; N18.3 - Chronic kidney disease, stage 3 (moderate) (7) CAD (coronary artery disease) Qualifiers: Qualified Codes: I25.118 - Atherosclerotic heart disease of [place] coronary artery with other forms of angina pectoris (8) Angina pectoris Status: Chronic (9) Hyperlipidemia Status: Chronic Qualifiers: Qualified Codes: E78.2 - Mixed hyperlipidemia (10) Renal insufficiency Status: Chronic (11) Anemia Status: Chronic Qualifiers: Qualified Codes: D64.9 - Anemia, unspecified (12) Thrombocytopenia Status: Acute Admission Diagnosis Subacute intracranial hemorrhage on 08/18/18 following Plavix and aspirin initiation after cardiac catheterization without intervention by Dr. Centeno sent to [facility] but no surgical intervention Aphasia Confusion Comprehends in [place] but responds in [place] Loss of balance DM [id number] Hypertension Angina chronic CAD CABG Chronic renal insufficiency Anemia Thrombocytopenia Urinary incontinence new Plan: Accu-Cheks AC/at bedtime with NovoLog sliding scale A Continue all meds from [facility] Consult cardiology Initiate therapies per inpatient rehab protocol Bladder management to prevent continued incontinence Monitor blood pressure closely Will likely need insulin initiation due to renal insufficiency previously been on metformin now no longer an option due to renal insufficiency Check labs in a.m. Monitor bowel function Provide walker Fall risk RAMIN HODGSON DO Aug 31, 2018 11:07
--- NOTE | 2018-08-31 11:38 | Cardiology Progress Note ---
Subjective Date Seen by Provider: Aug 31, 2018 Time Seen by Provider: 11:37 Subjective/Events-last exam Patient is sitting in a chair, feeling better, able to have a conversation, slight slurred speech. Review of Systems General: No Chills, No Night Sweats, No Fatigue, No Malaise, No Appetite, No Other HEENT: No Head Aches, No Visual Changes, No Eye Pain, No Ear Pain, No Dysphasia , No Sinus Congestion, No Post Nasal Drip, No Sore Throat, No Other Pulmonary: No Dyspnea, No Cough, No Pleuritic Chest Pain, No Other Cardiovascular: No: Chest Pain, Palpitations, Orthopnea, Paroxysmal Noc. Dyspnea, Edema, Lt Headedness, Other Objective-Cardiology Exam Last Set of Vital Signs Vital Signs 08/31/18 06:00 Temp 72.6 Pulse 55 Resp 16 B/P (MAP) 146/61 (89) Pulse Ox 96 O2 Delivery Room Air Capillary Refill : I&O Intake and Output 08/31/18 00:00 Daily Weight Change No General: Alert, Oriented X3, Cooperative HEENT: Atraumatic, PERRLA Neck: Supple, No JVD, No Thyromegaly Lungs: Clear to Auscultation, Normal Air Movement Heart: Regular Rate, Normal S1, Normal S2, No Murmurs Abdomen: Normal Bowel Sounds, Soft, No Tenderness, No Hepatosplenomegaly, No Masses Extremities: No Clubbing, No Cyanosis Skin: No Rashes, No Significant Lesion Neuro: Normal Gait, Cranial Nerves 3-12 NL Psych/Mental Status: Mental Status NL Results Lab Laboratory Tests 08/31/18 06:39 A/P-Cardiology Admission Diagnosis Acute intracranial bleed Coronary artery disease Non-ST elevation myocardial infarction Peripheral arterial disease Hypertension Hyperlipidemia Assessment/Plan Acute intracranial bleed resulted in confusion and aphasia. Transferred back from , left thalamic bleed and basal ganglia bleed. 1.8 cm in diameter. Continue with rehabilitation for now. Coronary artery disease, extensive disease, last cardiac catheterization was done on August 17, 2018 showed occluded right coronary artery and vein graft to the right coronary artery with collaterals filling the right from the left system. Severe ostial LAD and circumflex and ramus intermedius disease with patent AVLARADO to LAD and vein graft to the obtuse marginal branch. Severe peripheral arterial disease, did not evaluate the full anatomy due to the underlying renal insufficiency. Medical therapy was recommended no intervention was done, had non-ST elevation myocardial infarction on August 23, 2018 while he was at and treated with nitroglycerin drip and aspirin Labile hypertension, resistant to multiple medication on top of noncompliance with medication. I will increase amlodipine to 10 mg daily and monitor tolerance and response Hyperlipidemia, continue to monitor lipids History of severe peripheral arterial disease, extensive history multiple interventions in the past. Severe right carotid artery stenosis, history of right carotid endarterectomy, continue to monitor Chronic renal insufficiency, continue to monitor renal function Diabetes mellitus. Clinical Quality Measures DVT/VTE Risk/Contraindication: Risk Factor Score Per Nursin RFS Level Per Nursing on Admit: 4+=Very High ARIELLE CHAVEZ MD Aug 31, 2018 11:37
[2018-08-31] MEDS ORDERED: amLODIPine 5 MG (NORVASC) TAB PO NR (11:45)
--- NOTE | 2018-08-31 11:49 | Occupational Therapy Eval ---
GISSELL CARRINGTON OT 08/31/18 1149: OT Evaluation-General/PLF Medical Diagnosis Admission Date Aug 30, 2018 at 16:04 Medical Diagnosis: Intracranial Hemorrhage Onset Date: Aug 18, 2018 Therapy Diagnosis Therapy Diagnosis: decreased self care skills Height/Weight Height (Feet): 5 Height (Inches): 5.00 Weight (Pounds): 183 Weight (Ounces): 0.0 Precautions Precautions/Isolations: Fall Prevention, Pressure Ulcer Safety Interventions: Bed Exit Alarm Referral Physician: Aixa Muhammad DO Medical History Pertinent Medical History: CABG, CAD, DM, HTN, PVD Additional Medical History coronary stent, high cholesterol, GI bleed, chronic back pain, sleep difficulties, depression, psoriasis Social History Home: Single Level Current Living Status: Spouse ADL-Prior Level of Function Therapy Code Descriptions/Definitions Functional [place] Measure: 0=Not Assessed/NA 4=Minimal Assistance 1=Total Assistance 5=Supervision or Setup 2=Maximal Assistance 6=Modified [place] 3=Moderate Assistance 7=Complete [place] Therapy Quality Codes: 6 Independent with activity with or without an assistive device 5 Patient requires set up or clean up by helper. Patient completes activity by themselves 4 Supervision or touching assist (CGA). [place] provide cues , steadying assist 3 The helper provides less than half the effort to complete the activity 2 The helper provides more than half the effort to complete the activity 1 Dependent. The helper does all the effort to complete an activity 7 Patient refused to complete or attempt activity 9 The patient did not perform the activity before the current illness or injury 88 Not attempted due to Medical conditions or safety concerns Functional Abilities and Goals: Independent: Patient completed the activities by him/herself, with or without an assistive device, with no assistance from a helper. Needed Some Help: Patient needed partial assistance from another person to complete activities. Dependent: A helper completed the activities for the patient. Unknown: Not Applicable: ADL PLOF Comments Independent. No assistive devices. Pt has difficulty providing information regarding PLOF. 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 Pt does not indicate pain during session. Pt is able to follow simple commands and answer simple questions. At times pt responds by speaking in Liberian. Mental Status/Objective Patient Orientation: Person Current Glasses/Contacts: Yes Hearing Aids: No Hand Dominance: Right Upper Extremity ROM Grossly WFL Upper Extremity Strength Left UE 5/5 Right UE grossly 4+/5 ADL-Treatment Eating (FIM): 5 (Pt drinks from cup with set up. Assist required to order food. ) Eating (QC): 5 Bathing (FIM): 4 (Pt completed seated bathing using hand held shower. Pt able to wash/dry all areas with minimal assistance required for lower body bathing.) Shower/Bathe Self (QC): 4 Upper Body Dressing (FIM): 5 (set up to doff/don pullover shirt) Upper Body Dressing (QC): 5 Lower Body Dressing (FIM): 4 (Pt able to thread bilateral LE into underwear/ pants, but requires minimal assistance for balance during pant hike.) Lower Body Dressing (QC): 3 On/Off Footwear (QC): 4 (SBA for safety) Toilet/Commode Transfer (FIM): 4 (CGA and cues for safety. Uses grab bars for balance) Toilet Transfer (QC): 4 Shower Transfer (FIM): 4 (CGA for balance and cues for safety.) Pt has mildly decreased balance during ADL tasks. Pt occasionally impulsive and requires cues for safety. Other Treatments Pt performed bilateral UE activity to increase strength needed for ADLs and transfers. Pt performed three exercises x10 reps with mild resistance theraband. Cues for proper exercise technique. Pt sitting in chair with needs met, chair alarm in place, and spouse present after session. OT Short Term Goals Short Term Goals Time Frame: Sep 07, 2018 Grooming(FIM): 5 Bathing(FIM): 5 Lower Body Dressing(FIM): 5 Toileting(FIM): 5 Toilet/Commode Transfer(FIM): 5 Additional Short Term Goals: 1-Demonstrate ADL Tasks, 2-Verbalize Understanding , 3-ImproveStrength/Colin 1=Demonstrate adherence to instructed precautions during ADL tasks. 2=Patient will verbalize/demonstrate understanding of assistive devices/ modifications for ADL. 3=Patient will improve strength/tolerance for activity to enable patient to perform ADL's. OT Network Cabler Goals Network Cabler Goals Time Frame: Sep 21, 2018 Eating (FIM): 6 Eating (QC): 6 Groomin Oral Hygiene (QC): 6 Bathing(FIM): 5 Shower/Bathe Self (QC): 5 Upper Body Dressing(FIM): 6 Upper Body Dressing (QC): 6 Lower Body Dressing(FIM): 6 Lower Body Dressing (QC): 6 On/Off Footwear (QC): 6 Toileting(FIM): 6 Toileting Hygiene (QC): 6 Toilet/Commode Transfer(FIM): 6 Toilet/Commode Transfer (QC): 6 Shower Transfer(FIM): 5 1=Demonstrate adherence to instructed precautions during ADL tasks. 2=Patient will verbalize/demonstrate understanding of assistive devices/ modifications for ADL. 3=Patient will improve strength/tolerance for activity to enable patient to perform ADL's. OT Education/Plan Problem List/Assessment Assessment: Decreased Activ Tolerance, Decreased UE Strength, Dependent Transfers, Impaired Funct Balance, Impaired I ADL's, Impaired Self-Care Skills Discharge Recommendations Plan/Recommendations: Continue POC Treatment Plan/Plan of Care Treatment,Training & Education: Yes Patient would benefit from OT for education, treatment and training to promote independence in ADL's, mobility, safety and/or upper extremity function for ADL' s. Plan of Care: ADL Retraining, Functional Mobility, Group Exercise/Act as Ind, UE Funct Exercise/Act Treatment Duration: Sep 21, 2018 Frequency: At least 5 of 7 days/Wk (IRF) Estimated Hrs Per Day: 1.5 hours per day Agreement: Yes Rehab Potential: Fair Time/GCodes Start Time: 09:30 Stop Time: 10:45 Total Time Billed (hr/min): 75 Billed Treatment Time 1 visit, EVM(15minutes), ADLx3(45minutes), EX(15minutes) AIXA MUHAMMAD DO 08/31/18 1432: OT Evaluation-General/PLF Medical Diagnosis Admission Date Patient doing much better this morning and appears to be able to communicate better and understand things better today compared to yesterday Urinary incontinence continues and that is a new issue No pain is reported No bleeding issues Appreciate cardiology consultation Precautions Precautions/Isolations: Fall Prevention, Pressure Ulcer (psoriasis on buttock) Safety Interventions: Bed Exit Alarm Referral Referral Reason: Self Care, Evaluation/Treatment, Strengthening/ROM Medical History Pertinent Medical History: CABG, CAD, DM, GERD, HTN, Ischemic (cardiac), [place], PVD, Renal Insufficiency Social History Home: Single Level Current Living Status: Spouse ADL-Prior Level of Function Self Care: Independent Functional Cognition: Independent DME/Equipment: Shower, Tub/Shower Drive Self: Yes OT Current Status Mental Status/Objective Patient Orientation: Person, Confused Current Glasses/Contacts: Yes Hearing Aids: No Hand Dominance: Right Education OT Patient Education: Exercise program, Progress toward Goal/Update tx plan, Safety issues Teaching Recipient: Patient Teaching Methods: Demonstration Response to Teaching: Verbalize Understanding Patient having difficulty with understanding Togolese that communicating an Liberian OT Short Term Goals Short Term Goals Additional Short Term Goals: 1-Demonstrate ADL Tasks, 2-Verbalize Understanding , 3-ImproveStrength/Colin OT Education/Plan Problem List/Assessment Assessment: Decreased Activ Tolerance, Decreased UE Strength, Dependent Transfers, Impaired Cognition, Impaired Funct Balance, Impaired I ADL's, Impaired Self-Care Skills Discharge Recommendations Plan/Recommendations: Continue POC Treatment Plan/Plan of Care Treatment,Training & Education: Yes Plan of Care: ADL Retraining, Functional Mobility, Group Exercise/Act as Ind, UE Funct Exercise/Act Frequency: At least 5 of 7 days/Wk (IRF) Estimated Hrs Per Day: 1.5 hours per day Agreement: Yes GISSELL CARRINGTON OT Aug 31, 2018 11:49 AIXA MUHAMMAD DO Aug 31, 2018 14:32
--- NOTE | 2018-08-31 11:53 | NUR ---
requests auto tray, d/t language/speech impairment, so that pt doesn't miss a meal.
[2018-08-31 12:15] VITALS: BP 159/64
--- NOTE | 2018-08-31 12:47 | ST Cognitive Linguistic Eval ---
Speech Evaluation-General Medical Diagnosis Intracranial Hemorrhage Onset Date: Aug 18, 2018 Therapy Diagnosis Therapy Diagnosis: Cognitive-communication Precautions Precautions/Isolations: Fall Prevention, Pressure Ulcer Medical History Pertinent Medical History: CABG, CAD, DM, HTN, PVD Reviewed History: Yes Social History Current Living Status: Spouse Speech PLF-Current Status Prior Level of Function Patient was independent with daily living tasks prior to hospitalization. Subjective Patient was very pleasant and cooperative. Spouse was present for his evaluation. Language Eval: Auditory Comprehends Simple Yes/No Ques: Functional Indent/Objects Multiple García: Functional Ident/Pics in Multiple García: Functional Follows 1-Step Commands: Functional Follows Complex Directions: Functional Follows General Conversations: Functional Patient understands in Indonesian, however he communicates primarily in [place]. Language Eval: Verbal Language Completes Spontaneous Greeting: Functional Produces Auto, Serial Info: Functional Imitates Simple Words/Phrases: Functional Word Finding: Functional Requests Basic Needs: Functional States Basic Personal Info: Functional Expresses Complex Ideas: Mild Objective Cognitive Domain Attention: WNL Memory: Mild Problem Solving: Mild Executive Functions: Mild Objective Formal/Standardized Tests [place] Cognitive Assessment (MOCA) Results Visuospatial/Executive: 4/5, Namin/3, Memory: Immediate: 3/3, Delayed 1/3, Attention: 2/2, Language: 1/2, Abstraction: 1/2, Orientation: 3/6 Oral Motor/Speech Production Within Functional Limits Impression Patient is a pleasant 78 year old man who recently suffered an intracranial hemorrhage which resulted in decreased cognitive status. Patient understands speech in Indonesian, however he primarily communicates in [place]. His was present for the evaluation and was able to assist with interpreting the questions as needed. Patient has deficits in memory, language and orientation. Communication/Social Cognition Comprehension: 3 Expression: 3 Social Interaction: 4 Problem Solvin Memory: 3 Speech Patient Assess Expression of Ideas/Wants: Frequently (2) Understanding Verbal Content: Sometimes Understands(2) Brief Interview-Mental Status: Yes Repetition of Three Words: Three (3) Temporal Orientation: Year: Correct (3) Temporal Orientation: Month: Accurate within 5 days(2) Temporal Orientation: Day: Correct (1) Recall : Wear to say "Sock": Yes,after cueing (1) Recall : Color: Yes, no cue required (2) Recall : Bed: Yes,after cueing (1) Memory/Recall Ability: Current season, That he or she is in a hsp/hsp unit Speech Short Term Goals Short Term Goals Short Term Goals 1) Patient will complete memory tasks related to himself at 80% or greater. 2) Patient will complete problem solving tasks related to himself at 80% or greater. 3) Patient will utilize alternative communication with 80% or greater. Speech Longterm Goals Longterm Goals Patient will improve memory and problem solving for increased safety and independence. Speech-Plan Patient/Family Goals Patient/Family Goals: Patient will return home with his post rehab. Treatment Plan Speech Therapy Treatment Plan: Continue Plan of Care Patient is recommended for skilled ST services with focus on safety and independence. Treatment Duration: Sep 09, 2018 Frequency: 5 times per week Estimated Hrs Per Day: .5 hour per day Rehab Potential: Good Barriers to Learning: Patient speaks [place] Pt/Family Agrees to Plan: Yes Safety Risks/Education Teaching Recipient: Patient, Significant Other Teaching Methods: Discussion Response to Teaching: Verbalize Understanding Education Topics Provided: Safety within his room. Time Speech Therapy Time In: 11:30 Speech Therapy Time Out: 12:00 Total Billed Time: 30 Billed Treatment Time 1, SPSNDCOMP ABAD Edwards Aug 31, 2018 12:47
--- NOTE | 2018-08-31 13:40 | NUR ---
Pt is Zoroastrian and will be offered sacraments.
--- NOTE | 2018-08-31 13:58 | Physical Therapy Daily Note ---
PT Daily Note-Current Subjective Patient in recliner pre tx agrees to PT, no complaints of pain. Appearance Patient in recliner post tx, has nurse call, phone, tray, chair alarm on. Mental Status Patient Orientation: Person, Unable to Assess Transfers Therapy Code Descriptions/Definitions Functional [place] Measure: 0=Not Assessed/NA 4=Minimal Assistance 1=Total Assistance 5=Supervision or Setup 2=Maximal Assistance 6=Modified [place] 3=Moderate Assistance 7=Complete [place] Therapy Quality Codes: 6 Independent with activity with or without an assistive device 5 Patient requires set up or clean up by helper. Patient completes activity by themselves 4 Supervision or touching assist (CGA). [place] provide cues , steadying assist 3 The helper provides less than half the effort to complete the activity 2 The helper provides more than half the effort to complete the activity 1 Dependent. The helper does all the effort to complete an activity 7 Patient refused to complete or attempt activity 9 The patient did not perform the activity before the current illness or injury 88 Not attempted due to Medical conditions or safety concerns Transfers (B, C, W/C) (FIM): 5 Sit to/from Stand: 5 Bed to/from Chair: 5 Gait Training Gait (FIM): 4 Distance: 150'x2 Gait Level of Assist: 4 Gait Persons Needed: 1 Gait Assistive Device: None Right foot drop, toes tend to drag but he can pick it up for better foot clearance with cues Exercises NuStep Minutes: 15 NuStep Workload: 5 Treatments ambulation, functional strengthening Assessment Current Status: Fair Progress improved ambulation, patient seemed to have bilateral knee pain after using the NuStep PT Short Term Goals Short Term Goals Time Frame: Sep 07, 2018 Gait (FIM): 5 Gait Distance Comment: 150' Gait Level of Assist: 5 Gait Assistive Device: Cane Single Point PT Mcc Goals Mcc Goals PT Tank Calibrator Goals Time Frame: Sep 21, 2018 Transfers (B,C,W/C) (FIM): 6 Sit to Lying (QC): 6 Lying-Sitting on Side/Bed(QC): 6 Sit to Stand (QC): 6 Rollin Roll Left to Right (QC): 6 Chair/Tee-jt-Kswzj Xfer(QC): 6 Car Transfer (QC): 6 Gait (FIM): 6 Distance: 200' Walk 10 feet (QC): 6 Walk 10ft-Uneven Surface(QC): 6 Walk 50ft with 2 Turns (QC): 6 Walk 150 ft (QC): 6 Gait Level of Assist: 6 Gait Assistive Device: None, Cane Single Point Stairs (FIM): 2 # of Steps: 4 1 Step (curb) (QC): 4 4 Steps (QC): 4 Stairs Level Of Assist: 5 PT Plan Problem List Problem List: Activity Tolerance, Functional Strength, Safety, Balance, Gait, Transfer, ROM Treatment/Plan Treatment Plan: Continue Plan of Care Treatment Plan: Bed Mobility, Education, Functional Activity Colin, Functional Strength, Group Therapy, Gait, Safety, Therapeutic Exercise, Transfers Treatment Duration: Sep 21, 2018 Frequency: At least 5 of 7 days/Wk (IRF) Estimated Hrs Per Day: 1.5 hours per day Patient and/or Family Agrees t: Yes Safety Risks/Education Patient Education: Gait Training, Transfer Techniques, Correct Positioning, Safety Issues Teaching Recipient: Patient Teaching Methods: Demonstration, Discussion Response to Teaching: Reinforcement Needed Time/GCodes Time In: 1325 Time Out: 1355 Total Billed Treatment Time: 30 Total Billed Treatment 1 visit EX 15' GT 15' DONTAE BEAR PT Aug 31, 2018 13:58
[2018-08-31 14:55] VITALS: BP 148/66
[2018-08-31] MEDS: ATORVASTATIN 20 MG (LIPITOR) TABLET PO SCH (21:03)
--- NOTE | 2018-09-01 04:13 | NUR ---
Found patient walking out of bathroom on his own. RN checked chair alarm and patient had turned it off. RN turned chair alarm back on. Patient instructed to use the call light and not to get up on his own.
[2018-09-01 05:03] VITALS: BP 146/66
[2018-09-01] MEDS: inSUlin ASPART (NovoLOG) 1 UNIT/0.01 ML (CHARGE PER UNIT) SC SCH ×4 (06:15→21:28)
[2018-09-01] MEDS: MULTIVIT W/MINERALS TAB (THERAGRAN M) PO SCH (06:17)
[2018-09-01] MEDS: PANTOPRAZOLE 40 MG (PROTONIX) TAB PO SCH (06:17)
[2018-09-01] MEDS: ISOSORBIDE MONONITRATE 30 MG (IMDUR) TAB PO SCH ×2 (06:17→17:53)
[2018-09-01 08:15] VITALS: BP 115/56
[2018-09-01] MEDS: MAGNESIUM OXIDE (MAG-OX)400 MG TAB PO SCH ×2 (08:17→17:53)
[2018-09-01] MEDS: meTOprolol TARTRATE 50 MG (LOPRESSOR) TAB PO SCH ×2 (08:17→21:23)
[2018-09-01] MEDS: VITAMIN E 400 INTLU CAP PO SCH (08:17)
[2018-09-01] MEDS: SENNA W/DOCUSATE (SENOKOT S) TABLET PO SCH ×2 (08:17→21:23)
[2018-09-01] MEDS: ASPIRIN E.C. 81 MG (ECOTRIN) TAB PO SCH (08:17)
[2018-09-01] MEDS: RANOLAZINE ER 500 MG TAB (RANEXA) PO SCH ×2 (08:17→21:23)
[2018-09-01] MEDS: amLODIPine 10 MG (NORVASC) TAB PO SCH (08:17)
[2018-09-01] MEDS: LOSARTAN 100 MG (COZAAR) TABLET PO SCH (08:17)
[2018-09-01] MEDS ORDERED: glyBURIDE 2.5 MG (MICRONASE) TAB PO NR (08:30)
--- NOTE | 2018-09-01 08:54 | Physical Therapy Daily Note ---
PT Daily Note-Current Subjective Patient in recliner pre tx, agrees to PT, has no complaints of pain. Appearance Patient in recliner post tx with nurse call, phone, tray, chair alarm on. Mental Status Patient Orientation: Person, Unable to Assess Transfers Therapy Code Descriptions/Definitions Functional [place] Measure: 0=Not Assessed/NA 4=Minimal Assistance 1=Total Assistance 5=Supervision or Setup 2=Maximal Assistance 6=Modified [place] 3=Moderate Assistance 7=Complete [place] Therapy Quality Codes: 6 Independent with activity with or without an assistive device 5 Patient requires set up or clean up by helper. Patient completes activity by themselves 4 Supervision or touching assist (CGA). [place] provide cues , steadying assist 3 The helper provides less than half the effort to complete the activity 2 The helper provides more than half the effort to complete the activity 1 Dependent. The helper does all the effort to complete an activity 7 Patient refused to complete or attempt activity 9 The patient did not perform the activity before the current illness or injury 88 Not attempted due to Medical conditions or safety concerns Transfers (B, C, W/C) (FIM): 5 Sit to/from Stand: 5 Bed to/from Chair: 5 Gait Training Gait (FIM): 5 Distance: 300', 150' Gait Level of Assist: 5 Gait Persons Needed: 1 Gait Assistive Device: None occasional unsteadiness but no LOB, his knees seem to be a cause of irritation when ambulating longer distances, patient had a short standing rest break Exercises Supine Ex: Bridging, Ankle pumps, Heel Slides, Short Arc Quads, Straight leg raise, Hip abd/add Supine Reps: 20 LAQ alternating for 5 min with 2# ankle weights Treatments transfers, ambulation, functional strengthening Assessment Current Status: Fair Progress improving endurance, patient needs multiple cues for direction due to language difficulties PT Short Term Goals Short Term Goals Time Frame: Sep 07, 2018 Gait (FIM): 5 Gait Distance Comment: 150' Gait Level of Assist: 5 Gait Assistive Device: Cane Single Point PT [place] Goals Mcfp Goals PT [place] Goals Time Frame: Sep 21, 2018 Transfers (B,C,W/C) (FIM): 6 Sit to Lying (QC): 6 Lying-Sitting on Side/Bed(QC): 6 Sit to Stand (QC): 6 Rollin Roll Left to Right (QC): 6 Chair/Ywx-dp-Lxgby Xfer(QC): 6 Car Transfer (QC): 6 Gait (FIM): 6 Distance: 200' Walk 10 feet (QC): 6 Walk 10ft-Uneven Surface(QC): 6 Walk 50ft with 2 Turns (QC): 6 Walk 150 ft (QC): 6 Gait Level of Assist: 6 Gait Assistive Device: None, Cane Single Point Stairs (FIM): 2 # of Steps: 4 1 Step (curb) (QC): 4 4 Steps (QC): 4 Stairs Level Of Assist: 5 PT Plan Problem List Problem List: Activity Tolerance, Functional Strength, Safety, Balance, Gait, Transfer, ROM Treatment/Plan Treatment Plan: Continue Plan of Care Treatment Plan: Bed Mobility, Education, Functional Activity Colin, Functional Strength, Group Therapy, Gait, Safety, Therapeutic Exercise, Transfers Treatment Duration: Sep 21, 2018 Frequency: At least 5 of 7 days/Wk (IRF) Estimated Hrs Per Day: 1.5 hours per day Patient and/or Family Agrees t: Yes Safety Risks/Education Patient Education: Gait Training, Transfer Techniques, Correct Positioning, Safety Issues Teaching Recipient: Patient Teaching Methods: Demonstration, Discussion Response to Teaching: Reinforcement Needed Time/GCodes Time In: 0815 Time Out: 0900 Total Billed Treatment Time: 45 Total Billed Treatment 1 visit GT 20' EX 25' DONTAE BEAR PT Sep 01, 2018 08:53
--- NOTE | 2018-09-01 10:06 | NUR ---
SHOP SERVICE TECHNICIAN met with patient, spouse and son to complete initial assessment. Patient was alert however orientation was difficult to assess due to language barrier. Per report provided by Dr. Muhammad, patient was able to understand and speak Brazilian prior to stroke. Prior to current hospitalization patient resided with spouse in [facility]. 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 Patient admits to a RU from with diagnosis of left thalaamic internal capsular hemorrhage. Prior to hemorrhage family reports patient was independent with ambulation, ADLs and continued to drive. Patient had no assistive device at home; however, may benefit from cane at discharge. Therapy and staff report occasional impulsivity. SHOP SERVICE TECHNICIAN verified insurance as Medicare with no prescription coverage. Family preference for [facility]. PCP identified as Dr. Agarwal; however, this is newly established and patient has not completed office visit yet. Patient previously saw Dr. Jhaveri as PCP. Primary contact identified as Stephanie cabezas at [phone] and secondary contact as son, Nakul at [phone]. SHOP SERVICE TECHNICIAN reviewed weekly team conference and typical rehabilitation length of stay with patient and family, they expressed no concerns at this time. SHOP SERVICE TECHNICIAN will continue to follow for appropriate discharge needs
--- NOTE | 2018-09-01 11:41 | Occupational Ther Daily Note ---
OT Current Status-Daily Note Subjective Pt alert, sitting in recliner. 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 Pt agrees to therapy. Mental Status/Objective Therapy Code Descriptions/Definitions Functional [place] Measure: 0=Not Assessed/NA 4=Minimal Assistance 1=Total Assistance 5=Supervision or Setup 2=Maximal Assistance 6=Modified [place] 3=Moderate Assistance 7=Complete [place] ADL-Treatment Pt had already taken shower with nrsg early am. stated that she had already taken care of oral hygiene. Therapy Code Descriptions/Definitions Functional [place] Measure: 0=Not Assessed/NA 4=Minimal Assistance 1=Total Assistance 5=Supervision or Setup 2=Maximal Assistance 6=Modified [place] 3=Moderate Assistance 7=Complete [place] Therapy Quality Codes: 6 Independent with activity with or without an assistive device 5 Patient requires set up or clean up by helper. Patient completes activity by themselves 4 Supervision or touching assist (CGA). [place] provide cues , steadying assist 3 The helper provides less than half the effort to complete the activity 2 The helper provides more than half the effort to complete the activity 1 Dependent. The helper does all the effort to complete an activity 7 Patient refused to complete or attempt activity 9 The patient did not perform the activity before the current illness or injury 88 Not attempted due to Medical conditions or safety concerns Other Treatment Pt ambulated to therapy gym with CGA. Arm bike completed at 20 gray resistance for 15 min, no breaks, to increase strength and activity tolerance fo daily functional tasks. Fine motor tasks complete with resistive clothespins (50 ea hand) and resistive posting clerk (2 sets10 reps). UE exercises completed with 3# wt to increase strength and activity tolerance for ADLs, 3 sets 10 reps. Pt ambulated back to room and sat in recliner after therapy. Call light/phone in reach. All needs met in room. OT Short Term Goals Short Term Goals Time Frame: Sep 07, 2018 Grooming(FIM): 5 Bathing(FIM): 5 Lower Body Dressing(FIM): 5 Toileting(FIM): 5 Toilet/Commode Transfer(FIM): 5 Additional Short Term Goals: 1-Demonstrate ADL Tasks, 2-Verbalize Understanding , 3-ImproveStrength/Colin 1=Demonstrate adherence to instructed precautions during ADL tasks. 2=Patient will verbalize/demonstrate understanding of assistive devices/ modifications for ADL. 3=Patient will improve strength/tolerance for activity to enable patient to perform ADL's. OT Production Leader Goals Custodial Goals Time Frame: Sep 21, 2018 Eating (FIM): 6 Eating (QC): 6 Groomin Oral Hygiene (QC): 6 Bathing(FIM): 5 Shower/Bathe Self (QC): 5 Upper Body Dressing(FIM): 6 Upper Body Dressing (QC): 6 Lower Body Dressing(FIM): 6 Lower Body Dressing (QC): 6 On/Off Footwear (QC): 6 Toileting(FIM): 6 Toileting Hygiene (QC): 6 Toilet/Commode Transfer(FIM): 6 Toilet/Commode Transfer (QC): 6 Shower Transfer(FIM): 5 1=Demonstrate adherence to instructed precautions during ADL tasks. 2=Patient will verbalize/demonstrate understanding of assistive devices/ modifications for ADL. 3=Patient will improve strength/tolerance for activity to enable patient to perform ADL's. OT Education/Plan Discharge Recommendations Plan/Recommendations: Continue POC Treatment Plan/Plan of Care Patient would benefit from OT for education, treatment and training to promote independence in ADL's, mobility, safety and/or upper extremity function for ADL' s. Plan of Care: ADL Retraining, Functional Mobility, Group Exercise/Act as Ind, UE Funct Exercise/Act Treatment Duration: Sep 21, 2018 Frequency: At least 5 of 7 days/Wk (IRF) Estimated Hrs Per Day: 1.5 hours per day Agreement: Yes Rehab Potential: Good Time/GCodes Start Time: 10:30 Stop Time: 11:30 Total Time Billed (hr/min): 60 Billed Treatment Time 1 visit-EX 4 (60 min) MACI ACOSTA Sep 01, 2018 11:41
--- NOTE | 2018-09-01 11:54 | Physical Therapy Daily Note ---
PT Daily Note-Current Subjective Patient in recliner pre tx, agrees to PT, no complaints of pain Appearance Patient in recliner post tx with nurse call, phone, tray, chair alarm on. in room. Mental Status Patient Orientation: Person, Unable to Assess Transfers Therapy Code Descriptions/Definitions Functional [place] Measure: 0=Not Assessed/NA 4=Minimal Assistance 1=Total Assistance 5=Supervision or Setup 2=Maximal Assistance 6=Modified [place] 3=Moderate Assistance 7=Complete [place] Therapy Quality Codes: 6 Independent with activity with or without an assistive device 5 Patient requires set up or clean up by helper. Patient completes activity by themselves 4 Supervision or touching assist (CGA). [place] provide cues , steadying assist 3 The helper provides less than half the effort to complete the activity 2 The helper provides more than half the effort to complete the activity 1 Dependent. The helper does all the effort to complete an activity 7 Patient refused to complete or attempt activity 9 The patient did not perform the activity before the current illness or injury 88 Not attempted due to Medical conditions or safety concerns Transfers (B, C, W/C) (FIM): 5 Sit to/from Stand: 5 Bed to/from Chair: 5 Gait Training Gait (FIM): 5 Distance: 400'x2 Gait Level of Assist: 5 Gait Persons Needed: 1 Gait Assistive Device: None Patient has right foot drop, he did have one instance of tripping but he was able to catch himself. He tripped on the gap between the floor and the elevator. He was fatigued after ambulating 400'. Exercises Seated Therapy Exercises: Ankle pumps, Long arc quads, Hip flexion Seated Reps: 20 Treatments transfers, ambulation, functional strengthening Assessment Current Status: Fair Progress improving endurance PT Short Term Goals Short Term Goals Time Frame: Sep 07, 2018 Gait (FIM): 5 Gait Distance Comment: 150' Gait Level of Assist: 5 Gait Assistive Device: Cane Single Point PT Alf Goals Specialty Sales Consultant Goals PT Specialty Sales Consultant Goals Time Frame: Sep 21, 2018 Transfers (B,C,W/C) (FIM): 6 Sit to Lying (QC): 6 Lying-Sitting on Side/Bed(QC): 6 Sit to Stand (QC): 6 Rollin Roll Left to Right (QC): 6 Chair/Dqk-or-Rejly Xfer(QC): 6 Car Transfer (QC): 6 Gait (FIM): 6 Distance: 200' Walk 10 feet (QC): 6 Walk 10ft-Uneven Surface(QC): 6 Walk 50ft with 2 Turns (QC): 6 Walk 150 ft (QC): 6 Gait Level of Assist: 6 Gait Assistive Device: None, Cane Single Point Stairs (FIM): 2 # of Steps: 4 1 Step (curb) (QC): 4 4 Steps (QC): 4 Stairs Level Of Assist: 5 PT Plan Problem List Problem List: Activity Tolerance, Functional Strength, Safety, Balance, Gait, Transfer, Bed Mobility, ROM Treatment/Plan Treatment Plan: Continue Plan of Care Treatment Plan: Bed Mobility, Education, Functional Activity Colin, Functional Strength, Group Therapy, Gait, Safety, Therapeutic Exercise, Transfers Treatment Duration: Sep 21, 2018 Frequency: At least 5 of 7 days/Wk (IRF) Estimated Hrs Per Day: 1.5 hours per day Patient and/or Family Agrees t: Yes Safety Risks/Education Patient Education: Gait Training, Transfer Techniques, Correct Positioning, Safety Issues Teaching Recipient: Patient Teaching Methods: Demonstration, Discussion Response to Teaching: Reinforcement Needed Time/GCodes Time In: 1130 Time Out: 1200 Total Billed Treatment Time: 30 Total Billed Treatment 1 visit EX 10' GT 20' DONTAE BEAR PT Sep 01, 2018 11:54
--- NOTE | 2018-09-01 12:12 | PM&R Progress Note ---
Subjective HPI/CC On Admission Date Seen by Provider: Sep 01, 2018 Time Seen by Provider: 07:45 Subjective/Events-last exam Patient doing well today Blood sugars reviewed At baseline creatinine Started low-dose glyburide 1.25 mg twice daily since metformin is not an option due to chronic renal insufficiency which could cause lactic acidosis Overall very pleasant Review of Systems Neurological: Incoordination, Change in speech, Confusion Objective Exam Vital Signs Vital Signs Date Time Temp Pulse Resp B/P (MAP) Pulse Ox O2 Delivery O2 Flow Rate FiO2 09/01/18 17:41 96.3 59 18 144/77 (99) 100 Room Air Capillary Refill : General Appearance: No Apparent Distress, WD/WN, Chronically ill Respiratory: Chest Non Tender, Lungs Clear, Normal Breath Sounds, No Accessory Muscle Use, No Respiratory Distress Cardiovascular: Regular Rate, Rhythm, No Edema, No Gallop, No JVD, No Murmur, Normal Peripheral Pulses Neurologic/Psychiatric: Alert, Oriented x3, No Motor/Sensory Deficits, Depressed Affect, Motor Weakness Skin: Normal Color, Warm/Dry Results/Procedures Lab Patient resulted labs reviewed. Assessment/Plan Assessment and Plan Assess & Plan/Chief Complaint Subacute intracranial hemorrhage on 08/18/18 following Plavix and aspirin initiation after cardiac catheterization without intervention by Dr. Centeno sent to [facility] but no surgical intervention Aphasia Confusion Comprehends in [place] but responds in [place] Loss of balance DM [id number] Hypertension Angina chronic CAD CABG Chronic renal insufficiency Anemia Thrombocytopenia Urinary incontinence new Plan: Continue therapies Add low dose OHA Monitor creatinine and incontinence Diagnosis/Problems Diagnosis/Problems (1) Hemorrhage, intracranial Status: Acute (2) Aphasia Status: Acute (3) Confusion Status: Acute (4) Balance problem Status: Acute (5) Hypertension Status: Chronic Qualifiers: Hypertension type: essential hypertension Qualified Codes: I10 - Essential (primary) hypertension (6) Diabetes mellitus Status: Chronic Qualifiers: Diabetes mellitus type: type 2 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 transplanted heart: [place] heart Associated angina: with stable angina Qualified Codes: I25.118 - Atherosclerotic heart disease of [place] coronary artery with other forms of angina pectoris (8) Angina pectoris Status: Chronic (9) Hyperlipidemia Status: Chronic Qualifiers: Hyperlipidemia type: mixed hyperlipidemia Qualified Codes: E78.2 - Mixed hyperlipidemia (10) Renal insufficiency Status: Chronic (11) Anemia Status: Chronic Qualifiers: Anemia type: unspecified type Qualified Codes: D64.9 - Anemia, unspecified (12) Thrombocytopenia Status: Acute Clinical Quality Measures Admission Status Admission Dx Subacute intracranial hemorrhage on 08/18/18 following Plavix and aspirin initiation after cardiac catheterization without intervention by Dr. Centeno sent to [facility] but no surgical intervention Aphasia Confusion Comprehends in [place] but responds in [place] Loss of balance DM [id number] Hypertension Angina chronic CAD CABG Chronic renal insufficiency Anemia Thrombocytopenia Urinary incontinence new Plan: Accu-Cheks AC/at bedtime with NovoLog sliding scale A Continue all meds from [facility] Consult cardiology Initiate therapies per inpatient rehab protocol Bladder management to prevent continued incontinence Monitor blood pressure closely Will likely need insulin initiation due to renal insufficiency previously been on metformin now no longer an option due to renal insufficiency Check labs in a.m. Monitor bowel function Provide walker Fall risk DVT/VTE Risk/Contraindication: Risk Factor Score Per Nursin RFS Level Per Nursing on Admit: 4+=Very High RAMIN HODGSON DO Sep 01, 2018 12:12
--- NOTE | 2018-09-01 12:23 | Cardiology Progress Note ---
Subjective Date Seen by Provider: Sep 01, 2018 Time Seen by Provider: 12:15 Subjective/Events-last exam Patient is sitting up in chair, no new complaints. Denies any chest pain or dyspnea. Review of Systems General: No Night Sweats, No Fatigue, No Malaise HEENT: No Visual Changes, No Dysphasia Pulmonary: No Dyspnea, No Cough Cardiovascular: No: Chest Pain, Palpitations Gastrointestinal: No: Nausea, Vomiting, Abdominal Pain Genitourinary: No Dysuria, No Frequency Musculoskeletal: No: neck pain Neurological: Weakness; No: Numbness, Change in speech, Confusion Objective-Cardiology Exam Last Set of Vital Signs Vital Signs 09/01/18 09/01/18 05:03 08:15 Temp 96.8 Pulse 60 Resp 18 B/P (MAP) 115/56 (75) Pulse Ox 92 O2 Delivery Room Air Capillary Refill : I&O Intake and Output 09/01/18 00:00 Intake Total 1050 ml Output Total 200 ml Balance 850 ml Intake Oral 1050 ml Output Urine Total 200 ml # Voids 5 General: Alert, Cooperative, Other (subtle confusion, diff communicating) HEENT: Atraumatic, PERRLA Neck: Supple, No JVD, No Thyromegaly Lungs: Clear to Auscultation, Normal Air Movement Heart: Regular Rate, Normal S1, Normal S2, No Murmurs Abdomen: Normal Bowel Sounds, Soft, No Tenderness, No Hepatosplenomegaly, No Masses Extremities: No Clubbing, No Cyanosis Skin: No Rashes, No Significant Lesion Neuro: Cranial Nerves 3-12 NL, Other (balance deficits) Psych/Mental Status: Mental Status NL A/P-Cardiology Admission Diagnosis Acute intracranial bleed Coronary artery disease Non-ST elevation myocardial infarction Peripheral arterial disease Hypertension Hyperlipidemia Assessment/Plan Acute intracranial bleed resulted in confusion and aphasia. Transferred back from , left thalamic bleed and basal ganglia bleed. 1.8 cm in diameter. Continue with rehabilitation for now. Coronary artery disease, extensive disease, last cardiac catheterization was done on August 17, 2018 showed occluded right coronary artery and vein graft to the right coronary artery with collaterals filling the right from the left system. Severe ostial LAD and circumflex and ramus intermedius disease with patent ALVARADO to LAD and vein graft to the obtuse marginal branch. Severe peripheral arterial disease, did not evaluate the full anatomy due to the underlying renal insufficiency. Medical therapy was recommended no intervention was done, had non-ST elevation myocardial infarction on August 23, 2018 while he was at and treated with nitroglycerin drip and aspirin Labile hypertension, resistant to multiple medication on top of noncompliance with medication. I will increase amlodipine to 10 mg daily and monitor tolerance and response Hyperlipidemia, continue to monitor lipids History of severe peripheral arterial disease, extensive history multiple interventions in the past. Severe right carotid artery stenosis, history of right carotid endarterectomy, continue to monitor Chronic renal insufficiency, continue to monitor renal function Diabetes mellitus. Clinical Quality Measures DVT/VTE Risk/Contraindication: Risk Factor Score Per Nursin RFS Level Per Nursing on Admit: 4+=Very High CHARLENE TALAMANTES Sep 01, 2018 12:23
[2018-09-01] MEDS: DOCUSATE SODIUM 100 MG (COLACE) CAP PO PRN (12:38)
[2018-09-01] MEDS ORDERED: MILK OF MAGNESIA 400 MG/5 ML 30 ML UDC PO PRN (13:00)
--- NOTE | 2018-09-01 13:58 | Occupational Ther Daily Note ---
OT Current Status-Daily Note Subjective Pt alert, sitting in recliner. Pt agrees to therapy. No c/o pain. Mental Status/Objective Patient Orientation: Person, Place Therapy Code Descriptions/Definitions Functional [place] Measure: 0=Not Assessed/NA 4=Minimal Assistance 1=Total Assistance 5=Supervision or Setup 2=Maximal Assistance 6=Modified [place] 3=Moderate Assistance 7=Complete [place] ADL-Treatment Therapy Code Descriptions/Definitions Functional [place] Measure: 0=Not Assessed/NA 4=Minimal Assistance 1=Total Assistance 5=Supervision or Setup 2=Maximal Assistance 6=Modified [place] 3=Moderate Assistance 7=Complete [place] Therapy Quality Codes: 6 Independent with activity with or without an assistive device 5 Patient requires set up or clean up by helper. Patient completes activity by themselves 4 Supervision or touching assist (CGA). [place] provide cues , steadying assist 3 The helper provides less than half the effort to complete the activity 2 The helper provides more than half the effort to complete the activity 1 Dependent. The helper does all the effort to complete an activity 7 Patient refused to complete or attempt activity 9 The patient did not perform the activity before the current illness or injury 88 Not attempted due to Medical conditions or safety concerns Other Treatment Pt was able to remember 2 theraband exercises from previous session. Red theraband given to pt in room. Instructed pt on 3 more exercises and correct technique. Pt was able to demonstrate understanding and correct technique for 2 of 3 exercises. Gestural and visual cues for correct technique on bicep exercises needed then pt was able to demonstrate understanding. 5 exercises 2 sets 3 reps with recovery break between sets. After therapy, pt sitting in recliner with call light/phone in reach. All needs met in room. Education OT Patient Education: Exercise program Teaching Recipient: Patient Teaching Methods: Demonstration, Discussion Response to Teaching: Return Demonstration, Reinforcement Needed OT Short Term Goals Short Term Goals Time Frame: Sep 07, 2018 Grooming(FIM): 5 Bathing(FIM): 5 Lower Body Dressing(FIM): 5 Toileting(FIM): 5 Toilet/Commode Transfer(FIM): 5 Additional Short Term Goals: 1-Demonstrate ADL Tasks, 2-Verbalize Understanding , 3-ImproveStrength/Colin 1=Demonstrate adherence to instructed precautions during ADL tasks. 2=Patient will verbalize/demonstrate understanding of assistive devices/ modifications for ADL. 3=Patient will improve strength/tolerance for activity to enable patient to perform ADL's. OT Mcfp Goals Oil Burner Repairer Goals Time Frame: Sep 21, 2018 Eating (FIM): 6 Eating (QC): 6 Groomin Oral Hygiene (QC): 6 Bathing(FIM): 5 Shower/Bathe Self (QC): 5 Upper Body Dressing(FIM): 6 Upper Body Dressing (QC): 6 Lower Body Dressing(FIM): 6 Lower Body Dressing (QC): 6 On/Off Footwear (QC): 6 Toileting(FIM): 6 Toileting Hygiene (QC): 6 Toilet/Commode Transfer(FIM): 6 Toilet/Commode Transfer (QC): 6 Shower Transfer(FIM): 5 1=Demonstrate adherence to instructed precautions during ADL tasks. 2=Patient will verbalize/demonstrate understanding of assistive devices/ modifications for ADL. 3=Patient will improve strength/tolerance for activity to enable patient to perform ADL's. OT Education/Plan Discharge Recommendations Plan/Recommendations: Continue POC Treatment Plan/Plan of Care Patient would benefit from OT for education, treatment and training to promote independence in ADL's, mobility, safety and/or upper extremity function for ADL' s. Plan of Care: ADL Retraining, Functional Mobility, Group Exercise/Act as Ind, UE Funct Exercise/Act Treatment Duration: Sep 21, 2018 Frequency: At least 5 of 7 days/Wk (IRF) Estimated Hrs Per Day: 1.5 hours per day Agreement: Yes Rehab Potential: Good Time/GCodes Start Time: 13:00 Stop Time: 13:15 Total Time Billed (hr/min): 15 Billed Treatment Time 1 visit-EX 1 (15 min) MACI ACOSTA Sep 01, 2018 13:58
--- NOTE | 2018-09-01 15:42 | Cardiology Progress Note ---
Subjective Date Seen by Provider: Sep 01, 2018 Time Seen by Provider: 15:41 Subjective/Events-last exam Patient is feeling better, still having mild aphagia. Blood pressure is better controlled Review of Systems General: No Chills, No Night Sweats, No Fatigue, No Malaise, No Appetite, No Other HEENT: No Head Aches, No Visual Changes, No Eye Pain, No Ear Pain, No Dysphasia , No Sinus Congestion, No Post Nasal Drip, No Sore Throat, No Other Pulmonary: No Dyspnea, No Cough, No Pleuritic Chest Pain, No Other Cardiovascular: No: Chest Pain, Palpitations, Orthopnea, Paroxysmal Noc. Dyspnea, Edema, Lt Headedness, Other Objective-Cardiology Exam Last Set of Vital Signs Vital Signs 09/01/18 09/01/18 09/01/18 05:03 08:15 09:00 Temp 96.8 Pulse 60 Resp 18 B/P (MAP) 115/56 (75) Pulse Ox 92 O2 Delivery Room Air Capillary Refill : I&O Intake and Output 09/01/18 00:00 Intake Total 1050 ml Output Total 200 ml Balance 850 ml Intake Oral 1050 ml Output Urine Total 200 ml # Voids 5 General: Alert, Cooperative, Other (subtle confusion, diff communicating) HEENT: Atraumatic, PERRLA Neck: Supple, No JVD, No Thyromegaly Lungs: Clear to Auscultation, Normal Air Movement Heart: Regular Rate, Normal S1, Normal S2, No Murmurs Abdomen: Normal Bowel Sounds, Soft, No Tenderness, No Hepatosplenomegaly, No Masses Extremities: No Clubbing, No Cyanosis Skin: No Rashes, No Significant Lesion Neuro: Cranial Nerves 3-12 NL, Other (balance deficits) Psych/Mental Status: Mental Status NL Results Lab Laboratory Tests Test 08/31/18 17:53 08/31/18 21:05 09/01/18 05:15 09/01/18 12:34 Range/Units Glucometer 177 H 263 H 161 H 197 H 70-110 MG/DL A/P-Cardiology Admission Diagnosis Acute intracranial bleed Coronary artery disease Non-ST elevation myocardial infarction Peripheral arterial disease Hypertension Hyperlipidemia Assessment/Plan Acute intracranial bleed resulted in confusion and aphasia. Transferred back from , left thalamic bleed and basal ganglia bleed. 1.8 cm in diameter. Continue with rehabilitation for now. Coronary artery disease, extensive disease, last cardiac catheterization was done on August 17, 2018 showed occluded right coronary artery and vein graft to the right coronary artery with collaterals filling the right from the left system. Severe ostial LAD and circumflex and ramus intermedius disease with patent ALVARADO to LAD and vein graft to the obtuse marginal branch. Severe peripheral arterial disease, did not evaluate the full anatomy due to the underlying renal insufficiency. Medical therapy was recommended no intervention was done, had non-ST elevation myocardial infarction on August 23, 2018 while he was at and treated with nitroglycerin drip and aspirin Labile hypertension, resistant to multiple medication on top of noncompliance with medication. I will increase amlodipine to 10 mg daily and monitor tolerance and response Hyperlipidemia, continue to monitor lipids History of severe peripheral arterial disease, extensive history multiple interventions in the past. Severe right carotid artery stenosis, history of right carotid endarterectomy, continue to monitor Chronic renal insufficiency, continue to monitor renal function Diabetes mellitus. Clinical Quality Measures DVT/VTE Risk/Contraindication: Risk Factor Score Per Nursin RFS Level Per Nursing on Admit: 4+=Very High ARIELLE CHAVEZ MD Sep 01, 2018 15:42
--- NOTE | 2018-09-01 16:53 | NUR ---
BOOSTER OPERATOR met with patient, spouse and son to review team conference summary. As patient just recently admitted team has recommended reevaluation at next team conference on 09/07. Patient and family are agreeable to this.
[2018-09-01 17:41] VITALS: BP 144/77
[2018-09-01] MEDS: ATORVASTATIN 20 MG (LIPITOR) TABLET PO SCH (21:23)
[2018-09-02 06:00] VITALS: BP 169/70
[2018-09-02] MEDS: PANTOPRAZOLE 40 MG (PROTONIX) TAB PO SCH (06:03)
[2018-09-02] MEDS: glyBURIDE 2.5 MG (MICRONASE) TAB PO SCH (06:03)
[2018-09-02] MEDS: MULTIVIT W/MINERALS TAB (THERAGRAN M) PO SCH (06:03)
[2018-09-02] MEDS: ISOSORBIDE MONONITRATE 30 MG (IMDUR) TAB PO SCH ×2 (06:03→18:24)
[2018-09-02] MEDS: inSUlin ASPART (NovoLOG) 1 UNIT/0.01 ML (CHARGE PER UNIT) SC SCH ×4 (06:03→21:35)
--- NOTE | 2018-09-02 08:39 | Individualized Plan of Care ---
Individualized Plan of Care Rehab Nursing IPOC Order Admission Date Aug 30, 2018 at 16:04 Current Orders Orders Cho 60g/M 1snack (16-2000 Jaime) (08/30/18 Dinner) Accucheck Achs ACHS (08/30/18 16:47) Physical Therapy Rehab Orders (08/30/18 16:47) Occupational Therapy Rehab Ord (08/30/18 16:47) Speech Therapy Rehab Orders (08/30/18 16:47) Admission-Acute Rehab Unit (08/30/18 16:47) Insulin Aspart (Novolog) (Novolog (Charg (08/30/18 17:00) Ambulate 08,12,20 (08/30/18 17:02) Sequential Compression Device 08,20 (08/30/18 17:02) Dvt/Vte Risk - Notifiy Physici 08 (08/30/18 17:02) Acetaminophen Tablet/Caplet (Tylenol T (08/30/18 17:00) Aspirin Enteric Coated Tablet (Ecotrin T (08/31/18 09:00) Hydralazine Tablet (Apresoline Tablet) (08/30/18 22:00) Isosorbide Mononitrate Tablet (Imdur Tab (08/31/18 09:00) Metoprolol Tartrate (Ir) Tab (Lopressor (08/30/18 21:00) Nitroglycerin 0.4 Mg Btl 25's (Nitrostat (08/30/18 17:00) Pantoprazole Tablet (Protonix Tablet) (08/31/18 07:00) Ranolazine Er Tablet (Ranexa Er Tablet) (08/30/18 21:00) Senna S Tablet (Senokot S Tablet) (08/30/18 21:00) Amlodipine Tablet (Norvasc Tablet) (08/31/18 09:00) Atorvastatin Tablet (Lipitor Tablet) (08/30/18 21:00) Losartan Tablet (Cozaar Tablet) (08/31/18 09:00) Magnesium Oxide Tablet (Mag Ox Tablet) (08/30/18 18:00) Therapeutic Multivitamin Tab (Vitamins, (08/31/18 07:00) D-Alpha Tochopheryl Capsule (Vitamin E C (08/31/18 09:00) Calcium Carbonate Chew Tablet (Antacid C (08/30/18 19:00) Diphenhydramine Tablet (Benadryl Tablet) (08/30/18 19:00) Docusate Sodium Capsule (Colace Capsule) (08/30/18 19:00) Loperamide Capsule (Imodium Capsule) (08/30/18 19:00) Melatonin Tablet (Melatonin Tablet) (08/30/18 19:00) Ondansetron Oral Dissolve Tab (Zofran (08/30/18 19:00) Cbc With Automated Diff (08/31/18 06:00) Comprehensive Metabolic Panel (08/31/18 06:00) Consult Physician (08/30/18 18:51) Hemoglobin A1c (08/31/18 05:00) Isosorbide Mononitrate Tablet (Imdur Tab (08/31/18 06:30) Isosorbide Mononitrate Tablet (Imdur Tab (08/30/18 19:00) Influenza Quad (5+Yoa) (Afluria (08/31/18 07:45) Amlodipine Tablet (Norvasc Tablet) (08/31/18 11:45) Automatic Tray (08/31/18 11:53) Amlodipine Tablet (Norvasc Tablet) (09/01/18 09:00) Patient Visit (08/31/18 ) Speech Sound Lang Comp (08/31/18 ) Patient Visit (08/31/18 ) Pt Eval Moderate Complexity (08/31/18 ) Functional Activities, Ea 15 (08/31/18 ) Exercise Therap, Ea 15 Min (08/31/18 ) Gait Training, Ea 15 Min (08/31/18 ) Diabetes Education (08/31/18 21:18) Glyburide Tablet (Micronase Tablet) (09/02/18 06:30) Glyburide Tablet (Micronase Tablet) (09/01/18 08:30) Patient Visit (09/01/18 ) Exercise Therap, Ea 15 Min (09/01/18 ) Gait Training, Ea 15 Min (09/01/18 ) Patient Visit (09/01/18 ) Treat. Speech/Lang/Voice (09/01/18 ) Patient Visit (09/01/18 ) Exercise Therap, Ea 15 Min (09/01/18 ) Gait Training, Ea 15 Min (09/01/18 ) Magnesium Hydroxide Oral Susp (Mom Oral (09/01/18 13:00) Patient Visit (09/02/18 ) Treat. Speech/Lang/Voice (09/02/18 ) Rehab Nursing Orders: Bladder Training, Bowel Management, Disease Management & Educaiton, Fall Prevention, Nutrition Management, Patient/Family Support Other Nursing Orders: eval and tx Intensity of Therapy to be met Patient to be seen: Min.3h per day/5 of 7d PT IPOC Problem List: Activity Tolerance, Functional Strength, Safety, Balance, Gait, Transfer, Bed Mobility, ROM Treatment Plan: Continue Plan of Care Bed Mobility, Education, Functional Activity Colin, Functional Strength, Group Therapy, Gait, Safety, Therapeutic Exercise, Transfers Treatment Duration: Sep 21, 2018 Frequency: At least 5 of 7 days/Wk (IRF) Estimated Hrs Per Day: 1.5 hours per day OT IPOC Problems: Decreased Activ Tolerance, Decreased UE Strength, Dependent Transfers , Impaired Cognition, Impaired Funct Balance, Impaired I ADL's, Impaired Self- Care Skills OT Treatment, Training and Edu: Yes Plan of Care: ADL Retraining, Functional Mobility, Group Exercise/Act as Ind, UE Funct Exercise/Act Treatment Duration: Sep 21, 2018 Frequency: At least 5 of 7 days/Wk (IRF) Estimated Hrs Per Day: 1.[address] [facility] Speech Therapy Treatment Plan: Continue Plan of Care Treatment Duration: Sep 09, 2018 Frequency: 5 times per week Estimated Hrs Per Day: .5 hour per day Dietitian/Rat Trapper Dietitian/Rat Trapper to monitor nutritional status and make changes and/or recommendations as needed and work with speech pathology on dietary upgrades as the occur. Neuropsychology/Psychology Dr Centeno Cardiology Physician IPOC Medical Issues being managed closely and that require the 24 hour availability of a physician: Medical Issues: Bowel/Bladder Function, Falls Precautions, Other (List) ( diabetic management) Brief Synthesis of Preadmission Screen, Post-Admission Evaluation, and Therapy Evaluations: Medical Prognosis: Good Anticipated Length of Stay: 10 days RAMIN HODGSON DO Sep 02, 2018 08:39
--- NOTE | 2018-09-02 08:39 | PM&R Progress Note ---
Subjective HPI/CC On Admission Date Seen by Provider: Sep 02, 2018 Time Seen by Provider: 10:00 Subjective/Events-last exam Patient has no complaints Urinary incontinence continues but it is improving Blood sugar checks her labile Tolerating low dose oral hypoglycemic agent Per dissipating and therapies Still a fall risk considering how abruptly he moves at times Confusion persist Working on processing words before communicating Review of Systems Neurological: Weakness, Incoordination, Change in speech, Confusion Objective Exam Vital Signs Vital Signs Date Time Temp Pulse Resp B/P (MAP) Pulse Ox O2 Delivery O2 Flow Rate FiO2 09/03/18 08:46 56 117/47 (70) 09/03/18 05:40 97.1 17 96 Room Air Capillary Refill : General Appearance: No Apparent Distress, WD/WN, Chronically ill Respiratory: Chest Non Tender, Lungs Clear, Normal Breath Sounds, No Accessory Muscle Use, No Respiratory Distress Cardiovascular: Regular Rate, Rhythm, No Edema, No Gallop, No JVD, No Murmur, Normal Peripheral Pulses Neurologic/Psychiatric: Alert, Oriented x3, Normal Mood/Affect, Abnormal Gait, Disoriented (Subtle memory recall deficit) Results/Procedures Lab Patient resulted labs reviewed. Assessment/Plan Assessment and Plan Assess & Plan/Chief Complaint Assessment: Subacute intracranial hemorrhage on 08/18/18 following Plavix and aspirin initiation after cardiac catheterization without intervention by Dr. Centeno sent to [facility] but no surgical intervention Aphasia Confusion Comprehends in Sinhala but responds in [place] Loss of balance DM [id number] Hypertension Angina chronic CAD CABG Chronic renal insufficiency Anemia Thrombocytopenia Urinary incontinence new Plan: Continue therapies Maintain low dose OHA Monitor creatinine and incontinence Diagnosis/Problems Diagnosis/Problems (1) Hemorrhage, intracranial Status: Acute (2) Aphasia Status: Acute (3) Confusion Status: Acute (4) Balance problem Status: Acute (5) Hypertension Status: Chronic Qualifiers: Hypertension type: essential hypertension Qualified Codes: I10 - Essential (primary) hypertension (6) Diabetes mellitus Status: Chronic Qualifiers: Diabetes mellitus type: type 2 Diabetes mellitus longterm insulin use: without longterm use Diabetes mellitus complication status: with kidney complications Diabetes mellitus complication detail: with chronic kidney disease Chronic kidney disease stage: stage 3 (moderate) Qualified Codes: E11.22 - Type 2 diabetes mellitus with diabetic chronic kidney disease; N18.3 - Chronic kidney disease, stage 3 (moderate) (7) CAD (coronary artery disease) Qualifiers: Coronary Disease-Associated Artery/Lesion type: [place] artery [place] vs. transplanted heart: [place] heart Associated angina: with stable angina Qualified Codes: I25.118 - Atherosclerotic heart disease of [place] coronary artery with other forms of angina pectoris (8) Angina pectoris Status: Chronic (9) Hyperlipidemia Status: Chronic Qualifiers: Hyperlipidemia type: mixed hyperlipidemia Qualified Codes: E78.2 - Mixed hyperlipidemia (10) Renal insufficiency Status: Chronic (11) Anemia Status: Chronic Qualifiers: Anemia type: unspecified type Qualified Codes: D64.9 - Anemia, unspecified (12) Thrombocytopenia Status: Acute Clinical Quality Measures Admission Status Admission Dx Subacute intracranial hemorrhage on 08/18/18 following Plavix and aspirin initiation after cardiac catheterization without intervention by Dr. Centeno sent to [facility] but no surgical intervention Aphasia Confusion Comprehends in Sinhala but responds in [place] Loss of balance DM [id number] Hypertension Angina chronic CAD CABG Chronic renal insufficiency Anemia Thrombocytopenia Urinary incontinence new Plan: Accu-Cheks AC/at bedtime with NovoLog sliding scale A Continue all meds from [facility] Consult cardiology Initiate therapies per inpatient rehab protocol Bladder management to prevent continued incontinence Monitor blood pressure closely Will likely need insulin initiation due to renal insufficiency previously been on metformin now no longer an option due to renal insufficiency Check labs in a.m. Monitor bowel function Provide walker Fall risk DVT/VTE Risk/Contraindication: Risk Factor Score Per Nursin RFS Level Per Nursing on Admit: 4+=Very High RAMIN HODGSON DO Sep 02, 2018 08:39
[2018-09-02] MEDS: MAGNESIUM OXIDE (MAG-OX)400 MG TAB PO SCH ×2 (09:00→18:24)
--- NOTE | 2018-09-02 09:25 | Occupational Ther Daily Note ---
OT Current Status-Daily Note Subjective Pt sitting in chair, agrees to therapy. Mental Status/Objective Therapy Code Descriptions/Definitions Functional [place] Measure: 0=Not Assessed/NA 4=Minimal Assistance 1=Total Assistance 5=Supervision or Setup 2=Maximal Assistance 6=Modified [place] 3=Moderate Assistance 7=Complete [place] ADL-Treatment Pt would like to shower this morning. Sit to stand from chair with supervision. Gait to restroom without AD, CGA for balance. Pt doffed clothing with SBA. Transfer to walk in shower with SBA using grab bars for safety. Pt completed seated bathing with SBA for safety. Pt able to wash/dry all areas. Don pullover shirt with set up. Pt donned underwear and pants with SBA for balance during standing for pant hike. Dons bilateral socks with SBA for balance. Pt stood at sink to complete oral care. Pt brushed teeth and completed denture care with SBA. Pt stood at toilet to urinate with SBA for balance. Washed hands at sink with SBA. Therapy Code Descriptions/Definitions Functional [place] Measure: 0=Not Assessed/NA 4=Minimal Assistance 1=Total Assistance 5=Supervision or Setup 2=Maximal Assistance 6=Modified [place] 3=Moderate Assistance 7=Complete [place] Therapy Quality Codes: 6 Independent with activity with or without an assistive device 5 Patient requires set up or clean up by helper. Patient completes activity by themselves 4 Supervision or touching assist (CGA). [place] provide cues , steadying assist 3 The helper provides less than half the effort to complete the activity 2 The helper provides more than half the effort to complete the activity 1 Dependent. The helper does all the effort to complete an activity 7 Patient refused to complete or attempt activity 9 The patient did not perform the activity before the current illness or injury 88 Not attempted due to Medical conditions or safety concerns Grooming (FIM): 5 Oral Hygiene (QC): 4 Bathing (FIM): 5 Shower/Bathe Self (QC): 4 Upper Body (FIM): 5 Upper Body Dressing (QC): 5 Lower Body Dressing (FIM): 5 Lower Body Dressing (QC): 4 On/Off Footwear (QC): 4 Toileting (FIM): 5 Shower Transfer(FIM): 5 Other Treatment Gait to therapy gym without AD, SBA for balance. Arm bike [id number] to increase overall strength and activity tolerance needed for ADLs and transfers. Pt completed activity with steady pace, no rest breaks needed until end of activity. Pt initially stated he did not have any pain, but when attempting UE dowel exercises pt reported discomfort in left arm, so exercises were not completed. Pt participated in putty activity with bilateral hands to increase retirement specialist strength and coordination/manipulation skills. Pt able to remove small beads from moderate resistance putty with increased time. Pt returned to room, sitting in chair with needs met and chair alarm in place after session. OT Short Term Goals Short Term Goals Time Frame: Sep 07, 2018 Grooming(FIM): 5 Bathing(FIM): 5 Lower Body Dressing(FIM): 5 Toileting(FIM): 5 Toilet/Commode Transfer(FIM): 5 Additional Short Term Goals: 1-Demonstrate ADL Tasks, 2-Verbalize Understanding , 3-ImproveStrength/Colin 1=Demonstrate adherence to instructed precautions during ADL tasks. 2=Patient will verbalize/demonstrate understanding of assistive devices/ modifications for ADL. 3=Patient will improve strength/tolerance for activity to enable patient to perform ADL's. OT Infection Control Practitioner Goals Fdc Goals Time Frame: Sep 21, 2018 Eating (FIM): 6 Eating (QC): 6 Groomin Oral Hygiene (QC): 6 Bathing(FIM): 5 Shower/Bathe Self (QC): 5 Upper Body Dressing(FIM): 6 Upper Body Dressing (QC): 6 Lower Body Dressing(FIM): 6 Lower Body Dressing (QC): 6 On/Off Footwear (QC): 6 Toileting(FIM): 6 Toileting Hygiene (QC): 6 Toilet/Commode Transfer(FIM): 6 Toilet/Commode Transfer (QC): 6 Shower Transfer(FIM): 5 1=Demonstrate adherence to instructed precautions during ADL tasks. 2=Patient will verbalize/demonstrate understanding of assistive devices/ modifications for ADL. 3=Patient will improve strength/tolerance for activity to enable patient to perform ADL's. OT Education/Plan Discharge Recommendations Plan/Recommendations: Continue POC Treatment Plan/Plan of Care Patient would benefit from OT for education, treatment and training to promote independence in ADL's, mobility, safety and/or upper extremity function for ADL' s. Plan of Care: ADL Retraining, Functional Mobility, Group Exercise/Act as Ind, UE Funct Exercise/Act Treatment Duration: Sep 21, 2018 Frequency: At least 5 of 7 days/Wk (IRF) Estimated Hrs Per Day: 1.5 hours per day Agreement: Yes Rehab Potential: Good Time/GCodes Start Time: 08:00 Stop Time: 09:15 Total Time Billed (hr/min): 75 Billed Treatment Time 1 visit, ADLx3(40minutes), EXx2(35minutes) GISSELL CARRINGTON OT Sep 02, 2018 09:24
[2018-09-02] MEDS: RANOLAZINE ER 500 MG TAB (RANEXA) PO SCH ×2 (09:51→21:23)
[2018-09-02] MEDS: VITAMIN E 400 INTLU CAP PO SCH (09:51)
[2018-09-02] MEDS: SENNA W/DOCUSATE (SENOKOT S) TABLET PO SCH ×2 (09:51→21:30)
[2018-09-02] MEDS: amLODIPine 10 MG (NORVASC) TAB PO SCH (09:52)
[2018-09-02] MEDS: LOSARTAN 100 MG (COZAAR) TABLET PO SCH (09:52)
[2018-09-02] MEDS: ASPIRIN E.C. 81 MG (ECOTRIN) TAB PO SCH (09:52)
[2018-09-02] MEDS: meTOprolol TARTRATE 50 MG (LOPRESSOR) TAB PO SCH ×2 (09:52→21:23)
--- NOTE | 2018-09-02 10:32 | Physical Therapy Daily Note ---
PT Daily Note-Current Subjective Patient in recliner pre tx, agrees to PT, no complaints of pain. During treatment patient developed some pain in his left arm, nurse notified and patient's O2 sat was 100%, 63 bpm, and BP was 140/67. It turns out that he was having some pain in a bruised area at an old IV site. Appearance Patient in recliner post tx with nurse call, phone, tray, all needs met, chair alarm on, in room. Mental Status Patient Orientation: Person, Unable to Assess Transfers Therapy Code Descriptions/Definitions Functional [place] Measure: 0=Not Assessed/NA 4=Minimal Assistance 1=Total Assistance 5=Supervision or Setup 2=Maximal Assistance 6=Modified [place] 3=Moderate Assistance 7=Complete [place] Therapy Quality Codes: 6 Independent with activity with or without an assistive device 5 Patient requires set up or clean up by helper. Patient completes activity by themselves 4 Supervision or touching assist (CGA). [place] provide cues , steadying assist 3 The helper provides less than half the effort to complete the activity 2 The helper provides more than half the effort to complete the activity 1 Dependent. The helper does all the effort to complete an activity 7 Patient refused to complete or attempt activity 9 The patient did not perform the activity before the current illness or injury 88 Not attempted due to Medical conditions or safety concerns Transfers (B, C, W/C) (FIM): 5 Scootin Rollin Supine to/from Sit: 6 Sit to/from Stand: 5 Bed to/from Chair: 5 Gait Training Gait (FIM): 5 Distance: 400'x2, 150' Gait Level of Assist: 5 Gait Persons Needed: 1 Gait Assistive Device: None Patient has right dropfoot and toes tend to slide across floor, worse with fatigue. Stair Training Stair Training: Handrails/: 2 handrails Stairs (FIM): 2 #of Steps: 8 Stairs: Pattern: Step to Level of Assist: 4 CGA, patient needs cues for foot placement, which he is not compliant with, he tends to hit toes on step when stepping up with his right foot but has not lost his balance yet. Exercises Supine Ex: Bridging, Ankle pumps, Quad Set, Heel Slides, Short Arc Quads, Straight leg raise, Hip abd/add Supine Reps: 15 NuStep Minutes: 15 NuStep Workload: 4 Treatments bed mobility and transfer, ambulation, functional strengthening, stair training Assessment Current Status: Fair Progress Patient has poor endurance, he is very fatigued after ambulating 400' PT Short Term Goals Short Term Goals Time Frame: Sep 07, 2018 Gait (FIM): 5 Gait Distance Comment: 150' Gait Level of Assist: 5 Gait Assistive Device: Cane Single Point PT Car [place]pler Goals Halfway Goals PT Car [place] Goals Time Frame: Sep 21, 2018 Transfers (B,C,W/C) (FIM): 6 Sit to Lying (QC): 6 Lying-Sitting on Side/Bed(QC): 6 Sit to Stand (QC): 6 Rollin Roll Left to Right (QC): 6 Chair/Zph-dd-Lwlie Xfer(QC): 6 Car Transfer (QC): 6 Gait (FIM): 6 Distance: 200' Walk 10 feet (QC): 6 Walk 10ft-Uneven Surface(QC): 6 Walk 50ft with 2 Turns (QC): 6 Walk 150 ft (QC): 6 Gait Level of Assist: 6 Gait Assistive Device: None, Cane Single Point Stairs (FIM): 2 # of Steps: 4 1 Step (curb) (QC): 4 4 Steps (QC): 4 Stairs Level Of Assist: 5 PT Plan Problem List Problem List: Activity Tolerance, Functional Strength, Safety, Balance, Gait, Transfer Treatment/Plan Treatment Plan: Continue Plan of Care Treatment Plan: Bed Mobility, Education, Functional Activity Colin, Functional Strength, Group Therapy, Gait, Safety, Therapeutic Exercise, Transfers Treatment Duration: Sep 21, 2018 Frequency: At least 5 of 7 days/Wk (IRF) Estimated Hrs Per Day: 1.5 hours per day Patient and/or Family Agrees t: Yes Safety Risks/Education Patient Education: Gait Training, Transfer Techniques, Steps, Correct Positioning, Safety Issues Teaching Recipient: Patient Teaching Methods: Demonstration, Discussion Response to Teaching: Reinforcement Needed Time/GCodes Time In: 0915 Time Out: 1030 Total Billed Treatment Time: 75 Total Billed Treatment 1 visit FA 15' GT 30' EX 30' DONTAE BEAR PT Sep 02, 2018 10:32
--- NOTE | 2018-09-02 11:59 | Speech Therapy Daily Note ---
Speech Daily Progress Note Subjective Date Seen by Provider: Sep 01, 2018 Time Seen by Provider: 00:30 Patient was pleasant and cooperative. Objective Patient completed exercises with [place] language tasks at 75% with moderate verbal cuing. Assessment Assessment Current Status: Good Progress Treatment Plan Continue Plan of Care Communication Comprehension: 3 Expression: 3 Social Cognition Social Interaction: 4 Problem Solvin Memory: 3 Speech Short Term Goals Short Term Goals Short Term Goals 1) Patient will complete memory tasks related to himself at 80% or greater. 2) Patient will complete problem solving tasks related to himself at 80% or greater. 3) Patient will utilize alternative communication with 80% or greater. Speech Pipe [employer] Pipe Goals Snf Goals Patient will improve memory and problem solving for increased safety and independence. Speech-Plan Patient/Family Goals Patient/Family Goals: Patient plans to return home with his post rehab. Treatment Plan Speech Therapy Treatment Plan: Continue Plan of Care Patient is progressing well with skilled ST services. Treatment Duration: Sep 09, 2018 Frequency: 5 times per week Estimated Hrs Per Day: .5 hour per day Rehab Potential: Good Barriers to Learning: [place] is his second language. Pt/Family Agrees to Plan: Yes Safety Risks/Education Teaching Recipient: Patient, Family, Significant Other Teaching Methods: Discussion Response to Teaching: Verbalize Understanding Education Topics Provided: Safety. Time Speech Therapy Time In: 10:00 Speech Therapy Time Out: 10:30 Total Billed Time: 30 Billed Treatment Time 1MARISELA B[address] ST Sep 02, 2018 11:59
--- NOTE | 2018-09-02 12:02 | Speech Therapy Daily Note ---
Speech Daily Progress Note Subjective Date Seen by Provider: Sep 02, 2018 Time Seen by Provider: 00:30 Patient appeared to be tired today. Objective Patient completed exercises with [place] language tasks at 70% with moderate verbal cuing. Assessment Assessment Current Status: Fair Progress Treatment Plan Continue Plan of Care Communication Comprehension: 3 Expression: 3 Social Cognition Social Interaction: 4 Problem Solvin Memory: 3 Speech Short Term Goals Short Term Goals Short Term Goals 1) Patient will complete memory tasks related to himself at 80% or greater. 2) Patient will complete problem solving tasks related to himself at 80% or greater. 3) Patient will utilize alternative communication with 80% or greater. Speech Swing Type Lathe Operator Goals Swing Type Lathe Operator Goals Patient will improve memory and problem solving for increased safety and independence. Speech-Plan Patient/Family Goals Patient/Family Goals: Patient plans to return home with his post rehab. Treatment Plan Speech Therapy Treatment Plan: Continue Plan of Care Patient is progressing with skilled ST services. Treatment Duration: Sep 09, 2018 Frequency: 5 times per week Estimated Hrs Per Day: .5 hour per day Rehab Potential: Good Barriers to Learning: Lebanese is his second language. Safety Risks/Education Teaching Recipient: Patient, Significant Other Teaching Methods: Discussion Response to Teaching: Verbalize Understanding Education Topics Provided: Safety Time Speech Therapy Time In: 10:30 Speech Therapy Time Out: 11:00 Total Billed Time: 30 Billed Treatment Time 1MARISELA [address] Sep 02, 2018 12:02
--- NOTE | 2018-09-02 14:41 | Cardiology Progress Note ---
Subjective Date Seen by Provider: Sep 02, 2018 Time Seen by Provider: 14:39 Subjective/Events-last exam patient is laying down in bed, still having some aphasia. Denied any active pain Review of Systems General: No Chills, No Night Sweats, No Fatigue, No Malaise, No Appetite, No Other HEENT: No Head Aches, No Visual Changes, No Eye Pain, No Ear Pain, No Dysphasia , No Sinus Congestion, No Post Nasal Drip, No Sore Throat, No Other Pulmonary: No Dyspnea, No Cough, No Pleuritic Chest Pain, No Other Cardiovascular: No: Chest Pain, Palpitations, Orthopnea, Paroxysmal Noc. Dyspnea, Edema, Lt Headedness, Other Objective-Cardiology Exam Last Set of Vital Signs Vital Signs 09/02/18 09/02/18 06:00 09:00 Temp 97.8 Pulse 63 Resp 18 B/P (MAP) 169/70 (103) Pulse Ox 99 O2 Delivery Room Air Capillary Refill : I&O Intake and Output 09/02/18 00:00 Intake Total 1600 ml Output Total 500 ml Balance 1100 ml Intake Oral 1600 ml Output Urine Total 500 ml # Voids 3 General: Alert, Cooperative, Other (subtle confusion, diff communicating) HEENT: Atraumatic, PERRLA Neck: Supple, No JVD, No Thyromegaly Lungs: Clear to Auscultation, Normal Air Movement Heart: Regular Rate, Normal S1, Normal S2, No Murmurs Abdomen: Normal Bowel Sounds, Soft, No Tenderness, No Hepatosplenomegaly, No Masses Extremities: No Clubbing, No Cyanosis Skin: No Rashes, No Significant Lesion Neuro: Cranial Nerves 3-12 NL, Other (balance deficits) Psych/Mental Status: Mental Status NL Results Lab Laboratory Tests Test 09/01/18 17:39 09/01/18 21:28 09/02/18 06:01 09/02/18 10:54 Range/Units Glucometer 150 H 184 H 181 H 116 H 70-110 MG/DL A/P-Cardiology Admission Diagnosis Acute intracranial bleed Coronary artery disease Non-ST elevation myocardial infarction Peripheral arterial disease Hypertension Hyperlipidemia Assessment/Plan Acute intracranial bleed resulted in confusion and aphasia. Transferred back from , left thalamic bleed and basal ganglia bleed. 1.8 cm in diameter. Continue with rehabilitation for now. Coronary artery disease, extensive disease, last cardiac catheterization was done on August 17, 2018 showed occluded right coronary artery and vein graft to the right coronary artery with collaterals filling the right from the left system. Severe ostial LAD and circumflex and ramus intermedius disease with patent ALVARADO to LAD and vein graft to the obtuse marginal branch. Severe peripheral arterial disease, did not evaluate the full anatomy due to the underlying renal insufficiency. Medical therapy was recommended no intervention was done, had non-ST elevation myocardial infarction on August 23, 2018 while he was at and treated with nitroglycerin drip and aspirin Labile hypertension, resistant to multiple medication on top of noncompliance with medication. I will increase hydralazine to 25 mg every 8 hours and monitor blood pressure Hyperlipidemia, continue to monitor lipids History of severe peripheral arterial disease, extensive history multiple interventions in the past. Severe right carotid artery stenosis, history of right carotid endarterectomy, continue to monitor Chronic renal insufficiency, continue to monitor renal function Diabetes mellitus. Clinical Quality Measures DVT/VTE Risk/Contraindication: Risk Factor Score Per Nursin RFS Level Per Nursing on Admit: 4+=Very High ARIELLE CHAVEZ MD Sep 02, 2018 14:41
[2018-09-02 18:46] VITALS: BP 132/57
--- NOTE | 2018-09-02 19:16 | NUR ---
bedside report received from GENTRY POLLOCK, assume care of pt
--- NOTE | 2018-09-02 20:10 | NUR ---
found pt up going to bathroom, pt turned bed alarm off instructed must have help to get up & use call light, bed alarm put back on pt
--- NOTE | 2018-09-02 21:00 | NUR ---
assessments & interventions conpleted, see assessments & interventions, pt fsbs 323 will recheck blood sugar later
--- NOTE | 2018-09-02 21:05 | NUR ---
pt refused Senokot
[2018-09-02 21:20] VITALS: BP 168/80
[2018-09-02] MEDS: ATORVASTATIN 20 MG (LIPITOR) TABLET PO SCH (21:23)
--- NOTE | 2018-09-02 21:25 | NUR ---
fsbs 311 NovoLog 7 units given
[2018-09-02 22:00] VITALS: BP 153/67
[2018-09-02] MEDS: hydrALAZINE (APRESOLINE) 25 MG TAB PO SCH (22:05)
[2018-09-02 22:09] VITALS: BP 153/67
--- NOTE | 2018-09-03 04:38 | NUR ---
c/o lt leg pain level 5/10 on numeric scale, Tylenol 650mg po given
--- NOTE | 2018-09-03 05:13 | NUR ---
pain level 2/10 on numeric scale
[2018-09-03 05:40] VITALS: BP 129/71
[2018-09-03] MEDS: inSUlin ASPART (NovoLOG) 1 UNIT/0.01 ML (CHARGE PER UNIT) SC SCH ×4 (06:00→20:52)
[2018-09-03] MEDS: glyBURIDE 2.5 MG (MICRONASE) TAB PO SCH (06:34)
[2018-09-03] MEDS: ISOSORBIDE MONONITRATE 30 MG (IMDUR) TAB PO SCH ×2 (06:34→17:52)
[2018-09-03] MEDS: hydrALAZINE (APRESOLINE) 25 MG TAB PO SCH ×3 (06:35→20:52)
[2018-09-03] MEDS: MULTIVIT W/MINERALS TAB (THERAGRAN M) PO SCH (06:35)
[2018-09-03] MEDS: PANTOPRAZOLE 40 MG (PROTONIX) TAB PO SCH (06:38)
--- NOTE | 2018-09-03 07:10 | NUR ---
bedside report given to GENTRY POLLOCK
--- NOTE | 2018-09-03 07:56 | Speech Therapy Daily Note ---
Speech Daily Progress Note Subjective Date Seen by Provider: Sep 03, 2018 Time Seen by Provider: 00:30 Patient was pleasant and feeling much more. Objective Patient completed word definitions with 75% accuracy given moderate visual cues. Assessment Assessment Current Status: Good Progress Treatment Plan Continue Plan of Care Communication Comprehension: 3 Expression: 3 Social Cognition Social Interaction: 4 Problem Solvin Memory: 3 Speech Short Term Goals Short Term Goals Short Term Goals 1) Patient will complete memory tasks related to himself at 80% or greater. 2) Patient will complete problem solving tasks related to himself at 80% or greater. 3) Patient will utilize alternative communication with 80% or greater. Speech Insulation Manager Goals Skilled Nursing Goals Patient will improve memory and problem solving for increased safety and independence. Speech-Plan Patient/Family Goals Patient/Family Goals: Patient plans to return home with his post rehab. Treatment Plan Speech Therapy Treatment Plan: Continue Plan of Care Patient is making progress with skilled ST services. Treatment Duration: Sep 09, 2018 Frequency: 5 times per week Estimated Hrs Per Day: .5 hour per day Rehab Potential: Good Barriers to Learning: Patient speaks Pashto as his second language. Pt/Family Agrees to Plan: Yes Safety Risks/Education Teaching Recipient: Patient Teaching Methods: Discussion Response to Teaching: Verbalize Understanding Education Topics Provided: Safety, communication of his needs/wants. Time Speech Therapy Time In: 07:45 Speech Therapy Time Out: 07:45 Total Billed Time: 30 Billed Treatment Time MARISELA Sheets [facility] Sep 03, 2018 07:56
--- NOTE | 2018-09-03 08:23 | Physical Therapy Daily Note ---
PT Daily Note-Current Subjective Agreeable to PT. No complaints. Transfers Therapy Code Descriptions/Definitions Functional [place] Measure: 0=Not Assessed/NA 4=Minimal Assistance 1=Total Assistance 5=Supervision or Setup 2=Maximal Assistance 6=Modified [place] 3=Moderate Assistance 7=Complete [place] Therapy Quality Codes: 6 Independent with activity with or without an assistive device 5 Patient requires set up or clean up by helper. Patient completes activity by themselves 4 Supervision or touching assist (CGA). [place] provide cues , steadying assist 3 The helper provides less than half the effort to complete the activity 2 The helper provides more than half the effort to complete the activity 1 Dependent. The helper does all the effort to complete an activity 7 Patient refused to complete or attempt activity 9 The patient did not perform the activity before the current illness or injury 88 Not attempted due to Medical conditions or safety concerns Transfers (B, C, W/C) (FIM): 5 Supine to/from Sit: 5 Sit to/from Stand: 5 SBA with all functional transfers, including toilet transfer. SBA due to decreased safety awareness. Gait Training Does the Patient Walk?: Yes Gait (FIM): 5 Distance (FIM): 3=150 ft Distance: 150 ft x 2 Gait Level of Assist: 5 (SBA for safety and cues for awareness of safety) Stair Training Stair Training: Handrails/: 2 handrails Stairs (FIM): 2 #of Steps: 8 Stairs: Pattern: Reciprocal CGA for safety and cues for sequencing Exercises Seated Therapy Exercises: Ankle pumps, Sit to stand, Long arc quads, Hip flexion, Hamstring Curls Seated Reps: 20 (LE strength for improved balance and functional mobility) Standing: Hamstring curls, Heel/toe raises, 3 way Ex=Flex, Abd, Ext, Marching, Mini squats Standing Reps: 20 (standing dynamic balance as well as LE strength) Assessment Current Status: Good Progress Pt tolerated well. Making functional progress. PT Short Term Goals Short Term Goals Time Frame: Sep 07, 2018 Gait (FIM): 5 (met) Gait Distance Comment: 150' Gait Level of Assist: 5 Gait Assistive Device: Cane Single Point PT Chcf Goals Lpn Per Diem Goals PT Lpn Per Diem Goals Time Frame: Sep 21, 2018 Transfers (B,C,W/C) (FIM): 6 Sit to Lying (QC): 6 Lying-Sitting on Side/Bed(QC): 6 Sit to Stand (QC): 6 Rollin Roll Left to Right (QC): 6 Chair/Udi-qw-Iznvs Xfer(QC): 6 Car Transfer (QC): 6 Gait (FIM): 6 Distance: 200' Walk 10 feet (QC): 6 Walk 10ft-Uneven Surface(QC): 6 Walk 50ft with 2 Turns (QC): 6 Walk 150 ft (QC): 6 Gait Level of Assist: 6 Gait Assistive Device: None, Cane Single Point Stairs (FIM): 2 # of Steps: 4 1 Step (curb) (QC): 4 4 Steps (QC): 4 Stairs Level Of Assist: 5 PT Plan Problem List Problem List: Activity Tolerance, Functional Strength, Safety, Balance, Gait, Transfer Treatment/Plan Treatment Plan: Continue Plan of Care Treatment Plan: Bed Mobility, Education, Functional Activity Colin, Functional Strength, Group Therapy, Gait, Safety, Therapeutic Exercise, Transfers Treatment Duration: Sep 21, 2018 Frequency: At least 5 of 7 days/Wk (IRF) Estimated Hrs Per Day: 1.5 hours per day Patient and/or Family Agrees t: Yes Safety Risks/Education Patient Education: Safety Issues Teaching Recipient: Patient Teaching Methods: Discussion Response to Teaching: Reinforcement Needed Discharge Recommendations Therapy D/C Recommendations: Physical Therapy Home Care Time/GCodes Time In: 700 Time Out: 715 (667-578) Total Billed Treatment Time: 45 Total Billed Treatment visit FA 15 EX 30 MACI HORTON PT Sep 03, 2018 08:23
[2018-09-03 08:46] VITALS: BP 117/47
[2018-09-03] MEDS: ASPIRIN E.C. 81 MG (ECOTRIN) TAB PO SCH (08:46)
[2018-09-03] MEDS: SENNA W/DOCUSATE (SENOKOT S) TABLET PO SCH ×2 (08:46→20:52)
[2018-09-03] MEDS: RANOLAZINE ER 500 MG TAB (RANEXA) PO SCH ×2 (08:46→20:52)
[2018-09-03] MEDS: MAGNESIUM OXIDE (MAG-OX)400 MG TAB PO SCH ×2 (08:46→17:51)
[2018-09-03] MEDS: VITAMIN E 400 INTLU CAP PO SCH (08:46)
--- NOTE | 2018-09-03 08:50 | Occupational Ther Daily Note ---
OT Current Status-Daily Note Subjective Took over care from PT. Pt agrees to therapy. No c/o pain. Mental Status/Objective Patient Orientation: Person, Place, Time, Situation Therapy Code Descriptions/Definitions Functional [place] Measure: 0=Not Assessed/NA 4=Minimal Assistance 1=Total Assistance 5=Supervision or Setup 2=Maximal Assistance 6=Modified [place] 3=Moderate Assistance 7=Complete [place] ADL-Treatment SHIELDS encouraged pt to take shower. Pt declined. Did complete sponge bath at sink. Declined to change clothing though did doff clothing to take sponge bath and put back on. After therapy, pt sitting in recliner with call light/phone in reach. All needs met in room. Safety measures in place. Therapy Code Descriptions/Definitions Functional [place] Measure: 0=Not Assessed/NA 4=Minimal Assistance 1=Total Assistance 5=Supervision or Setup 2=Maximal Assistance 6=Modified [place] 3=Moderate Assistance 7=Complete [place] Therapy Quality Codes: 6 Independent with activity with or without an assistive device 5 Patient requires set up or clean up by helper. Patient completes activity by themselves 4 Supervision or touching assist (CGA). [place] provide cues , steadying assist 3 The helper provides less than half the effort to complete the activity 2 The helper provides more than half the effort to complete the activity 1 Dependent. The helper does all the effort to complete an activity 7 Patient refused to complete or attempt activity 9 The patient did not perform the activity before the current illness or injury 88 Not attempted due to Medical conditions or safety concerns Eating (FIM): 6 (Pt able to open containers/packages by self. Uses regular utensils to eat.) Eating (QC): 6 Grooming (FIM): 6 (Standing at sink, pt able to complete by self.) Oral Hygiene (QC): 6 Bathing (FIM): 5 (Supervision to complete sponge bath standing at sink.) Bathing Location: L Arm, R Arm, L Upper Leg, R Upper Leg, L Lower Leg ( including foot), R Lower Leg (including foot), Chest, Abdomen, Buttocks, Perineal Area Shower/Bathe Self (QC): 4 Upper Body (FIM): 5 (Set up only. Pt doffed/donned in standing, no LOB noted.) Upper Body Dressing (QC): 4 Lower Body Dressing (FIM): 5 (Supervision. After set up, pt able to hike pants up and down. In sitting dons/doff foot wear.) Lower Body Dressing (QC): 4 On/Off Footwear (QC): 6 Toileting (FIM): 6 (Standing to urinate using grabbar to balance pt able to complete.) Toileting Hygiene (QC): 6 Toilet/Commode Transfer (FIM): 6 (Using grabbar, pt able to complete.) Toilet Transfer (QC): 6 Other Treatment Pt completed UE exercises to increase strength and activity tolerance for daily functional tasks. Arm bike completed 15 min at 20 gray resistance, no breaks. Resistive clothespins and pegs to increase strength and coordination for fine motor dressing skills. OT Short Term Goals Short Term Goals Time Frame: Sep 07, 2018 Grooming(FIM): 5 Bathing(FIM): 5 Lower Body Dressing(FIM): 5 Toileting(FIM): 5 Toilet/Commode Transfer(FIM): 5 Additional Short Term Goals: 1-Demonstrate ADL Tasks, 2-Verbalize Understanding , 3-ImproveStrength/Colin 1=Demonstrate adherence to instructed precautions during ADL tasks. 2=Patient will verbalize/demonstrate understanding of assistive devices/ modifications for ADL. 3=Patient will improve strength/tolerance for activity to enable patient to perform ADL's. OT Casting Room Helper Goals [facility] Goals Time Frame: Sep 21, 2018 Eating (FIM): 6 Eating (QC): 6 Groomin Oral Hygiene (QC): 6 Bathing(FIM): 5 Shower/Bathe Self (QC): 5 Upper Body Dressing(FIM): 6 Upper Body Dressing (QC): 6 Lower Body Dressing(FIM): 6 Lower Body Dressing (QC): 6 On/Off Footwear (QC): 6 Toileting(FIM): 6 Toileting Hygiene (QC): 6 Toilet/Commode Transfer(FIM): 6 Toilet/Commode Transfer (QC): 6 Shower Transfer(FIM): 5 1=Demonstrate adherence to instructed precautions during ADL tasks. 2=Patient will verbalize/demonstrate understanding of assistive devices/ modifications for ADL. 3=Patient will improve strength/tolerance for activity to enable patient to perform ADL's. OT Education/Plan Discharge Recommendations Plan/Recommendations: Continue POC Treatment Plan/Plan of Care Patient would benefit from OT for education, treatment and training to promote independence in ADL's, mobility, safety and/or upper extremity function for ADL' s. Plan of Care: ADL Retraining, Functional Mobility, Group Exercise/Act as Ind, UE Funct Exercise/Act Treatment Duration: Sep 21, 2018 Frequency: At least 5 of 7 days/Wk (IRF) Estimated Hrs Per Day: 1.5 hours per day Agreement: Yes Rehab Potential: Good Time/GCodes Start Time: 08:15 Stop Time: 09:30 Total Time Billed (hr/min): 75 Billed Treatment Time 1 visit-EX 4(60 min) ADL 1 (15 min) MACI ACOSTA Sep 03, 2018 08:50
[2018-09-03 10:00] VITALS: BP 166/61
--- NOTE | 2018-09-03 10:00 | NUR ---
0845: Patient sitting in room in recliner. BP 117/47 HR 56. Blood pressure medications (Metoprolol, Losartan, and Amlodipine) held at this time. 1000: Patient up with therapy. BP 116/61 HR 60. Discussed medication and BP with Dr. Muhammad. Permission given to administer medications at this time. Will continue to closely monitor Blood Pressure in conjunction with medication administration.
[2018-09-03] MEDS: amLODIPine 10 MG (NORVASC) TAB PO SCH (10:11)
[2018-09-03] MEDS: meTOprolol TARTRATE 50 MG (LOPRESSOR) TAB PO SCH ×2 (10:11→20:52)
[2018-09-03] MEDS: LOSARTAN 100 MG (COZAAR) TABLET PO SCH (10:11)
--- NOTE | 2018-09-03 10:15 | Physical Therapy Daily Note ---
PT Daily Note-Current Subjective Agrees to PT. Reports he is tired. Transfers Therapy Code Descriptions/Definitions Functional [place] Measure: 0=Not Assessed/NA 4=Minimal Assistance 1=Total Assistance 5=Supervision or Setup 2=Maximal Assistance 6=Modified [place] 3=Moderate Assistance 7=Complete [place] Therapy Quality Codes: 6 Independent with activity with or without an assistive device 5 Patient requires set up or clean up by helper. Patient completes activity by themselves 4 Supervision or touching assist (CGA). [place] provide cues , steadying assist 3 The helper provides less than half the effort to complete the activity 2 The helper provides more than half the effort to complete the activity 1 Dependent. The helper does all the effort to complete an activity 7 Patient refused to complete or attempt activity 9 The patient did not perform the activity before the current illness or injury 88 Not attempted due to Medical conditions or safety concerns SBA with all transfers. Education not to get up without supervision . Gait Training Does the Patient Walk?: Yes Gait (FIM): 5 Distance (FIM): 3=150 ft Distance: 150 ft x 2; 350 ft x 1; 100 ft Gait Assistive Device: None Skilled cues to improve foot clearance right LE; discussion of fall risk with decreased clearanc.e Exercises NuStep Minutes: 15 NuStep Workload: 4 (to promote LE strength for increased functional activyt tolerance. ) Assessment Current Status: Good Progress PT Short Term Goals Short Term Goals Time Frame: Sep 07, 2018 Gait (FIM): 5 (met) Gait Distance Comment: 150' Gait Level of Assist: 5 Gait Assistive Device: Cane Single Point PT Deaf Interpreter Goals Halfway Goals PT Halfway Goals Time Frame: Sep 21, 2018 Transfers (B,C,W/C) (FIM): 6 Sit to Lying (QC): 6 Lying-Sitting on Side/Bed(QC): 6 Sit to Stand (QC): 6 Rollin Roll Left to Right (QC): 6 Chair/Ter-sz-Rexhb Xfer(QC): 6 Car Transfer (QC): 6 Gait (FIM): 6 Distance: 200' Walk 10 feet (QC): 6 Walk 10ft-Uneven Surface(QC): 6 Walk 50ft with 2 Turns (QC): 6 Walk 150 ft (QC): 6 Gait Level of Assist: 6 Gait Assistive Device: None, Cane Single Point Stairs (FIM): 2 # of Steps: 4 1 Step (curb) (QC): 4 4 Steps (QC): 4 Stairs Level Of Assist: 5 PT Plan Problem List Problem List: Activity Tolerance, Functional Strength, Safety, Balance, Gait, Transfer Treatment/Plan Treatment Plan: Continue Plan of Care Treatment Plan: Bed Mobility, Education, Functional Activity Colin, Functional Strength, Group Therapy, Gait, Safety, Therapeutic Exercise, Transfers Treatment Duration: Sep 21, 2018 Frequency: At least 5 of 7 days/Wk (IRF) Estimated Hrs Per Day: 1.5 hours per day Patient and/or Family Agrees t: Yes Safety Risks/Education Patient Education: Gait Training Teaching Recipient: Patient Teaching Methods: Demonstration, Discussion Response to Teaching: Reinforcement Needed Time/GCodes Time In: 940 Time Out: 1015 Total Billed Treatment Time: 35 Total Billed Treatment visit GT 20 EX 15 MACI HORTON PT Sep 03, 2018 10:15
--- NOTE | 2018-09-03 10:32 | PM&R Progress Note ---
Subjective This was a face to face visit with the patient. Date Seen by Provider: Sep 03, 2018 Time Seen by Provider: 10:00 Subjective/Events-last exam Patient was seen in his bathroom while he was shaving. just arrived Blood sugars were very high after his brought in outside food Tolerating oral hyperglycemic agent twice daily Denies any pain Reviewed physical therapy and occupational therapy notes from today Precipitating and all therapy request Confusion still persist and right lower extremity seems to be still having deficits but will work towards strengthening Still a fall risk Review of Systems General: Fatigue Neurological: Weakness, Change in speech, Confusion Objective Physician Exam Last Set of Vital Signs Vital Signs Date Time Temp Pulse Resp B/P (MAP) Pulse Ox O2 Delivery O2 Flow Rate FiO2 09/03/18 08:46 56 117/47 (70) 09/03/18 05:40 97.1 17 96 Room Air Capillary Refill : I&O Intake and Output 09/03/18 00:00 Intake Total 950 ml Balance 950 ml Intake Oral 950 ml # Voids 9 General: Alert, Cooperative, Other (subtle confusion, diff communicating) HEENT: Atraumatic, PERRLA Neck: Supple, No JVD, No Thyromegaly Lungs: Clear to Auscultation, Normal Air Movement Heart: Regular Rate, Normal S1, Normal S2, No Murmurs Abdomen: Normal Bowel Sounds, Soft, No Tenderness, No Hepatosplenomegaly, No Masses Extremities: No Clubbing, No Cyanosis Skin: No Rashes, No Significant Lesion Neuro: Cranial Nerves 3-12 NL, Other (balance deficits) Psych/Mental Status: Mental Status NL Results Lab Data Laboratory Tests 08/31/18 11:07: Glucometer 260H 08/31/18 17:53: Glucometer 177H 08/31/18 21:05: Glucometer 263H 09/01/18 05:15: Glucometer 161H 09/01/18 12:34: Glucometer 197H 09/01/18 17:39: Glucometer 150H 09/01/18 21:28: Glucometer 184H 09/02/18 06:01: Glucometer 181H 09/02/18 10:54: Glucometer 116H 09/02/18 17:03: Glucometer 157H 09/02/18 20:45: Glucometer 323H 09/02/18 21:31: Glucometer 311H 09/03/18 04:37: Glucometer 122H Progress Toward Rehab Goals Continue therapies Return to independent living once completing inpatient rehabilitation protocols Maintain low-dose oral hypoglycemic agent Recommended to not eat outside food since he is carbohydrate sensitive Fall risk Assessment/Plan Assessment and Plan (1) Hemorrhage, intracranial Status: Acute (2) Aphasia Status: Acute (3) Confusion Status: Acute (4) Balance problem Status: Acute (5) Hypertension Qualifiers: Qualified Codes: I10 - Essential (primary) hypertension Status: Chronic (6) Diabetes mellitus Qualifiers: Qualified Codes: E11.22 - Type 2 diabetes mellitus with diabetic chronic kidney disease; N18.3 - Chronic kidney disease, stage 3 (moderate) Status: Chronic (7) CAD (coronary artery disease) Qualifiers: Qualified Codes: I25.118 - Atherosclerotic heart disease of [place] coronary artery with other forms of angina pectoris (8) Angina pectoris Status: Chronic (9) Hyperlipidemia Qualifiers: Qualified Codes: E78.2 - Mixed hyperlipidemia Status: Chronic (10) Renal insufficiency Status: Chronic (11) Anemia Qualifiers: Qualified Codes: D64.9 - Anemia, unspecified Status: Chronic (12) Thrombocytopenia Status: Acute Co-Morbidities that are continuing to impact the rehab process: (include details ) RAMIN HODGSON DO Sep 03, 2018 10:32
--- NOTE | 2018-09-03 11:28 | Cardiology Progress Note ---
Subjective Date Seen by Provider: Sep 03, 2018 Time Seen by Provider: 11:27 Subjective/Events-last exam patient is sitting in a chair, having worsening pedal edema. Blood pressure is labile Review of Systems General: No Chills, No Night Sweats, No Fatigue, No Malaise, No Appetite, No Other HEENT: No Head Aches, No Visual Changes, No Eye Pain, No Ear Pain, No Dysphasia , No Sinus Congestion, No Post Nasal Drip, No Sore Throat, No Other Pulmonary: No Dyspnea, No Cough, No Pleuritic Chest Pain, No Other Cardiovascular: Edema; No: Chest Pain, Palpitations, Paroxysmal Noc. Dyspnea, Lt Headedness, Other Objective-Cardiology Exam Last Set of Vital Signs Vital Signs 09/03/18 09/03/18 05:40 08:46 Temp 97.1 Pulse 56 Resp 17 B/P (MAP) 117/47 (70) Pulse Ox 96 O2 Delivery Room Air Capillary Refill : I&O Intake and Output 09/02/18 23:59 Intake Total 950 ml Balance 950 ml Intake Oral 950 ml # Voids 9 General: Alert, Cooperative, Other (subtle confusion, diff communicating) HEENT: Atraumatic, PERRLA Neck: Supple, No JVD, No Thyromegaly Lungs: Clear to Auscultation, Normal Air Movement Heart: Regular Rate, Normal S1, Normal S2, No Murmurs Abdomen: Normal Bowel Sounds, Soft, No Tenderness, No Hepatosplenomegaly, No Masses Extremities: No Clubbing, No Cyanosis, Other (mild edema) Skin: No Rashes, No Significant Lesion Neuro: Cranial Nerves 3-12 NL, Other (balance deficits) Psych/Mental Status: Mental Status NL A/P-Cardiology Admission Diagnosis Acute intracranial bleed Coronary artery disease Non-ST elevation myocardial infarction Peripheral arterial disease Hypertension Hyperlipidemia Assessment/Plan Acute intracranial bleed resulted in confusion and aphasia. Transferred back from , left thalamic bleed and basal ganglia bleed. 1.8 cm in diameter. Continue with rehabilitation for now. Coronary artery disease, extensive disease, last cardiac catheterization was done on August 17, 2018 showed occluded right coronary artery and vein graft to the right coronary artery with collaterals filling the right from the left system. Severe ostial LAD and circumflex and ramus intermedius disease with patent ALVARADO to LAD and vein graft to the obtuse marginal branch. Severe peripheral arterial disease, did not evaluate the full anatomy due to the underlying renal insufficiency. Medical therapy was recommended no intervention was done, had non-ST elevation myocardial infarction on August 23, 2018 while he was at and treated with nitroglycerin drip and aspirin Labile hypertension, resistant to multiple medication on top of noncompliance with medication. add hydrochlorothiazide and monitor tolerance and response Mild pedal edema, I will give one dose of Lasix today and start him on hydrochlorothiazide daily Hyperlipidemia, continue to monitor lipids History of severe peripheral arterial disease, extensive history multiple interventions in the past. Severe right carotid artery stenosis, history of right carotid endarterectomy, continue to monitor Chronic renal insufficiency, continue to monitor renal function Diabetes mellitus. Clinical Quality Measures DVT/VTE Risk/Contraindication: Risk Factor Score Per Nursin RFS Level Per Nursing on Admit: 4+=Very High ARIELLE CHAVEZ MD Sep 03, 2018 11:28
[2018-09-03] MEDS ORDERED: FUROSEMIDE 40 MG (LASIX) TAB PO NR (11:30)
[2018-09-03 14:19] VITALS: BP 147/68
--- NOTE | 2018-09-03 16:40 | NUR ---
Blood Glucose reading at 270. at bedside states he "ate around an hour ago". She brought chicken, broccoli and cheese in for him to eat. Patient does not want to eat dinner until 1800. Will recheck glucose at that time before administering insulin. Discussed with patient and importance of following low carbohydrate diet at home. says that Blood Sugars were never over 120's at home. May need follow up diabetic teaching at discharge as well as hand out with carbohydrate counts at discharge. Addendum: 09/03/18 at 1808 by GENTRY SEALS RN 1965: Blood Glucose 265, 5 U administered.
[2018-09-03 17:54] VITALS: BP 157/65
[2018-09-03 18:16] VITALS: BP 157/65
[2018-09-03] MEDS: ATORVASTATIN 20 MG (LIPITOR) TABLET PO SCH (20:52)
[2018-09-04 05:04] VITALS: BP 146/51
[2018-09-04] MEDS: inSUlin ASPART (NovoLOG) 1 UNIT/0.01 ML (CHARGE PER UNIT) SC SCH ×4 (05:05→21:03)
[2018-09-04] MEDS: MULTIVIT W/MINERALS TAB (THERAGRAN M) PO SCH (06:01)
[2018-09-04] MEDS: hydrALAZINE (APRESOLINE) 25 MG TAB PO SCH ×3 (06:01→21:00)
[2018-09-04] MEDS: PANTOPRAZOLE 40 MG (PROTONIX) TAB PO SCH (06:01)
[2018-09-04] MEDS: ISOSORBIDE MONONITRATE 30 MG (IMDUR) TAB PO SCH ×2 (06:01→18:11)
[2018-09-04] MEDS: glyBURIDE 2.5 MG (MICRONASE) TAB PO SCH (06:01)
[2018-09-04 06:30] LABS: ALBUMIN 3.9 GM/DL (3.2-4.5); BILIRUBIN,TOTAL 0.4 MG/DL (0.1-1.0); CALCIUM 9.4 MG/DL (8.5-10.1); CREATININE SERUM 2.27 MG/DL (0.60-1.30); MAGNESIUM 2.3 MG/DL (1.8-2.4); POTASSIUM 4.6 MMOL/L (3.6-5.0); TOTAL PROTEIN 6.8 GM/DL (6.4-8.2)
[2018-09-04 08:07] VITALS: BP 127/68
[2018-09-04] MEDS: VITAMIN E 400 INTLU CAP PO SCH (08:09)
[2018-09-04] MEDS: RANOLAZINE ER 500 MG TAB (RANEXA) PO SCH ×2 (08:09→21:00)
[2018-09-04] MEDS: ASPIRIN E.C. 81 MG (ECOTRIN) TAB PO SCH (08:09)
[2018-09-04] MEDS: SENNA W/DOCUSATE (SENOKOT S) TABLET PO SCH ×2 (08:09→21:00)
[2018-09-04] MEDS: MAGNESIUM OXIDE (MAG-OX)400 MG TAB PO SCH ×2 (08:09→18:11)
[2018-09-04] MEDS: LOSARTAN 100 MG (COZAAR) TABLET PO SCH (08:14)
[2018-09-04] MEDS: amLODIPine 10 MG (NORVASC) TAB PO SCH (09:26)
[2018-09-04] MEDS: HYDROCHLOROTHIAZIDE 25 MG (HCTZ) TAB PO SCH (09:26)
[2018-09-04] MEDS: meTOprolol TARTRATE 50 MG (LOPRESSOR) TAB PO SCH ×2 (09:26→21:00)
[2018-09-04 09:27] VITALS: BP 126/68
--- NOTE | 2018-09-04 10:00 | NUR ---
DR. CHAVEZ HERE TO SEE PATIENT. INFORMED OF ELEVATED BUN, CR, AND BNP. LABS WILL BE RECHECKED IN AM.
--- NOTE | 2018-09-04 10:20 | Cardiology Progress Note ---
Subjective Date Seen by Provider: Sep 04, 2018 Time Seen by Provider: 10:19 Subjective/Events-last exam Patient is sitting in a chair, feeling better, blood pressure still elevated Review of Systems General: No Chills, No Night Sweats, No Fatigue, No Malaise, No Appetite, No Other HEENT: No Head Aches, No Visual Changes, No Eye Pain, No Ear Pain, No Dysphasia , No Sinus Congestion, No Post Nasal Drip, No Sore Throat, No Other Pulmonary: No Dyspnea, No Cough, No Pleuritic Chest Pain, No Other Cardiovascular: No: Chest Pain, Palpitations, Orthopnea, Paroxysmal Noc. Dyspnea, Edema, Lt Headedness, Other Objective-Cardiology Exam Last Set of Vital Signs Vital Signs 09/04/18 09/04/18 05:04 09:27 Temp 98.7 Pulse 62 Resp 18 B/P (MAP) 126/68 (87) Pulse Ox 97 O2 Delivery Room Air Capillary Refill : I&O Intake and Output 09/04/18 00:00 Intake Total 1300 ml Balance 1300 ml Intake Oral 1300 ml # Voids 10 General: Alert, Cooperative, Other (subtle confusion, diff communicating) HEENT: Atraumatic, PERRLA Neck: Supple, No JVD, No Thyromegaly Lungs: Clear to Auscultation, Normal Air Movement Heart: Regular Rate, Normal S1, Normal S2, No Murmurs Abdomen: Normal Bowel Sounds, Soft, No Tenderness, No Hepatosplenomegaly, No Masses Extremities: No Clubbing, No Cyanosis, Other (mild edema) Skin: No Rashes, No Significant Lesion Neuro: Cranial Nerves 3-12 NL, Other (balance deficits) Psych/Mental Status: Mental Status NL Results Lab Laboratory Tests 09/04/18 05:28 A/P-Cardiology Admission Diagnosis Acute intracranial bleed Coronary artery disease Non-ST elevation myocardial infarction Peripheral arterial disease Hypertension Hyperlipidemia Assessment/Plan Acute intracranial bleed resulted in confusion and aphasia. Transferred back from , left thalamic bleed and basal ganglia bleed. 1.8 cm in diameter. Continue with rehabilitation for now. Coronary artery disease, extensive disease, last cardiac catheterization was done on August 17, 2018 showed occluded right coronary artery and vein graft to the right coronary artery with collaterals filling the right from the left system. Severe ostial LAD and circumflex and ramus intermedius disease with patent ALVARADO to LAD and vein graft to the obtuse marginal branch. Severe peripheral arterial disease, did not evaluate the full anatomy due to the underlying renal insufficiency. Medical therapy was recommended no intervention was done, had non-ST elevation myocardial infarction on August 23, 2018 while he was at and treated with nitroglycerin drip and aspirin Labile hypertension, resistant to multiple medication on top of noncompliance with medication. Continue to monitor blood pressure Mild pedal edema, I will give one dose of Lasix today and start him on hydrochlorothiazide daily Hyperlipidemia, continue to monitor lipids History of severe peripheral arterial disease, extensive history multiple interventions in the past. Severe right carotid artery stenosis, history of right carotid endarterectomy, continue to monitor Chronic renal insufficiency, worsening renal function at this time. Continue to monitor. Repeat metabolic profile in the morning Diabetes mellitus. Clinical Quality Measures DVT/VTE Risk/Contraindication: Risk Factor Score Per Nursin RFS Level Per Nursing on Admit: 4+=Very High ARIELLE CHAVEZ MD Sep 04, 2018 10:20
--- NOTE | 2018-09-04 10:30 | NUR ---
NOTED THAT BROUGHT IN EARLY LUNCH AND PATIENT EATING NOW. AC LUNCH BLOOD SUGAR CHECKED NOW. REQUESTED LET NURSE KNOW WHEN SHE BRINGS IN FOOD SO BLOOD SUGAR CAN BE CHECKED PRIOR TO PATIENT EATING. SHE VOICES UNDERSTANDING. SHE FEELS PATIENT IS TALKING MORE AND "IS SLIGHT CONFUSED AT TIMES".
--- NOTE | 2018-09-04 12:00 | NUR ---
DR. HODGSON HERE TO SEE PATIENT.
--- NOTE | 2018-09-04 12:56 | PM&R Progress Note ---
Subjective HPI/CC On Admission Date Seen by Provider: Sep 04, 2018 Time Seen by Provider: 12:15 Subjective/Events-last exam Multiple meds were added for elevated blood pressure and history of stroke so that is a priority to maintain good blood pressure control Creatinine natalie to 2.2 Will recheck BMP tomorrow Blood sugar checks her improved Patient feels like he is progressing and doing better Review of Systems General: Fatigue Neurological: Change in speech, Confusion Objective Exam Vital Signs Vital Signs Date Time Temp Pulse Resp B/P (MAP) Pulse Ox O2 Delivery O2 Flow Rate FiO2 09/04/18 09:27 62 126/68 (87) 09/04/18 09:00 Room Air 09/04/18 05:04 98.7 18 97 Capillary Refill : General Appearance: No Apparent Distress, WD/WN, Chronically ill Respiratory: Chest Non Tender, Lungs Clear, Normal Breath Sounds, No Accessory Muscle Use, No Respiratory Distress Cardiovascular: Regular Rate, Rhythm, No Edema, No Gallop, No JVD, No Murmur, Normal Peripheral Pulses Neurologic/Psychiatric: Alert, Oriented x3, No Motor/Sensory Deficits, Normal 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 Assessment/Plan Assessment and Plan Assess & Plan/Chief Complaint Assessment: Subacute intracranial hemorrhage on 08/18/18 following Plavix and aspirin initiation after cardiac catheterization without intervention by Dr. Centeno sent to [facility] but no surgical intervention Aphasia Confusion Comprehends in Vietnamese but responds in Turkish Loss of balance DM [id number] Hypertension Angina chronic CAD CABG Chronic renal insufficiency 2.2 today Anemia Thrombocytopenia Urinary incontinence new Plan: Continue therapies Maintain low dose OHA Monitor creatinine and incontinence Diagnosis/Problems Diagnosis/Problems (1) Hemorrhage, intracranial Status: Acute (2) Aphasia Status: Acute (3) Confusion Status: Acute (4) Balance problem Status: Acute (5) Hypertension Status: Chronic Qualifiers: Hypertension type: essential hypertension Qualified Codes: I10 - Essential (primary) hypertension (6) Diabetes mellitus Status: Chronic Qualifiers: Diabetes mellitus type: type 2 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 transplanted heart: [place] heart Associated angina: with stable angina Qualified Codes: I25.118 - Atherosclerotic heart disease of [place] coronary artery with other forms of angina pectoris (8) Angina pectoris Status: Chronic (9) Hyperlipidemia Status: Chronic Qualifiers: Hyperlipidemia type: mixed hyperlipidemia Qualified Codes: E78.2 - Mixed hyperlipidemia (10) Renal insufficiency Status: Chronic (11) Anemia Status: Chronic Qualifiers: Anemia type: unspecified type Qualified Codes: D64.9 - Anemia, unspecified (12) Thrombocytopenia Status: Acute Clinical Quality Measures Admission Status Admission Dx Subacute intracranial hemorrhage on 08/18/18 following Plavix and aspirin initiation after cardiac catheterization without intervention by Dr. Centeno sent to [facility] but no surgical intervention Aphasia Confusion Comprehends in Vietnamese but responds in Turkish Loss of balance DM [id number] Hypertension Angina chronic CAD CABG Chronic renal insufficiency Anemia Thrombocytopenia Urinary incontinence new Plan: Accu-Cheks AC/at bedtime with NovoLog sliding scale A Continue all meds from [facility] Consult cardiology Initiate therapies per inpatient rehab protocol Bladder management to prevent continued incontinence Monitor blood pressure closely Will likely need insulin initiation due to renal insufficiency previously been on metformin now no longer an option due to renal insufficiency Check labs in a.m. Monitor bowel function Provide walker Fall risk DVT/VTE Risk/Contraindication: Risk Factor Score Per Nursin RFS Level Per Nursing on Admit: 4+=Very High RAMIN HODGSON DO Sep 04, 2018 12:56
[2018-09-04 14:45] VITALS: BP 131/62
--- NOTE | 2018-09-04 16:45 | NUR ---
AGAIN BROUGHT IN FOOD THIS AFTERNOON AND PATIENT ATE WITHOUT NURSE BEING AWARE. BLOOD SUGAR HIGH AGAIN AT 245. SON AT BEDSIDE AND NURSE ASKED HIM TO EXPLAIN TO PATIENT'S TO PLEASE LET NURSE KNOW WHEN SHE BRINGS IN FOOD SO BLOOD SUGAR CAN BE CHECKED PRIOR TO PATIENT EATING. APPEARS PATIENT IS EATING MEALS BROUGHT IN FROM HOME AND THE AUTO TRAYS HE RECEIVES HERE.
[2018-09-04 17:25] VITALS: BP 140/60
[2018-09-04] MEDS: ATORVASTATIN 20 MG (LIPITOR) TABLET PO SCH (21:00)
[2018-09-05 05:06] VITALS: BP 166/63
[2018-09-05] MEDS: MULTIVIT W/MINERALS TAB (THERAGRAN M) PO SCH (05:46)
[2018-09-05] MEDS: PANTOPRAZOLE 40 MG (PROTONIX) TAB PO SCH (05:46)
[2018-09-05] MEDS: hydrALAZINE (APRESOLINE) 25 MG TAB PO SCH (05:46)
[2018-09-05] MEDS: glyBURIDE 2.5 MG (MICRONASE) TAB PO SCH (05:46)
[2018-09-05] MEDS: ISOSORBIDE MONONITRATE 30 MG (IMDUR) TAB PO SCH (05:46)
[2018-09-05] MEDS: inSUlin ASPART (NovoLOG) 1 UNIT/0.01 ML (CHARGE PER UNIT) SC SCH ×2 (05:51→11:00)
--- NOTE | 2018-09-05 07:03 | Occupational Ther Daily Note ---
OT Current Status-Daily Note Subjective Pt alert, sitting in recliner. Breakfast delivered. Pt agrees to therapy. No c/o pain at this time. Pt wanting to go home. Mental Status/Objective Patient Orientation: Person, Place, Time, Situation Therapy Code Descriptions/Definitions Functional [place] Measure: 0=Not Assessed/NA 4=Minimal Assistance 1=Total Assistance 5=Supervision or Setup 2=Maximal Assistance 6=Modified [place] 3=Moderate Assistance 7=Complete [place] ADL-Treatment Pt received breakfast, opened containers/packages by self then using regular utensils to eat. Pt ambulated to bathroom to complete toileting. Transferred with mod I using grabbar. Mod I for toileting using grabbar. Pt standing at sink to wash hands and wipe face. Pt declined taking shower or changing clothing, stating that he wanted to wait for his to be there. Therapy Code Descriptions/Definitions Functional [place] Measure: 0=Not Assessed/NA 4=Minimal Assistance 1=Total Assistance 5=Supervision or Setup 2=Maximal Assistance 6=Modified [place] 3=Moderate Assistance 7=Complete [place] Therapy Quality Codes: 6 Independent with activity with or without an assistive device 5 Patient requires set up or clean up by helper. Patient completes activity by themselves 4 Supervision or touching assist (CGA). [place] provide cues , steadying assist 3 The helper provides less than half the effort to complete the activity 2 The helper provides more than half the effort to complete the activity 1 Dependent. The helper does all the effort to complete an activity 7 Patient refused to complete or attempt activity 9 The patient did not perform the activity before the current illness or injury 88 Not attempted due to Medical conditions or safety concerns Eating (FIM): 6 Eating (QC): 6 Grooming (FIM): 6 Other Treatment Pt ambulated to therapy gym to complete UE exercises. Arm bike completed to increase UE strength and activity tolerance for daily functional tasks, 15 min at 20-25 gray resistance, 2 recovery breaks taken. Attempted to complete interlocking puzzle for fine motor and visual perceptual skills. Pt able to manipulate small pieces then had difficulty with discerning which piece matched and interlocked. After therapy, pt sitting in recliner with call light/phone in reach. All needs met in room. OT Short Term Goals Short Term Goals Time Frame: Sep 07, 2018 Grooming(FIM): 5 Bathing(FIM): 5 Lower Body Dressing(FIM): 5 Toileting(FIM): 5 Toilet/Commode Transfer(FIM): 5 Additional Short Term Goals: 1-Demonstrate ADL Tasks, 2-Verbalize Understanding , 3-ImproveStrength/Colin 1=Demonstrate adherence to instructed precautions during ADL tasks. 2=Patient will verbalize/demonstrate understanding of assistive devices/ modifications for ADL. 3=Patient will improve strength/tolerance for activity to enable patient to perform ADL's. OT Mcfp Goals Design Analyst Goals Time Frame: Sep 21, 2018 Eating (FIM): 6 Eating (QC): 6 Groomin Oral Hygiene (QC): 6 Bathing(FIM): 5 Shower/Bathe Self (QC): 5 Upper Body Dressing(FIM): 6 Upper Body Dressing (QC): 6 Lower Body Dressing(FIM): 6 Lower Body Dressing (QC): 6 On/Off Footwear (QC): 6 Toileting(FIM): 6 Toileting Hygiene (QC): 6 Toilet/Commode Transfer(FIM): 6 Toilet/Commode Transfer (QC): 6 Shower Transfer(FIM): 5 1=Demonstrate adherence to instructed precautions during ADL tasks. 2=Patient will verbalize/demonstrate understanding of assistive devices/ modifications for ADL. 3=Patient will improve strength/tolerance for activity to enable patient to perform ADL's. OT Education/Plan Discharge Recommendations Plan/Recommendations: Continue POC Treatment Plan/Plan of Care Patient would benefit from OT for education, treatment and training to promote independence in ADL's, mobility, safety and/or upper extremity function for ADL' s. Plan of Care: ADL Retraining, Functional Mobility, Group Exercise/Act as Ind, UE Funct Exercise/Act Treatment Duration: Sep 21, 2018 Frequency: At least 5 of 7 days/Wk (IRF) Estimated Hrs Per Day: 1.5 hours per day Agreement: Yes Rehab Potential: Good Time/GCodes Start Time: 06:45 Stop Time: 08:00 Total Time Billed (hr/min): 75 Billed Treatment Time 1 visit-ADL 3 (40 min) EX 2 (25 min) MACI ACOSTA Sep 05, 2018 07:03
[2018-09-05 07:10] LABS: CALCIUM 9.5 MG/DL (8.5-10.1); CREATININE SERUM 2.59 MG/DL (0.60-1.30); POTASSIUM 4.3 MMOL/L (3.6-5.0)
[2018-09-05 07:45] VITALS: BP 121/53
--- NOTE | 2018-09-05 08:19 | PM&R Progress Note ---
Subjective This was a face to face visit with the patient. Subjective/Events-last exam Patient was seen in Objective Physician Exam Last Set of Vital Signs Vital Signs Date Time Temp Pulse Resp B/P (MAP) Pulse Ox O2 Delivery O2 Flow Rate FiO2 09/05/18 05:06 97.1 73 18 166/63 (97) 95 Room Air Capillary Refill : I&O Intake and Output 09/05/18 00:00 Intake Total 1550 ml Balance 1550 ml Intake Oral 1550 ml # Voids 11 General: Alert, Cooperative, Other (subtle confusion, diff communicating) HEENT: Atraumatic, PERRLA Neck: Supple, No JVD, No Thyromegaly Lungs: Clear to Auscultation, Normal Air Movement Heart: Regular Rate, Normal S1, Normal S2, No Murmurs Abdomen: Normal Bowel Sounds, Soft, No Tenderness, No Hepatosplenomegaly, No Masses Extremities: No Clubbing, No Cyanosis, Other (mild edema) Skin: No Rashes, No Significant Lesion Neuro: Cranial Nerves 3-12 NL, Other (balance deficits) Psych/Mental Status: Mental Status NL Results Lab Data Laboratory Tests 09/02/18 10:54: Glucometer 116H 09/02/18 17:03: Glucometer 157H 09/02/18 20:45: Glucometer 323H 09/02/18 21:31: Glucometer 311H 09/03/18 04:37: Glucometer 122H 09/03/18 11:39: Glucometer 194H 09/03/18 16:26: Glucometer 270H 09/03/18 17:38: Glucometer 265H 09/03/18 20:49: Glucometer 233H 09/04/18 04:57: Glucometer 169H 09/04/18 05:28: Sodium Level 137, Potassium Level 4.6, Chloride Level 103, Carbon Dioxide Level 21, Anion Gap 13, Blood Urea Nitrogen 40H, Creatinine 2.27H, Estimat Glomerular Filtration Rate 28, BUN/Creatinine Ratio 18, Glucose Level 164H, Calcium Level 9.4, Corrected Calcium 9.5, Magnesium Level 2.3, Total Bilirubin 0.4, Aspartate Amino Transf (AST/SGOT) 21, Alanine Aminotransferase (ALT/SGPT) 38, Alkaline Phosphatase 78, B-Type Natriuretic Peptide 275.8H, Total Protein 6.8, Albumin 3.9 09/04/18 10:31: Glucometer 174H 09/04/18 16:50: Glucometer 245H 09/04/18 21:02: Glucometer 188H 09/04/18 21:45: Glucometer 179H 09/05/18 05:45: Glucometer 189H 09/05/18 06:35: Sodium Level 134L, Potassium Level 4.3, Chloride Level 103, Carbon Dioxide Level 20L, Anion Gap 11, Blood Urea Nitrogen 50H, Creatinine 2.59H, Estimat Glomerular Filtration Rate 24, BUN/Creatinine Ratio 19, Glucose Level 185H, Calcium Level 9.5 Assessment/Plan Assessment and Plan (1) Hemorrhage, intracranial Status: Acute (2) Aphasia Status: Acute (3) Confusion Status: Acute (4) Balance problem Status: Acute (5) Hypertension Qualifiers: Qualified Codes: I10 - Essential (primary) hypertension Status: Chronic (6) Diabetes mellitus Qualifiers: Qualified Codes: E11.22 - Type 2 diabetes mellitus with diabetic chronic kidney disease; N18.3 - Chronic kidney disease, stage 3 (moderate) Status: Chronic (7) CAD (coronary artery disease) Qualifiers: Qualified Codes: I25.118 - Atherosclerotic heart disease of [place] coronary artery with other forms of angina pectoris (8) Angina pectoris Status: Chronic (9) Hyperlipidemia Qualifiers: Qualified Codes: E78.2 - Mixed hyperlipidemia Status: Chronic (10) Renal insufficiency Status: Chronic (11) Anemia Qualifiers: Qualified Codes: D64.9 - Anemia, unspecified Status: Chronic (12) Thrombocytopenia Status: Acute Co-Morbidities that are continuing to impact the rehab process: (include details ) RAMIN HODGSON DO Sep 05, 2018 08:19
[2018-09-05] MEDS: VITAMIN E 400 INTLU CAP PO SCH (08:31)
[2018-09-05] MEDS: HYDROCHLOROTHIAZIDE 25 MG (HCTZ) TAB PO SCH (08:31)
[2018-09-05] MEDS: SENNA W/DOCUSATE (SENOKOT S) TABLET PO SCH (08:31)
[2018-09-05] MEDS: amLODIPine 10 MG (NORVASC) TAB PO SCH (08:31)
[2018-09-05] MEDS: ASPIRIN E.C. 81 MG (ECOTRIN) TAB PO SCH (08:31)
[2018-09-05] MEDS: MAGNESIUM OXIDE (MAG-OX)400 MG TAB PO SCH (08:31)
[2018-09-05] MEDS: DOCUSATE SODIUM 100 MG (COLACE) CAP PO PRN (08:31)
[2018-09-05] MEDS: RANOLAZINE ER 500 MG TAB (RANEXA) PO SCH (08:31)
[2018-09-05] MEDS: LOSARTAN 100 MG (COZAAR) TABLET PO SCH (08:31)
[2018-09-05] MEDS: meTOprolol TARTRATE 50 MG (LOPRESSOR) TAB PO SCH (08:31)
--- NOTE | 2018-09-05 08:50 | Cardiology Progress Note ---
Subjective Date Seen by Provider: Sep 05, 2018 Time Seen by Provider: 08:48 Subjective/Events-last exam Patient is sitting up in chair, no new complaints. Asking to go home. Denies any chest pain, dyspnea, dizziness or lightheadedness. Review of Systems General: No Night Sweats, No Fatigue HEENT: No Visual Changes, No Dysphasia Pulmonary: No Dyspnea, No Cough Cardiovascular: No: Chest Pain, Palpitations, Paroxysmal Noc. Dyspnea, Edema Gastrointestinal: No: Nausea, Vomiting, Abdominal Pain Genitourinary: No Dysuria, No Frequency Musculoskeletal: No: neck pain, back pain Neurological: No: Weakness, Numbness, Change in speech, Confusion Objective-Cardiology Exam Last Set of Vital Signs Vital Signs 09/05/18 09/05/18 05:06 07:45 Temp 97.1 Pulse 65 Resp 18 B/P (MAP) 121/53 (75) Pulse Ox 95 O2 Delivery Room Air Capillary Refill : I&O Intake and Output 09/05/18 00:00 Intake Total 1550 ml Balance 1550 ml Intake Oral 1550 ml # Voids 11 General: Alert, Cooperative, Other (subtle confusion, diff communicating) HEENT: Atraumatic, PERRLA Neck: Supple, No JVD, No Thyromegaly Lungs: Clear to Auscultation, Normal Air Movement Heart: Regular Rate, Normal S1, Normal S2, No Murmurs Abdomen: Normal Bowel Sounds, Soft, No Tenderness, No Hepatosplenomegaly, No Masses Extremities: No Clubbing, No Cyanosis, Other (mild edema) Skin: No Rashes, No Significant Lesion Neuro: Cranial Nerves 3-12 NL, Other (balance deficits) Psych/Mental Status: Mental Status NL Results Lab Laboratory Tests 09/05/18 06:35 A/P-Cardiology Admission Diagnosis Acute intracranial bleed Coronary artery disease Non-ST elevation myocardial infarction Peripheral arterial disease Hypertension Hyperlipidemia Assessment/Plan Acute intracranial bleed resulted in confusion and aphasia. Transferred back from , left thalamic bleed and basal ganglia bleed. 1.8 cm in diameter. Symptoms are resolved. Continue with rehabilitation for now. Coronary artery disease, extensive disease, last cardiac catheterization was done on August 17, 2018 showed occluded right coronary artery and vein graft to the right coronary artery with collaterals filling the right from the left system. Severe ostial LAD and circumflex and ramus intermedius disease with patent ALVARADO to LAD and vein graft to the obtuse marginal branch. Severe peripheral arterial disease, did not evaluate the full anatomy due to the underlying renal insufficiency. Medical therapy was recommended no intervention was done, had non-ST elevation myocardial infarction on August 23, 2018 while he was at and treated with nitroglycerin drip and aspirin Labile hypertension, resistant to multiple medication on top of noncompliance with medication. Continue to monitor blood pressure Mild pedal edema, I will give one dose of Lasix today and start him on hydrochlorothiazide daily Hyperlipidemia, continue to monitor lipids History of severe peripheral arterial disease, extensive history multiple interventions in the past. Severe right carotid artery stenosis, history of right carotid endarterectomy, continue to monitor Chronic renal insufficiency, worsening renal function at this time. Continue to monitor. Will discontinue losartan. Diabetes mellitus. Clinical Quality Measures DVT/VTE Risk/Contraindication: Risk Factor Score Per Nursin RFS Level Per Nursing on Admit: 4+=Very High CHARLENE TALAMANTES Sep 05, 2018 08:49
[2018-09-05] MEDS ORDERED: cloNIDine 0.1 MG (CATAPRES) TAB PO SCH (09:30)
--- NOTE | 2018-09-05 09:57 | Cardiology Progress Note ---
Subjective Date Seen by Provider: Sep 05, 2018 Time Seen by Provider: 09:56 Subjective/Events-last exam patient is sitting in a chair, feeling better. No new complaint Review of Systems General: No Chills, No Night Sweats, No Fatigue, No Malaise, No Appetite, No Other HEENT: No Head Aches, No Visual Changes, No Eye Pain, No Ear Pain, No Dysphasia , No Sinus Congestion, No Post Nasal Drip, No Sore Throat, No Other Pulmonary: No Dyspnea, No Cough, No Pleuritic Chest Pain, No Other Cardiovascular: No: Chest Pain, Palpitations, Orthopnea, Paroxysmal Noc. Dyspnea, Edema, Lt Headedness, Other Objective-Cardiology Exam Last Set of Vital Signs Vital Signs 09/05/18 09/05/18 09/05/18 05:06 07:45 09:16 Temp 97.1 Pulse 65 Resp 18 B/P (MAP) 121/53 (75) Pulse Ox 95 O2 Delivery Room Air Capillary Refill : I&O Intake and Output 09/05/18 00:00 Intake Total 1550 ml Balance 1550 ml Intake Oral 1550 ml # Voids 11 General: Alert, Cooperative, Other (subtle confusion, diff communicating) HEENT: Atraumatic, PERRLA Neck: Supple, No JVD, No Thyromegaly Lungs: Clear to Auscultation, Normal Air Movement Heart: Regular Rate, Normal S1, Normal S2, No Murmurs Abdomen: Normal Bowel Sounds, Soft, No Tenderness, No Hepatosplenomegaly, No Masses Extremities: No Clubbing, No Cyanosis, Other (mild edema) Skin: No Rashes, No Significant Lesion Neuro: Cranial Nerves 3-12 NL, Other (balance deficits) Psych/Mental Status: Mental Status NL Results Lab Laboratory Tests 09/05/18 06:35 A/P-Cardiology Admission Diagnosis Acute intracranial bleed Coronary artery disease Non-ST elevation myocardial infarction Peripheral arterial disease Hypertension Hyperlipidemia Assessment/Plan Acute intracranial bleed resulted in confusion and aphasia. Transferred back from , left thalamic bleed and basal ganglia bleed. 1.8 cm in diameter. Symptoms are resolved. Continue with rehabilitation for now. Coronary artery disease, extensive disease, last cardiac catheterization was done on August 17, 2018 showed occluded right coronary artery and vein graft to the right coronary artery with collaterals filling the right from the left system. Severe ostial LAD and circumflex and ramus intermedius disease with patent ALVARADO to LAD and vein graft to the obtuse marginal branch. Severe peripheral arterial disease, did not evaluate the full anatomy due to the underlying renal insufficiency. Medical therapy was recommended no intervention was done, had non-ST elevation myocardial infarction on August 23, 2018 while he was at and treated with nitroglycerin drip and aspirin Labile hypertension, resistant to multiple medication, worsening renal function, I will discontinue hydrochlorothiazide and losartan, start on clonidine and titrate up as needed Mild pedal edema, better, discontinue hydrochlorothiazide due to worsening renal function. Continue to monitor Hyperlipidemia, continue to monitor lipids History of severe peripheral arterial disease, extensive history multiple interventions in the past. Severe right carotid artery stenosis, history of right carotid endarterectomy, continue to monitor Chronic renal insufficiency, worsening renal function at this time. Continue to monitor. Will discontinue losartan. Diabetes mellitus. Clinical Quality Measures DVT/VTE Risk/Contraindication: Risk Factor Score Per Nursin RFS Level Per Nursing on Admit: 4+=Very High ARIELLE CHAVEZ MD Sep 05, 2018 09:57
--- NOTE | 2018-09-05 10:51 | Physical Therapy Daily Note ---
PT Daily Note-Current Subjective Smiles, converses minimally. Indicates several times that he is ready to go home. present and states she feels he would do more at home as he feels a little awkward here. Pt. compliant for all Rx Pain Numeric Pain Scale: 0-No Pain Location: No Pain Reported Mental Status Patient Orientation: Normal For Age some language barrier Transfers Therapy Code Descriptions/Definitions Functional [place] Measure: 0=Not Assessed/NA 4=Minimal Assistance 1=Total Assistance 5=Supervision or Setup 2=Maximal Assistance 6=Modified [place] 3=Moderate Assistance 7=Complete [place] Therapy Quality Codes: 6 Independent with activity with or without an assistive device 5 Patient requires set up or clean up by helper. Patient completes activity by themselves 4 Supervision or touching assist (CGA). [place] provide cues , steadying assist 3 The helper provides less than half the effort to complete the activity 2 The helper provides more than half the effort to complete the activity 1 Dependent. The helper does all the effort to complete an activity 7 Patient refused to complete or attempt activity 9 The patient did not perform the activity before the current illness or injury 88 Not attempted due to Medical conditions or safety concerns Transfers (B, C, W/C) (FIM): 6 Scootin Rollin Roll Left to Right (QC): 6 Supine to/from Sit: 6 Sit to/from Stand: 7 Sit to Lying (QC): 6 Sit to Stand (QC): 6 Chair/Gls-xq-Hpgtd Xfer(QC): 6 Bed to/from Chair: 7 Car Transfer (QC): 6 floor TRF SBA Gait Training Does the Patient Walk?: Yes Gait (FIM): 6 Distance (FIM): 3=150 ft (200x2) Walk 10 feet (QC): 6 Walk 50 ft with 2 Turns(QC): 6 Walk 150 ft (QC): 6 Walking 10ft/uneven surface-QC: 6 Gait Level of Assist: 6 Gait Persons Needed: 0 Gait Assistive Device: None no LOB, forward, backward, side stepping left and right, some right foot shuffling but corrected when instructed Wheelchair Training Does the Pt Use a Wheelchair?: No Stair Training Stair Training: Handrails/: 2 handrails Stairs (FIM): 6 #of Steps: 12 1 Step (curb) (QC): 6 4 Steps (QC): 6 12 Steps (QC): 6 Level of Assist: 6 Balance Picking up an Object (QC): 6 Special Test Comments balance challenges from [place], SLS >6 sec, heel toe stance with SBA briefly, no LOB Exercises Supine Ex: Bridging, Ankle pumps, Rolling, Heel Slides, Short Arc Quads, Scooting, Straight leg raise, Hip abd/add (sidelying) Supine Reps: 12 Seated Therapy Exercises: Ankle pumps, Sit to stand, Long arc quads, Hip flexion, Hip abd/add Seated Reps: 12 Standing: Hip Abduction, Hamstring curls, Heel/toe raises, Marching, Mini squats Standing Reps: 12 NuStep Minutes: 10 NuStep Workload: 3 Assessment Current Status: Good Progress meets goals, and pt. ask to be discharged PT Short Term Goals Short Term Goals Time Frame: Sep 07, 2018 Gait (FIM): 5 (met) Gait Distance Comment: 150' Gait Level of Assist: 5 Gait Assistive Device: Cane Single Point PT Flower Cutter Goals Flower Cutter Goals PT Flower Cutter Goals Time Frame: Sep 21, 2018 Transfers (B,C,W/C) (FIM): 6 Sit to Lying (QC): 6 Lying-Sitting on Side/Bed(QC): 6 Sit to Stand (QC): 6 Rollin Roll Left to Right (QC): 6 Chair/Qau-vd-Jrrdc Xfer(QC): 6 Car Transfer (QC): 6 Gait (FIM): 6 Distance: 200' Walk 10 feet (QC): 6 Walk 10ft-Uneven Surface(QC): 6 Walk 50ft with 2 Turns (QC): 6 Walk 150 ft (QC): 6 Gait Level of Assist: 6 Gait Assistive Device: None, Cane Single Point Stairs (FIM): 2 # of Steps: 4 1 Step (curb) (QC): 4 4 Steps (QC): 4 Stairs Level Of Assist: 5 PT Plan Treatment/Plan Treatment Plan: Continue Plan of Care Treatment Plan: Bed Mobility, Education, Functional Activity Colin, Functional Strength, Group Therapy, Gait, Safety, Therapeutic Exercise, Transfers Treatment Duration: Sep 21, 2018 Frequency: At least 5 of 7 days/Wk (IRF) Estimated Hrs Per Day: 1.5 hours per day Patient and/or Family Agrees t: Yes Safety Risks/Education Patient Education: Gait Training, Transfer Techniques, Steps, Correct Positioning, Disease Process, Safety Issues Teaching Recipient: Patient Teaching Methods: Demonstration, Discussion Response to Teaching: Verbalize Understanding, Return Demonstration Time/GCodes Time In: 1000 Time Out: 1100 Total Billed Treatment Time: 60 Total Billed Treatment 1,NM20m,FA15m,EX25m G Codes Necessary: JENNY Rod MEAT SCRUBBER Sep 05, 2018 10:51
[2018-09-05] MEDS ORDERED: AMLO10TA6 PO (11:12)
[2018-09-05] MEDS ORDERED: PANT40TA3 PO (11:12)
[2018-09-05] MEDS ORDERED: GLYB2.5T4 PO (11:12)
[2018-09-05] MEDS ORDERED: CLON0.1T PO (11:12)
[2018-09-05] MEDS ORDERED: HYDR-3923 PO (11:12)
[2018-09-05] MEDS ORDERED: ISOS30TA3 PO ×2 (11:12)
[2018-09-05] MEDS ORDERED: METO50TA15 PO (11:12)
[2018-09-05] MEDS ORDERED: RANO500T3 PO (11:12)
--- NOTE | 2018-09-05 11:16 | Discharge Summary ---
Diagnosis/Chief Complaint Date of Admission Aug 30, 2018 at 16:04 Date of Discharge Discharge Date: Sep 05, 2018 Discharge Diagnosis Assessment: Subacute intracranial hemorrhage on 08/18/18 following Plavix and aspirin initiation after cardiac catheterization without intervention by Dr. Centeno sent to [facility] but no surgical intervention Aphasia Confusion Comprehends in Welsh but responds in Lebanese Loss of balance DM [id number] Hypertension Angina chronic CAD CABG Chronic renal insufficiency Anemia Thrombocytopenia Urinary incontinence new Reason Hospital Visit CC: Debility following ICH 08/18/18 HPI: This is a 78-year-old white male of and who is in the midst of transitioning to a new primary care provider, likely , who presents to the inpatient rehab facility via private vehicle with family after discharge at [facility] after sustaining an intracranial hemorrhage on thought to have been affiliated with Plavix initiation with baby aspirin following a cardiac catheterization on 08/17/18 without intervention required. He was placed in the neurological ICU after he presented to the ER locally with confusion found to have blood on CT scan so sent to [facility] for higher level of care and neurological surgery consultation. He did not require any surgical intervention but residual from the bleeding stroke is confusion, aphasia, ability to comprehend in Welsh but answers in Lebanese, urinary incontinence, loss of balance with fall risk. The patient and family were very hesitant about admission to an inpatient rehab facility but considering his deficits they elected to come to [facility]. Discharge Summary Consultations Dr Centeno Discharge Physical Examination Allergies: Coded Allergies: No Known Drug Allergies (Unverified , 08/17/18) Vitals & I&Os Vital Signs Date Time Temp Pulse Resp B/P (MAP) Pulse Ox O2 Delivery O2 Flow Rate FiO2 09/05/18 12:44 65 18 121/53 98 Room Air 09/05/18 05:06 97.1 Hospital Course Hospital course: Patient had an uneventful inpatient rehabilitation hospital course. He was admitted after transferred from [facility] for aggressive rehab after a subarachnoid hemorrhage sustained 1 day after Plavix administration after cardiac catheterization showed medical management only. Patient was placed in neurosurgery ICU closely monitored but we did not require any type of surgical intervention. Urinary incontinence and loss of balance with fall risk and difficulty with communicating or deficits that were deemed in need of inpatient rehab therapies. Hyperglycemia required initiation of an oral hypoglycemic agent along with sliding scale since metformin was discontinued due to renal insufficiency contraindicated due to increased risk of lactic acidosis. Blood pressure management was initiated by which resulted in improved control on multiple medications. Overall he continued to improve and was felt that he could succeed at home with family support as the patient requested to go home prior to predicted 7 days of inpatient rehab course. He did not require any type of home health services or assistive aids and all medication was evaluated and sent to pharmacy. Labs (last 24 hrs) Laboratory Tests 08/30/18 18:07: Glucometer 242H 08/30/18 21:03: Glucometer 150H 08/31/18 05:40: Glucometer 159H 08/31/18 06:39: White Blood Count 6.6, Red Blood Count 3.42L, Hemoglobin 10.0L, Hematocrit 29L, Mean Corpuscular Volume 85, Mean Corpuscular Hemoglobin 29, Mean Corpuscular Hemoglobin Concent 34, Red Cell Distribution Width 13.9, Platelet Count 153, Mean Platelet Volume 10.6H, Neutrophils (%) (Auto) 68, Lymphocytes (%) (Auto) 17 , Monocytes (%) (Auto) 11, Eosinophils (%) (Auto) 3, Basophils (%) (Auto) 0, Neutrophils # (Auto) 4.5, Lymphocytes # (Auto) 1.2, Monocytes # (Auto) 0.7, Eosinophils # (Auto) 0.2, Basophils # (Auto) 0.0, Sodium Level 137, Potassium Level 4.1, Chloride Level 103, Carbon Dioxide Level 21, Anion Gap 13, Blood Urea Nitrogen 30H, Creatinine 1.73H, Estimat Glomerular Filtration Rate 38, BUN/ Creatinine Ratio 17, Glucose Level 157H, Mean Blood Glucose 169H, Hemoglobin A1c 7.5H, Calcium Level 9.6, Corrected Calcium 9.8, Total Bilirubin 0.5, Aspartate Amino Transf (AST/SGOT) 47H, Alanine Aminotransferase (ALT/SGPT) 70H, Alkaline Phosphatase 75, Total Protein 6.9, Albumin 3.8 08/31/18 11:07: Glucometer 260H 08/31/18 17:53: Glucometer 177H 08/31/18 21:05: Glucometer 263H 09/01/18 05:15: Glucometer 161H 09/01/18 12:34: Glucometer 197H 09/01/18 17:39: Glucometer 150H 09/01/18 21:28: Glucometer 184H 09/02/18 06:01: Glucometer 181H 09/02/18 10:54: Glucometer 116H 09/02/18 17:03: Glucometer 157H 09/02/18 20:45: Glucometer 323H 09/02/18 21:31: Glucometer 311H 09/03/18 04:37: Glucometer 122H 09/03/18 11:39: Glucometer 194H 09/03/18 16:26: Glucometer 270H 09/03/18 17:38: Glucometer 265H 09/03/18 20:49: Glucometer 233H 09/04/18 04:57: Glucometer 169H 09/04/18 05:28: Sodium Level 137, Potassium Level 4.6, Chloride Level 103, Carbon Dioxide Level 21, Anion Gap 13, Blood Urea Nitrogen 40H, Creatinine 2.27H, Estimat Glomerular Filtration Rate 28, BUN/Creatinine Ratio 18, Glucose Level 164H, Calcium Level 9.4, Corrected Calcium 9.5, Magnesium Level 2.3, Total Bilirubin 0.4, Aspartate Amino Transf (AST/SGOT) 21, Alanine Aminotransferase (ALT/SGPT) 38, Alkaline Phosphatase 78, B-Type Natriuretic Peptide 275.8H, Total Protein 6.8, Albumin 3.9 09/04/18 10:31: Glucometer 174H 09/04/18 16:50: Glucometer 245H 09/04/18 21:02: Glucometer 188H 09/04/18 21:45: Glucometer 179H 09/05/18 05:45: Glucometer 189H 09/05/18 06:35: Sodium Level 134L, Potassium Level 4.3, Chloride Level 103, Carbon Dioxide Level 20L, Anion Gap 11, Blood Urea Nitrogen 50H, Creatinine 2.59H, Estimat Glomerular Filtration Rate 24, BUN/Creatinine Ratio 19, Glucose Level 185H, Calcium Level 9.5 09/05/18 11:36: Glucometer 155H Pending Labs Laboratory Tests 08/30/18 18:07: Glucometer 242 08/30/18 21:03: Glucometer 150 08/31/18 05:40: Glucometer 159 08/31/18 06:39: White Blood Count 6.6, Red Blood Count 3.42, Hemoglobin 10.0, Hematocrit 29, Mean Corpuscular Volume 85, Mean Corpuscular Hemoglobin 29, Mean Corpuscular Hemoglobin Concent 34, Red Cell Distribution Width 13.9, Platelet Count 153, Mean Platelet Volume 10.6, Neutrophils (%) (Auto) 68, Lymphocytes (%) (Auto) 17 , Monocytes (%) (Auto) 11, Eosinophils (%) (Auto) 3, Basophils (%) (Auto) 0, Neutrophils # (Auto) 4.5, Lymphocytes # (Auto) 1.2, Monocytes # (Auto) 0.7, Eosinophils # (Auto) 0.2, Basophils # (Auto) 0.0, Sodium Level 137, Potassium Level 4.1, Chloride Level 103, Carbon Dioxide Level 21, Anion Gap 13, Blood Urea Nitrogen 30, Creatinine 1.73, Estimat Glomerular Filtration Rate 38, BUN/ Creatinine Ratio 17, Glucose Level 157, Mean Blood Glucose 169, Hemoglobin A1c 7.5, Calcium Level 9.6, Corrected Calcium 9.8, Total Bilirubin 0.5, Aspartate Amino Transf (AST/SGOT) 47, Alanine Aminotransferase (ALT/SGPT) 70, Alkaline Phosphatase 75, Total Protein 6.9, Albumin 3.8 08/31/18 11:07: Glucometer 260 08/31/18 17:53: Glucometer 177 08/31/18 21:05: Glucometer 263 09/01/18 05:15: Glucometer 161 09/01/18 12:34: Glucometer 197 09/01/18 17:39: Glucometer 150 09/01/18 21:28: Glucometer 184 09/02/18 06:01: Glucometer 181 09/02/18 10:54: Glucometer 116 09/02/18 17:03: Glucometer 157 09/02/18 20:45: Glucometer 323 09/02/18 21:31: Glucometer 311 09/03/18 04:37: Glucometer 122 09/03/18 11:39: Glucometer 194 09/03/18 16:26: Glucometer 270 09/03/18 17:38: Glucometer 265 09/03/18 20:49: Glucometer 233 09/04/18 04:57: Glucometer 169 09/04/18 05:28: Sodium Level 137, Potassium Level 4.6, Chloride Level 103, Carbon Dioxide Level 21, Anion Gap 13, Blood Urea Nitrogen 40, Creatinine 2.27, Estimat Glomerular Filtration Rate 28, BUN/Creatinine Ratio 18, Glucose Level 164, Calcium Level 9.4, Corrected Calcium 9.5, Magnesium Level 2.3, Total Bilirubin 0.4, Aspartate Amino Transf (AST/SGOT) 21, Alanine Aminotransferase (ALT/SGPT) 38, Alkaline Phosphatase 78, B-Type Natriuretic Peptide 275.8, Total Protein 6.8, Albumin 3.9 09/04/18 10:31: Glucometer 174 09/04/18 16:50: Glucometer 245 09/04/18 21:02: Glucometer 188 09/04/18 21:45: Glucometer 179 09/05/18 05:45: Glucometer 189 09/05/18 06:35: Sodium Level 134, Potassium Level 4.3, Chloride Level 103, Carbon Dioxide Level 20, Anion Gap 11, Blood Urea Nitrogen 50, Creatinine 2.59, Estimat Glomerular Filtration Rate 24, BUN/Creatinine Ratio 19, Glucose Level 185, Calcium Level 9.5 09/05/18 11:36: Glucometer 155 Discharge Home Medications: Active Scripts Active Pantoprazole Sodium 40 Mg Tablet.dr 40 Mg PO DAILY@0700 Glyburide 2.5 Mg Tablet 2.5 Mg PO DAILY@0630 Amlodipine Besylate 10 Mg Tablet 10 Mg PO DAILY Metoprolol Tartrate 50 Mg Tablet 50 Mg PO BID Isosorbide Mononitrate ER (Isosorbide Mononitrate) 30 Mg Tab.er.24h 15 Mg PO DAILY@1800 Isosorbide Mononitrate ER (Isosorbide Mononitrate) 30 Mg Tab.er.24h 30 Mg PO DAILY@0630 Ranexa (Ranolazine) 500 Mg Tab.er.12h 500 Mg PO BID Hydralazine HCl 25 Mg Tablet 25 Mg PO Q8HR Clonidine HCl 0.1 Mg Tablet 0.1 Mg PO BID Reported Aspirin EC (Aspirin) 81 Mg Tablet.dr 81 Mg PO DAILY Atorvastatin Calcium 20 Mg Tablet 20 Mg PO DAILY LAST FILLED #120 01-11-18 Calcium 500 + Vit D Caplet (Calcium Carbonate/Vitamin D3) 1 Each Tablet 1 Tab PO DAILY Magnesium Oxide 400 Mg Tablet 400 Mg PO BID Gemfibrozil 600 Mg Tablet 600 Mg PO BID LAST FILLED #240 01-11-18 Vitamin E (Vitamin E Acetate) 400 Unit Capsule 400 Unit PO DAILY Vitamin B-12 (Cyanocobalamin (Vitamin B-12)) 1,000 Mcg Tablet 1,000 Mcg PO DAILY Fish Oil 1,000 mg Capsule ([place] 3 Polyunsat Fatty Acids) 1,000 Mg Cap 1,000 Mg PO TID Multivitamins (Multivitamin) 1 Each Tablet 1 Tab PO DAILY Instructions to patient/family Please see electronic discharge instructions given to patient. Diagnosis/Problems Diagnosis/Problems (1) Hemorrhage, intracranial Status: Acute (2) Aphasia Status: Acute (3) Confusion Status: Acute (4) Balance problem Status: Acute (5) Hypertension Status: Chronic Qualifiers: Qualified Codes: I10 - Essential (primary) hypertension (6) Diabetes mellitus Status: Chronic Qualifiers: Qualified Codes: E11.22 - Type 2 diabetes mellitus with diabetic chronic kidney disease; N18.3 - Chronic kidney disease, stage 3 (moderate) (7) CAD (coronary artery disease) Qualifiers: Qualified Codes: I25.118 - Atherosclerotic heart disease of [place] coronary artery with other forms of angina pectoris (8) Angina pectoris Status: Chronic (9) Hyperlipidemia Status: Chronic Qualifiers: Qualified Codes: E78.2 - Mixed hyperlipidemia (10) Renal insufficiency Status: Chronic (11) Anemia Status: Chronic Qualifiers: Qualified Codes: D64.9 - Anemia, unspecified (12) Thrombocytopenia Status: Acute Clinical Quality Measures DVT/VTE Risk/Contraindication: Risk Factor Score Per Nursin RFS Level Per Nursing on Admit: 4+=Very High RAMIN HODGSON DO Sep 05, 2018 11:16
--- NOTE | 2018-09-05 11:17 | NUR ---
Notified by both therapy and nursing staff that patient is doing markedly well with therapy and wishes to return home. HHC, nor medical equipment recommended. Dr. Muhammad notified of recommendation and in agreement. Met with patient and spouse to discuss approval of dismissal. Patient and spouse do not have any concerns.
[2018-09-05 12:44] VITALS: BP 121/53
--- NOTE | 2018-09-05 12:44 | NUR ---
Patient discharged to home accompanied by , ambulatory to private vehicle. Discharge instructions explained and given to patient and . Patient's says that her children will read over the instructions and medications later this afternoon. Number to Inpatient Rehab included in paperwork, family encouraged to call with any questions.
--- NOTE | 2018-09-05 13:09 | Speech Therapy Daily Note ---
Speech Daily Progress Note Subjective Date Seen by Provider: Sep 05, 2018 Time Seen by Provider: 00:30 Patient is excited to be returning home today. Objective Patient completed memory tasks related to the function of items at 80% with decreased verbal cues. Assessment Assessment Current Status: Good Progress Treatment Plan Discontinue ST, Goals Met Communication Comprehension: 6 Expression: 6 Patient speaks Armenian with Burkinan as a second language. Social Cognition Social Interaction: 6 Problem Solvin Memory: 6 Speech Short Term Goals Short Term Goals Short Term Goals 1) Patient will complete memory tasks related to himself at 80% or greater. Met 2) Patient will complete problem solving tasks related to himself at 80% or greater. Met 3) Patient will utilize alternative communication with 80% or greater. Met Speech Care Home Goals Liner Replacer Goals Patient will improve memory and problem solving for increased safety and independence. Met Speech-Plan Patient/Family Goals Patient/Family Goals: Patient is returning home with his today. Treatment Plan Speech Therapy Treatment Plan: Discontinue ST, Goals Met Patient made good progress with skilled ST services. Treatment Duration: Sep 05, 2018 Frequency: 5 times per week Estimated Hrs Per Day: .5 hour per day Rehab Potential: Good Barriers to Learning: Burkinan is his second language. Safety Risks/Education Teaching Recipient: Patient Teaching Methods: Discussion Response to Teaching: Verbalize Understanding Education Topics Provided: Safety Time Speech Therapy Time In: 11:30 Speech Therapy Time Out: 12:00 Total Billed Time: 30 Billed Treatment Time 1, ABAD Vega Sep 05, 2018 13:09
--- NOTE | 2018-09-05 13:13 | Therapy Team Discharge Summary ---
Therapy Discharge Summary Discharge Recommendations Date of Discharge Therapy D/C Recommendations: Physical Therapy Home Care Occupational Therapy Decreased Activ Tolerance, Decreased UE Strength, Dependent Transfers, Impaired Cognition, Impaired Funct Balance, Impaired I ADL's, Impaired Self-Care Skills Speech-Language Pathology Patient was admitted to the ARU following a brain bleed. Patient initially exhibited decreased memory and problem solving skills. Patient is Tajik speaking with Wallisian as his second language. Prior to his head trauma the patient spoke fluent Wallisian. ST exercises focused on memory of Wallisian and safety within his immediate environment. The patient is returning home today with his and other family support. The patient is being discharged from [facility] this date. PT Long-Term Goals Supervisor [place]ling And Joining Goals PT Long-Term Goals Time Frame: Sep 21, 2018 Transfers (B,C,W/C) (FIM): 6 Roll Left to Right (QC): 6 Sit to Lying (QC): 6 Lying-Sitting on Side/Bed(QC): 6 Sit to Stand (QC): 6 Chair/Inp-ye-Brrbi Xfer(QC): 6 Car Transfer (QC): 6 Gait (FIM): 6 Distance: 200' Walk 10 feet (QC): 6 Walk 10ft-Uneven Surface(QC): 6 Walk 50ft with 2 Turns (QC): 6 Walk 150 ft (QC): 6 Gait Level of Assist: 6 Gait Assistive Device: None, Cane Single Point Stairs (FIM): 2 # of Steps: 4 1 Step (curb) (QC): 4 4 Steps (QC): 4 Stairs Level Of Assist: 5 OT Supervisor [place] [employer] [place] Goals Supervisor [place] [employer] [place] Goals Time Frame: Sep 21, 2018 Eating (FIM): 6 Eating (QC): 6 Oral Hygiene (QC): 6 Grooming(FIM): 6 Bathing(FIM): 5 Shower/Bathe Self (QC): 5 Upper Body Dressing(FIM): 6 Upper Body Dressing (QC): 6 Lower Body Dressing(FIM): 6 Lower Body Dressing (QC): 6 On/Off Footwear (QC): 6 Toileting(FIM): 6 Toileting Hygiene (QC): 6 Toilet/Commode Transfer(FIM): 6 Toilet/Commode Transfer (QC): 6 Shower Transfer(FIM): 5 1=Demonstrate adherence to instructed precautions during ADL tasks. 2=Patient will verbalize/demonstrate understanding of assistive devices/ modifications for ADL. 3=Patient will improve strength/tolerance for activity to enable patient to perform ADL's. Speech Long-Term Goals Long-Term Goals Patient will improve memory and problem solving for increased safety and independence. Met ABAD BILLINGS Sep 05, 2018 13:13
--- NOTE | 2018-09-05 13:43 | Occupational Ther Daily Note ---
OT Current Status-Daily Note Subjective Pt to discharge today. Pt declined shower with SHIELDS stating that he wanted to complete with present. Mental Status/Objective Therapy Code Descriptions/Definitions Functional [place] Measure: 0=Not Assessed/NA 4=Minimal Assistance 1=Total Assistance 5=Supervision or Setup 2=Maximal Assistance 6=Modified [place] 3=Moderate Assistance 7=Complete [place] ADL-Treatment Report per and pt for ADLs. Therapy Code Descriptions/Definitions Functional [place] Measure: 0=Not Assessed/NA 4=Minimal Assistance 1=Total Assistance 5=Supervision or Setup 2=Maximal Assistance 6=Modified [place] 3=Moderate Assistance 7=Complete [place] Therapy Quality Codes: 6 Independent with activity with or without an assistive device 5 Patient requires set up or clean up by helper. Patient completes activity by themselves 4 Supervision or touching assist (CGA). Haslet provide cues , steadying assist 3 The helper provides less than half the effort to complete the activity 2 The helper provides more than half the effort to complete the activity 1 Dependent. The helper does all the effort to complete an activity 7 Patient refused to complete or attempt activity 9 The patient did not perform the activity before the current illness or injury 88 Not attempted due to Medical conditions or safety concerns Oral Hygiene (QC): 6 (Standing at sink. Pt able to complete.) Bathing (FIM): 6 (Using grabbar, shower bench and hand held shower pt able to complete by self.) Bathing Location: L Arm, R Arm, L Upper Leg, R Upper Leg, R Lower Leg ( including foot), Chest, Buttocks, Perineal Area Shower/Bathe Self (QC): 6 Upper Body (FIM): 7 (Pt able to retrieve clothing and don/doff by self.) Upper Body Dressing (QC): 6 Lower Body Dressing (FIM): 7 (Pt able to retrieve clothing and don/doff by self.) Lower Body Dressing (QC): 6 On/Off Footwear (QC): 6 Shower Transfer(FIM): 6 (Using grabbar and shower bench pt able to transfer by self.) OT Short Term Goals Short Term Goals Time Frame: Sep 07, 2018 Grooming(FIM): 5 Bathing(FIM): 5 Lower Body Dressing(FIM): 5 Toileting(FIM): 5 Toilet/Commode Transfer(FIM): 5 Additional Short Term Goals: 1-Demonstrate ADL Tasks, 2-Verbalize Understanding , 3-ImproveStrength/Colin 1=Demonstrate adherence to instructed precautions during ADL tasks. 2=Patient will verbalize/demonstrate understanding of assistive devices/ modifications for ADL. 3=Patient will improve strength/tolerance for activity to enable patient to perform ADL's. OT Field Service Supervisor Goals Residential Goals Time Frame: Sep 21, 2018 Eating (FIM): 6 (met) Eating (QC): 6 (met) Groomin (met) Oral Hygiene (QC): 6 (met) Bathing(FIM): 5 (met) Shower/Bathe Self (QC): 5 (met) Upper Body Dressing(FIM): 6 (met) Upper Body Dressing (QC): 6 (met) Lower Body Dressing(FIM): 6 (met) Lower Body Dressing (QC): 6 (met) On/Off Footwear (QC): 6 (met) Toileting(FIM): 6 (met) Toileting Hygiene (QC): 6 (met) Toilet/Commode Transfer(FIM): 6 (met) Toilet/Commode Transfer (QC): 6 (met) Shower Transfer(FIM): 5 (met) 1=Demonstrate adherence to instructed precautions during ADL tasks. 2=Patient will verbalize/demonstrate understanding of assistive devices/ modifications for ADL. 3=Patient will improve strength/tolerance for activity to enable patient to perform ADL's. OT Education/Plan Discharge Recommendations Plan/Recommendations: Discharge/Goals Met Therapy D/C Recommendations: Occupational Therapy Home Care, Occupational Therapy Outpatient Treatment Plan/Plan of Care Patient would benefit from OT for education, treatment and training to promote independence in ADL's, mobility, safety and/or upper extremity function for ADL' s. Plan of Care: ADL Retraining, Functional Mobility, Group Exercise/Act as Ind, UE Funct Exercise/Act Treatment Duration: Sep 21, 2018 Frequency: At least 5 of 7 days/Wk (IRF) Estimated Hrs Per Day: 1.5 hours per day Agreement: Yes Rehab Potential: Good Time/GCodes Start Time: 12:05 Stop Time: 12:13 Total Time Billed (hr/min): 8 Billed Treatment Time No charge. Discussed with how pt completed his ADLs. MACI ACOSTA Sep 05, 2018 13:43
--- NOTE | 2018-09-06 11:01 | Therapy Team Discharge Summary ---
Therapy Discharge Summary Discharge Recommendations Date of Discharge Sep 05, 2018 at 12:44 Therapy D/C Recommendations: Occupational Therapy Home Care, Occupational Therapy Outpatient Occupational Therapy Pt admitted to ARU following acute hospitalization for intracranial hemorrhage. On admission pt required min assist for LE dressing and bathing, and CGA for transfers. Skilled OT intervention focused on ADL training, transfers, strengthening, and safety. Pt made good progress with therapy and by discharge is modified independent to independent with basic ADLs and transfers. Pt met all OT LTG. Pt discharged home with family support. D/C ARU OT at this time. Decreased Activ Tolerance, Decreased UE Strength, Dependent Transfers, Impaired Cognition, Impaired Funct Balance, Impaired I ADL's, Impaired Self-Care Skills PT [facility] Goals Technical Writer Goals PT [facility] Goals Time Frame: Sep 21, 2018 Transfers (B,C,W/C) (FIM): 6 Roll Left to Right (QC): 6 Sit to Lying (QC): 6 Lying-Sitting on Side/Bed(QC): 6 Sit to Stand (QC): 6 Chair/Kps-nv-Hjpll Xfer(QC): 6 Car Transfer (QC): 6 Gait (FIM): 6 Distance: 200' Walk 10 feet (QC): 6 Walk 10ft-Uneven Surface(QC): 6 Walk 50ft with 2 Turns (QC): 6 Walk 150 ft (QC): 6 Gait Level of Assist: 6 Gait Assistive Device: None, Cane Single Point Stairs (FIM): 2 # of Steps: 4 1 Step (curb) (QC): 4 4 Steps (QC): 4 Stairs Level Of Assist: 5 OT [facility] Goals [facility] Goals Time Frame: Sep 21, 2018 Eating (FIM): 6 (met) Eating (QC): 6 (met) Oral Hygiene (QC): 6 (met) Grooming(FIM): 6 (met) Bathing(FIM): 5 (met) Shower/Bathe Self (QC): 5 (met) Upper Body Dressing(FIM): 6 (met) Upper Body Dressing (QC): 6 (met) Lower Body Dressing(FIM): 6 (met) Lower Body Dressing (QC): 6 (met) On/Off Footwear (QC): 6 (met) Toileting(FIM): 6 (met) Toileting Hygiene (QC): 6 (met) Toilet/Commode Transfer(FIM): 6 (met) Toilet/Commode Transfer (QC): 6 (met) Shower Transfer(FIM): 5 (met) 1=Demonstrate adherence to instructed precautions during ADL tasks. 2=Patient will verbalize/demonstrate understanding of assistive devices/ modifications for ADL. 3=Patient will improve strength/tolerance for activity to enable patient to perform ADL's. Speech Technical Writer Goals [facility] Goals Patient will improve memory and problem solving for increased safety and independence. Met GISSELL CARRINGTON OT Sep 06, 2018 11:01
--- NOTE | 2018-09-06 11:32 | Therapy Team Discharge Summary ---
Therapy Discharge Summary Discharge Recommendations Date of Discharge Sep 05, 2018 at 12:44 Therapy D/C Recommendations: Occupational Therapy Home Care, Occupational Therapy Outpatient Physical Therapy Patient came to rehab with CVA. Upon evaluation patient performed bed mobility with SBA, supine <-> sit with SBA, sit <-> stand with CGA, transfers with CGA, car transfer CGA, ambulated 150' with CERAMICS TECHNICIAN with CGA (including 50' with at least 2 turns of 90 degrees and 10' over an uneven surface), and went up an down 4 steps using 2 handrails with min assist. Patient has been performing bed mobility and transfer training, balance and endurance training, functional strengthening, stair training, gait training, and education. He has made good progress and has met all of his emergency management program specialist goals. Now, patient performs bed mobility and transfers with independence, car transfer with independence, ambulates 200' without an assistive device with independence (including 50' with at least 2 turns of 90 degrees and 10' over an uneven surface), and can go up and down 12 steps using 2 handrails with mod I. Patient was discharged from this facility yesterday and will be discharged from PT at this time. Occupational Therapy Decreased Activ Tolerance, Decreased UE Strength, Dependent Transfers, Impaired Cognition, Impaired Funct Balance, Impaired I ADL's, Impaired Self-Care Skills PT Half-Way Goals Half-Way Goals PT Geomorphologist Goals Time Frame: Sep 21, 2018 Transfers (B,C,W/C) (FIM): 6 Roll Left to Right (QC): 6 Sit to Lying (QC): 6 Lying-Sitting on Side/Bed(QC): 6 Sit to Stand (QC): 6 Chair/Ygh-jt-Xswew Xfer(QC): 6 Car Transfer (QC): 6 Gait (FIM): 6 Distance: 200' Walk 10 feet (QC): 6 Walk 10ft-Uneven Surface(QC): 6 Walk 50ft with 2 Turns (QC): 6 Walk 150 ft (QC): 6 Gait Level of Assist: 6 Gait Assistive Device: None, Cane Single Point Stairs (FIM): 2 # of Steps: 4 1 Step (curb) (QC): 4 4 Steps (QC): 4 Stairs Level Of Assist: 5 OT Half-Way Goals Geomorphologist Goals Time Frame: Sep 21, 2018 Eating (FIM): 6 (met) Eating (QC): 6 (met) Oral Hygiene (QC): 6 (met) Grooming(FIM): 6 (met) Bathing(FIM): 5 (met) Shower/Bathe Self (QC): 5 (met) Upper Body Dressing(FIM): 6 (met) Upper Body Dressing (QC): 6 (met) Lower Body Dressing(FIM): 6 (met) Lower Body Dressing (QC): 6 (met) On/Off Footwear (QC): 6 (met) Toileting(FIM): 6 (met) Toileting Hygiene (QC): 6 (met) Toilet/Commode Transfer(FIM): 6 (met) Toilet/Commode Transfer (QC): 6 (met) Shower Transfer(FIM): 5 (met) 1=Demonstrate adherence to instructed precautions during ADL tasks. 2=Patient will verbalize/demonstrate understanding of assistive devices/ modifications for ADL. 3=Patient will improve strength/tolerance for activity to enable patient to perform ADL's. Speech Geomorphologist Goals Half-Way Goals Patient will improve memory and problem solving for increased safety and independence. Met DONTAE BEAR PT Sep 06, 2018 11:32
== END 2018-09-05 12:44 | disposition home or self-care (01) | DRG 56 ==
PROVIDERS: ADMIT Internal Medicine; ATTEND Internal Medicine
DX: I69.220 Aphasia following other nontraumatic intracranial hemorrhage (principal); I69.218 Other symptoms and signs involving cognitive functions following other nontraumatic intracranial hemorrhage; I69.298 Other sequelae of other nontraumatic intracranial hemorrhage; R26.89 Other abnormalities of gait and mobility; R32 Unspecified urinary incontinence; I21.4 Non-ST elevation (NSTEMI) myocardial infarction; I25.718 Atherosclerosis of autologous vein coronary artery bypass graft(s) with other forms of angina pectoris; I25.118 Atherosclerotic heart disease of native coronary artery with other forms of angina pectoris; E11.22 Type 2 diabetes mellitus with diabetic chronic kidney disease; N18.3 Chronic kidney disease, stage 3 (moderate); E11.65 Type 2 diabetes mellitus with hyperglycemia; I12.9 Hypertensive chronic kidney disease with stage 1 through stage 4 chronic kidney disease, or unspecified chronic kidney disease; E78.2 Mixed hyperlipidemia; I73.9 Peripheral vascular disease, unspecified; D69.6 Thrombocytopenia, unspecified; D64.9 Anemia, unspecified; F41.9 Anxiety disorder, unspecified; F32.9 Major depressive disorder, single episode, unspecified; Z87.891 Personal history of nicotine dependence; Z95.1 Presence of aortocoronary bypass graft; Z95.5 Presence of coronary angioplasty implant and graft; Z79.84 Long term (current) use of oral hypoglycemic drugs
CPT/HCPCS: 36415; 80048; 80053; 82962; 83036; 83735; 83880; 85025

== ENCOUNTER → 2018-10-20 | Outpatient (CLI) | payer MEDICARE ==
[~2018-10-20] MED LIST changes: +AMLO10TA7 PO; -AMLO5TAB7 PO; +AMLO5TAB9 PO; +CLON0.1T PO; -GEMF600T4 PO; +GEMF600T8 PO; +GLYB2.5T4 PO; +HYDR-3923 PO; +LOSA100T57 PO; -LOSA100T8 PO; +METO50TA15 PO; +PANT40TA3 PO; +RANO500T3 PO
--- NOTE | 2018-10-20 12:08 | Diagnostic Imaging Report ---
PROCEDURE: US Renal Bilateral. TECHNIQUE: Multiple real-time grayscale images were obtained over the kidneys in various projections bilaterally. INDICATION: Chronic kidney disease stage III. FINDINGS: Right kidney measures 10.0 x 4.9 x 3.7 cm and the left kidney measures 10.6 x 6.5 x 5.1 cm. Cortical thickness and echogenicity appears normal. No calculi are seen. There is no hydronephrosis. The left kidney does contain two cysts. The largest is medially located measuring 2.2 x 1.5 x 2.0 cm. Smaller cyst laterally measures approximately 1.5 x 1.6 cm. Images of the bladder are unremarkable. Left ureteral jet was visualized. Right jet was not visualized. IMPRESSION: Left renal cysts. No other significant abnormality is detected. Dictated by: Dictated on workstation # [id number]
== END ==
LOC: RAD 10:20
PROVIDERS: ATTEND Internal Medicine Nephrology
DX: N18.3 Chronic kidney disease, stage 3 (moderate) (principal); N28.1 Cyst of kidney, acquired
CPT/HCPCS: 76770

== ENCOUNTER → 2019-05-29 | Outpatient (CLI) | payer MEDICARE ==
[~2019-05-29] MED LIST changes: +CYAN-41 PO; -CYAN10006 PO
== END ==
LOC: CARD 12:38
PROVIDERS: ATTEND Internal Medicine Cardiovascular Disease
DX: I34.0 Nonrheumatic mitral (valve) insufficiency (principal); I25.10 Atherosclerotic heart disease of native coronary artery without angina pectoris; I65.29 Occlusion and stenosis of unspecified carotid artery; I11.9 Hypertensive heart disease without heart failure; E78.2 Mixed hyperlipidemia; E78.1 Pure hyperglyceridemia
CPT/HCPCS: 93306

== ENCOUNTER 2019-06-07 09:14 | Day surgery (SDC) | payer MEDICARE ==
[2019-06-07] VITALS (10 sets, daily range): BP systolic 146–196; BP diastolic 59–85
[~2019-06-07] VITALS: Ht 172 cm; Wt 81.2 kg
[2019-06-07] MEDS ORDERED: LIDOCAINE 1% INJ 20 ML 20 ML VIAL ONE (09:21)
[2019-06-07] MEDS ORDERED: NS IV 1000 ML 1,000 ML ONE ×3 (09:21→14:03)
[2019-06-07] MEDS ORDERED: HEParin (CATH LAB) 2,000 ML IV ONE (09:21)
[2019-06-07] MEDS: NS IV 1000 ML 1,000 ML IV SCH ×4 (09:51→23:35)
[2019-06-07 10:09] LABS: HEMOGLOBIN 14.3 G/DL (13.3-17.7); MEAN PLATELET VOLUME 11.7 FL (7.4-10.4); RED CELL DISTRIBUTION WIDTH 14.2 % (10.0-14.5); WHITE BLOOD COUNT 6.4 10^3/uL (4.3-11.0)
--- NOTE | 2019-06-07 10:11 | Diagnostic Imaging Report ---
INDICATION: Peripheral vascular disease and hypertension. TIME OF EXAM: 09:43 a.m. COMPARISON: Correlation is made with prior chest from 08/19/2018. FINDINGS: Changes of median sternotomy and CABG are noted. The heart size is stable. Lungs are clear. The pulmonary vascularity is normal. No infiltrate, effusion or pneumothorax is seen. IMPRESSION: No acute cardiopulmonary process is detected. Dictated by: Dictated on workstation # [id number]
[2019-06-07 10:19] LABS: PROTHROMBIN TIME PATIENT 13.7 SEC (12.2-14.7)
[2019-06-07 10:25] LABS: ALANINE AMINOTRANSFERASE 37 U/L (0-55); ALBUMIN 4.9 GM/DL (3.2-4.5); ALKALINE PHOSPHATASE 107 U/L (40-136); BILIRUBIN,TOTAL 0.4 MG/DL (0.1-1.0); BUN/CREATININE RATIO 21; CALCIUM 10.2 MG/DL (8.5-10.1); CARBON DIOXIDE 23 MMOL/L (21-32); CHLORIDE 105 MMOL/L (98-107); CHOLESTEROL 234 MG/DL (< 200); CREATININE SERUM 1.93 MG/DL (0.60-1.30); GFR ESTIMATED 34; GLUCOSE 144 MG/DL (70-105); HDL CHOLESTEROL 52 MG/DL (40-60); POTASSIUM 3.9 MMOL/L (3.6-5.0); SODIUM 141 MMOL/L (135-145); TOTAL PROTEIN 8.3 GM/DL (6.4-8.2); TRIGLYCERIDES 103 MG/DL (<150); VLDL CHOLESTEROL 21 MG/DL (5-40)
[2019-06-07] MEDS ORDERED: METO-333 PO (10:25)
[2019-06-07] MEDS ORDERED: ISOS30TA3 PO (10:25)
[2019-06-07] MEDS ORDERED: CLON0.1T PO (10:25)
[2019-06-07] MEDS ORDERED: HYDR-3923 PO (10:25)
[2019-06-07] MEDS ORDERED: GLYB2.5T4 PO (10:25)
[2019-06-07] MEDS ORDERED: AMLO10TA7 PO (10:25)
[2019-06-07] MEDS ORDERED: ATOR20TA66 PO (10:26)
--- NOTE | 2019-06-07 10:27 | NUR ---
SPOKE WITH PT (ALSO HIS ) WELL CALLING [facility] TO COMPLETE THE MED REC. PT AND WERE ABLE TO TELL ME HOW/WHEN MEDS WERE TAKEN TO THE BEST OF THEIR ABILITIES (HE RECENTLY HAD A STROKE AND SEEMED TO NOT BE CONFIDENT ABOUT HIS MED HISTORY) AND TOLD ME WHAT SHE COULD REMEMBER. DID LET ME KNOW THAT THEY STOPPED SOME OF HIS MEDS DUE TO HIS STOKE. (IE METFORMIN, FISH OIL, MAGNESIUM, ASPIRIN) I CALLED [facility] TO FOLLOW UP ON DATES (AND COMPLIANCE). THE FOLLOW ARE FILL DATES ACCORDING TO [facility]: 06-05-2019 HYDRALAZINE #90/30DS 05-23-2019 CLONIDINE #90/30DS 04-22-2019 METOPROLOL TART #180/90DS 04-22-2019 AMLODIPINE #90/90DS 04-22-2019 GLYBURIDE #90/90DS 02-16-2019 ISOSORBIDE #90/90DS 01-30-2019 ATORVASTATIN #30/30DS OTC MEDS: VIT B12: 1 DAILY MULTIVITAMIN : 1 DAILY
[2019-06-07] MEDS ORDERED: fentaNYL INJECTION 100 MCG/2 ML AMP ONE (12:49)
[2019-06-07] MEDS ORDERED: MIDAZOLAM 5 MG/5 ML (VERSED) VIAL ONE (12:49)
--- NOTE | 2019-06-07 13:03 | Cardiac Procedure Note-CS/ASA ---
Pre-Procedure Note Pre-Op Procedure Note H&P Reviewed The H&P was reviewed, patient examined and no changes noted. Date H&P Reviewed: Jun 07, 2019 Time H&P Reviewed: 13:02 Conscious Sedation Pre-Proced Time 13:02 ASA Score 3 For ASA 3 and 4: Consider anesthesia and medical clearance. Also, for patients with a history of failed moderate sedation consider anesthesia. Airway Lungs Heart ASA score ASA 1: a normal healthy patient ASA 2: a patient with a mild systemic disease (mid diabetes, controlled hypertension, obesity x ASA 3: a patient with a severe systemic disease that limits activity (angina, COPD, prior Myocardial infarction) ASA 4: a patient with an incapacitating disease that is a constant threat to life (CHF, renal failure) ASA 5: a moribund patient not expected to survive 24 hrs. (ruptured aneurysm) ASA 6: a declared brain- patient whose organs are being harvested. For emergent operations, add the letter E after the classification Mallampati Classification Grade 3 Sedation Plan Analgesia, Amnesia, Plan communicated to team members, Discussed options with patient/fam, Discussed risks with patient/fam The patient is an appropriate candidate to undergo the planned procedure, sedation, and anesthesia. The patient immediately re-assessed prior to indication. ARIELLE CHAVEZ MD Jun 07, 2019 13:03
[2019-06-07] MEDS ORDERED: HEParin 1000 UNIT/ML (10ML VIAL) FOR BOLUS ONE (13:30)
[2019-06-07] MEDS ORDERED: NITRO DRIP 25000 MCG/D5W 250 ML IV ONE (13:46)
[2019-06-07] MEDS ORDERED: NON-FORMULARY MEDICATION 1 EA EA (Hydralazine HCl 25 MG) PO SCH (14:00)
[2019-06-07] MEDS ORDERED: PATIENT MAY USE OWN MEDS, ALL PO SCH (14:00)
--- NOTE | 2019-06-07 14:04 | Peripheral Report ---
Peripheral Report Physician (s)/Senior System Operator (s) Physician ARIELLE CHAVEZ MD Pre-Procedure Diagnosis Pre-Procedure Diagnosis: Peripheral arterial disease Post-Procedure Note Procedure Start Date: Jun 07, 2019 Name of Procedure: Bilateral lower extremity runoff Third order Additional imaging LEAN FACILITATOR to the peroneal artery on the left Findings/Procedure Note PROCEDURE NOTE: 79 years old gentleman with extensive peripheral arterial disease, has been having significant claudication, had multiple intervention the past, had abnormal ABIs scheduled for peripheral angiogram possible angioplasty. After explaining the procedure to the patient, all pros and cons were explained, all questions were answered. The patient signed the consent and then he was placed on the cardiac catheterization laboratory. The patient was placed on the cardiac catheterization laboratory. Groin was prepped SL fashion local anesthesia was used. Sheath placed in the right femoral artery, 5 [place] was placed, runoff of the right leg was done with single injection then the rim catheter was advanced to the left common iliac artery on runoff to the left leg was done then over long stork wire the rim catheter was exchanged into a long straight catheter which was advanced to the mid SFA and angiogram was done then I advanced it to the popliteal artery and evaluate the peroneal artery that appeared to have severe lesion with DSA extraction, patient was given 5000 units of heparin, the sheath was exchanged into a long 6 [place] sheath and command 014 wire advanced through the peroneal artery that has subtotal occlusion at its ostium, patient was noted to have occluded anterior tibial and posterior tibial arteries. I advanced a 3 x 80 mm [place] 14 multiple inflation then nitroglycerin was given and repeat angiogram showed excellent results with resolution of the stenosis. The sheath was exchanged into short 6 [place] sheath and closure device was used FINDINGS: Right lower extremity runoff, the sheath was placed within the stent in the right SFA and runoff showed mild to moderate in-stent restenosis, below the trifurcation there was a sluggish flow. I did not want to repeat angiogram to limit the exposure to contrast Left lower extremity runoff, patient had multiple stents within the SFA with [id number]-[id number] disease diffusely total occlusion of the anterior tibial artery and posterior tibial artery, severe stenosis at the ostium of the peroneal artery within the stent successful balloon angioplasty using [place] 3 x 80 mm with multiple inflation with excellent results CONCLUSIONS: 1. Total occlusion on the left leg of the anterior and posterior tibial artery with severe disease at the ostium of the peroneal artery, successful balloon angioplasty using [place] 3 x 80 mm with multiple inflation with excellent results 2. Multiple stents within the left SFA and popliteal artery with mild to moderate in-stent restenosis 3. Multiple stents in the right SFA and right common femoral artery with [id number] in-stent restenosis, below the trifurcation there is sluggish flow, the arteries on the right were not well visualized, no further imaging was done to limit the exposure to contrast due to the underlying renal insufficiency DISCUSSION AND RECOMMENDATIONS: patient was loaded with aspirin and Plavix, I will continue monitoring and will consider bringing him back with left groin access to evaluate the right leg Anesthesia Type: Conscious Sedation Estimated blood loss (mL): 25 ml Contrast Amount: 36 ml Total Radiation Dose: 147 mGy Post-Procedure Diagnosis Post-operative diagnosis: Claudication Peripheral arterial disease Hypertension Hyperlipidemia Coronary artery disease ARIELLE CHAVEZ MD Jun 07, 2019 14:04
[2019-06-07] MEDS ORDERED: ASPIRIN 325 MG (5 GR) TABLET ONE (14:06)
[2019-06-07] MEDS ORDERED: CLOPIDOGREL 300 MG (PLAVIX) TABLET PO ONE (14:06)
[2019-06-07] MEDS: hydrALAZINE (APRESOLINE) 25 MG TAB PO SCH (20:42)
[2019-06-07] MEDS: cloNIDine 0.1 MG (CATAPRES) TAB PO SCH (20:42)
[2019-06-07] MEDS: meTOprolol TARTRATE 25 MG (LOPRESSOR) TABLET PO SCH (20:42)
[2019-06-08] VITALS: BP 146/59
[2019-06-08 03:42] LABS: MEAN PLATELET VOLUME 11.6 FL (7.4-10.4); RED CELL DISTRIBUTION WIDTH 14.4 % (10.0-14.5); WHITE BLOOD COUNT 5.9 10^3/uL (4.3-11.0)
[2019-06-08 04:00] VITALS: BP 158/68
[2019-06-08 04:08] LABS: CALCIUM 8.8 MG/DL (8.5-10.1); CREATININE SERUM 1.42 MG/DL (0.60-1.30); POTASSIUM 3.8 MMOL/L (3.6-5.0)
[2019-06-08] MEDS: hydrALAZINE (APRESOLINE) 25 MG TAB PO SCH (06:08)
[2019-06-08] MEDS: NS IV 1000 ML 1,000 ML IV SCH (06:08)
[2019-06-08] MEDS ORDERED: glyBURIDE 2.5 MG (MICRONASE) TAB PO SCH (07:00)
[2019-06-08] MEDS ORDERED: MULTIVIT W/MINERALS TAB (THERAGRAN M) PO SCH (07:00)
--- NOTE | 2019-06-08 07:33 | Cardiology Progress Note ---
Subjective Date Seen by Provider: Jun 08, 2019 Time Seen by Provider: 07:32 Subjective/Events-last exam Patient is sitting in a chair, groin is healing well. Feeling better. No new complaint Review of Systems General: No Chills, No Night Sweats, No Fatigue, No Malaise, No Appetite, No Ot her HEENT: No Head Aches, No Visual Changes, No Eye Pain, No Ear Pain, No Dysp hasia, No Sinus Congestion, No Post Nasal Drip, No Sore Throat, No Other Pulmonary: No Dyspnea, No Cough, No Pleuritic Chest Pain, No Other Cardiovascular: No: Chest Pain, Palpitations, Orthopnea, Paroxysmal Noc. Dyspnea, Edema, Lt Headedness, Other Objective-Cardiology Exam Last Set of Vital Signs Vital Signs 06/07/19 06/07/19 06/08/19 06/08/19 20:00 21:00 00:00 04:00 Temp 36.2 Pulse 73 Resp 15 B/P (MAP) 158/68 (98) Pulse Ox 98 O2 Delivery Room Air Capillary Refill : Less Than 3 Seconds I&O Intake and Output 06/08/19 00:00 Intake Total 2410 ml Output Total 300 ml Balance 2110 ml Intake Oral 410 ml IV Total 2000 ml Output Urine Total 300 ml # Voids 3 General: Alert, Oriented X3, Cooperative HEENT: Atraumatic, PERRLA Neck: Supple, No JVD, No Thyromegaly Lungs: Clear to Auscultation, Normal Air Movement Heart: Regular Rate, Normal S1, Normal S2, No Murmurs Abdomen: Normal Bowel Sounds, Soft, No Tenderness, No Hepatosplenomegaly, No Masses Extremities: No Clubbing, No Cyanosis, No Edema, Normal Pulses, No Tenderness/Swelling Skin: No Rashes, No Breakdown, No Significant Lesion Neuro: Normal Gait, Normal Speech, Strength at 5/5 X4 Ext, Normal Tone, Sensati on Intact Psych/Mental Status: Mental Status NL, Mood NL Results Lab Laboratory Tests 06/07/19 09:42 06/08/19 02:55 A/P-Cardiology Admission Diagnosis Claudication Peripheral arterial disease Coronary artery disease Hypertension Hyperlipidemia Assessment/Plan Claudication, extensive peripheral arterial disease status post angioplasty to the peroneal artery and tibioperoneal trunk yesterday with good results, planning to bring him back for intervention on the right leg next week, I will wait for a week due to the underlying renal insufficiency Coronary artery disease, clinically stable. Continue to monitor Hypertension, restart home medication monitor next Hyperlipidemia, monitor lipids ARIELLE CHAVEZ MD Jun 08, 2019 07:33
[2019-06-08] MEDS ORDERED: ASPI-983 PO (07:35)
[2019-06-08] MEDS ORDERED: CLOP75TA28 PO (07:35)
--- NOTE | 2019-06-08 07:35 | Discharge Inst-Post CATH ---
Discharge Inst-CATH/EP Problems Reviewed?: Yes Post Cardiac Cath/EP D/C Inst Follow Up/Plan Appointment with Dr. Centeno's office in 2 weeks <b>CARDIAC CATH/EP PROCEDURE DISCHARGE INSTRUCTIONS</b> ACTIVITY * Go Home directly and rest. * Limit activity of the leg (or wrist if it was used) for 7 days including aerobics, swimming, jogging, bicycling, etc. * Restrict stair-climbing for 7 days if possible, if not, climb up with your non-cath leg, then bring together on the same step. * Avoid lifting, pushing, pulling or excessive movement of the affected e xtremity for 7 days. * Customary sexual activity may be resumed after 2 days-use caution not to use a position that strains or causes pain to the affected extremity. * No driving for 24 hours. * NO SMOKING. * Avoid straining for bowel movements for 7 days. * Gentle walking on level ground is allowed. * Returning to work will depend on the type of procedure and the results. Your doctor will discuss this with you. CALL YOUR DOCTOR FOR ANY OF THE FOLLOWING: *If bleeding from the puncture site occurs- Apply gentle pressure to site with clean cloth and call your doctor or EMS. * If a knot or lump forms under the skin, increases in size, or causes pain. * If bruising appears to be worsening or moving further down your leg instead of disappearing. * Temperature above 101 F. CARE OF YOUR GROIN INCISION; * Bruising or purple discoloration of the skin near the puncture site is common. * You may shower only, no bathtub bathing for 5 days. Be careful to avoid slipping as your leg may feel stiff. * If a closure device was used on your femoral artery, please see the attached guide regarding care of the device and your leg. * Leave dressing on FOR 24 hours. CARE OF YOUR WRIST INCISION; * Bruising or purple discoloration of the skin near the puncture site is common. * You may shower. * DO NOT submerge wrist. * Leave dressing on FOR 24 hours. ARIELLE CENTENO MD Jun 08, 2019 07:35
[2019-06-08 08:23] VITALS: BP 158/68
--- NOTE | 2019-06-08 08:27 | NUR ---
Dr. Centeno d/c orders given to patient. Pt had already taken off telemetry and dressed self. 2 week f/u appointment given to patient and advised to call Dr. Centeno's office if have not heard about pending procedure next Wed. He voiced understanding. Pt is ambulating around the unit waiting for to arrive to go home.
[2019-06-08] MEDS: cloNIDine 0.1 MG (CATAPRES) TAB PO SCH (08:39)
[2019-06-08] MEDS: meTOprolol TARTRATE 25 MG (LOPRESSOR) TABLET PO SCH (08:40)
[2019-06-08] MEDS ORDERED: amLODIPine 10 MG (NORVASC) TAB PO SCH (09:00)
[2019-06-08] MEDS ORDERED: NON-FORMULARY MEDICATION 1 EA EA (Amlodipine Besylate 10 MG) PO SCH (09:00)
[2019-06-08] MEDS ORDERED: ISOSORBIDE MONONITRATE 30 MG (IMDUR) TAB PO SCH (09:00)
[2019-06-08] MEDS ORDERED: ASPIRIN E.C. 81 MG (ECOTRIN) TAB PO SCH (09:00)
[2019-06-08] MEDS ORDERED: CLOPIDOGREL 75 MG (PLAVIX) TABLET PO SCH (09:00)
--- NOTE | 2019-06-08 09:38 | NUR ---
Pt d/c to private vehicle with . All personal belongings taken by patient. All f/u appointments and discharge instructions given to patient. He had no questions regarding medications or instructions.
== END 2019-06-08 09:48 | disposition home or self-care (01) ==
LOC: CATH 09:14 → ICU 14:26 → CATH 06-08 09:48
PROVIDERS: ATTEND Internal Medicine Cardiovascular Disease
DX: E11.51 Type 2 diabetes mellitus with diabetic peripheral angiopathy without gangrene (principal); I73.9 Peripheral vascular disease, unspecified; I11.0 Hypertensive heart disease with heart failure; I50.9 Heart failure, unspecified; I77.1 Stricture of artery; I13.0 Hypertensive heart and chronic kidney disease with heart failure and stage 1 through stage 4 chronic kidney disease, or unspecified chronic kidney disease; E11.22 Type 2 diabetes mellitus with diabetic chronic kidney disease; N18.9 Chronic kidney disease, unspecified; E78.2 Mixed hyperlipidemia; E78.1 Pure hyperglyceridemia; Z79.899 Other long term (current) drug therapy; Z79.82 Long term (current) use of aspirin; Z73.3 Stress, not elsewhere classified; Z87.891 Personal history of nicotine dependence; Z95.1 Presence of aortocoronary bypass graft; Z79.01 Long term (current) use of anticoagulants; Z82.49 Family history of ischemic heart disease and other diseases of the circulatory system
CPT/HCPCS: 36248; 36415; 71045; 75716; 80048; 80053; 80061; 85027; 85347; 85610; 85730; 87081; 93005